=== PATIENT | female | born 2000 | race Caucasian/White ===

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

== ENCOUNTER 2021-07-20 20:32 | Inpatient (IN) | payer BC, SELFPAY ==
[2021-07-20] VITALS (9 sets, daily range): BP systolic 125–151; BP diastolic 73–102; PULSE 98–116; RESP 12–25; TEMP 36.8; O2SAT 97–100
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
[2021-07-20 21:12] LABS: Glucose Point of Care 108 mg/dL (70-110)
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
[2021-07-20 21:26] LABS: Basophils % 0.4 %; Eosinophils % 0.6 %; Hematocrit 38.9 % (37.0-47.0); Hemoglobin 12.9 g/dL (11.5-15.3); Lymphocytes # 1.9 10^3/uL (1.5-6.5); Lymphocytes % 35.6 %; Mean Corpuscular HGB Conc 33.2 g/dL (30.0-36.0); Mean Corpuscular Hemoglobin 28.3 pg (28.0-34.0); Mean Corpuscular Volume 85.3 fl (81-99); Mean Platelet Volume 10.2 fL (7.4-10.4); Monocytes # 0.4 10^3/uL (0.2-0.9); Monocytes % 7.8 %; Neutrophils # 2.91 10^3/uL (1.8-8.0); Neutrophils % 55.4 %; Nucleated Red Blood Cells % 0 %; Platelet Count 380 10^3/cmm (130-400); Red Blood Count 4.56 10^6/uL (4.1-5.3); Red Cell Distribution Width 12.9 % (12.1-15.1); White Blood Count 5.3 10^3/uL (4.5-13.0)
[2021-07-20 21:55] LABS: Alanine Aminotransferase 12 U/L (0-33); Albumin Level 4.9 g/dL (3.5-5.2); Alkaline Phosphatase 111 IU/L (35-105); Anion Gap 22.8 (5-19); Aspartate Amino Transferase 18 U/L (0-32); Blood Urea Nitrogen 7 mg/dL (6-20); Calcium 9.5 mg/dL (8.5-10.5); Carbon Dioxide 18 mmol/L (22-29); Chloride 104 mmol/L (98-107); Globulin 3.9 g/dL (1.3-4.6); Glomerular Filtration Rate 158.9 mL/min (90-130); Glucose 113 mg/dL (65-115); Osmolality Calculated 293 mOsm/kg (285-295); Sodium 142 mmol/L (136-145); Thyroid Stimulating Hormone 2.22 uIU/mL (0.27-4.20); Total Bilirubin 0.2 mg/dL (0.15-1.2); Total Protein 8.8 g/dL (6.6-8.7)
[2021-07-20 21:57] LABS: Salicylate < 0.3 mg/dL (3-10)
[2021-07-20 21:58] LABS: Acetaminophen < 5.0 ug/mL (10-30)
--- NOTE | 2021-07-20 21:58 | XRR_ITS ---
PROCEDURE INFORMATION: Exam: XR Chest Exam date and time: 07/20/2021 10:05 PM Age: 20 years old Clinical indication: Other: AMS TECHNIQUE: Imaging protocol: XR of the chest. Views: 1 view. COMPARISON: No relevant prior studies available. FINDINGS: Lungs: Unremarkable. No consolidation. Pleural spaces: Unremarkable. No pleural effusion. No pneumothorax. Heart/Mediastinum: Unremarkable. No cardiomegaly. Bones/joints: Unremarkable. XR/XR chest 1V portable 11395 IMPRESSION: No acute findings.
[2021-07-20 21:59] LABS: Alcohol Level 309 mg/dL (0-10); Potassium 2.8 mmol/L (3.5-5.1)
--- NOTE | 2021-07-20 22:26 | PC.NURSE ---
suctioing pt frequently and straight cath pt for urine sample put on paper pants scrubs
[2021-07-20] MEDS: sodium chloride 0.9% 1,000 ML 999 ML IV (22:45)
[2021-07-20 22:52] LABS: HCG Qualitative Urine. Negative (Negative)
[2021-07-20] MEDS: lidocaine 1% 5 ML in potassium chloride premix 100 ML 25 ML IV (23:00)
--- NOTE | 2021-07-20 23:21 | PC.NURSE ---
pt waking up asking if she is ok no aggressived behavior at this time
--- NOTE | 2021-07-20 23:58 | PC.NURSE ---
Ketamine 2045 - 250 mg IM ketamine administered - 100 mg to left vastus lateralis and 150 mg to right vastus lateralis
[2021-07-21] VITALS (7 sets, daily range): BP systolic 99–124; BP diastolic 62–75; PULSE 74–103; RESP 14–18; TEMP 36.6–37.3; O2SAT 96–99
[2021-07-21] MEDS: potassium chloride ER 20 mEq Tablet 60 MEQ PO (01:00)
[2021-07-21] MEDS: folic acid 1 MG, multivitamin inj 10 ML, thiamine 100 MG in sodium chloride 0.9% 1,000 ML 252.8 MG IV (01:34)
--- NOTE | 2021-07-21 03:06 | PC.NURSE ---
verbal order readback lina Mack to increase iv fluids to 500 mls/hr, potassium continues to infuse at 25 ml\hr
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
[2021-07-21] MEDS: nicotine 2 mg Gum BUCCAL ×2 (08:53→21:27)
[2021-07-21] MEDS: multivitamin therapeutic Tablet 1 TAB PO (08:53)
[2021-07-21] MEDS: folic acid 1 mg Tablet PO (08:53)
[2021-07-21] MEDS: thiamine 100 mg Tablet PO (08:53)
[2021-07-21] MEDS: OLANZapine 5 mg ODT PO ×2 (11:09→21:19)
[2021-07-21] MEDS: ondansetron 4 MG Tablet PO (11:09)
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
--- NOTE | 2021-07-21 14:18 | PC.SOCIAL ---
Patient briefly attended group.
[2021-07-21] MEDS: escitalopram 10 mg Tablet PO (14:52)
[2021-07-21] MEDS: propranolol 20 mg Tablet 10 MG PO ×2 (14:52→20:37)
[2021-07-21 19:20] LABS: Amphetamines Screen Urine Negative (Negative); Barbiturates Screen Urine Negative (Negative); Benzodiazepines Screen Urine Negative (Negative); Cocaine Screen Urine Negative (Negative); Opiate Screen Urine Negative (Negative); PCP Screen Urine Negative (Negative); THC Screen Urine Positive (Negative)
[2021-07-21] MEDS: trazodone 50 mg Tablet PO (20:37)
[2021-07-22 06:00] VITALS: BP 96/61; PULSE 61; RESP 17; TEMP 36.8; O2SAT 97
[2021-07-22] MEDS: propranolol 20 mg Tablet 10 MG PO ×3 (09:02→20:38)
[2021-07-22] MEDS: multivitamin therapeutic Tablet 1 TAB PO (09:02)
[2021-07-22] MEDS: thiamine 100 mg Tablet PO (09:02)
[2021-07-22] MEDS: folic acid 1 mg Tablet PO (09:02)
[2021-07-22] MEDS: escitalopram 10 mg Tablet PO (09:02)
[2021-07-22] MEDS: nicotine 2 mg Gum BUCCAL ×4 (11:19→20:38)
[2021-07-22 14:00] VITALS: BP 97/60; PULSE 68; RESP 16; TEMP 36.5; O2SAT 98
[2021-07-22] MEDS: blistex lip oint 7 gm Tube 1 APPLIC TOPICAL (14:43)
--- NOTE | 2021-07-22 17:40 | PC.NURSE ---
Patient is tearful and anxious regarding being on the unit. Patient verbalized this place is making her crazy. Active listening utilized. Encouraged patient to talk with the nurses and physician about how she is feeling and to request medication as needed for her anxiety. She voiced that she is missing her kids and while talking with her daughter on the phone her baby just cried and this was upsetting. Moved patient to a private room on the sub acute [facility]nandez.
[2021-07-22] MEDS: OLANZapine 5 mg ODT PO (17:45)
--- NOTE | 2021-07-22 18:18 | PC.NURSE ---
PRN MEDICATION PT BECAME TEARFUL AND AGITATED DUE TO NOT SEEING DOCTOR TODAY. STATES THIS PLACE IS MAKING ME CRAZY AND I NEED TO LEAVE. EDUCATED THAT SHE WAS ON A 96 HOUR HOLD AND THIS RN IS NOT ABLE TO DISCHARGE HER. OFFERED ANXIETY MEDICATIONS BUT REFUSED. VERBALLY DEESCALATED, PT STAYED IN ROOM FOR A FEW MINUTES AND CALMED DOWN. PT EVENTUALLY CAME TO NURSES STATION CALMLY AND REQUEST WATER AND SOMETHING FOR ANXIETY. ZYDIS 5 MG GIVEN ORDERED. PT BEGAN TO CONVERSE WITH PEERS AND STAFF AND BECAME ACCLIMATED TO THE UNIT. DID EVENTUALLY CALM AND MEDICATION IS NOTED EFFECTIVE.
--- NOTE | 2021-07-22 18:53 | P.NPUPN_ITS ---
Subjective NPU Subjective: She says that she feels much better. She feels like the medications are helping her. She has been significantly less shaky with the Inderal. She feels like she has been sweating a little more than previously. She has always sweat too much. She did not mention it until I said that Inderal was supposed to help with stage fright and sweaty palms. She thinks it is probably just her nerves and not the medication. She was told that it could be from the Lexapro. Her fianc? came to visit. He says that he is going to quit drinking. He is going to take some treatment for himself and try to change and treat her better. She is going to give him another chance. She says that she doesn't crave alcohol and it is just something to do for her. They both have to take parenting classes and an alcohol assessment at [facility] now that this is been reported. She very much wants to leave tomorrow. Her brother is graduating tomorrow and she wants to spend Mother's Day with her children. Most of the conversation for this note was done on the telephone. I did see her in person twice in the hallway and spoke briefly and she said that she was better. Mental Status Exam MSE Comments: This is a 20-year-old appropriate weight female who appears approximately her stated age and is in mild distress. She is pleasant and cooperative with the evaluation with good eye contact. She is fairly well- groomed. psychomotor activity mildly decreased. Speech is at a regular rate and rhythm, normal volume, good articulation, not pressured. Alert, oriented X3 Attention and concentration appear to be normal. Memory is intact Mood is depressed but better. Affect is moderately dysphoric. She appears anxious Thought process is logical and goal-directed. Thought content: Denies auditory and visual hallucinations. No delusions or paranoia are noted. No current suicidal ideation, and no homicidal ideation. Fund of knowledge is average. Insight and judgment appear to be fairly good. Impulse control is fair. Cognition: Level of Consciousness: Awake and Alert Patient Cognition Impaired: No Ability to Follow Directions: Good Patient Orientation (long list): Person, Place, Time, Month and Year Comprehension Ability: Understands Concepts Hallucination Type: None Delusion Description: Not Present Thought Process: Appropriate Affect: Affect Description: Appropriate and Calm Depressive Symptoms: Low Self Esteem Behavior: Patient Behavior: Appropriate and Cooperative Speech Pattern: Clear Vitals/I&O/Wt Last Vital Signs Temp 97.7 F 07/22/21 14:00 Pulse 68 07/22/21 14:00 Resp 16 07/22/21 14:00 BP 97/60 07/22/21 14:00 Pulse Ox 98 07/22/21 14:00 Weight last 48 hrs Weight 61.235 kg Data NPU : 07/20/21 21:10 07/20/21 21:10 A&P Assessment and plan (1) Acute psychosis: Status: Acute (2) Alcohol abuse: Status: Acute (3) Suicidal ideation: Status: Acute (4) Marijuana use: Status: Acute (5) PTSD (post-traumatic stress disorder): Status: Acute (6) Partner relational problem: Status: Acute Plan This is a 20-year-old female mother of 2 with a very traumatic childhood with PTSD and partner relation problems who presents psychotic with an alcohol level of 309. Plan: 1. We will start Lexapro 10 mg every morning, Inderal 10 mg 3 times a day and trazodone at bedtime 2. Continue every 15 minute checks for safety. 3. Encourage individual, group and milieu therapies. 4. Encourage sober living treatment after discharge at the highest level of care to which she is willing to commit. 5. We will monitor for safety for herself in the community prior to discharge. Involuntary Hold Information 96 Hour Hold: 96 Hour Involuntary Admission: Yes 96 Hour Hold Ending Date: 07/27/21 96 Hour Hold Ending Time: 20:30 Attestations NPU Medical Necessity Statement*: Inpatient hospitalization is medically necessary and the clinically appropriate intervention at this time.? We will initiate medications and make changes as indicated. 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
[2021-07-22 20:27] VITALS: BP 118/75; PULSE 72; RESP 16; O2SAT 98
[2021-07-22] MEDS: trazodone 50 mg Tablet PO (20:38)
[2021-07-23 05:59] VITALS: BP 113/75; PULSE 76; RESP 16; O2SAT 98
[2021-07-23] MEDS: nicotine 2 mg Gum BUCCAL (08:00)
[2021-07-23] MEDS: propranolol 20 mg Tablet 10 MG PO (08:00)
[2021-07-23] MEDS: escitalopram 10 mg Tablet PO (08:00)
[2021-07-23] MEDS: multivitamin therapeutic Tablet 1 TAB PO (08:01)
[2021-07-23] MEDS: folic acid 1 mg Tablet PO (08:01)
[2021-07-23] MEDS: thiamine 100 mg Tablet PO (08:01)
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
[2021-07-23 09:43] VITALS: BP 113/75; PULSE 76; RESP 16; O2SAT 98
== END 2021-07-23 10:05 | disposition home or self-care (01) | DRG 885 ==
LOC: ER 07-21 01:05 → NP 07-21 01:59
PROVIDERS: Emergency Medicine; Admitting Provider Psychiatry & Neurology Psychiatry; Emergency Provider Emergency Medicine; PCP Family Medicine; Visit Provider Psychiatry & Neurology Psychiatry
DX: F29 Unspecified psychosis not due to a substance or known physiological condition (principal); R45.851 Suicidal ideations; F10.10 Alcohol abuse, uncomplicated; F12.90 Cannabis use, unspecified, uncomplicated; F41.9 Anxiety disorder, unspecified; F43.10 Post-traumatic stress disorder, unspecified; Z63.0 Problems in relationship with spouse or partner
CPT/HCPCS: 36416; 71045; 80053; 80306; 80307; 81025; 82962; 84443; 85025; 96365; 96366; 96372; 97150; 97165; 99285; J3411; J3480; J3490; J7030; Q0162

== ENCOUNTER → 2021-08-10 09:35 | Outpatient (BNVA) | payer BC, MEDICAID, SELFPAY | PROVIDERS: PCP Family Medicine; Visit Provider Nurse Practitioner | DX: F41.1 Generalized anxiety disorder (principal); F12.20 Cannabis dependence, uncomplicated; F10.10 Alcohol abuse, uncomplicated; Z72.0 Tobacco use | CPT/HCPCS: 90792 ==

== ENCOUNTER 2022-07-15 14:21 | Emergency (ER) | payer BC, MEDICAID, SELFPAY ==
[2022-07-15 14:22] VITALS: BP 117/79; PULSE 99; RESP 16; TEMP 36.7; O2SAT 100
[2022-07-15 14:45] VITALS: BP 153/91; PULSE 80; RESP 17; TEMP 37.1; O2SAT 98
[2022-07-15 15:21] LABS: Basophils % 0.4 %; Eosinophils % 0.6 %; Hematocrit 38.3 % (37.0-47.0); Hemoglobin 12.5 g/dL (11.5-15.3); Lymphocytes # 1.2 10^3/uL (1.5-6.5); Lymphocytes % 22.2 %; Mean Corpuscular HGB Conc 32.6 g/dL (30.0-36.0); Mean Corpuscular Hemoglobin 29.3 pg (28.0-34.0); Mean Corpuscular Volume 89.7 fl (81-99); Mean Platelet Volume 9.8 fL (7.4-10.4); Monocytes # 0.3 10^3/uL (0.2-0.9); Monocytes % 5.9 %; Neutrophils # 3.82 10^3/uL (1.8-8.0); Neutrophils % 70.7 %; Nucleated Red Blood Cells % 0 %; Platelet Count 258 10^3/cmm (130-400); Red Blood Count 4.27 10^6/uL (4.1-5.3); Red Cell Distribution Width 12.5 % (12.1-15.1); White Blood Count 5.4 10^3/uL (4.5-13.0)
--- NOTE | 2022-07-15 15:34 | ED_ITS ---
HPI - Female Genitourinary General: Chief complaint: Urogenital-Female Stated complaint: around 4 or 5 weeks preg bleeding Time Seen by Provider: 07/15/22 15:16 History of Present Illness: Patient is a 21-year-old female who is 5 weeks and comes to the ED with vaginal bleeding. Bleeding started at 10 AM this morning. She reports bleeding as mild but states she is passing some clots. Patient says she did not even wear a pad before coming to the ED today because her bleeding is minimal. She is also complaining of generalized cramping pains in the abdomen as well that started today. Last menstrual period was June 08, 2022. Denies any fevers, nausea/vomiting, bladder or bowel symptoms Associated symptoms: Deny abdominal pain, headache(s) or nausea Review of Systems Const: Denies: fever(s), chills or fatigue Eyes: Denies: change in vision or eye discomfort ENMT: Denies: throat pain, odynophagia, nasal discharge or nasal congestion Card: Denies: chest pain, palpitations, edema, swelling of feet/ankles, dyspnea on exertion or orthopnea Resp: Denies: dyspnea, productive cough or non-productive cough GI: Denies: abdominal pain, nausea, vomiting, diarrhea, constipation or hematochezia : Reports: vaginal bleeding; Denies: flank pain, dysuria or hematuria Musc: Denies: neck pain, back pain or extremity swelling Skin/Breast: Denies: rash or new lesions Neuro: Denies: headache(s), numbness in extremities or weakness in extremities PFSH ED PFSH: Medical History Alcohol abuse, episodic Alcohol abuse, episodic drinking behavior Anxiety Cannabis dependence, uncomplicated Depression Generalized anxiety disorder Psychiatric care 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 Surgical History S/P adenoidectomy S/P tonsillectomy Family History Mother Psychiatric illness Depression, anxiety Cancer Cervical Anemia Father Psychiatric illness Depression Brother Psychiatric illness Depression, anxiety Sister Psychiatric illness Depression, anxiety Grandmother Cancer Breast Social History Smoking and tobacco status: never smoked Second hand smoke exposure: Yes Alcohol intake: never Substance/Drug Use: former Adopted: No Caregiver/support person: Yes Lives independently: Yes Marital status: Single Number of children: 0 Number of grandchildren: 0 Highest education level completed: 11th Grade service: No Current occupational status: unemployed Current occupational exposures/hazards: No Physical Exam Const: COMMON NORMALS: no acute distress, patient oriented x3, healthy appearing and alert GENERAL APPEARANCE: cooperative HENMT: COMMON NORMALS: normocephalic HEAD & SCALP: normocephalic MOUTH: Normal oral and palatal mucosa present THROAT: posterior oropharynx normal and uvula midline Neck/C-Spine: COMMON NORMALS: supple GENERAL: Yes normal visual inspection Resp: COMMON NORMALS: normal respiratory effort, No retractions, No use of accessory muscles and clear to auscultation bilaterally AUSCULTATION: clear to auscultation bilaterally Cardio: COMMON NORMALS: regular rate, regular rhythm, S1 normal heart sound present, S2 normal heart sound present, No gallops present (Cardio), No clicks present (Cardio), No murmurs present (Cardio) and Peripheral pulses 2+ throughout RATE: regular rate RHYTHM: regular rhythm HEART SOUNDS: S1 normal heart sound present and S2 normal heart sound present PERIPHERAL PULSES: Peripheral pulses 2+ throughout GI: COMMON NORMALS: Normal to inspection, nondistended, normoactive bowel sounds present, Soft to palpation, non-tender and no masses PALPATION: Yes Soft to palpation : COMMON NORMALS: Yes no CVA tenderness BLADDER/KIDNEY EXAM: Yes no CVA tenderness Back/Pelvis: COMMON NORMALS: no CVA tenderness Extremity: COMMON NORMALS: normal to inspection Neuro: COMMON NORMALS: patient oriented x3 SENSORIUM/ORIENTATION: Yes alert GAIT: Yes Normal gait present Skin: GENERAL SKIN EXAM: dry skin Course Vital Signs: Vital signs: Vital Signs Temperature 98.2 F 07/15/22 18:08 Pulse Rate 81 07/15/22 18:08 Respiratory Rate 14 07/15/22 18:08 Blood Pressure 104/53 07/15/22 18:08 Pulse Oximetry 98 07/15/22 18:08 Oxygen Delivery Me thod Room Air 07/15/22 14:45 MDM - Female Medical Decision Making Patient is a 21-year-old female who is 5 weeks and comes to the ED with vaginal bleeding. Bleeding started at 10 AM this morning. She reports bleeding as mild but states she is passing some clots. Patient says she did not even wear a pad before coming to the ED today because her bleeding is minimal. She is also complaining of generalized cramping pains in the abdomen as well that started today. Last menstrual period was June 08, 2022. Denies any fevers, nausea/vomiting, bladder or bowel symptoms. Vitals are stable. UA shows red blood cells, but no other signs of infection noted. hCG quant 142.4. Rest of labs are unremarkable. OB ultrasound showed no evidence of intrauterine gestation which could reflect early gestational age. Patient likely having threatened miscarriage and hCG quant level too low for anything to be seen on ultrasound. Patient was stable for discharge home and told to follow-up with her OB doctor within the next 3 days to recheck hCG quant levels to see if they are trending up or down. Strict return to ED precautions given. Patient understood and agreed with plan. Lab Data I reviewed the patient's lab results. 07/15/22 15:10 07/15/22 15:10 Radiology Impressions Obstetrics Ultrasound 07/15/22 15:38 IMPRESSION: No evidence of intrauterine gestation. This may relate to early gestational age. Consider serial beta hCGs and/or follow-up ultrasound to re-evaluate for viability. Laboratory Results WBC 5.4 10^3/uL (4.5-13.0) 07/15/22 15:10 RBC 4.27 10^6/uL (4.1-5.3) 07/15/22 15:10 Hgb 12.5 g/dL (11.5-15.3) 07/15/22 15:10 Hct 38.3 % (37.0-47.0) 07/15/22 15:10 MCV 89.7 fl (81-99) 07/15/22 15:10 MCH 29.3 pg (28.0-34.0) 07/15/22 15:10 MCHC 32.6 g/dL (30.0-36.0) 07/15/22 15:10 RDW 12.5 % (12.1-15.1) 07/15/22 15:10 Plt Count 258 10^3/cmm (130-400) 07/15/22 15:10 MPV 9.8 fL (7.4-10.4) 07/15/22 15:10 Neut % (Auto) 70.7 % 07/15/22 15:10 Lymph % (Auto) 22.2 % 07/15/22 15:10 [place] % (Auto) 5.9 % 07/15/22 15:10 Eos % (Auto) 0.6 % 07/15/22 15:10 Baso % (Auto) 0.4 % 07/15/22 15:10 Neut # (Auto) 3.82 10^3/uL (1.8-8.0) 07/15/22 15:10 Lymph # (Auto) 1.2 10^3/uL (1.5-6.5) L 07/15/22 15:10 [place] # (Auto) 0.3 10^3/uL (0.2-0.9) 07/15/22 15:10 Eos # (Auto) 0.0 10^3/uL (0.0-0.8) 07/15/22 15:10 Baso # (Auto) 0.0 10^3/uL (0.0-0.1) 07/15/22 15:10 Nucleated RBC % (auto) 0 % 07/15/22 15:10 Nucleated RBCs # 0.0 /100WBC 07/15/22 15:10 Sodium 141 mmol/L (136-145) 07/15/22 15:10 Potassium 3.5 mmol/L (3.5-5.1) 07/15/22 15:10 Chloride 103 mmol/L (98-107) 07/15/22 15:10 Carbon Dioxide 25 mmol/L (22-29) 07/15/22 15:10 Anion Gap 16.5 (5-19) 07/15/22 15:10 BUN 9 mg/dL (6-20) 07/15/22 15:10 Creatinine 0.7 mg/dL (0.5-0.9) 07/15/22 15:10 GFR Calculation 106.7 mL/min (90-130) 07/15/22 15:10 Glucose 62 mg/dL (65-115) L 07/15/22 15:10 Calculated Osmolality 289 mOsm/kg (285-295) 07/15/22 15:10 Calcium 9.2 mg/dL (8.5-10.5) 07/15/22 15:10 Total Bilirubin 0.4 mg/dL (0.15-1.2) 07/15/22 15:10 AST 15 U/L (0-32) 07/15/22 15:10 ALT 11 U/L (0-33) 07/15/22 15:10 Alkaline Phosphatase 80 U/L (35-105) 07/15/22 15:10 Total Protein 8.0 g/dL (6.6-8.7) 07/15/22 15:10 Albumin 4.9 g/dL (3.5-5.2) 07/15/22 15:10 Globulin 3.1 g/dL (1.3-4.6) 07/15/22 15:10 Ser , Semi-Qnt 142.40 mIU/mL 07/15/22 15:10 Urine Color Yellow (Yellow) 07/15/22 15:34 Urine Appearance Clear (CLEAR) 07/15/22 15:34 Urine pH 7 (5-7) 07/15/22 15:34 Ur Specific [place] 1.010 (1.005-1.030) 07/15/22 15:34 Urine Protein Neg (Negative) 07/15/22 15:34 Urine Glucose (UA) Norm (Normal) 07/15/22 15:34 Urine Ketones Negative (Negative) 07/15/22 15:34 Urine Blood 3+ (Negative) H 07/15/22 15:34 Urine Nitrate Negative (Negative) 07/15/22 15:34 Urine Bilirubin Neg (Negative) 07/15/22 15:34 Urine Urobilinogen 1 mg/dL (Negative) H 07/15/22 15:34 Ur Leukocyte Esterase Negative (Negative) 07/15/22 15:34 Urine RBC >100 /hpf (0-2) H 07/15/22 15:34 Urine WBC 0-4 /hpf (0-5) H 07/15/22 15:34 Ur Squamous Epith Cells 0-4 /hpf (0-5) H 07/15/22 15:34 Amorphous Sediment Not Reportable 07/15/22 15:34 Urine Bacteria Trace /hpf (NONE) 07/15/22 15:34 Urine Mucus 3+ /hpf 07/15/22 15:34 Blood Type O Negative 07/15/22 15:10 Rho(D) Type Negative 07/15/22 15:10 Antibody Screen Negative 07/15/22 15:10 Discharge Plan Discharge Patient Disposition: Home Clinical Impression: Threatened miscarriage in early Condition: Stable Prescriptions: No Action escitalopram oxalate 20 mg tablet 20 mg PO DAILY 30 Days Qty: 30 1RF Discharge Orders: Discharge ED (Routine); Ordered 07/15/22 Ordered By: Sarthak Morel Referrals: Shantal Lott MD [Primary Care Provider] - Discharge Diet: Regular Discharge Activity: Increase activity as tolerated Patient Instructions: Miscarriage (ED), Threatened Miscarriage (ED) Activity Restrictions/Additional Instructions: Follow-up with your OB doctor on Sunday or Sunday and have an hCG quant level rechecked. Your hCG quant level was 142 today. Take [id number] Tylenol to help with any pain. Return to the ER or your medical provider if condition worsens. Please read and understand discharge instructions. Thank you for choosing [facility] for your healthcare needs today. Please realize this is an emergency room and that we are providing you with a medical screening exam and this may not be complete and all inclusive of all the testing and or work up that you may need to determine your ailment or severity o f your illness. It is very important that you follow up as instructed or that you return to the Emergency Department should you have concerns or if your condition changes or worsens in any way. Coding Level of Care Code ED Inventory Specialist Manager for Haseeb Phillips
--- NOTE | 2022-07-15 15:38 | USR_ITS ---
PROCEDURE INFORMATION: Exam: US First Trimester, Transabdominal and US , Transvaginal Exam date and time: 07/15/2022 4:12 PM Age: 21 years old Clinical indication: Lmp or gestational age (in weeks): 5; Antepartum complications; Bleeding; ; Additional info: 5 weeks , with vaginal bleeding LABS AND CLINICAL REPORTS: Last menstrual period start date: 06/08/2022 Gestational age (Established): 5 w 2 d Estimated due date (Established): 03/15/2023 TECHNIQUE: Imaging protocol: Real-time transabdominal obstetrical ultrasound of the maternal pelvis and a first trimester , less than 14 weeks 0 days, with image documentation. Transvaginal imaging was used for better evaluation of the fetus, adnexa, and/or cervix. COMPARISON: US OB >= 14 weeks fetus [id number] 07/12/2020 3:03 PM FINDINGS: Uterus: No evidence of intrauterine gestation. Endometrial stripe measures 9 mm in thickness. Cervix: Unremarkable. Right ovary/adnexa: Right ovary measures 1.7 x 2.2 x 2.1 cm. No suspicious ovarian mass. Left ovary/adnexa: Left ovary measures 1.9 x 1.8 x 1.9 cm. No suspicious ovarian mass. Intraperitoneal space: No intraperitoneal free fluid. US/US OB <=14 wk fetus w transvag IMPRESSION: No evidence of intrauterine gestation. This may relate to early gestational age. Consider serial beta hCGs and/or follow-up ultrasound to re-evaluate for viability.
[2022-07-15 15:47] LABS: Alanine Aminotransferase 11 U/L (0-33); Albumin Level 4.9 g/dL (3.5-5.2); Alkaline Phosphatase 80 U/L (35-105); Anion Gap 16.5 (5-19); Aspartate Amino Transferase 15 U/L (0-32); Blood Urea Nitrogen 9 mg/dL (6-20); Calcium 9.2 mg/dL (8.5-10.5); Carbon Dioxide 25 mmol/L (22-29); Chloride 103 mmol/L (98-107); Globulin 3.1 g/dL (1.3-4.6); Glomerular Filtration Rate 106.7 mL/min (90-130); Glucose 62 mg/dL (65-115); Osmolality Calculated 289 mOsm/kg (285-295); Potassium 3.5 mmol/L (3.5-5.1); Sodium 141 mmol/L (136-145); Total Bilirubin 0.4 mg/dL (0.15-1.2)
[2022-07-15 15:55] LABS: Add Urine Culture? Yes; Add Urine Microscopic? YES; Bacteria Urine TRACE /hpf; Bilirubin Urine Neg (Negative); Blood Urine 3+ (Negative); Glucose Urine UA Norm (Normal); Ketones Urine Negative (Negative); Leukocyte Esterase Urine Negative (Negative); Mucus Urine 3+ /hpf; Nitrate Urine Negative (Negative); Protein Urine Neg (Negative); RBC Urine >100 /hpf (0-2); Squamous Epithelial Cell Urine 0-4 /hpf (0-5); Urine Appearance Clear (CLEAR); Urine Color Yellow (Yellow); Urobilinogen Urine 1 mg/dL (Negative); WBC Urine 0-4 /hpf (0-5); pH Urine 7 (5-7)
[2022-07-15 18:08] VITALS: BP 104/53; PULSE 81; RESP 14; TEMP 36.8; O2SAT 98
== END 2022-07-15 18:17 | disposition home or self-care (01) ==
PROVIDERS: Emergency Provider Physician Assistant; PCP Family Medicine
DX: O20.0 Threatened abortion (principal); Z3A.01 Less than 8 weeks gestation of pregnancy
CPT/HCPCS: 36430; 76801; 76817; 80053; 81001; 84702; 85025; 86850; 86900; 87086; 90384; 99285

== ENCOUNTER 2022-08-05 01:04 | Emergency (ER) | payer BC, MEDICAID, SELFPAY ==
[2022-08-05] VITALS (11 sets, daily range): BP systolic 102–124; BP diastolic 63–87; PULSE 98–112; RESP 14–18; TEMP 36.7; O2SAT 96–97; BMI 20.5
[2022-08-05] MEDS: LORazepam 2 mg/mL INJ 1 mL IVP (02:09)
--- NOTE | 2022-08-05 02:09 | CTR_ITS ---
PROCEDURE INFORMATION: Exam: CT Head Without Contrast Exam date and time: 08/05/2022 2:46 AM Age: 22 years old Clinical indication: Altered mental status/memory loss; Additional info: AMS TECHNIQUE: Imaging protocol: Computed tomography of the head without contrast. Radiation optimization: All CT scans at this facility use at least one of these dose optimization techniques: automated exposure control; mA and/or kV adjustment per patient size (includes targeted exams where dose is matched to clinical indication); or iterative reconstruction. REPORTING DATA: Count of CT and Cardiac NM exams in prior 12 months: This patient has received 0 known CTs and 0 known cardiac nuclear medicine studies in the 12 months prior to the current study. COMPARISON: No relevant prior studies available. RADIATION DOSE METRICS: Total DLP (mGy-cm): 1138.86 FINDINGS: Brain: Normal. No hemorrhage. Unremarkable white matter. No mass effect. Cerebral ventricles: No ventriculomegaly. Paranasal sinuses: Visualized sinuses are unremarkable. No fluid levels. Mastoid air cells: Visualized mastoid air cells are well aerated. Bones/joints: Unremarkable. No acute fracture. Soft tissues: Unremarkable. CT/CT head wo con* [id number] IMPRESSION: No acute intracranial abnormality.
--- NOTE | 2022-08-05 02:09 | XRR_ITS ---
PROCEDURE INFORMATION: Exam: XR Chest Exam date and time: 08/05/2022 2:39 AM Age: 22 years old Clinical indication: Other: AMS TECHNIQUE: Imaging protocol: Radiologic exam of the chest. Views: 1 view. COMPARISON: CR XR chest 1V portable [id number] 07/20/2021 10:05 PM FINDINGS: Lungs: Unremarkable. No consolidation. Pleural spaces: Unremarkable. No pleural effusion. No pneumothorax. Heart/Mediastinum: Unremarkable. No cardiomegaly. Bones/joints: Unremarkable. XR/XR chest 1V portable [id number] IMPRESSION: No acute findings.
[2022-08-05 02:18] LABS: Basophils % 0.2 %; Hematocrit 37.2 % (37.0-47.0); Hemoglobin 12.2 g/dL (11.5-15.3); Lymphocytes # 0.9 10^3/uL (0.8-4.8); Lymphocytes % 18.9 %; Mean Corpuscular HGB Conc 32.8 g/dL (30.0-36.0); Mean Corpuscular Hemoglobin 29.1 pg (28.0-34.0); Mean Corpuscular Volume 88.8 fl (81-99); Mean Platelet Volume 10.2 fL (7.4-10.4); Monocytes # 0.3 10^3/uL (0.2-0.9); Monocytes % 6.1 %; Neutrophils # 3.44 10^3/uL (1.8-7.7); Neutrophils % 74.6 %; Nucleated Red Blood Cells % 0 %; Platelet Count 248 10^3/cmm (130-400); Red Blood Count 4.19 10^6/uL (4.1-5.3); Red Cell Distribution Width 12.8 % (12.1-15.1); White Blood Count 4.6 10^3/uL (4.0-10.0)
[2022-08-05 02:39] LABS: Alanine Aminotransferase 13 U/L (0-33); Albumin Level 4.9 g/dL (3.5-5.2); Alcohol Level 218 mg/dL (0-10); Alkaline Phosphatase 89 U/L (35-105); Anion Gap 20.2 (5-19); Aspartate Amino Transferase 20 U/L (0-32); Blood Urea Nitrogen 10 mg/dL (6-20); Calcium 9.1 mg/dL (8.5-10.5); Carbon Dioxide 19 mmol/L (22-29); Chloride 108 mmol/L (98-107); Creatinine Clr Calc Pharmacy 153.3895; Globulin 2.9 g/dL (1.3-4.6); Glomerular Filtration Rate 155.7 mL/min (90-130); Glucose 106 mg/dL (65-115); Osmolality Calculated 297 mOsm/kg (285-295); Potassium 3.2 mmol/L (3.5-5.1); Sodium 144 mmol/L (136-145); Total Bilirubin 0.3 mg/dL (0.15-1.2); Total Protein 7.8 g/dL (6.6-8.7)
[2022-08-05 02:44] LABS: Acetaminophen < 5.0 ug/mL (10-30); Salicylate < 0.3 mg/dL (3-10)
--- NOTE | 2022-08-05 03:23 | ED.C_ITS ---
HPI - Psych General: Chief Complaint: Psychiatric Symptoms Stated Complaint: COMBATIVE Time Seen by Provider: 08/05/22 01:31 Source: patient History of Present Illness: 22-year-old female brought in by law enforcement and EMS. Evidently, she was combative on scene, and filed with police. She was apparently intoxicated. It is unclear otherwise why she was brought to the emergency department. The patient is not answering questions. She received ketamine and Haldol in route to the hospital. MD complaint: altered mental status Onset (ago): hour(s) Duration: constant History of same: Yes Context: recent alcohol abuse Associated symptoms: Reports other Treatments prior to arrival: physical restraints and chemical restraints Review of Systems General: Reports: ROS unobtainable due to medical condition PFSH ED PFSH: Medical History Alcohol abuse, episodic Alcohol abuse, episodic drinking behavior Anxiety Cannabis dependence, uncomplicated Depression Generalized anxiety disorder Psychiatric care 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 Surgical History S/P adenoidectomy S/P tonsillectomy Family History Mother Psychiatric illness Depression, anxiety Cancer Cervical Anemia Father Psychiatric illness Depression Brother Psychiatric illness Depression, anxiety Sister Psychiatric illness Depression, anxiety Grandmother Cancer Breast Social History Smoking and tobacco status: never smoked Second hand smoke exposure: Yes Alcohol intake: never Substance/Drug Use: former Adopted: No Caregiver/support person: Yes Lives independently: Yes Marital status: Single Number of children: 0 Number of grandchildren: 0 Highest education level completed: 11th Grade service: No Current occupational status: unemployed Current occupational exposures/hazards: No Physical Exam Const: GENERAL APPEARANCE: disheveled and lethargic; not ill appearing and not frail appearing ORIENTATION/CONSCIOUSNESS: Yes lethargic HENMT: COMMON NORMALS: normocephalic, atraumatic and Normal external nose present HEAD & SCALP: normocephalic and atraumatic FACE & SINUS: normal facial exam NOSE: Normal external nose present Eye: COMMON NORMALS: Equal, round and reactive pupils present and EOMs intact bilaterally PUPIL: Yes Equal, round and reactive pupils present Chest: CHEST: Yes Symmetrical chest wall rise Resp: COMMON NORMALS: normal respiratory effort, No use of accessory muscles and clear to auscultation bilaterally AUSCULTATION: clear to auscultation bilaterally Cardio: COMMON NORMALS: regular rhythm RATE: tachycardic RHYTHM: regular rhythm GI: INSPECTION: Yes normal to inspection Extremity: COMMON NORMALS: no pedal edema Neuro: SENSORIUM/ORIENTATION: Yes lethargic Psych: COMMON NORMALS: negative for cooperative ACTIVITY/MOTOR BEHAVIOR: Yes fidgeting Course Vital Signs: Vital signs: Vital Signs Temperature 98.0 F 08/05/22 01:05 Pulse Rate 98 08/05/22 09:21 Respiratory Rate 16 08/05/22 09:21 Blood Pressure 102/68 08/05/22 09:21 Pulse Oximetry 97 08/05/22 09:21 Oxygen Delivery Me thod Room Air 08/05/22 06:00 MDM - Psych Medical Decision Making Patient had been given ketamine and IV Haldol in route. She was not answering questions. Vitals are otherwise essentially stable besides mild tachycardia. Potassium is 3.2. Other laboratory is benign. Ethyl alcohol is 218. Urinalysis and urine drug screen and urine are pending. 0418: Patient has been resting comfortably. She continues to oxygenate well. No signs of distress. She will be allowed discharge when she wakes Lab Data 08/05/22 00:15 08/05/22 00:15 Radiology Impressions Chest X-Ray 08/05/22 02:09 IMPRESSION: No acute findings. Head CT 08/05/22 02:09 IMPRESSION: No acute intracranial abnormality. Laboratory Results WBC 4.6 10^3/uL (4.0-10.0) 08/05/22 00:15 RBC 4.19 10^6/uL (4.1-5.3) 08/05/22 00:15 Hgb 12.2 g/dL (11.5-15.3) 08/05/22 00:15 Hct 37.2 % (37.0-47.0) 08/05/22 00:15 MCV 88.8 fl (81-99) 08/05/22 00:15 MCH 29.1 pg (28.0-34.0) 08/05/22 00:15 MCHC 32.8 g/dL (30.0-36.0) 08/05/22 00:15 RDW 12.8 % (12.1-15.1) 08/05/22 00:15 Plt Count 248 10^3/cmm (130-400) 08/05/22 00:15 MPV 10.2 fL (7.4-10.4) 08/05/22 00:15 Neut % (Auto) 74.6 % 08/05/22 00:15 Lymph % (Auto) 18.9 % 08/05/22 00:15 [place] % (Auto) 6.1 % 08/05/22 00:15 Eos % (Auto) 0.0 % 08/05/22 00:15 Baso % (Auto) 0.2 % 08/05/22 00:15 Neut # (Auto) 3.44 10^3/uL (1.8-7.7) 08/05/22 00:15 Lymph # (Auto) 0.9 10^3/uL (0.8-4.8) 08/05/22 00:15 [place] # (Auto) 0.3 10^3/uL (0.2-0.9) 08/05/22 00:15 Eos # (Auto) 0.0 10^3/uL (0.0-0.8) 08/05/22 00:15 Baso # (Auto) 0.0 10^3/uL (0.0-0.1) 08/05/22 00:15 Nucleated RBC % (auto) 0 % 08/05/22 00:15 Nucleated RBCs # 0.0 /100WBC 08/05/22 00:15 Sodium 144 mmol/L (136-145) 08/05/22 00:15 Potassium 3.2 mmol/L (3.5-5.1) L 08/05/22 00:15 Chloride 108 mmol/L (98-107) H 08/05/22 00:15 Carbon Dioxide 19 mmol/L (22-29) L 08/05/22 00:15 Anion Gap 20.2 (5-19) H 08/05/22 00:15 BUN 10 mg/dL (6-20) 08/05/22 00:15 Creatinine 0.5 mg/dL (0.5-0.9) 08/05/22 00:15 GFR Calculation 155.7 mL/min (90-130) H 08/05/22 00:15 Glucose 106 mg/dL (65-115) 08/05/22 00:15 Calculated Osmolality 297 mOsm/kg (285-295) H 08/05/22 00:15 Calcium 9.1 mg/dL (8.5-10.5) 08/05/22 00:15 Total Bilirubin 0.3 mg/dL (0.15-1.2) 08/05/22 00:15 AST 20 U/L (0-32) 08/05/22 00:15 ALT 13 U/L (0-33) 08/05/22 00:15 Alkaline Phosphatase 89 U/L (35-105) 08/05/22 00:15 Total Protein 7.8 g/dL (6.6-8.7) 08/05/22 00:15 Albumin 4.9 g/dL (3.5-5.2) 08/05/22 00:15 Globulin 2.9 g/dL (1.3-4.6) 08/05/22 00:15 Salicylates < 0.3 mg/dL (3-10) L 08/05/22 00:15 Acetaminophen < 5.0 ug/mL (10-30) L 08/05/22 00:15 Ethyl Alcohol 218 mg/dL (0-10) H 08/05/22 00:15 Discharge Plan Discharge Patient Disposition: Home Clinical Impression: Alcohol intoxication Condition: Stable Prescriptions: No Action escitalopram oxalate 20 mg tablet 20 mg PO DAILY 30 Days Qty: 30 1RF Discharge Orders: Discharge ED (Routine); Ordered 08/05/22 Ordered By: Roberto Vargas Referrals: Shantal Lott MD [Primary Care Provider] - Patient Instructions: Alcohol Intoxication (ED), Opioid Safety, Pain Management Activity Restrictions/Additional Instructions: Return for any thoughts or wishes to harm yourself or anyone else. You should go home to the custody of a responsible sober adult. Coding Level of Care Code ED Felt Washing Machine Tender for Haseeb Phillips
[2022-08-05] MEDS: potassium chloride ER 20 mEq Tablet 40 MEQ PO (06:11)
--- NOTE | 2022-08-05 08:03 | PC.NURSE ---
PT AWAKE SITTING IN RECLINER BY ROOM 9. SITTER PRESENT.
--- NOTE | 2022-08-05 09:00 | PC.NURSE ---
pt rounding pt asleep at this time. report given to this nurse that pt is dc'd upon waking.
== END 2022-08-05 09:00 | disposition home or self-care (01) ==
PROVIDERS: Emergency Provider Emergency Medicine; PCP Family Medicine
DX: F10.920 Alcohol use, unspecified with intoxication, uncomplicated (principal); Y90.7 Blood alcohol level of 200-239 mg/100 ml; R00.0 Tachycardia, unspecified; E87.6 Hypokalemia
CPT/HCPCS: 70450; 71045; 80053; 80307; 85025; 96374; 99285; J2060

== ENCOUNTER 2022-10-28 02:08 | Emergency (ER) | payer BC, MEDICAID, SELFPAY ==
[2022-10-28 02:15] VITALS: BP 113/73; PULSE 97; RESP 16; TEMP 37; O2SAT 99; BMI 21.7
[2022-10-28 02:27] LABS: Basophils % 0.1 %; Eosinophils % 0.4 %; Hematocrit 33.9 % (37.0-47.0); Hemoglobin 11.7 g/dL (11.5-15.3); Lymphocytes # 1.4 10^3/uL (0.8-4.8); Lymphocytes % 14.9 %; Mean Corpuscular HGB Conc 34.5 g/dL (30.0-36.0); Mean Corpuscular Hemoglobin 29.5 pg (28.0-34.0); Mean Corpuscular Volume 85.4 fl (81-99); Mean Platelet Volume 9.9 fL (7.4-10.4); Monocytes # 0.3 10^3/uL (0.2-0.9); Monocytes % 3.7 %; Neutrophils # 7.34 10^3/uL (1.8-7.7); Neutrophils % 80.6 %; Nucleated Red Blood Cells % 0 %; Platelet Count 258 10^3/cmm (130-400); Red Blood Count 3.97 10^6/uL (4.1-5.3); Red Cell Distribution Width 11.9 % (12.1-15.1); White Blood Count 9.1 10^3/uL (4.0-10.0)
--- NOTE | 2022-10-28 02:32 | W.ED.ABDPA2 ---
HPI - Abdominal Pain General: Chief Complaint: Abdominal Pain Stated Complaint: abd pain/ Time Seen by Provider: 10/28/22 02:11 Source: patient Mode of arrival: ambulatory Limitations: no limitations History of Present Illness: 22-year-old female states she is roughly 10 to 12 weeks states that tonight roughly 3 to 4 hours ago started having some nausea along with abdominal cramping she states that suprapubic and epigastric in nature rates the pain a 5 out of 10 she denies any fevers denies any vomiting denies any vaginal bleeding. Associated Symptoms: Reports nausea; Denies chills, diarrhea, dysuria, fever(s) and vomiting Review of Systems Const: Denies: fever(s), chills, body aches or change in appetite Eyes: Denies: blurry vision or eye discomfort ENMT: Denies: throat pain or dental pain Card: Denies: chest pain Resp: Denies: dyspnea GI: Reports: abdominal pain and nausea; Denies: vomiting or diarrhea : Denies: dysuria Musc: Denies: neck pain or back pain Skin/Breast: Denies: rash Neuro: Denies: headache(s) PFSH ED PFSH: Medical History Alcohol abuse, episodic Alcohol abuse, episodic drinking behavior Anxiety Cannabis dependence, uncomplicated Depression Generalized anxiety disorder Psychiatric care 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 Surgical History S/P adenoidectomy S/P tonsillectomy Family History Mother Psychiatric illness Depression, anxiety Cancer Cervical Anemia Father Psychiatric illness Depression Brother Psychiatric illness Depression, anxiety Sister Psychiatric illness Depression, anxiety Grandmother Cancer Breast Social History Smoking and tobacco status: never smoked Second hand smoke exposure: Yes Alcohol intake: never Substance/Drug Use: former Adopted: No Caregiver/support person: Yes Lives independently: Yes Marital status: Single Number of children: 0 Number of grandchildren: 0 Highest education level completed: 11th Grade service: No Current occupational status: unemployed Current occupational exposures/hazards: No Physical Exam Const: COMMON NORMALS: no acute distress, patient oriented x3 and healthy appearing HENMT: COMMON NORMALS: normocephalic and atraumatic HEAD & SCALP: normocephalic and atraumatic Neck/C-Spine: COMMON NORMALS: full ROM and supple Chest: COMMONS NORMALS: normal inspection of the chest and normal palpation of entire chest wall Resp: COMMON NORMALS: normal respiratory effort, No retractions, No use of accessory muscles and clear to auscultation bilaterally AUSCULTATION: clear to auscultation bilaterally Cardio: COMMON NORMALS: regular rate, regular rhythm and No murmurs present (Cardio) RATE: regular rate RHYTHM: regular rhythm GI: COMMON NORMALS: Normal to inspection, nondistended, normoactive bowel sounds present, Soft to palpation and no masses PALPATION: Yes Soft to palpation OTHER: Some slight epigastric and suprapubic tenderness no tenderness over McBurney's point Extremity: COMMON NORMALS: normal to inspection and full ROM Neuro: COMMON NORMALS: patient oriented x3, moves all extremities and no focal motor deficits Psych: COMMON NORMALS: mental status grossly normal, Normal thought process present and cooperative THOUGHT PROCESS: Normal thought process present Skin: COMMON NORMALS: no rashes or lesions noted and no wounds GENERAL SKIN EXAM: no rashes or lesions noted Course Vital Signs: Vital signs: Vital Signs Temperature 98.6 F 10/28/22 02:15 Pulse Rate 97 10/28/22 02:15 Respiratory Rate 16 10/28/22 02:15 Blood Pressure 113/73 10/28/22 02:15 Pulse Oximetry 99 10/28/22 02:15 Oxygen Delivery Me thod Room Air 10/28/22 02:15 MDM - Abdominal Pain Medical Decision Making Patient presents here with abdominal pain in her pain here is resolved after Reglan I did a bedside ultrasound that showed IUP consistent with dates heart tones 148 her blood works normal white counts normal no signs appendicitis she is follow-up with PCP and return if worsening she understands agrees to plan. Medical Records I reviewed the patient's medical records. Lab Data I reviewed the patient's lab results. 10/28/22 02:21 10/28/22 02:21 Labs/Radiology: Laboratory Results WBC 9.1 10^3/uL (4.0-10.0) 10/28/22 02:21 RBC 3.97 10^6/uL (4.1-5.3) L 10/28/22 02:21 Hgb 11.7 g/dL (11.5-15.3) 10/28/22 02:21 Hct 33.9 % (37.0-47.0) L 10/28/22 02:21 MCV 85.4 fl (81-99) 10/28/22 02:21 MCH 29.5 pg (28.0-34.0) 10/28/22 02:21 MCHC 34.5 g/dL (30.0-36.0) 10/28/22 02:21 RDW 11.9 % (12.1-15.1) L 10/28/22 02:21 Plt Count 258 10^3/cmm (130-400) 10/28/22 02:21 MPV 9.9 fL (7.4-10.4) 10/28/22 02:21 Neut % (Auto) 80.6 % 10/28/22 02:21 Lymph % (Auto) 14.9 % 10/28/22 02:21 [place] % (Auto) 3.7 % 10/28/22 02:21 Eos % (Auto) 0.4 % 10/28/22 02:21 Baso % (Auto) 0.1 % 10/28/22 02:21 Neut # (Auto) 7.34 10^3/uL (1.8-7.7) 10/28/22 02:21 Lymph # (Auto) 1.4 10^3/uL (0.8-4.8) 10/28/22 02:21 [place] # (Auto) 0.3 10^3/uL (0.2-0.9) 10/28/22 02:21 Eos # (Auto) 0.0 10^3/uL (0.0-0.8) 10/28/22 02:21 Baso # (Auto) 0.0 10^3/uL (0.0-0.1) 10/28/22 02:21 Nucleated RBC % (auto) 0 % 10/28/22 02:21 Nucleated RBCs # 0.0 /100WBC 10/28/22 02:21 Sodium 136 mmol/L (136-145) 10/28/22 02:21 Potassium 3.4 mmol/L (3.5-5.1) L 10/28/22 02:21 Chloride 102 mmol/L (98-107) 10/28/22 02:21 Carbon Dioxide 24 mmol/L (22-29) 10/28/22 02:21 Anion Gap 13.4 (5-19) 10/28/22 02:21 BUN 8 mg/dL (6-20) 10/28/22 02:21 Creatinine 0.4 mg/dL (0.5-0.9) L 10/28/22 02:21 GFR Calculation 201.5 mL/min (90-130) H 10/28/22 02:21 Glucose 97 mg/dL (65-115) 10/28/22 02:21 Calculated Osmolality 280 mOsm/kg (285-295) L 10/28/22 02:21 Calcium 9.3 mg/dL (8.5-10.5) 10/28/22 02:21 Total Bilirubin 0.2 mg/dL (0.15-1.2) 10/28/22 02:21 AST 10 U/L (0-32) 10/28/22 02:21 ALT 7 U/L (0-33) 10/28/22 02:21 Alkaline Phosphatase 66 U/L (35-105) 10/28/22 02:21 Total Protein 7.4 g/dL (6.6-8.7) 10/28/22 02:21 Albumin 4.1 g/dL (3.5-5.2) 10/28/22 02:21 Globulin 3.3 g/dL (1.3-4.6) 10/28/22 02:21 Lipase 23 U/L (13-60) 10/28/22 02:21 Ser , Semi-Qnt 17437.00 mIU/mL 10/28/22 02:21 Urine Color Yellow (Yellow) 10/28/22 02:26 Urine Appearance Cloudy (CLEAR) A 10/28/22 02:26 Urine pH 7 (5-7) 10/28/22 02:26 Ur Specific [place] 1.015 (1.005-1.030) 10/28/22 02:26 Urine Protein Neg (Negative) 10/28/22 02:26 Urine Glucose (UA) Norm (Normal) 10/28/22 02:26 Urine Ketones Negative (Negative) 10/28/22 02:26 Urine Blood 3+ (Negative) H 10/28/22 02:26 Urine Nitrate Negative (Negative) 10/28/22 02:26 Urine Bilirubin Neg (Negative) 10/28/22 02:26 Urine Urobilinogen 1 mg/dL (Negative) H 10/28/22 02:26 Ur Leukocyte Esterase Negative (Negative) 10/28/22 02:26 Urine RBC 15-25 /hpf (0-2) H 10/28/22 02:26 Urine WBC 0-4 /hpf (0-5) H 10/28/22 02:26 Ur Squamous Epith Cells 15-25 /hpf (0-5) H 10/28/22 02:26 Amorphous Sediment 3+ /hpf 10/28/22 02:26 Urine Bacteria Trace /hpf (NONE) 10/28/22 02:26 Urine Mucus 1+ /hpf 10/28/22 02:26 Ethyl Alcohol < 10 mg/dL (0-10) 10/28/22 02:21 Discharge Plan Discharge Patient Disposition: Home Clinical Impression: Abdominal pain affecting , antepartum Condition: Stable Prescriptions: New metoclopramide HCl [Reglan] 10 mg tablet 10 mg PO Q6H PRN (Reason: nausea and vomiting) Qty: 20 0RF No Action escitalopram oxalate 20 mg tablet 20 mg PO DAILY 30 Days Qty: 30 1RF Discharge Orders: Discharge ED (Routine); Ordered 10/28/22 Ordered By: Dino Naylor Referrals: Ruben Deluna MD [Primary Care Provider] - Discharge Diet: Advance as tolerated Discharge Activity: Resume usual activity Patient Instructions: Abdominal Pain (ED) Coding Level of Care Code ED Glove Sewer for Haseeb Phillips
[2022-10-28 02:41] LABS: Bilirubin Urine Neg (Negative); Blood Urine 3+ (Negative); Glucose Urine UA Norm (Normal); Ketones Urine Negative (Negative); Nitrate Urine Negative (Negative); Protein Urine Neg (Negative); Specific Gravity, Urine 1.015 (1.005-1.030); Urine Appearance Cloudy (CLEAR); Urine Color Yellow (Yellow); pH Urine 7 (5-7)
[2022-10-28] MEDS: sodium chloride 0.9% 1,000 ML 999 ML IV (02:41)
[2022-10-28] MEDS: diphenhydrAMINE 50 mg/mL SDV 1mL IVP (02:41)
[2022-10-28] MEDS: metoclopramide 5 mg/mL SDV 2 mL 10 MG IVP (02:41)
[2022-10-28 02:42] LABS: Urobilinogen Urine 1 mg/dL (Negative)
[2022-10-28 02:49] LABS: Add Urine Microscopic? YES; Leukocyte Esterase Urine Negative (Negative)
[2022-10-28 02:50] LABS: Squamous Epithelial Cell Urine 15-25 /hpf (0-5); WBC Urine 0-4 /hpf (0-5)
[2022-10-28 02:53] LABS: RBC Urine 15-25 /hpf (0-2)
[2022-10-28 02:54] LABS: Amorphous Sediment Urine 3+ /hpf; Bacteria Urine TRACE /hpf; Mucus Urine 1+ /hpf
[2022-10-28 02:55] LABS: Alcohol Level < 10 mg/dL (0-10)
[2022-10-28 02:55] LABS: Add Urine Culture? No
[2022-10-28 03:08] LABS: Alanine Aminotransferase 7 U/L (0-33); Albumin Level 4.1 g/dL (3.5-5.2); Alkaline Phosphatase 66 U/L (35-105); Anion Gap 13.4 (5-19); Aspartate Amino Transferase 10 U/L (0-32); Blood Urea Nitrogen 8 mg/dL (6-20); Calcium 9.3 mg/dL (8.5-10.5); Carbon Dioxide 24 mmol/L (22-29); Chloride 102 mmol/L (98-107); Globulin 3.3 g/dL (1.3-4.6); Glomerular Filtration Rate 201.5 mL/min (90-130); Glucose 97 mg/dL (65-115); Lipase 23 U/L (13-60); Osmolality Calculated 280 mOsm/kg (285-295); Potassium 3.4 mmol/L (3.5-5.1); Sodium 136 mmol/L (136-145); Total Bilirubin 0.2 mg/dL (0.15-1.2); Total Protein 7.4 g/dL (6.6-8.7)
[2022-10-28 03:25] VITALS: BP 100/57; PULSE 84; RESP 18; O2SAT 100
== END 2022-10-28 03:31 | disposition home or self-care (01) ==
PROVIDERS: Emergency Provider Emergency Medicine; PCP Family Medicine
DX: O26.891 Other specified pregnancy related conditions, first trimester (principal); R10.9 Unspecified abdominal pain; Z3A.10 10 weeks gestation of pregnancy; Z77.22 Contact with and (suspected) exposure to environmental tobacco smoke (acute) (chronic)
CPT/HCPCS: 36415; 80053; 80307; 81001; 83690; 84702; 85025; 96374; 96375; 99284; J1200; J2765; J7030

== ENCOUNTER 2023-01-12 23:12 | Outpatient (CLI) | payer BC, MEDICAID, SELFPAY ==
[2023-01-12 23:24] VITALS: BP 110/59; PULSE 92; TEMP 36.1
[2023-01-12 23:36] VITALS: TEMP 36.1
[2023-01-12 23:39] VITALS: BP 106/61; PULSE 82; BMI 22.2
[2023-01-12 23:54] VITALS: BP 102/68; PULSE 88
[2023-01-13 00:09] VITALS: BP 102/66; PULSE 78
[2023-01-13 00:24] VITALS: BP 101/62; PULSE 78
[2023-01-13 00:29] LABS: Add Urine Culture? No; Amorphous Sediment Urine 2+ /hpf; Bacteria Urine TRACE /hpf; Bilirubin Urine Neg (Negative); Blood Urine 2+ (Negative); Glucose Urine UA Norm (Normal); Ketones Urine 1+ (Negative); Leukocyte Esterase Urine Trace (Negative); Mucus Urine 1+ /hpf; Nitrate Urine Negative (Negative); Protein Urine Neg (Negative); RBC Urine 0-4 /hpf (0-2); Urine Appearance Clear (CLEAR); Urine Color Colorless (Yellow); Urobilinogen Urine Neg (Negative); WBC Urine 0-4 /hpf (0-5); pH Urine 7 (5-7)
[2023-01-13 00:39] VITALS: BP 105/59; PULSE 74
[2023-01-13] MEDS: acetaminophen 500 mg Tablet 1000 MG PO (00:45)
[2023-01-13 01:01] VITALS: BP 105/59; PULSE 74; RESP 16
== END 2023-01-13 01:03 | disposition home or self-care (01) ==
LOC: OPOB 23:13 → OBGYN 23:13
PROVIDERS: PCP Family Medicine; Visit Provider Family Medicine
DX: O26.899 Other specified pregnancy related conditions, unspecified trimester (principal); Z3A.00 Weeks of gestation of pregnancy not specified; R10.9 Unspecified abdominal pain
CPT/HCPCS: 81001; 99211

== ENCOUNTER 2023-02-06 07:53 | Oncology outpatient (recurring) (ONCR) | payer BC, MEDICAID, SELFPAY ==
[2023-02-06 08:04] VITALS: BP 96/62; PULSE 71; RESP 16; TEMP 36.6; O2SAT 98
[2023-02-06 09:59] VITALS: BP 110/70; PULSE 69; RESP 18; TEMP 36.2; O2SAT 99
[2023-02-06 10:00] VITALS: BP 110/70; PULSE 69; RESP 17; TEMP 36.6; O2SAT 99
== END 2023-02-15 23:59 | disposition home or self-care (01) ==
PROVIDERS: PCP Family Medicine; Visit Provider Family Medicine
DX: O36.0990 Maternal care for other rhesus isoimmunization, unspecified trimester, not applicable or unspecified (principal); Z67.91 Unspecified blood type, Rh negative
CPT/HCPCS: 36415; 36430; 86850; 86900; 90384

== ENCOUNTER 2023-04-17 14:00 | Outpatient (CLI) | payer BC, MEDICAID, SELFPAY ==
[2023-04-17] VITALS (7 sets, daily range): BP systolic 99–111; BP diastolic 58–63; PULSE 73–90; BMI 24.8
[2023-04-17 14:48] LABS: Nitrazine Paper, PH Negative
== END 2023-04-17 16:15 | disposition home or self-care (01) ==
LOC: OPOB 14:05 → OBGYN 14:08
PROVIDERS: Absent Provider Family Medicine; Family Provider Family Medicine; PCP Family Medicine; Visit Provider Family Medicine
DX: O26.899 Other specified pregnancy related conditions, unspecified trimester (principal); Z3A.00 Weeks of gestation of pregnancy not specified; R10.9 Unspecified abdominal pain; N89.8 Other specified noninflammatory disorders of vagina; R10.2 Pelvic and perineal pain
CPT/HCPCS: 59025; 83986; 99211

== ENCOUNTER 2023-04-18 02:17 | Inpatient (IN) | payer BC, MEDICAID, SELFPAY ==
[2023-04-18] VITALS (60 sets, daily range): BP systolic 82–160; BP diastolic 45–109; PULSE 57–163; RESP 15–18; TEMP 36.1–36.8; O2SAT 82–100; BMI 17.8; BMI 24.9
[2023-04-18] MEDS: acetaminophen 500 mg Tablet 1000 MG PO (01:14)
[2023-04-18 02:20] LABS: Basophils % 0.2 %; Eosinophils % 0.1 %; Hematocrit 33.1 % (36-47); Lymphocytes # 1.4 10^3/uL (0.8-4.8); Lymphocytes % 14.4 %; Mean Corpuscular HGB Conc 33.2 g/dL (30-55); Mean Corpuscular Hemoglobin 29.3 pg (27-33); Monocytes # 0.5 10^3/uL (0.2-0.9); Monocytes % 5.7 %; Neutrophils # 7.49 10^3/uL (1.8-7.7); Neutrophils % 79.4 %; Nucleated Red Blood Cells % 0 %; Platelet Count 234 10^3/cmm (157-399); Red Blood Count 3.76 10^6/uL (3.85-5.65); Red Cell Distribution Width 12.7 % (12.1-15.1); White Blood Count 9.44 10^3/uL (3.29-11.43)
[2023-04-18] MEDS: lactated ringers 1,000 ML 999 ML IV (02:20)
[2023-04-18] MEDS: ondansetron 2 mg/ML SDV 2 mL 4 MG IVP (02:21)
--- NOTE | 2023-04-18 02:57 | P.ANESASSM_ITS ---
Pre-Anesthetic Assessment Height/Weight: Height 1.68 m Weight 70.08 kg Temp Pulse Resp BP O2 Del Method 98.3 F 66 15 113/73 Room Air 04/18/23 01:59 04/18/23 01:53 04/18/23 01:59 04/18/23 01:53 04/18/23 02:30 Preop Diagnosis: labor pain epidural Familial anesthetic complications: none Was Beta Ibrahima taken within 24 hours: N/A Was Clonidine taken within 24 hours: N/A Exam alert, oriented x 3, clear to auscultation bilaterally and regular rate & rhythm Airway Submandibular: within normal limits Cervical ROM: within normal limits Mallampati: Class II Dentition: full Pulmonary None reported CV/HEM Murmur None reported Hepatic None reported GI Gastroesophageal Reflux Disease Metabolic None reported Musc/skel None reported Neuropsych Anxiety Anesthetic Plan ASA status: 2 Anesthesia: Regional (specify below) Risk of > 500 ml blood loss (7ml/kg in children): No Medications/Allergies Home Medications Medication Instructions Recorded Confirmed Last Taken Type escitalopram oxalate 20 mg tablet 20 mg PO DAILY 30 days #30 tabs 10/31/21 10/31/21 Unknown Rx metoclopramide HCl 10 mg tablet 10 mg PO Q6H PRN nausea and 10/28/22 Unknown Rx (Reglan) vomiting #20 tabs Allergies Allergy/AdvReac Type Severity Reaction Status Date / Time No Known Allergies Allergy Verified 10/31/21 14:36 Current Medications Generic Name Dose Route Start Last Admin Trade Name Freq PRN Reason Stop Dose Admin Lactated Ringer's 1,000 mls @ 999 mls/hr 04/18/23 01:59 04/18/23 02:20 Lactated Ringers IV 999 mls/hr .Q1H1M PRN Administration See label comments Ondansetron HCl 4 mg 04/18/23 01:59 04/18/23 02:21 Ondansetron 2 Mg/Ml Sdv 2 Ml IVP 4 mg Q4H PRN Administration NAUSEA AND VOMITING PFSH Anesthesia Medical History (Updated 11/05/22 @ 00:01 by NELLA Dillon) Alcohol abuse, episodic drinking behavior Generalized anxiety disorder 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 Alcohol abuse, episodic Cannabis dependence, uncomplicated Depression Anxiety Surgical History S/P tonsillectomy S/P adenoidectomy Family History Mother Psychiatric illness Depression, anxiety Cancer Cervical Anemia Father Psychiatric illness Depression Brother Psychiatric illness Depression, anxiety Sister Psychiatric illness Depression, anxiety Grandmother Cancer Breast Social History Smoking and tobacco/nicotine status: never used tobacco/nicotine Second hand smoke exposure: Yes Alcohol intake: never Substance/Drug Use: former Adopted: No Caregiver/support person: Yes Lives independently: Yes Marital status: Single Number of children: 0 Number of grandchildren: 0 Highest education level completed: 11th Grade service: No Current occupational status: unemployed Current occupational exposures/hazards: No Female Reproductive History : 5 Data Anesthesia 04/18/23 02:12 Short CBC 04/18/23 Range/Units 02:12 WBC 9.44 (3.29-11.43) 10^3/uL Hgb 11.00 L (11.27-16.99) g/dL Hct 33.1 L (36-47) % MCV 88.0 (85-98) fl Plt Count 234 (157-399) 10^3/cmm Neut % (Auto) 79.4 % Neut # (Auto) 7.49 (1.8-7.7) 10^3/uL Blood Bank 04/18/23 02:12 Blood Type O Negative Rho(D) Type Negative Cardiac Studies: 2 No Data to Display
[2023-04-18] MEDS: ROPivacaine syringe 100 MG/50 ML SYRINGE 10 MG EPIDURAL (03:16)
--- NOTE | 2023-04-18 03:24 | ANES.PROC ---
Anesthesia Procedures Procedure/Date: 04/18/23 epidural Procedure Narrative: epidural complete, bolus given, epidural pump initiated with [employer]CISION [employer]SEM[employer]Y INSPECTOR education given, vitals taken during procedure satisfactory throughout, patient admits to decrease pain, report of procedure to OB RN Epidural: Time Out Performed: Yes Consents Signed: Procedure Consent Consent: requested by attending/covering physician, from patient, risks and benefits reviewed and patient agrees to proceed Lumbar Level: L3-L4 Epidural position: sitting Epidural procedure: sterile prep of area, 1% lidocaine to numb the area (3 mL), 18 g needle, negative for paresthesia passed, neg for paresthesia, test dose given, 1.5% xylocaine 1:200k epi (5 mL), 0.2% Ropivacaine bolus ml (5 mL), placed PCEA, no systemic response, sterile dressing applied, L.U.D. no apparent complications and 0.2% Ropiavacaine @ mls/hr (13 mL/hr)
[2023-04-18] MEDS: dextrose 5%-lactated ringers 1,000 ML 125 ML IV (03:29)
[2023-04-18 04:04] LABS: Amphetamines Screen Urine Negative (Negative); Barbiturates Screen Urine Negative (Negative); Benzodiazepines Screen Urine Negative (Negative); Cocaine Screen Urine Negative (Negative); Opiate Screen Urine Negative (Negative); PCP Screen Urine Negative (Negative); THC Screen Urine Positive (Negative)
--- NOTE | 2023-04-18 05:12 | PM.OPHPUD ---
Labor & Delivery H&P Update Date of Procedure: April 18, 2023 Date H&P Performed: 04/18/23 Admission Diagnosis: 22-year-old 4 para 2-0-1-2 at 38 weeks estimated gestational age presenting in active labor Preop diagnosis: labor pain Planned procedure: Spontaneous vaginal delivery Related Problem List Diagnoses (1) 38 weeks gestation of : The patient is a 38-week female infant who presents in active labor. Her membranes were intact upon arrival to hospital. Her has been relatively unremarkable. She had routine care and labs. Her blood type is O-. Her antibody screen was negative. She passed her glucose screen. She is rubella immune. She was GBS negative. She is positive for marijuana. The remainder of her infectious disease profile was within normal limits. A&P Assessment and plan (1) 38 weeks gestation of : I anticipate a spontaneous vaginal delivery. Status: Acute
[2023-04-18] MEDS: ROPivacaine syringe 100 MG/50 ML SYRINGE 13 MG EPIDURAL (05:38)
[2023-04-18] MEDS: oxytocin 30 UNIT/500 ML BAG 600 UNIT IV (05:45)
--- NOTE | 2023-04-18 05:51 | PM.DELIVERY ---
Delivery Note: Date of delivery: April 18, 2023 Pre-delivery diagnoses: 22-year-old 4 para 2-0-1-2 at 38 weeks estimated gestational age in active labor Post-delivery diagnoses: Status post spontaneous vaginal delivery Procedure: Spontaneous vaginal delivery Delivering Physician: Florencio Reza Estimated blood loss (mL): 50 Pre-Delivery Course: The patient presented to the hospital in active labor. An epidural was placed. Spontaneous rupture membranes occurred. She progressed to complete without difficulty. Delivery: DELIVERY: The patient progressed to complete without difficulty. She delivered a male with a weight of 6 pounds 3 ounces with Apgars of 8, 9. The baby was delivered from the ROMAN position and placed on the mother's abdomen. The cord was then clamped and cut. There was no nuchal cord. There was no meconium. The placenta and 3 vessel cord were delivered intact shortly thereafter. The perineum and vaginal vault were carefully examined. No lacerations were noted. Both the mother and the baby were in stable condition. History History History 4 Term 2 0 Miscarriages/Ectopic 1 Living Children 2 A&P Assessment and plan (1) 38 weeks gestation of : I anticipate routine care (2) Spontaneous vaginal delivery: Coding Level of Care Code Acute Code for Chg Fwd Diagnoses 38 weeks gestation of Z3A.38 Spontaneous vaginal delivery O80
[2023-04-18] MEDS: prenatal vitamin Capsule 1 CAP PO (08:27)
[2023-04-18] MEDS: docusate sodium 100 mg Capsule PO ×2 (08:27→20:16)
[2023-04-18] MEDS: ibuprofen 800 mg tablet PO ×3 (08:27→20:16)
[2023-04-18] MEDS: benzocaine-menthol 78 gm Canister 1 SPRAY TOPICAL (08:28)
[2023-04-18] MEDS: lanolin oint 7 gm 1 APPLIC TOPICAL (08:28)
[2023-04-18 19:23] LABS: Hematocrit 30.8 % (36-47); Mean Corpuscular HGB Conc 33.4 g/dL (30-55); Mean Corpuscular Hemoglobin 29.7 pg (27-33); Mean Corpuscular Volume 88.8 fl (85-98); Platelet Count 205 10^3/cmm (157-399); Red Blood Count 3.47 10^6/uL (3.85-5.65); White Blood Count 9.34 10^3/uL (3.29-11.43)
[2023-04-18] MEDS: HYDROcodone-acetaminophen 5-325 mg Tablet PO (23:05)
[2023-04-19 04:09] VITALS: BP 98/53; PULSE 59; RESP 16; TEMP 36.6; O2SAT 99
--- NOTE | 2023-04-19 08:01 | P.DS_ITS ---
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 She arrived in labor. An epidural was placed. Her spontaneous vaginal delivery was unremarkable. She had no significant tears. Her course was unremarkable. Her bleeding was within normal limits. Her pain was well-controlled. There were no concerns. Information Peripartum Data: Delivery Method: Vaginal Physical Exam Narrative: The patient is alert. She appears comfortable. Her heart has a regular rate and rhythm with no murmurs appreciated. Lungs are clear to auscultation bilaterally. Her fundus is firm and below the umbilicus. Urinary Catheter Management: [place]: Cath Placed During This Visit: yes, but has since been removed by the nurse Reason for Continuing Indwelling Catheter: Decision to DC Catheter Urinary Catheter Date of Insertion: 04/18/23 Urinary Catheter Time of Insertion: 03:45 Date Urinary Catheter Removed: 04/18/23 Time Urinary Catheter Discontinued: 05:10 History History History 4 Term 2 0 Miscarriages/Ectopic 1 Living Children 2 Discharge Data Studies Completed and Pending Pending at discharge Category Date Time Status Complete Crossmatch Routine Lab 04/18/23 02:12 Results Maternal Hemorrhage Scrn Routine Lab 04/18/23 17:45 Ordered Rho D Immune Globulin Routine Lab 04/18/23 02:12 Results Type and Screen Routine Lab 04/18/23 02:12 Results Laboratory Results WBC 9.34 10^3/uL (3.29-11.43) 04/18/23 18:56 RBC 3.47 10^6/uL (3.85-5.65) L 04/18/23 18:56 Hgb 10.30 g/dL (11.27-16.99) L 04/18/23 18:56 Hct 30.8 % (36-47) L 04/18/23 18:56 MCV 88.8 fl (85-98) 04/18/23 18:56 MCH 29.7 pg (27-33) 04/18/23 18:56 MCHC 33.4 g/dL (30-55) 04/18/23 18:56 RDW 13.0 % (12.1-15.1) 04/18/23 18:56 Plt Count 205 10^3/cmm (157-399) 04/18/23 18:56 MPV 11.0 fL (7.4-10.4) H 04/18/23 18:56 Neut % (Auto) 79.4 % 04/18/23 02:12 Lymph % (Auto) 14.4 % 04/18/23 02:12 Grand % (Auto) 5.7 % 04/18/23 02:12 Eos % (Auto) 0.1 % 04/18/23 02:12 Baso % (Auto) 0.2 % 04/18/23 02:12 Neut # (Auto) 7.49 10^3/uL (1.8-7.7) 04/18/23 02:12 Lymph # (Auto) 1.4 10^3/uL (0.8-4.8) 04/18/23 02:12 Grand # (Auto) 0.5 10^3/uL (0.2-0.9) 04/18/23 02:12 Eos # (Auto) 0.0 10^3/uL (0.0-0.8) 04/18/23 02:12 Baso # (Auto) 0.0 10^3/uL (0.0-0.1) 04/18/23 02:12 Nucleated RBC % (auto) 0 % 04/18/23 02:12 Nucleated RBCs # 0.0 /100WBC 04/18/23 02:12 Urine Opiates Screen Negative ng/mL (Negative) 04/18/23 03:38 Ur Barbiturates Screen Negative ng/mL (Negative) 04/18/23 03:38 Ur Phencyclidine Scrn Negative ng/mL (Negative) 04/18/23 03:38 Ur Amphetamines Screen Negative ng/mL (Negative) 04/18/23 03:38 U Benzodiazepines Scrn Negative ng/mL (Negative) 04/18/23 03:38 Urine Cocaine Screen Negative ng/mL (Negative) 04/18/23 03:38 U Marijuana (THC) Screen Positive ng/mL (Negative) H 04/18/23 03:38 Blood Type O Negative 04/18/23 02:12 Rho(D) Type Negative 04/18/23 02:12 Antibody Screen Negative 04/18/23 02:12 Antibody Identification Cancelled 04/18/23 02:12 Vitals Last Vital Signs Temp 97.9 F 04/19/23 04:09 Pulse 59 L 04/19/23 04:09 Resp 16 04/19/23 04:09 BP 98/53 04/19/23 04:09 Pulse Ox 99 04/19/23 04:09 O2 Del Method Room Air 04/19/23 04:09 Results Labs OB ([facility]): Obstetrics US 07/15/22 Blood Type O Negative 04/18/23 Antibody Screen Negative 04/18/23 Hct 30.8 % (36-47) L 04/18/23 Hgb 10.30 g/dL (11.27-16.99) L 04/18/23 Rho(D) Type Negative 04/18/23 Plt Count 205 10^3/cmm (157-399) 04/18/23 TSH 2.22 uIU/mL (0.27-4.20) 07/20/21 Ser , Semi-Qnt 96608.00 mIU/mL 10/28/22 HCG, Qual Negative (Negative) 07/20/21 Urine Opiates Screen Negative ng/mL (Negative) 04/18/23 Ur Barbiturates Screen Negative ng/mL (Negative) 04/18/23 Ur Phencyclidine Scrn Negative ng/mL (Negative) 04/18/23 Ur Amphetamines Screen Negative ng/mL (Negative) 04/18/23 U Benzodiazepines Scrn Negative ng/mL (Negative) 04/18/23 Urine Cocaine Screen Negative ng/mL (Negative) 04/18/23 U Marijuana (THC) Screen Positive ng/mL (Negative) H Micro Urine Specimen 07/15/22 Discharge Plan Discharge Patient Disposition: Home Condition: Stable Prescriptions: New ibuprofen 800 mg Tablet 800 mg PO TID Qty: 45 0RF -U 106.5-1 mg Capsule 1 cap PO DAILY Qty: 90 0RF Continued escitalopram oxalate 20 mg tablet 20 mg PO DAILY 30 Days Qty: 30 1RF Discontinued metoclopramide HCl [Reglan] 10 mg tablet 10 mg PO Q6H PRN (Reason: nausea and vomiting) Qty: 20 0RF Discharge Orders: Discharge Order (Routine); Ordered 04/19/23 Ordered By: Florencio Reza Referrals: Florencio Reza MD [Family Provider] - 6 Weeks Discharge Diet: Usual diet Discharge Activity: Resume usual activity and Limit activity as instructed Patient Instructions: Opioid Safety Discharge Attestations 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
--- NOTE | 2023-04-19 08:05 | ANE.PACU2 ---
Inpatient post-anesthesia follow up: Airway intact: Yes Vital signs: Temperature 97.5 F Pulse Rate 79 Respiratory Rate 16 Blood Pressure 106/69 Pulse Oximetry 99 Oxygen Delivery Me thod Room Air Oxygen Flow Rate Fraction of Inspir ed Oxygen Hydration adequate: Yes Nausea and vomiting: No Pain level: 1 Mental status: Baseline Epidural Start/End: Epidural Start Date: 04/18/23 Epidural Start Time: 03:06 Epidural End Date: 04/18/23 Epidural End Time: 05:51
[2023-04-19] MEDS: prenatal vitamin Capsule 1 CAP PO (09:07)
[2023-04-19] MEDS: docusate sodium 100 mg Capsule PO (09:07)
[2023-04-19] MEDS: ibuprofen 800 mg tablet PO (09:07)
[2023-04-19 10:31] VITALS: BP 106/69; PULSE 79; RESP 16; TEMP 36.4
[2023-04-19 10:40] VITALS: BP 106/69; PULSE 79; RESP 16; TEMP 36.4
== END 2023-04-19 10:50 | disposition home or self-care (01) | DRG 807 ==
LOC: OPOB 02:17 → OBGYN 02:17
PROVIDERS: Admitting Provider Family Medicine; Family Provider Family Medicine; PCP Family Medicine; Visit Provider Family Medicine
DX: O99.324 Drug use complicating childbirth (principal); Z37.0 Single live birth; F12.90 Cannabis use, unspecified, uncomplicated; Z3A.38 38 weeks gestation of pregnancy
CPT/HCPCS: 36415; 36430; 51702; 59025; 59409; 80306; 85025; 85027; 85460; 86850; 86900; 90384; 96374; 98960; 99211; J2405; J2590; J2795; J7120; J7121

== ENCOUNTER 2024-03-17 10:40 | Emergency (ER) | payer BC, MEDICAID, SELFPAY ==
[2024-03-17] VITALS (9 sets, daily range): BP systolic 98–139; BP diastolic 52–70; PULSE 58–72; RESP 16–18; TEMP 36.7; O2SAT 97–100; BMI 25.0
[2024-03-17 11:30] LABS: Basophils % 0.1 %; Eosinophils % 0.1 %; Hematocrit 39.7 % (36-47); Lymphocytes # 0.5 10^3/uL (0.8-4.8); Lymphocytes % 4.1 %; Mean Corpuscular Hemoglobin 29.5 pg (27-33); Mean Corpuscular Volume 86.7 fl (85-98); Mean Platelet Volume 10.2 fL (7.4-10.4); Monocytes # 0.3 10^3/uL (0.2-0.9); Monocytes % 2.8 %; Neutrophils # 10.43 10^3/uL (1.8-7.7); Neutrophils % 92.5 %; Nucleated Red Blood Cells % 0 %; Platelet Count 297 10^3/cmm (157-399); Red Blood Count 4.58 10^6/uL (3.85-5.65); Red Cell Distribution Width 11.9 % (12.1-15.1); White Blood Count 11.26 10^3/uL (3.29-11.43)
--- NOTE | 2024-03-17 11:44 | W.ED.NAVMDI ---
HPI - Nausea/Vomiting/Diarrhea General: Chief complaint: Nausea/Vomiting/Diarrhea Stated complaint: vommiting Time Seen by Provider: 03/17/24 11:19 History of Present Illness: 23-year-old female presents emergency room she believes she is approximately 10 weeks her last normal menstrual period she relates began on November 25. She has been having quite a bit of nausea and vomiting. She denies any dysuria urgency or frequency. No vaginal bleeding or discharge Associated nausea: Yes Associated symtoms: Reports nausea; Denies chest pain or dysuria Related Data Home Medications Medication Instructions Recorded Confirmed albuterol sulfate 90 mcg/actuation 2 puff inhalation Q4H 03/17/24 03/17/24 aerosol inhaler (Ventolin HFA) Previous Rx's Medication Instructions Recorded multivitamin no.51-ferrous 1 cap PO DAILY #90 caps 04/19/23 fumarate 106.5 mg-folic acid 1 mg capsule (-U) nitrofurantoin 100 mg PO BID 7 days #14 caps 03/17/24 monohydrate/macrocrystals 100 mg capsule (Macrobid) promethazine 25 mg tablet 25 mg PO Q6H PRN nausea and 03/17/24 vomiting #20 tabs Allergies Allergy/AdvReac Type Severity Reaction Status Date / Time No Known Allergies Allergy Verified 03/17/24 10:52 Review of Systems Const: Denies: fever(s) or chills Card: Denies: chest pain Resp: Denies: dyspnea GI: Reports: abdominal pain (Suprapubic), nausea and vomiting : Denies: dysuria, urinary frequency or urinary urgency Musc: Denies: neck pain or back pain Skin/Breast: Denies: rash PFSH ED PFSH: Medical History Alcohol abuse, episodic drinking behavior Generalized anxiety disorder 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 Alcohol abuse, episodic Cannabis dependence, uncomplicated Depression Anxiety Surgical History S/P tonsillectomy S/P adenoidectomy Family History Mother Psychiatric illness Depression, anxiety Cancer Cervical Anemia Father Psychiatric illness Depression Brother Psychiatric illness Depression, anxiety Sister Psychiatric illness Depression, anxiety Grandmother Cancer Breast Social History Smoking and tobacco/nicotine status: never used tobacco/nicotine Second hand smoke exposure: Yes Alcohol intake: never Substance/Drug Use: former Adopted: No Caregiver/support person: Yes Lives independently: Yes Marital status: Single Number of children: 0 Number of grandchildren: 0 Highest education level completed: 11th Grade service: No Current occupational status: unemployed Current occupational exposures/hazards: No Physical Exam Const: COMMON NORMALS: no acute distress GENERAL APPEARANCE: cooperative and comfortable ORIENTATION/CONSCIOUSNESS: Yes awake, Yes oriented to person, Yes oriented to place and Yes oriented to time HENMT: COMMON NORMALS: normocephalic, atraumatic and hearing grossly normal bilaterally HEAD & SCALP: normocephalic and atraumatic Resp: COMMON NORMALS: normal respiratory effort, No retractions, No use of accessory muscles and clear to auscultation bilaterally AUSCULTATION: clear to auscultation bilaterally Cardio: COMMON NORMALS: regular rate, regular rhythm and No murmurs present (Cardio) RATE: regular rate RHYTHM: regular rhythm GI: COMMON NORMALS: Soft to palpation and No hepatosplenomegaly present AUSCULTATION: Yes normoactive bowel sounds PALPATION: Yes Soft to palpation, No Tenderness to palpation present (GI), No Guarding due to palpation present (GI) and Yes No hepatosplenomegaly present Extremity: COMMON NORMALS: normal to inspection, capillary refill normal, no clubbing, cyanosis or edema, no calf tenderness and no pedal edema Neuro: SENSORIUM/ORIENTATION: Yes oriented to person, Yes oriented to place and Yes oriented to time Skin: COMMON NORMALS: no rashes or lesions noted GENERAL SKIN EXAM: no rashes or lesions noted Course Vital Signs: Vital signs: Vital Signs Temperature 98.1 F 03/17/24 10:48 Pulse Rate 58 L 03/17/24 15:18 Respiratory Rate 16 03/17/24 15:18 Blood Pressure 98/52 03/17/24 15:18 Pulse Oximetry 100 03/17/24 15:18 Oxygen Delivery Me thod Room Air 03/17/24 14:12 MDM - Nausea/Vomiting/Diarrhea Medical Decision Making Ultrasound shows intrauterine that appears to be approximately 6 weeks gestation but there is no heart activity. Beta-hCG is consistent with approximately 6 to 7-week . Additionally there is a subchorionic hemorrhage that is small. Finally she does have a mild bladder infection. Patient is feeling better after fluids given Rocephin will start discharge home start antibiotics tomorrow. Advised her she may have some spotting and bleeding from the subchorionic hematoma. She should follow-up with her doctor she says she has an appointment within a week she will need a repeat beta-hCG and repeat ultrasound. Return if has worsening symptoms Lab Data 03/17/24 11:22 03/17/24 11:22 Radiology Impressions Ultrasound 03/17/24 12:56 IMPRESSION: 1. Intrauterine gestational sac contains a crown-rump length. 2. [place]-rump length measurement corresponds to a gestation of 6 weeks and 1 day. Typically at this age cardiac activity should be identified. No cardiac activity identified. Recommend 1 week transvaginal pelvic ultrasound follow-up. This will confirm whether there is a normal progressing intrauterine gestation or early loss. 3. Small subchorionic hemorrhage. Laboratory Results WBC 11.26 10^3/uL (3.29-11.43) 03/17/24 11:22 RBC 4.58 10^6/uL (3.85-5.65) 03/17/24 11:22 Hgb 13.50 g/dL (11.27-16.99) 03/17/24 11:22 Hct 39.7 % (36-47) 03/17/24 11:22 MCV 86.7 fl (85-98) 03/17/24 11:22 MCH 29.5 pg (27-33) 03/17/24 11:22 MCHC 34.0 g/dL (30-55) 03/17/24 11:22 RDW 11.9 % (12.1-15.1) L 03/17/24 11:22 Plt Count 297 10^3/cmm (157-399) 03/17/24 11:22 MPV 10.2 fL (7.4-10.4) 03/17/24 11:22 Neut % (Auto) 92.5 % 03/17/24 11:22 Lymph % (Auto) 4.1 % 03/17/24 11:22 [place] % (Auto) 2.8 % 03/17/24 11:22 Eos % (Auto) 0.1 % 03/17/24 11:22 Baso % (Auto) 0.1 % 03/17/24 11:22 Neut # (Auto) 10.43 10^3/uL (1.8-7.7) H 03/17/24 11:22 Lymph # (Auto) 0.5 10^3/uL (0.8-4.8) L 03/17/24 11:22 [place] # (Auto) 0.3 10^3/uL (0.2-0.9) 03/17/24 11:22 Eos # (Auto) 0.0 10^3/uL (0.0-0.8) 03/17/24 11:22 Baso # (Auto) 0.0 10^3/uL (0.0-0.1) 03/17/24 11:22 Nucleated RBC % (auto) 0 % 03/17/24 11:22 Nucleated RBCs # 0.0 /100WBC 03/17/24 11:22 Sodium 139 mmol/L (136-145) 03/17/24 11:22 Potassium 3.1 mmol/L (3.5-5.1) L 03/17/24 11:22 Chloride 102 mmol/L (98-107) 03/17/24 11:22 Carbon Dioxide 22 mmol/L (22-29) 03/17/24 11:22 Anion Gap 18.1 (5-19) 03/17/24 11:22 BUN 8 mg/dL (6-20) 03/17/24 11:22 Creatinine 0.4 mg/dL (0.5-0.9) L 03/17/24 11:22 GFR Calculation 199.6 mL/min (90-130) H 03/17/24 11:22 Glucose 152 mg/dL (65-115) H 03/17/24 11:22 Calculated Osmolality 289 mOsm/kg (285-295) 03/17/24 11:22 Calcium 9.3 mg/dL (8.5-10.5) 03/17/24 11:22 Total Bilirubin 0.5 mg/dL (0.15-1.2) 03/17/24 11:22 AST 17 U/L (0-32) 03/17/24 11:22 ALT < 5 U/L (0-33) 03/17/24 11:22 Alkaline Phosphatase 77 U/L (35-105) 03/17/24 11:22 Total Protein 8.1 g/dL (6.6-8.7) 03/17/24 11:22 Albumin 5.0 g/dL (3.5-5.2) 03/17/24 11:22 Globulin 3.1 g/dL (1.3-4.6) 03/17/24 11:22 Lipase 13 U/L (13-60) 03/17/24 11:22 HCG, Qual Positive (Negative) H 03/17/24 11:22 Ser , Semi-Qnt 21086.00 mIU/mL 03/17/24 11:22 Urine Color Dark yellow (Yellow) A 03/17/24 11:51 Urine Appearance Turbid (CLEAR) A 03/17/24 11:51 Urine pH 5.5 (5-7) 03/17/24 11:51 Ur Specific [place] 1.033 (1.005-1.030) H 03/17/24 11:51 Urine Protein 2+ (Negative) A 03/17/24 11:51 Urine Glucose (UA) Negative (Normal) 03/17/24 11:51 Urine Ketones 2+ (Negative) H 03/17/24 11:51 Urine Blood 3+ (Negative) A 03/17/24 11:51 Urine Nitrate Negative (Negative) 03/17/24 11:51 Urine Bilirubin Negative (Negative) 03/17/24 11:51 Urine Urobilinogen 1.0 mg/dL (Negative) 03/17/24 11:51 Ur Leukocyte Esterase 2+ (Negative) A 03/17/24 11:51 Urine RBC 51-100 /hpf (0-2) H 03/17/24 11:51 Urine WBC 11-20 /hpf (0-5) H 03/17/24 11:51 Ur Squamous Epith Cells 51-100 /hpf (0-5) 03/17/24 11:51 Amorphous Sediment 3+ /hpf 03/17/24 11:51 Urine Bacteria 4+ /hpf (NONE) H 03/17/24 11:51 Hyaline Casts 31.43 /lpf 03/17/24 11:51 All radiology interpretation(s) finalized by discharge Discharge Plan Discharge Patient Disposition: Home Clinical Impression: Nausea & vomiting, Subchorionic hematoma in first trimester, Cystitis, Threatened miscarriage in early Condition: Stable Prescriptions: New promethazine 25 mg tablet 25 mg PO Q6H PRN (Reason: nausea and vomiting) Qty: 20 0RF nitrofurantoin monohyd/m-cryst [Macrobid] 100 mg capsule 100 mg PO BID 7 Days Qty: 14 0RF Rx Instructions: must administer with a meal/food No Action albuterol sulfate [Ventolin HFA] 90 mcg/actuation HFA aerosol inhaler 2 puff INHALATION Q4H -U 106.5-1 mg Capsule 1 cap PO DAILY Qty: 90 0RF Discharge Orders: Discharge ED (Routine); Ordered 03/17/24 Ordered By: Ludin Chen Referrals: Ruben Deluna MD [Primary Care Provider] - Florencio Reza MD [Family Provider] - Discharge Diet: Usual diet Discharge Activity: Increase activity as tolerated Patient Instructions: Opioid Safety, Pain Management Activity Restrictions/Additional Instructions: Thank you for choosing [facility] for your healthcare needs today. It is very important that you follow up as instructed or that you return to the Emergency Department should you have concerns or if your condition changes or worsens in any way. You are seen in the emergency room with complaints of persistent nausea vomiting this did respond to medications and fluids. Will discharge you home. Is important for you to have follow-up with your primary care doctor or OB within the next week. Ultrasound today showed an intrauterine however there is no heart tones identified you may have an early miscarriage. You should have a repeat ultrasound to repeat beta-hCG within the next week. You were also noted to have a small amount of blood in the uterus around the , and a mild bladder infection. You are given antibiotics for the bladder infection. There is no treatment for the blood in the uterus you may have a little spotting over the next few days. This can be rechecked at the time of her repeat ultrasound. Coding Level of Care Code ED [facility] [employer] for Haseeb Phillips
[2024-03-17 11:46] LABS: Alanine Aminotransferase < 5 U/L (0-33); Alkaline Phosphatase 77 U/L (35-105); Anion Gap 18.1 (5-19); Aspartate Amino Transferase 17 U/L (0-32); Blood Urea Nitrogen 8 mg/dL (6-20); Calcium 9.3 mg/dL (8.5-10.5); Carbon Dioxide 22 mmol/L (22-29); Chloride 102 mmol/L (98-107); Creatinine Clr Calc Pharmacy 221.8538; Globulin 3.1 g/dL (1.3-4.6); Glomerular Filtration Rate 199.6 mL/min (90-130); Glucose 152 mg/dL (65-115); Lipase 13 U/L (13-60); Osmolality Calculated 289 mOsm/kg (285-295); Potassium 3.1 mmol/L (3.5-5.1); Sodium 139 mmol/L (136-145); Total Bilirubin 0.5 mg/dL (0.15-1.2); Total Protein 8.1 g/dL (6.6-8.7)
[2024-03-17 12:05] LABS: Bilirubin Urine Negative (Negative); Blood Urine 3+ (Negative); Glucose Urine UA Negative (Normal); Ketones Urine 2+ (Negative); Leukocyte Esterase Urine 2+ (Negative); Nitrate Urine Negative (Negative); Protein Urine 2+ (Negative); Urine Appearance Turbid (CLEAR); Urine Color Dark Yellow (Yellow); pH Urine 5.5 (5-7)
[2024-03-17 12:05] LABS: HCG, Serum Qual Positive (Negative)
[2024-03-17] MEDS: sodium chloride 0.9% 1,000 ML 999 ML IV (12:05)
[2024-03-17] MEDS: ondansetron 2 mg/ML SDV 2 mL 4 MG IVP (12:05)
[2024-03-17 12:07] LABS: Add Urine Microscopic? YES; Bacteria Urine 4+ /hpf; Hyaline Casts Urine 31.43 /lpf; RBC Urine 51-100 /hpf (0-2); Squamous Epithelial Cell Urine 51-100 /hpf (0-5)
[2024-03-17 12:25] LABS: Add Urine Culture? Yes; Specific Gravity, Urine 1.033 (1.005-1.030); UA Slide Review UA Slide Review Perf
[2024-03-17 12:26] LABS: Amorphous Sediment Urine 3+ /hpf
[2024-03-17] MEDS: prochlorperazine 10 mg/2 mL Inj IVP (12:51)
[2024-03-17] MEDS: cefTRIAXone 1,000 mg SDV 1000 MG IVP (12:56)
--- NOTE | 2024-03-17 12:56 | US_ITS ---
WS: [id number] EARLY OBSTETRICAL ULTRASOUND (<14 WEEKS). HISTORY: Confirm intrauterine , heart tones COMPARISON: None available. Single intrauterine gestation is identified. Normal-appearing gestational sac. There is a normal-appe aring yolk sac. There is also a crown-rump length identified. [place]-rump length measures 0.47 cm whic h corresponds to a gestation of 6 weeks and 1 day. No cardiac activity is identified. Small subchorionic hemorrhage is noted along the LEFT lateral gestational sac. Both ovaries are identified. RIGHT ovary measures 3.0 x 2.1 x 2.1 cm. LEFT ovary measures 2.5 x 1.5 x 1.1 cm. US/US OB <= 14 weeks fetus [id number] IMPRESSION: 1. Intrauterine gestational sac contains a crown-rump length. 2. [place]-rump length measurement corresponds to a gestation of 6 weeks and 1 d ay. Typically at this age cardiac activity should be identified. No cardiac act ivity identified. Recommend 1 week transvaginal pelvic ultrasound follow-up. Th is will confirm whether there is a normal progressing intrauterine gestation or early loss. 3. Small subchorionic hemorrhage.
[2024-03-17] MEDS: morphine 4 mg/mL SDV 1 mL 2 MG IVP (13:19)
== END 2024-03-17 15:20 | disposition home or self-care (01) ==
PROVIDERS: Emergency Medicine; Emergency Provider Family Medicine; Family Provider Family Medicine; PCP Family Medicine
DX: O43.891 Other placental disorders, first trimester (principal); O20.0 Threatened abortion; Z3A.01 Less than 8 weeks gestation of pregnancy; O21.9 Vomiting of pregnancy, unspecified
CPT/HCPCS: 36415; 76801; 80053; 81001; 83690; 84702; 84703; 85025; 87086; 96361; 96374; 96375; 99284; J0696; J0780; J2270; J2405; J7030

== ENCOUNTER 2024-03-22 00:22 | Observation (INO) | payer BC, MEDICAID, SELFPAY ==
[2024-03-22] VITALS (7 sets, daily range): BP systolic 101–117; BP diastolic 56–87; PULSE 64–84; RESP 15–17; TEMP 36.7–36.9; O2SAT 98–100; BMI 22.4
--- NOTE | 2024-03-22 02:50 | ED_ITS ---
HPI - Nausea/Vomiting/Diarrhea 2 General: Chief complaint: Nausea/Vomiting/Diarrhea Stated complaint: n/v weak cant eat 3 days Time Seen by Provider: 03/22/24 02:42 History of Present Illness: The patient presents to the ER with a chief complaint of persistent vomiting and inability to tolerate oral intake for the past week. She reports feeling extremely dehydrated and thirsty. The patient is currently 4 to 6 weeks , as determined by a recent ultrasound. She has a history of morning sickness with her previous pregnancies but states that the current symptoms are more severe. The patient also mentions that she was prescribed medication for a possible miscarriage but has been unable to take it due to her vomiting. She experiences heartburn and abdominal pain upon palpation. Related Data Home Medications Medication Instructions Recorded Confirmed albuterol sulfate 90 mcg/actuation 2 puff inhalation Q4H 03/17/24 03/17/24 aerosol inhaler (Ventolin HFA) Previous Rx's Medication Instructions Recorded multivitamin no.51-ferrous 1 cap PO DAILY #90 caps 04/19/23 fumarate 106.5 mg-folic acid 1 mg capsule (-U) nitrofurantoin 100 mg PO BID 7 days #14 caps 03/17/24 monohydrate/macrocrystals 100 mg capsule (Macrobid) promethazine 25 mg tablet 25 mg PO Q6H PRN nausea and 03/17/24 vomiting #20 tabs Allergies Allergy/AdvReac Type Severity Reaction Status Date / Time No Known Allergies Allergy Verified 03/22/24 00:31 Review of Systems 2 General: Reports: 10 or more systems reviewed and unremarkable except in HPI and below PFSH ED 2 PFSH: Medical History Alcohol abuse, episodic drinking behavior Generalized anxiety disorder 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 Alcohol abuse, episodic Cannabis dependence, uncomplicated Depression Anxiety Surgical History S/P tonsillectomy S/P adenoidectomy Family History Mother Psychiatric illness Depression, anxiety Cancer Cervical Anemia Father Psychiatric illness Depression Brother Psychiatric illness Depression, anxiety Sister Psychiatric illness Depression, anxiety Grandmother Cancer Breast Social History Smoking and tobacco/nicotine status: never used tobacco/nicotine Second hand smoke exposure: Yes Alcohol intake: never Substance/Drug Use: former Adopted: No Caregiver/support person: Yes Lives independently: Yes Marital status: Single Number of children: 0 Number of grandchildren: 0 Highest education level completed: 11th Grade service: No Current occupational status: unemployed Current occupational exposures/hazards: No Female Reproductive History: Date of last menstrual period: 12/23/23 Physical Exam 2 Const: COMMON NORMALS: no acute distress, patient oriented x3, healthy appearing, alert and well nourished HENMT: COMMON NORMALS: normocephalic HEAD & SCALP: normocephalic Eye: COMMON NORMALS: EOMs intact bilaterally Neck/C-Spine: COMMON NORMALS: full ROM and supple Resp: COMMON NORMALS: normal respiratory effort, No retractions and clear to auscultation bilaterally AUSCULTATION: clear to auscultation bilaterally Cardio: COMMON NORMALS: regular rate, regular rhythm, No gallops present (Cardio) and No murmurs present (Cardio) RATE: regular rate RHYTHM: r egular rhythm GI: COMMON NORMALS: Soft to palpation and non-tender PALPATION: Yes Soft to palpation Extremity: GENERAL: Yes normal exam except as noted Neuro: COMMON NORMALS: patient oriented x3 SENSORIUM/ORIENTATION: Yes alert Skin: COMMON NORMALS: no rashes or lesions noted GENERAL SKIN EXAM: no rashes or lesions noted Course 2 Vital Signs: Vital signs: Vital Signs Temperature 98.1 F 03/22/24 00:23 Pulse Rate 84 03/22/24 00:23 Respiratory Rate 17 03/22/24 00:23 Blood Pressure 115/75 03/22/24 00:23 Pulse Oximetry 98 03/22/24 00:23 Oxygen Delivery Me thod Room Air 03/22/24 00:23 MDM - Nausea/Vomiting/Diarrhea Medical Decision Making 23-year-old female presents to the emergency department for evaluation of nausea and vomiting. She was recently seen in this emergency department for similar symptoms. She was subsequently diagnosed with a urinary tract infection. Her symptoms have not abated and she has not really been able to keep any antibiotics down since the diagnosis. Laboratory evaluation demonstrated significant hypokalemia with EKG changes. Due to patient's inability to treat her urinary tract infection, EKG changes from hypokalemia, and inability to tolerate p.o. hydration the decision was made to admit the patient. Risk and benefits were discussed with the patient she was in agreement this plan. The case was then discussed with Dr. Lawler who agreed to admit the patient. Lab Data 03/22/24 03:00 03/22/24 03:00 Laboratory Results WBC 8.44 10^3/uL (3.29-11.43) 03/22/24 03:00 RBC 4.56 10^6/uL (3.85-5.65) 03/22/24 03:00 Hgb 13.60 g/dL (11.27-16.99) 03/22/24 03:00 Hct 38.0 % (36-47) 03/22/24 03:00 MCV 83.3 fl (85-98) L 03/22/24 03:00 MCH 29.8 pg (27-33) 03/22/24 03:00 MCHC 35.8 g/dL (30-55) 03/22/24 03:00 RDW 11.9 % (12.1-15.1) L 03/22/24 03:00 Plt Count 315 10^3/cmm (157-399) 03/22/24 03:00 MPV 10.0 fL (7.4-10.4) 03/22/24 03:00 Neut % (Auto) 81.0 % 03/22/24 03:00 Lymph % (Auto) 14.1 % 03/22/24 03:00 [place] % (Auto) 4.4 % 03/22/24 03:00 Eos % (Auto) 0.2 % 03/22/24 03:00 Baso % (Auto) 0.1 % 03/22/24 03:00 Neut # (Auto) 6.83 10^3/uL (1.8-7.7) 03/22/24 03:00 Lymph # (Auto) 1.2 10^3/uL (0.8-4.8) 03/22/24 03:00 [place] # (Auto) 0.4 10^3/uL (0.2-0.9) 03/22/24 03:00 Eos # (Auto) 0.0 10^3/uL (0.0-0.8) 03/22/24 03:00 Baso # (Auto) 0.0 10^3/uL (0.0-0.1) 03/22/24 03:00 Nucleated RBC % (auto) 0 % 03/22/24 03:00 Nucleated RBCs # 0.0 /100WBC 03/22/24 03:00 Sodium 135 mmol/L (136-145) L 03/22/24 03:00 Potassium 2.9 mmol/L (3.5-5.1) L 03/22/24 03:00 Chloride 94 mmol/L (98-107) L 03/22/24 03:00 Carbon Dioxide 26 mmol/L (22-29) 03/22/24 03:00 Anion Gap 17.9 (5-19) 03/22/24 03:00 BUN 7 mg/dL (6-20) 03/22/24 03:00 Creatinine 0.5 mg/dL (0.5-0.9) 03/22/24 03:00 GFR Calculation 154.3 mL/min (90-130) H 03/22/24 03:00 Glucose 106 mg/dL (65-115) 03/22/24 03:00 Calculated Osmolality 278 mOsm/kg (285-295) L 03/22/24 03:00 Calcium 9.8 mg/dL (8.5-10.5) 03/22/24 03:00 Magnesium 2.1 mg/dL (1.7-2.3) 03/22/24 03:00 Total Bilirubin 0.7 mg/dL (0.15-1.2) 03/22/24 03:00 AST 12 U/L (0-32) 03/22/24 03:00 ALT 7 U/L (0-33) 03/22/24 03:00 Alkaline Phosphatase 76 U/L (35-105) 03/22/24 03:00 C-Reactive Protein 3.0 mg/L (0.0-4.9) 03/22/24 03:00 NT-Pro-B Natriuret Pep Cancelled 03/22/24 03:00 Total Protein 8.0 g/dL (6.6-8.7) 03/22/24 03:00 Albumin 5.0 g/dL (3.5-5.2) 03/22/24 03:00 Globulin 3.0 g/dL (1.3-4.6) 03/22/24 03:00 Ser , Semi-Qnt 86362.00 mIU/mL 03/22/24 03:00 No radiology studies performed this visit Discharge Plan Discharge Patient Disposition: Admitted As Inpatient Clinical Impression: Hypokalemia Nausea & vomiting Qualifiers: Vomiting type: unspecified Qualified Code(s): R11.2 - Nausea with vomiting, unspecified Condition: Stable Coding Level of Care Code ED [facility] [employer] for Haseeb Phillips
[2024-03-22 03:04] LABS: Basophils % 0.1 %; Eosinophils % 0.2 %; Lymphocytes # 1.2 10^3/uL (0.8-4.8); Lymphocytes % 14.1 %; Mean Corpuscular HGB Conc 35.8 g/dL (30-55); Mean Corpuscular Hemoglobin 29.8 pg (27-33); Mean Corpuscular Volume 83.3 fl (85-98); Monocytes # 0.4 10^3/uL (0.2-0.9); Monocytes % 4.4 %; Neutrophils # 6.83 10^3/uL (1.8-7.7); Nucleated Red Blood Cells % 0 %; Platelet Count 315 10^3/cmm (157-399); Red Blood Count 4.56 10^6/uL (3.85-5.65); Red Cell Distribution Width 11.9 % (12.1-15.1); White Blood Count 8.44 10^3/uL (3.29-11.43)
[2024-03-22] MEDS: sodium chloride 0.9% 1,000 ML 999 ML IV (03:05)
[2024-03-22] MEDS: ondansetron 2 mg/ML SDV 2 mL 4 MG IVP ×2 (03:05→10:17)
[2024-03-22 03:19] LABS: Alanine Aminotransferase 7 U/L (0-33); Alkaline Phosphatase 76 U/L (35-105); Anion Gap 17.9 (5-19); Aspartate Amino Transferase 12 U/L (0-32); Blood Urea Nitrogen 7 mg/dL (6-20); Calcium 9.8 mg/dL (8.5-10.5); Carbon Dioxide 26 mmol/L (22-29); Chloride 94 mmol/L (98-107); Creatinine Clr Calc Pharmacy 169.3944; Glomerular Filtration Rate 154.3 mL/min (90-130); Glucose 106 mg/dL (65-115); Osmolality Calculated 278 mOsm/kg (285-295); Sodium 135 mmol/L (136-145); Total Bilirubin 0.7 mg/dL (0.15-1.2)
[2024-03-22 03:33] LABS: Potassium 2.9 mmol/L (3.5-5.1)
[2024-03-22 04:06] LABS: Magnesium 2.1 mg/dL (1.7-2.3)
--- NOTE | 2024-03-22 04:14 | ECG_ITS ---
[facility]24-[facility]22 Pat Name: Tila Francis Department: Room: Gender: Female Fire Officer: : 2000 Requested By: Daren Barr Order Number: [id number] Km MD: Parth Gross M.D. Measurements Intervals [place] Rate: 56 P: 23 GA: 111 QRS: 84 QRSD: 85 T: 15 QT: 424 QTc: 412 Interpretive Statements SINUS BRADYCARDIA WITH SHORT GA INTERVAL NONSPECIFIC T-WAVE ABNORMALITY No previous ECG available for comparison Electronically Signed On 03-22-2024 21:25:59 AIR TRAFFIC COORDINATOR by Parth Gross M.D. [id number]
[2024-03-22] MEDS: potassium chloride premix 100 ML 25 MEQ IV (04:45)
[2024-03-22] MEDS: promethazine 25 mg/mL SDV 1 mL IM (04:47)
[2024-03-22] MEDS: cefTRIAXone 2,000 mg SDV 2000 MG IVP (06:28)
[2024-03-22] MEDS: pantoprazole 40 mg SDV IVP (07:18)
--- NOTE | 2024-03-22 07:19 | PC.NURSE ---
this nurse assumed care approx @0650. vitals not previously charted/pt not on vitals monitor prior to this nurse's care.
--- NOTE | 2024-03-22 07:31 | P.HP_ITS ---
Providers/Chief Complaint 2 Admitting Physician: Sunny Lawler MD Primary Care Provider: Ruben Deluna MD Chief Complaint: n/v weak cant eat 3 days History of Present Illness Tila Francis is a 23 year old female with recent diagnosis of UTI, was seen in the ER few days ago, she was discharged on oral antibiotics, she has not been able to take anything p.o., she has been experiencing recurrent nausea vomiting, she has not noticed any fever, endorsing dysuria. Patient is stating that she was told about no heartbeat with vaginal ultrasound she has been following up with Dr. Reza outpatient. She has not seen any community relations liaison since her learning about no heart sound. In the ER she is hypokalemic. Extremely dehydrated. Patient was given nitrofurantoin. She has not noticed any vaginal spotting or significant bleeding stating that yesterday she noticed some blood with her urine. No significant abdominal pain Review of Systems 2 Const: Reports: chills Eyes: Denies: change in vision ENMT: Denies: throat pain Card: Denies: chest pain Resp: Denies: dyspnea GI: Reports: abdominal pain and nausea : Reports: flank pain Medications/Allergies Home Medications Medication Instructions Recorded Confirmed Last Taken Type multivitamin no.51-ferrous 1 cap PO DAILY #90 caps 04/19/23 03/17/24 Unknown Rx fumarate 106.5 mg-folic acid 1 mg capsule (-U) albuterol sulfate 90 mcg/actuation 2 puff inhalation Q4H 03/17/24 03/17/24 Unknown History aerosol inhaler (Ventolin HFA) nitrofurantoin 100 mg PO BID 7 days #14 caps 03/17/24 Unknown Rx monohydrate/macrocrystals 100 mg capsule (Macrobid) promethazine 25 mg tablet 25 mg PO Q6H PRN nausea and 03/17/24 Unknown Rx vomiting #20 tabs Allergies Allergy/AdvReac Type Severity Reaction Status Date / Time No Known Allergies Allergy Verified 03/22/24 00:31 PFSH Acute 2 PFSH: Medical History Alcohol abuse, episodic drinking behavior Generalized anxiety disorder 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 Alcohol abuse, episodic Cannabis dependence, uncomplicated Depression Anxiety Surgical History S/P tonsillectomy S/P adenoidectomy Family History Mother Psychiatric illness Depression, anxiety Cancer Cervical Anemia Father Psychiatric illness Depression Brother Psychiatric illness Depression, anxiety Sister Psychiatric illness Depression, anxiety Grandmother Cancer Breast Social History Smoking and tobacco/nicotine status: never used tobacco/nicotine Second hand smoke exposure: Yes Alcohol intake: never Substance/Drug Use: former Adopted: No Caregiver/support person: Yes Lives independently: Yes Marital status: Single Number of children: 0 Number of grandchildren: 0 Highest education level completed: 11th Grade service: No Current occupational status: unemployed Current occupational exposures/hazards: No Female Reproductive History: Date of last menstrual period: 12/23/23 Vitals/I&O/Wt Last Vital Signs Temp 98.1 F 03/22/24 00:23 Pulse 65 03/22/24 07:29 Resp 17 03/22/24 00:23 BP 101/87 03/22/24 07:29 Pulse Ox 100 03/22/24 07:29 O2 Del Method Room Air 03/22/24 00:23 Weight last 48 hrs Weight 63.049 kg Physical Exam 2 Narrative: Young female GCS 15 Nonfocal neuroexam Abdomen soft Clinical signs of dehydration Nonfocal neuroexam Hemodynamically stable S1, S2 Currently on room air Data 03/22/24 03:00 03/22/24 03:00 A&P Assessment and plan (1) Nausea & vomiting: Qualifiers: Vomiting type: unspecified Qualified Code(s): R11.2 - Nausea with vomiting, unspecified (2) Hypokalemia: (3) Cystitis: (4) Threatened miscarriage in early : (5) Subchorionic hematoma in first trimester: Plan UTI Concern for pyelonephritis Start patient on ceftriaxone Start IV fluids Urine culture pending Severe dehydration start IV fluids Threatened , will consult PLANNER/SCHEDULER for further evaluation Will request drug screen Severe hypokalemia: To be replenished with normal saline Full code [place] diet DVT prophylaxis: SCDs Attestations 2 Medical Necessity Statement*: Anticipating discharge within 48 hours Diagnoses Nausea & vomiting R11.2 Vomiting type: unspecified Hypokalemia E87.6 Cystitis N30.90 Threatened miscarriage in early O20.0 Subchorionic hematoma in first trimester O41.8X10; O46.8X1
--- NOTE | 2024-03-22 08:45 | USR_ITS ---
PROCEDURE INFORMATION: Exam: US , Transvaginal Exam date and time: 03/22/2024 9:08 AM Clinical indication: Abnormal findings; Abnormal radiologic study of abdomen/pelvis; ; Additional info: viability TECHNIQUE: Imaging protocol: Real-time transvaginal obstetrical ultrasound of the maternal pelvis with image documentation. Transvaginal imaging was used for better evaluation of the fetus, adnexa, and/or cervix. COMPARISON: COMPARISON MORE: US OB <= 14 weeks fetus [id number] 03/17/2024 1:20 PM FINDINGS: Gestation: There is a single intrauterine gestational sac containing an embryo and yolk sac. No heart beat is detected. [place]-rump length measurement of the embryo is 4.8 mm which indicates a gestational age of 6 weeks 1 day which is not appreciably changed. A small subchorionic hemorrhage is seen. A small amount of free fluid is noted in the cul-de-sac. Cervix is closed with a normal cervical length. Uterus and right ovary are unremarkable. The left ovary could not be identified. US/US OB <=14 wk fetus w transvag IMPRESSION: demise as described above.
--- NOTE | 2024-03-22 09:55 | PC.CHAP ---
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 visit [] Patient/Family/Request visit [] Outpatient visit [] Follow-up visit [] Physician referral [] Code/Alert [] Routine visit [] Staff referral [] Actively dying [X] Patient sleeping [] Family support [] [] Out of room [] Palliative care [] [] Receiving care in room [] Pre-surgical visit [] Trauma [] Long length of stay [] ICU visit [] Other: Relational/Emotional Strength [] Patient feels connected with others/family/visitors/staff [] Distress [] Loneliness/isolation [] Abandonment Spirituality of Patient [] Person of Christa [] Attends Mu-Ism of their Christa [] Believes in Prayer [] Reads Bible or Congregational materials [] There are Spiritual issues to be addressed Transmission Design Engineer Interventions [] Prayer [] Active listening [] Non-anxious presence [] Spiritual/emotional support [] Crisis/trauma care [] Spiritual counseling [] Bereavement support [] Provided bereavement packet [] Provided Bible/devotional materials [] Provided toy/stuffed animal, coloring book to patient or family member [] Provided Communion [] Anointing/[place] [] Salvation [] Completed spiritual assessment [] Other: Impact on Illness or Injury [] Angry [] Fearful [] Anxious [] Often cries [] Exhaustion [] Unable to work [] Unable to attend moravian [] Unable to walk/stand [] Unable to read [] Unable to drive [] Unable to eat/drink [] Unable to sleep [] Unable to be with family [] Patient intubated [] Other: Summary Time spent with patient
[2024-03-22] MEDS: PRENATAL VIT NO.130/IRON/FOLIC 1 EACH TABLET PO (10:17)
--- NOTE | 2024-03-22 10:27 | P.SS_ITS ---
Short Stay Summary Providers Date of Admit/Discharge: 03/24/24 Attending Provider: Florencio Reza MD Primary Care Provider: Rbuen Deluna MD Chief Complaint: n/v weak cant eat 3 days HPI History of Present Illness Tila Francis is a 23 year old female who presented to the ER this morning after having persistent vomiting that been happening intermittently over the last week. She is unable to keep down any food and minimal drink. She was given promethazine outpatient, but was unable to keep it down.She was evaluated in the ER and found to have a potassium of 2.9. She continued to have some nausea despite treatment with Zofran and promethazine in the ER. Due to her low potassium and persistent nausea and dehydration she was admitted for further evaluation. Thankfully, by the time I saw the patient, she is doing much better. Her nausea vomiting has resolved. She is drinking without difficulty. Her pain is improved. She states that she feels much better. This is the best she has felt all week. Also of note, she had a quantitative hCG done earlier this week with a number greater than 33,000. Today that number is 30,610. We had a discussion and she understands that her decrease in hCG is not compatible with a viable . We discussed options including conservative measures, Cytotec, or D&C. After discussing the benefits and risks of each, she would like to proceed with getting Cytotec upon discharge from the hospital. She had been trying to avoid marijuana because of her , but this last week with all of her nausea she did start to take it again. We discussed the risk of cyclical vomiting coming from consistent marijuana use and that that could be compounding the challenges she is having with morning sickness Review of Systems General: Reports: 10 or more systems reviewed and unremarkable except in HPI and below Const: Reports: fatigue; Denies: fever(s) Eyes: Denies: change in vision Card: Denies: chest pain GI: Reports: nausea and vomiting Musc: Reports: back pain Sheng/Lymph: Denies: easy bruising Home Meds/Allergies Home Medications and Allergies Home Medications Medication Instructions Recorded Confirmed Type albuterol sulfate 90 mcg/actuation 2 puff inhalation Q4H 03/17/24 03/23/24 History aerosol inhaler (Ventolin HFA) Allergies Allergy/AdvReac Type Severity Reaction Status Date / Time No Known Allergies Allergy Verified 03/23/24 22:05 PFSH Acute PFSH: Medical History Alcohol abuse, episodic drinking behavior Generalized anxiety disorder 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 Alcohol abuse, episodic Cannabis dependence, uncomplicated Depression Anxiety Surgical History S/P tonsillectomy S/P adenoidectomy Family History Mother Psychiatric illness Depression, anxiety Cancer Cervical Anemia Father Psychiatric illness Depression Brother Psychiatric illness Depression, anxiety Sister Psychiatric illness Depression, anxiety Grandmother Cancer Breast Social History Smoking and tobacco/nicotine status: never used tobacco/nicotine Second hand smoke exposure: Yes Alcohol intake: never Substance/Drug Use: former Adopted: No Caregiver/support person: Yes Lives independently: Yes Marital status: Single Number of children: 3 Number of grandchildren: 0 Highest education level completed: 11th Grade service: No Current occupational status: unemployed Current occupational exposures/hazards: No Female Reproductive History: Date of last menstrual period: 12/23/23 Vitals/I&O/Wt Last Vital Signs Temp 98.1 F 03/22/24 00:23 Pulse 65 03/22/24 07:29 Resp 17 03/22/24 00:23 BP 101/87 03/22/24 07:29 Pulse Ox 100 03/22/24 07:29 O2 Del Method Room Air 03/22/24 08:00 03/21/24 03/22/24 03/22/24 22:59 06:59 14:59 Intake Total 1100 / 1100 Balance 1100 / 1100 Weight last 48 hrs Weight 139 lb Weight 139 lb Physical Exam Const: COMMON NORMALS: patient oriented x3 and alert HENMT: COMMON NORMALS: moist oral mucous membranes HEAD & SCALP: normal to inspection Chest: COMMONS NORMALS: normal inspection of the chest Resp: COMMON NORMALS: clear to auscultation bilaterally AUSCULTATION: clear to auscultation bilaterally Cardio: COMMON NORMALS: regular rate and regular rhythm RATE: regular rate RHYTHM: regular rhythm GI: INSPECTION: Yes normal to inspection Extremity: COMMON NORMALS: normal to inspection GENERAL: Yes edema (Trace) Neuro: COMMON NORMALS: patient oriented x3, moves all extremities and no sensory deficits noted SENSORIUM/ORIENTATION: Yes alert Psych: COMMON NORMALS: mental status grossly normal Skin: COMMON NORMALS: no rashes or lesions noted GENERAL SKIN EXAM: no rashes or lesions noted SSS Data Data Completed and Pending: Pending at discharge Category Date Time Status Basic Metabolic P [place] AM LABS Lab 03/23/24 04:00 Ordered C Reactive Protei n AM LABS Lab 03/23/24 04:00 Ordered Complete Blood Co unt w/Auto AM LABS Lab 03/23/24 04:00 Ordered Drug Screen, Urin e Routine Lab 03/22/24 07:38 Uncollected Magnesium AM LABS Lab 03/23/24 04:00 Ordered Phosphorus AM LAB S Lab 03/23/24 04:00 Ordered Urinalysis Stat Lab 03/22/24 02:50 Uncollected US OB <=14 wk fet us w transvag Stat Ultrasound 03/22/24 08:45 Taken Diagnoses at Discharge Discharge Diagnosis (1) Nausea & vomiting: Status: Acute Qualifiers: Vomiting type: unspecified Qualified Code(s): R11.2 - Nausea with vomiting, unspecified (2) Hypokalemia: Status: Resolved (3) Cystitis: Details from hospital stay: She has been treated with in the ER with Rocephin. We will send her home with Bactrim DS while waiting for culture results. Status: Acute (4) Subchorionic hematoma in first trimester: Status: Resolved (5) Missed with demise before 20 completed weeks of gestation: Details from hospital stay: After we can show that she is doing better from a dehydration standpoint, we will consider placing her on Cytotec 800 mcg every 12 hours x 2 since her hCG is dropping, and an hCG over 30,000 with no heart tones are not consistent with a viable . Status: Acute Discharge Plan Discharge Patient Disposition: Home Condition: Stable Prescriptions: New ondansetron 4 mg tablet,disintegrating 4 mg PO Q6H PRN (Reason: nausea and vomiting) Qty: 10 0RF sulfamethoxazole-trimethoprim [Bactrim DS] 800-160 mg tablet 1 tab PO BID 7 Days Qty: 14 0RF potassium chloride [Klor-Con 10] 10 mEq tablet extended release 10 meq PO DAILY Qty: 30 0RF Continued albuterol sulfate [Ventolin HFA] 90 mcg/actuation HFA aerosol inhaler 2 puff INHALATION Q4H promethazine 25 mg tablet 25 mg PO Q6H PRN (Reason: nausea and vomiting) Qty: 20 0RF Discontinued nitrofurantoin monohyd/m-cryst [Macrobid] 100 mg capsule 100 mg PO BID 7 Days Qty: 14 0RF Rx Instructions: must administer with a meal/food Discharge Orders: Discharge Order (Routine); Ordered 03/22/24 Ordered By: Florencio Reza Referrals: Ruben Deluna MD [Primary Care Provider] - Florencio Reza MD [Physician] - 1-3 days (Already has an appt on Sunday) Patient Instructions: Sulfamethoxazole/Trimethoprim (By mouth) (Bactrim, Bactrim DS,..., Misoprostol (By mouth), Ondansetron (By mouth), Threatened Miscarriage (DC), Urinary Tract Infection in (DC), Opioid Safety Attestations Medical Necessity Statement*: The patient demonstrated severe hypokalemia, significant dehydration, and a urinary tract infection. She required use of IV fluids, IV medications to control her nausea, and IV antibiotics to address her urinary tract infection. Time Spent in Patient Care*: greater than 30 min Status at Discharge: Cognitive status at discharge: cognitively intact , Behavioral status at discharge: cooperative , Quality Metrics Clinical Quality Measures: [ No reported AMI, CVA or VTE this stay ] Coding Level of Care Code Acute Code for Chg Fwd Diagnoses Nausea & vomiting R11.2 Vomiting type: unspecified Hypokalemia E87.6 Cystitis N30.90 Subchorionic hematoma in first trimester O41.8X10; O46.8X1 Missed with demise before 20 completed weeks of gestation O02.1
[2024-03-22 13:32] LABS: Blood Urea Nitrogen 6 mg/dL (6-20); Calcium 8.9 mg/dL (8.5-10.5); Carbon Dioxide 23 mmol/L (22-29); Chloride 96 mmol/L (98-107); Creatinine Clr Calc Pharmacy 211.7431; Glomerular Filtration Rate 199.6 mL/min (90-130); Glucose 103 mg/dL (65-115); Osmolality Calculated 274 mOsm/kg (285-295); Sodium 133 mmol/L (136-145)
[2024-03-22] MEDS: acetaminophen 500 mg Tablet PO (14:01)
[2024-03-22] MEDS: ibuprofen 800 mg tablet PO (14:23)
[2024-03-22] MEDS: lidocaine 1% 5 ML in potassium chloride premix 100 ML 16.67 ML IV (17:15)
[2024-03-22] MEDS: ondansetron 4 MG Tablet 8 MG PO (17:15)
[2024-03-22] MEDS: promethazine 25 mg Supp PR (20:46)
[2024-03-22 21:04] LABS: Bilirubin Urine Negative (Negative); Blood Urine 2+ (Negative); Glucose Urine UA Negative (Normal); Ketones Urine 4+ (Negative); Leukocyte Esterase Urine Negative (Negative); Nitrate Urine Negative (Negative); Protein Urine 1+ (Negative); Urine Appearance Cloudy (CLEAR); Urine Color Yellow (Yellow)
[2024-03-22 21:06] LABS: Add Urine Culture? Yes; Add Urine Microscopic? YES; Bacteria Urine None Seen /hpf; Hyaline Casts Urine 1.21 /lpf; RBC Urine 51-100 /hpf (0-2); Specific Gravity, Urine 1.037 (1.005-1.030); Squamous Epithelial Cell Urine 0-5 /hpf (0-5); WBC Urine 0-5 /hpf (0-5)
[2024-03-22 21:29] LABS: Amphetamines Screen Urine Negative (Negative); Barbiturates Screen Urine Negative (Negative); Benzodiazepines Screen Urine Negative (Negative); Cocaine Screen Urine Negative (Negative); Opiate Screen Urine Negative (Negative); PCP Screen Urine Negative (Negative); THC Screen Urine Positive (Negative)
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
== END 2024-03-22 23:41 | disposition home or self-care (01) ==
LOC: ER 06:16 → MEDSURG 09:36
PROVIDERS: Admitting Provider Internal Medicine; Emergency Provider General Practice; PCP Family Medicine; Visit Provider Family Medicine
DX: R11.2 Nausea with vomiting, unspecified (principal); E87.6 Hypokalemia; N30.90 Cystitis, unspecified without hematuria; E86.0 Dehydration; O02.1 Missed abortion
CPT/HCPCS: 76801; 76817; 80048; 80053; 80306; 81001; 83735; 84702; 85025; 86140; 87086; 93005; 96365; 96372; 96375; 96376; 99285; G0378; J0696; J2405; J2470; J2550; J3480; J7030; J8498; Q0162

== ENCOUNTER 2024-03-23 17:48 | Observation (INO) | payer BC, MEDICAID, SELFPAY ==
[2024-03-23] VITALS (16 sets, daily range): BP systolic 97–116; BP diastolic 55–76; PULSE 62–99; RESP 16–18; TEMP 36.3–36.8; O2SAT 93–100; BMI 22.7
--- NOTE | 2024-03-23 18:38 | ED_ITS ---
HPI - Abdominal Pain 2 General: Chief Complaint: Abdominal Pain Stated Complaint: n/v, cramping, 6 wks Time Seen by Provider: 03/23/24 18:13 History of Present Illness: 23-year-old female who is , but miscarrying, presenting with malaise, weakness, generalized pain, worse in the pelvis, cramping, and continued nausea. She was admitted for short stay yesterday, seemed to improve after fluid bolus, and medication. She worsened overnight last night and throughout the day today. She says she has tried to drink water, but only taken in around 16 ounces total. She has not been able to eat. She vomited once at home. This is despite using Zofran. She was unable to fill her misoprostol, as there is requiring insurance prior authorization. Related Data Home Medications Medication Instructions Recorded Confirmed albuterol sulfate 90 mcg/actuation 2 puff inhalation Q4H 03/17/24 03/22/24 aerosol inhaler (Ventolin HFA) Previous Rx's Medication Instructions Recorded multivitamin no.51-ferrous 1 cap PO DAILY #90 caps 04/19/23 fumarate 106.5 mg-folic acid 1 mg capsule (-U) promethazine 25 mg tablet 25 mg PO Q6H PRN nausea and 03/17/24 vomiting #20 tabs misoprostol 200 mcg tablet 800 mcg (4 x 200 mcg) vaginal Q12H 03/22/24 Missed with demise. #8 tabs ondansetron 4 mg disintegrating 4 mg PO Q6H PRN nausea and 03/22/24 tablet vomiting #10 tabs potassium chloride 10 mEq 10 meq PO DAILY #30 tabs 03/22/24 tablet,extended release (Klor-Con) sulfamethoxazole 800 1 tab PO BID 7 days #14 tabs 03/22/24 mg-trimethoprim 160 mg tablet (Bactrim DS) Allergies Allergy/AdvReac Type Severity Reaction Status Date / Time No Known Allergies Allergy Verified 03/22/24 00:31 [facility] ED 2 PFSH: Medical History Alcohol abuse, episodic drinking behavior Generalized anxiety disorder 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 Alcohol abuse, episodic Cannabis dependence, uncomplicated Depression Anxiety Surgical History S/P tonsillectomy S/P adenoidectomy Family History Mother Psychiatric illness Depression, anxiety Cancer Cervical Anemia Father Psychiatric illness Depression Brother Psychiatric illness Depression, anxiety Sister Psychiatric illness Depression, anxiety Grandmother Cancer Breast Social History Smoking and tobacco/nicotine status: never used tobacco/nicotine Second hand smoke exposure: Yes Alcohol intake: never Substance/Drug Use: former Adopted: No Caregiver/support person: Yes Lives independently: Yes Marital status: Single Number of children: 3 Number of grandchildren: 0 Highest education level completed: 11th Grade service: No Current occupational status: unemployed Current occupational exposures/hazards: No Physical Exam 2 Const: GENERAL APPEARANCE: cooperative and ill appearing; not frail appearing NUTRITIONAL APPEARANCE: thin HENMT: COMMON NORMALS: normocephalic, atraumatic and Normal external nose present HEAD & SCALP: normocephalic and atraumatic FACE & SINUS: normal facial exam and face symmetric NOSE: Normal external nose present Eye: COMMON NORMALS: Equal, round and reactive pupils present and EOMs intact bilaterally PUPIL: Yes Equal, round and reactive pupils present Neck/C-Spine: GENERAL: Yes trachea midline Chest: CHEST: Yes Symmetrical chest wall rise Resp: COMMON NORMALS: normal respiratory effort, No retractions, No use of accessory muscles and clear to auscultation bilaterally AUSCULTATION: clear to auscultation bilaterally Cardio: COMMON NORMALS: regular rate and regular rhythm RATE: regular rate RHYTHM: regular rhythm GI: COMMON NORMALS: Normal to inspection, nondistended, normoactive bowel sounds present and Soft to palpation PALPATION: Yes Soft to palpation and Yes Tenderness to palpation present (GI) (Epigastric, diffuse pelvic) Extremity: COMMON NORMALS: no pedal edema Neuro: BOBY COMA SCALE: document GCS findings [place] coma scale eye opening: Spontaneous Boby coma scale verbal response: Orientated Boby coma scale motor response: Obey commands [place] coma scale total score: 15 S ENSORY EXAM: Yes extremities (intact) Psych: COMMON NORMALS: speech normal SPEECH: Yes normal speech Skin: COMMON NORMALS: no rashes or lesions noted GENERAL SKIN EXAM: no rashes or lesions noted Course 2 Vital Signs: Vital signs: Vital Signs Temperature 97.4 F L 03/23/24 21:25 Pulse Rate 65 03/23/24 21:25 Respiratory Rate 16 03/23/24 21:25 Blood Pressure 103/58 03/23/24 21:25 Pulse Oximetry 99 03/23/24 21:25 Oxygen Delivery Me thod Room Air 03/23/24 21:45 MDM - Abdominal Pain Medical Decision Making Patient presents with mild tachycardia. Chills. Blood pressure is mildly soft, currently 92/57. She has 3+ ketones in her urine still. Bicarb is 21. Potassium is 3.4. She has received 2 L of fluid bolus in the ER. She was unable to get her Cytotec as an outpatient. Spoke with the patient's physician. Recommendations are continued fluid overnight, antiemetics, pain medication as needed, start her Cytotec here, and he will see her. Orders have been written. Lab Data 03/23/24 19:28 03/23/24 19:28 Labs/Radiology: Laboratory Results WBC 7.12 10^3/uL (3.29-11.43) 03/23/24 19:28 RBC 4.34 10^6/uL (3.85-5.65) 03/23/24 19:28 Hgb 12.80 g/dL (11.27-16.99) 03/23/24 19:28 Hct 36.4 % (36-47) 03/23/24 19:28 MCV 83.9 fl (85-98) L 03/23/24 19:28 MCH 29.5 pg (27-33) 03/23/24 19:28 MCHC 35.2 g/dL (30-55) 03/23/24 19:28 RDW 11.9 % (12.1-15.1) L 03/23/24 19:28 Plt Count 305 10^3/cmm (157-399) 03/23/24 19:28 MPV 9.8 fL (7.4-10.4) 03/23/24 19:28 Neut % (Auto) 76.0 % 03/23/24 19:28 Lymph % (Auto) 18.5 % 03/23/24 19:28 [place] % (Auto) 5.2 % 03/23/24 19:28 Eos % (Auto) 0.1 % 03/23/24 19:28 Baso % (Auto) 0.1 % 03/23/24 19: Neut # (Auto) 5.40 10^3/uL (1.8-7.7) 03/23/24 19: Lymph # (Auto) 1.3 10^3/uL (0.8-4.8) 03/23/24 19: [place] # (Auto) 0.4 10^3/uL (0.2-0.9) 03/23/24 19: Eos # (Auto) 0.0 10^3/uL (0.0-0.8) 03/23/24 19: Baso # (Auto) 0.0 10^3/uL (0.0-0.1) 03/23/24 19: Nucleated RBC % (auto) 0 % 03/23/24: Nucleated RBCs # 0.0 /100WBC 03/23/24 19: Sodium 132 mmol/L (136-145) L 03/23/24 19: Potassium 3.4 mmol/L (3.5-5.1) L 03/23/24 19: Chloride 96 mmol/L (98-107) L 03/23/24 19: Carbon Dioxide 21 mmol/L (22-29) L 03/23/24: Anion Gap 18.4 (5-19) 03/23/24: BUN 7 mg/dL (6-20) 03/23/24 19: Creatinine 0.5 mg/dL (0.5-0.9) 03/23/24: GFR Calculation 154.3 mL/min (90-130) H 03/23/24 19: Glucose 77 mg/dL (65-115) 03/23/24: Calculated Osmolality 271 mOsm/kg (285-295) L 03/23/24: Lactic Acid 0.9 mmol/L (0.5-2.2) 03/23/24 19: Calcium 9.4 mg/dL (8.5-10.5) 03/23/24 19: Magnesium 1.9 mg/dL (1.7-2.3) 03/23/24: Total Bilirubin 0.6 mg/dL (0.15-1.2) 03/23/24 19: AST 10 U/L (0-32) 03/23/24 19: ALT 7 U/L (0-33) 03/23/24 19: Alkaline Phosphatase 73 U/L (35-105) 03/23/24 19: C-Reactive Protein 3.0 mg/L (0.0-4.9) 03/23/24 19: Total Protein 7.6 g/dL (6.6-8.7) 03/23/24 19: Albumin 4.6 g/dL (3.5-5.2) 03/23/24 19: Globulin 3.0 g/dL (1.3-4.6) 03/23/24 19: Lipase 60 U/L (13-60) 03/23/24 19: Ser , Semi-Qnt 25545.00 mIU/mL 03/23/24 19: Urine Color Yellow (Yellow) 03/23/24 19: Urine Appearance Clear (CLEAR) 03/23/24 19:42 Urine pH 5.5 (5-7) 03/23/24 19:42 Ur Specific [place] 1.014 (1.005-1.030) 03/23/24 19: Urine Protein Trace (Negative) A 03/23/24 19: Urine Glucose (UA) Negative (Normal) 03/23/24 19:42 Urine Ketones 3+ (Negative) H 03/23/24 19:42 Urine Blood 2+ (Negative) A 03/23/24 19: Urine Nitrate Negative (Negative) 03/23/24 19: Urine Bilirubin Negative (Negative) 03/23/24 19: Urine Urobilinogen 1.0 mg/dL (Negative) 03/23/24 19:42 Ur Leukocyte Esterase Negative (Negative) 03/23/24 19:42 Urine RBC 11-20 /hpf (0-2) H 03/23/24 19:42 Urine WBC 0-5 /hpf (0-5) 03/23/24 19:42 Ur Squamous Epith Cells 0-5 /hpf (0-5) 03/23/24 19:42 Amorphous Sediment Not Reportable 03/23/24 19: Urine Bacteria None seen /hpf (NONE) 03/23/24 19:42 Hyaline Casts 0-4 /lpf H 03/23/24 19:42 Urine Opiates Screen Negative ng/mL (Negative) 03/23/24 19:42 Ur Barbiturates Screen Negative ng/mL (Negative) 03/23/24 19:42 Ur Phencyclidine Scrn Negative ng/mL (Negative) 03/23/24 19:42 Ur Amphetamines Screen Negative ng/mL (Negative) 03/23/24 19:42 U Benzodiazepines Scrn Negative ng/mL (Negative) 03/23/24 19:42 Urine Cocaine Screen Negative ng/mL (Negative) 03/23/24 19:42 U Marijuana (THC) Screen Positive ng/mL (Negative) H 03/23/24 19:42 No radiology studies performed this visit Discharge Plan Discharge Patient Disposition: Admitted As Inpatient Admit Provider: Florencio Reza Clinical Impression: Missed with demise before 20 completed weeks of gestation, Acute dehydration, Acute hypokalemia Condition: Stable Coding Level of Care Code ED Manager Parking for Haseeb Phillips
--- NOTE | 2024-03-23 18:40 | ECG_ITS ---
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 Measurements Intervals [place] Rate: 76 P: 39 SD: 119 QRS: 89 QRSD: 86 T: -27 QT: 331 QTc: 373 Interpretive Statements SINUS RHYTHM WITH SHORT SD INTERVAL MODERATE T-WAVE ABNORMALITY, CONSIDER ANTERIOR ISCHEMIA [-0.1+ mV T-WAVE IN V3/V4] MODERATE T-WAVE ABNORMALITY, CONSIDER INFERIOR ISCHEMIA [-0.1+ mV T-WAVE IN II/aVF] Compared to ECG 03/22/2024 04:14:14 Possible ischemia now present Sinus bradycardia no longer present T-wave abnormality still present Electronically Signed On 03-24-2024 17:08:06 [employer] by Parth Gross M.D. [email or web address]
[2024-03-23] MEDS: ondansetron 2 mg/ML SDV 2 mL 4 MG IVP (19:35)
[2024-03-23] MEDS: sodium chloride 0.9% 1,000 ML 999 ML IV ×2 (19:36→20:37)
[2024-03-23] MEDS: ketorolac 30 mg/mL INJ IVP (19:36)
[2024-03-23 19:41] LABS: Basophils % 0.1 %; Eosinophils % 0.1 %; Hematocrit 36.4 % (36-47); Lymphocytes # 1.3 10^3/uL (0.8-4.8); Lymphocytes % 18.5 %; Mean Corpuscular HGB Conc 35.2 g/dL (30-55); Mean Corpuscular Hemoglobin 29.5 pg (27-33); Mean Corpuscular Volume 83.9 fl (85-98); Mean Platelet Volume 9.8 fL (7.4-10.4); Monocytes # 0.4 10^3/uL (0.2-0.9); Monocytes % 5.2 %; Nucleated Red Blood Cells % 0 %; Platelet Count 305 10^3/cmm (157-399); Red Blood Count 4.34 10^6/uL (3.85-5.65); Red Cell Distribution Width 11.9 % (12.1-15.1); White Blood Count 7.12 10^3/uL (3.29-11.43)
[2024-03-23 19:53] LABS: Bilirubin Urine Negative (Negative); Blood Urine 2+ (Negative); Glucose Urine UA Negative (Normal); Ketones Urine 3+ (Negative); Leukocyte Esterase Urine Negative (Negative); Nitrate Urine Negative (Negative); Protein Urine Trace (Negative); Specific Gravity, Urine 1.014 (1.005-1.030); Urine Appearance Clear (CLEAR); Urine Color Yellow (Yellow); pH Urine 5.5 (5-7)
[2024-03-23 19:56] LABS: Add Urine Microscopic? YES; Bacteria Urine None Seen /hpf; Hyaline Casts Urine 0-4 /lpf; Squamous Epithelial Cell Urine 0-5 /hpf (0-5); WBC Urine 0-5 /hpf (0-5)
[2024-03-23 19:59] LABS: Add Urine Culture? Yes; Amphetamines Screen Urine Negative (Negative); Barbiturates Screen Urine Negative (Negative); Benzodiazepines Screen Urine Negative (Negative); Cocaine Screen Urine Negative (Negative); Opiate Screen Urine Negative (Negative); PCP Screen Urine Negative (Negative); THC Screen Urine Positive (Negative)
[2024-03-23 20:02] LABS: Lactic Sepsis W/Reflex 0.9 mmol/L (0.5-2.2)
[2024-03-23 20:03] LABS: Alanine Aminotransferase 7 U/L (0-33); Albumin Level 4.6 g/dL (3.5-5.2); Alkaline Phosphatase 73 U/L (35-105); Anion Gap 18.4 (5-19); Aspartate Amino Transferase 10 U/L (0-32); Blood Urea Nitrogen 7 mg/dL (6-20); Calcium 9.4 mg/dL (8.5-10.5); Carbon Dioxide 21 mmol/L (22-29); Chloride 96 mmol/L (98-107); Creatinine Clr Calc Pharmacy 170.4064; Glomerular Filtration Rate 154.3 mL/min (90-130); Glucose 77 mg/dL (65-115); Lipase 60 U/L (13-60); Magnesium 1.9 mg/dL (1.7-2.3); Osmolality Calculated 271 mOsm/kg (285-295); Potassium 3.4 mmol/L (3.5-5.1); Sodium 132 mmol/L (136-145); Total Bilirubin 0.6 mg/dL (0.15-1.2); Total Protein 7.6 g/dL (6.6-8.7)
[2024-03-23] MEDS: morphine 4 mg/mL SDV 1 mL IVP (20:34)
[2024-03-23] MEDS: lidocaine 2% viscous 15 ML, aluminum-mag hydrox-simethicon 30 ML, sucralfate oral liq 1 GM PO (20:38)
[2024-03-23] MEDS: D5-NS 0.45% + KCL 20 mEq 20 MEQ/1,000 ML BAG 150 MEQ IV (22:15)
[2024-03-23] MEDS: miSOPROStol 200 mcg Tablet 800 MCG VAGINAL (22:15)
[2024-03-23] MEDS: cefTRIAXone 2,000 mg SDV 1000 MG IVP (22:20)
[2024-03-24] VITALS (9 sets, daily range): BP systolic 99–120; BP diastolic 54–59; PULSE 64–83; RESP 16–18; TEMP 36.8; O2SAT 98–99
[2024-03-24] MEDS: metoclopramide 5 mg/mL SDV 2 mL 10 MG IVP ×2 (01:27→09:24)
[2024-03-24] MEDS: D5-NS 0.45% + KCL 20 mEq 20 MEQ/1,000 ML BAG 150 MEQ IV (05:38)
[2024-03-24] MEDS: ketorolac 30 mg/mL INJ 15 MG IVP (08:55)
--- NOTE | 2024-03-24 09:19 | P.SS_ITS ---
Short Stay Summary Providers Date of Admit/Discharge: 03/24/24 Attending Provider: Florencio Reza MD Primary Care Provider: Ruben Deluna MD Chief Complaint: n/v, cramping, 6 wks HPI History of Present Illness Tila Francis is a 23 year old female with a known demise of a first trimester who was admitted to the hospital the day prior to her current admission. At that time she was admitted because of dehydration, a presumed urinary tract infection, and persistent nausea and vomiting. She was treated with multiple medications including ondansetron and promethazine. She was feeling much better and decided she wanted to go home. I discouraged her going home, but since she was feeling much better, we will let her go with appropriate medication for her nausea, vomiting, urinary tract infection as well as Cytotec to assist in helping her to complete her miscarriage. Unfortunately after going home she began feeling bad again. She began having nausea. She was unable to keep down fluids. She returned to the ER. She did not have a fever. She painfully bad enough that she came back to the hospital for further evaluation. She was once again noted to be dehydrated. And given her history of recurrent nausea vomiting we elected to admit her to the hospital to treat her dehydration as well as to address her nausea vomiting. Review of Systems General: Reports: 10 or more systems reviewed and unremarkable except in HPI and below Const: Reports: fatigue; Denies: fever(s) Eyes: Denies: change in vision Card: Denies: chest pain : Denies: vaginal bleeding or vaginal discharge Musc: Reports: back pain Sheng/Lymph: Denies: easy bruising Home Meds/Allergies Home Medications and Allergies Home Medications Medication Instructions Recorded Confirmed Type albuterol sulfate 90 mcg/actuation 2 puff inhalation Q4H 03/17/24 03/23/24 History aerosol inhaler (Ventolin HFA) Allergies Allergy/AdvReac Type Severity Reaction Status Date / Time No Known Allergies Allergy Verified 03/23/24 22:05 PFSH Acute PFSH: Medical History Alcohol abuse, episodic drinking behavior Generalized anxiety disorder 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 Alcohol abuse, episodic Cannabis dependence, uncomplicated Depression Anxiety Surgical History S/P tonsillectomy S/P adenoidectomy Family History Mother Psychiatric illness Depression, anxiety Cancer Cervical Anemia Father Psychiatric illness Depression Brother Psychiatric illness Depression, anxiety Sister Psychiatric illness Depression, anxiety Grandmother Cancer Breast Social History Smoking and tobacco/nicotine status: never used tobacco/nicotine Second hand smoke exposure: Yes Alcohol intake: never Substance/Drug Use: former Adopted: No Caregiver/support person: Yes Lives independently: Yes Marital status: Single Number of children: 3 Number of grandchildren: 0 Highest education level completed: 11th Grade service: No Current occupational status: unemployed Current occupational exposures/hazards: No Female Reproductive History: : 5 Vitals/I&O/Wt Last Vital Signs Temp 98.2 F 03/23/24 22:24 Pulse 68 03/24/24 05:41 Resp 18 03/24/24 08:00 BP 99/58 03/24/24 05:41 Pulse Ox 99 03/23/24 21:25 O2 Del Method Room Air 03/24/24 01:27 03/23/24 03/24/24 03/24/24 22:59 06:59 14:59 Intake Total 1000 / 1000 Balance 1000 / 1000 Weight last 48 hrs Weight 141 lb Weight 141 lb Physical Exam Const: COMMON NORMALS: patient oriented x3 and alert HENMT: COMMON NORMALS: moist oral mucous membranes HEAD & SCALP: normal to inspection Chest: COMMONS NORMALS: normal inspection of the chest Resp: COMMON NORMALS: clear to auscultation bilaterally AUSCULTATION: clear to auscultation bilaterally Cardio: COMMON NORMALS: regular rate and regular rhythm RATE: regular rate RHYTHM: regular rhythm GI: COMMON NORMALS: Soft to palpation INSPECTION: Yes normal to inspection PALPATION: Yes Soft to palpation, Yes Tenderness to palpation present (GI) Details: other (Suprapubic) and No Rebound tenderness present Extremity: COMMON NORMALS: normal to inspection GENERAL: Yes edema (Trace) Neuro: COMMON NORMALS: patient oriented x3, moves all extremities and no sensory deficits noted SENSORIUM/ORIENTATION: Yes alert Psych: COMMON NORMALS: mental status grossly normal Skin: COMMON NORMALS: no rashes or lesions noted GENERAL SKIN EXAM: no rashes or lesions noted Hospital Course Hospital Course After mission to the hospital, the patient's nausea was controlled with Reglan. She is also placed on Cytotec 800 mcg. She had cramping associated with her spontaneous . She appeared to have complete passage of products of conception. Her symptoms improved dramatically. Her bleeding was within normal limits. Her pain was adequately controlled. SSS Data Data Completed and Pending: Pending at discharge Category Date Time Status Urine Culture Sta t Lab 03/23/24 19:42 Received Discharge Plan Discharge Patient Disposition: Home Condition: Stable Prescriptions: Continued albuterol sulfate [Ventolin HFA] 90 mcg/actuation HFA aerosol inhaler 2 puff INHALATION Q4H promethazine 25 mg tablet 25 mg PO Q6H PRN (Reason: nausea and vomiting) Qty: 20 0RF ondansetron 4 mg tablet,disintegrating 4 mg PO Q6H PRN (Reason: nausea and vomiting) Qty: 10 0RF sulfamethoxazole-trimethoprim [Bactrim DS] 800-160 mg tablet 1 tab PO BID 7 Days Qty: 14 0RF potassium chloride [Klor-Con 10] 10 mEq tablet extended release 10 meq PO DAILY Qty: 30 0RF Discharge Orders: Discharge Order (Routine); Ordered 03/24/24 Ordered By: Florencio Reza Referrals: Ruben Deluna MD [Primary Care Provider] - 03/26/24 8:30 am (* You have an appointment with Dr. Reza on Sunday03/26/2023 at 8:30am.) Florencio Reza MD [Physician] - 1-3 days Discharge Diet: Usual diet Discharge Activity: Limit activity as instructed Patient Instructions: Opioid Safety Attestations Medical Necessity Statement*: The patient had recurrent dehydration as well as persistent nausea and vomiting. She was hypotensive in the ER. This in the face of having an impending miscarriage which would likely cause more blood loss and put her at high risk for hemodynamic instability. She had admission to the hospital for rehydration, control of her nausea and vomiting, and management of her hemodynamic instability. Time Spent in Patient Care*: less than 30 min Status at Discharge: Cognitive status at discharge: cognitively intact , Behavioral status at discharge: cooperative , Quality Metrics Clinical Quality Measures: [ No reported AMI, CVA or VTE this stay ] Coding Level of Care Code Acute Code for Chg Fwd
[2024-03-24] MEDS: morphine 4 mg/mL SDV 1 mL IVP (09:24)
--- NOTE | 2024-03-24 09:33 | PC.NURSE ---
Patient pressed call light and reports she had just had a bowel movement and urinated. Patient reports that in her urine hat there was a small white pill with an M on it. Patient also reports that her cramping has increased significantly and now reports her pain is a 8/10 and the pain is making her nauseous. Patient requests reglan and morphine at this time.
[2024-03-24] MEDS: ondansetron 2 mg/ML SDV 2 mL 8 MG IVP (11:46)
== END 2024-03-24 19:25 | disposition home or self-care (01) ==
LOC: ER 20:41 → OBGYN 21:52
PROVIDERS: Admitting Provider Family Medicine; Emergency Provider Emergency Medicine; PCP Family Medicine; Visit Provider Family Medicine
DX: O02.1 Missed abortion (principal); R11.0 Nausea
CPT/HCPCS: 36415; 80053; 80306; 81001; 83605; 83690; 83735; 84702; 85025; 86140; 87086; 93005; 96365; 96366; 96375; 96376; 99285; G0378; J0696; J1885; J2270; J2405; J2765; J7030

== ENCOUNTER 2024-03-27 09:13 | Day surgery (SDC) | payer BC, MEDICAID, SELFPAY ==
[2024-03-27] VITALS (10 sets, daily range): BP systolic 95–126; BP diastolic 50–76; PULSE 73–115; RESP 18; TEMP 36.1–36.7; O2SAT 96–100; BMI 22.7
[2024-03-27] MEDS: sodium chloride 0.9% 1,000 ML 30 ML IV (09:43)
[2024-03-27] MEDS: ondansetron 2 mg/ML SDV 2 mL 4 MG IVP (09:43)
[2024-03-27] MEDS: scopolamine 1 mg PATCH 1 PATCH TRANSDERMA (09:43)
--- NOTE | 2024-03-27 09:48 | ANES.PREANE2 ---
Pre-Anesthetic Assessment Height/Weight: Height 1.68 m Operation Date: 03/27/24 10:55 Proposed Procedures p Dilation And Curettage (D&C) 99691, O02.1(Not Applicable) - Florencio Reza MD Familial anesthetic complications: none Was Beta Ibrahima taken within 24 hours: N/A Was Clonidine taken within 24 hours: N/A Social Tobacco (Vapes) and No alcohol Exam alert, oriented x 3, clear to auscultation bilaterally and regular rate & rhythm Airway Submandibular: within normal limits Cervical ROM: within normal limits Mallampati: Class II Dentition: full Pulmonary Asthma Neuropsych Anxiety and Depression Anesthetic Plan ASA status: 2 Anesthesia: General Medications/Allergies Home Medications Medication Instructions Recorded Confirmed Last Taken Type albuterol sulfate 90 mcg/actuation 2 puff inhalation Q4H 03/17/24 03/26/24 2 Weeks Ago History aerosol inhaler (Ventolin HFA) ~03/09/24 promethazine 25 mg tablet 25 mg PO Q6H PRN nausea and 03/17/24 03/26/24 Unknown Rx vomiting #20 tabs ondansetron 4 mg disintegrating 4 mg PO Q6H PRN nausea and 03/22/24 03/26/24 03/26/24 Rx tablet vomiting #10 tabs potassium chloride 10 mEq 10 meq PO DAILY #30 tabs 03/22/24 03/26/24 03/25/24 Rx tablet,extended release (Klor-Con) sulfamethoxazole 800 1 tab PO BID 7 days #14 tabs 03/22/24 03/26/24 03/25/24 Rx mg-trimethoprim 160 mg tablet (Bactrim DS) hydrocodone 5 mg-acetaminophen 325 1 tab PO PRN PRN Pain 03/26/24 03/26/24 03/26/24 05:30 History mg tablet Allergies Allergy/AdvReac Type Severity Reaction Status Date / Time No Known Allergies Allergy Verified 03/26/24 14:42 Current Medications Generic Name Dose Route Start Last Admin Trade Name Freq PRN Reason Stop Dose Admin Sodium Chloride 1,000 mls @ 30 mls/hr 03/27/24 09:30 03/27/24 09:43 Sodium Chloride 0.9% IV 03/28/24 09:29 30 mls/hr .Q24H YOUSUF Administration Ondansetron HCl 4 mg 03/27/24 09:16 03/27/24 09:43 Ondansetron 2 Mg/Ml Sdv 2 Ml IVP 4 mg ONCE PRN Administration NAUSEA AND VOMITING PFSH Anesthesia Medical History Alcohol abuse, episodic drinking behavior Generalized anxiety disorder 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 Alcohol abuse, episodic Cannabis dependence, uncomplicated Depression Anxiety Surgical History S/P tonsillectomy S/P adenoidectomy Family History Mother Psychiatric illness Depression, anxiety Cancer Cervical Anemia Father Psychiatric illness Depression Brother Psychiatric illness Depression, anxiety Sister Psychiatric illness Depression, anxiety Grandmother Cancer Breast Social History Smoking and tobacco/nicotine status: never used tobacco/nicotine Second hand smoke exposure: Yes Alcohol intake: never Substance/Drug Use: former Adopted: No Caregiver/support person: Yes Lives independently: Yes Marital status: Single Number of children: 3 Number of grandchildren: 0 Highest education level completed: 11th Grade service: No Current occupational status: unemployed Current occupational exposures/hazards: No Data Anesthesia Cardiac Studies: No Data to Display
[2024-03-27] MEDS: diphenhydrAMINE 50 mg/mL SDV 1mL 12.5 MG IVP (09:57)
[2024-03-27] MEDS: acetaminophen 1,000 MG/100 ML PIGGYBACK 400 MG IV (10:08)
--- NOTE | 2024-03-27 11:06 | W.PM.OPSUD ---
Surgery/Procedure H&P Update DATE OF PROCEDURE: March 27, 2024 DATE H&P PERFORMED: 03/24/23 CHANGES TO PREVIOUS DOCUMENTATION: No changes to previous documentation. The patient was examined today has a regular rate and rhythm no murmurs rubs or gallops. Her lungs are clear to auscultation bilaterally. Her abdomen is nondistended. She does have some tenderness to her suprapubic area. PRIMARY INDICATION FOR PROCEDURE: Missed PLANNED PROCEDURE: Operation Date: 03/27/24 10:55 Proposed Procedures p Dilation And Curettage (D&C) 91560, O02.1(Not Applicable) - Florencio Reza MD Related Problem List Diagnoses (1) Missed with demise before 20 completed weeks of gestation: Will proceed with a D&C. We discussed the options with the patient in my office previously including the option of conservative care, another Cytotec, or D&C. After hearing the pros and cons of each she decided to proceed with a D&C.
--- NOTE | 2024-03-27 11:44 | PM.OP ---
Operative Report Date of procedure: March 27, 2024 Pre-op diagnosis: 33-year-old female with a missed presenting for D&C Post-op diagnosis: Status post a D&C Procedure done: D&C Specimens removed/disposition: Products of conception Pathology: Products of conception Surgeon: Florencio Reza MD Estimated blood loss (mL): 30 Complications: None Procedure: The patient was brought back to the operating room where she was put under general anesthesia was placed in the dorsolithotomy position. She was prepped and draped in usual fashion. A weighted speculum was placed. A tenaculum was used to grasp the anterior lip of the cervix. The cervix was then dilated in usual fashion. Curettes were then used to curettage the endometrium of the uterus. Products of conception were obtained. An excellent cry was noted in all 4 quadrants of the uterus. There were no complications or concerns.
[2024-03-27] MEDS: fentaNYL 50 mcg/mL INJ 2mL IVP (12:34)
--- NOTE | 2024-03-27 13:23 | ANE.PACU2 ---
Inpatient post-anesthesia follow up: Airway intact: Yes Vital signs: Temperature 97.2 F Pulse Rate 80 Respiratory Rate 18 Blood Pressure 104/66 Pulse Oximetry 100 Oxygen Delivery Me thod Room Air Oxygen Flow Rate Fraction of Inspir ed Oxygen Hydration adequate: Yes Nausea and vomiting: No Pain level: 3 Mental status: Baseline
== END 2024-03-27 13:20 | disposition home or self-care (01) ==
PROVIDERS: PCP Family Medicine; Visit Provider Family Medicine
PROC: (CPT 58120; principal; 2024-03-27 10:45)
DX: O02.1 Missed abortion (principal)
CPT/HCPCS: 59820; 88305; J0131; J0330; J1100; J1200; J1885; J2405; J2704; J3010; J7030

== ENCOUNTER 2024-03-30 04:19 | Observation (INO) | payer BC, MEDICAID, SELFPAY ==
[2024-03-30] VITALS (12 sets, daily range): BP systolic 92–140; BP diastolic 58–110; PULSE 78–123; RESP 16–18; TEMP 36.6–36.9; O2SAT 95–98; BMI 16.5
[2024-03-30 04:59] LABS: Basophils % 0.2 %; Eosinophils # 0.1 10^3/uL (0.0-0.8); Eosinophils % 0.6 %; Hematocrit 30.4 % (36-47); Lymphocytes # 0.5 10^3/uL (0.8-4.8); Lymphocytes % 3.5 %; Mean Corpuscular HGB Conc 34.2 g/dL (30-55); Mean Corpuscular Hemoglobin 29.7 pg (27-33); Mean Corpuscular Volume 86.9 fl (85-98); Mean Platelet Volume 10.4 fL (7.4-10.4); Monocytes # 0.5 10^3/uL (0.2-0.9); Monocytes % 3.6 %; Neutrophils # 12.02 10^3/uL (1.8-7.7); Neutrophils % 91.9 %; Nucleated Red Blood Cells % 0 %; Platelet Count 190 10^3/cmm (157-399); Red Cell Distribution Width 12.3 % (12.1-15.1); White Blood Count 13.08 10^3/uL (3.29-11.43)
--- NOTE | 2024-03-30 04:59 | XRR_ITS ---
PROCEDURE INFORMATION: Exam: XR Abdomen Exam date and time: 03/30/2024 5:06 AM Age: 23 years old Clinical indication: Abdominal pain; Generalized; Patient HX: C/O abd pain with constipation; Additional info: Abd pain, constipation TECHNIQUE: Imaging protocol: Radiologic exam of the abdomen. Views: Frontal supine view of the abdomen. 1 View. COMPARISON: US OB <=14 wk fetus w transvag 07/15/2022 4:12 PM FINDINGS: Gastrointestinal tract: Nonspecific bowel gas pattern. Mildly prominent air-filled loops of small bowel in the left upper quadrant. No definite free air. Bones/joints: Unremarkable. XR/XR KUB [id number] IMPRESSION: Nonspecific bowel gas pattern. Mildly prominent air-filled loops of small bowel in the left upper quadrant. If concern persists consider CT scan for further evaluation.
--- NOTE | 2024-03-30 05:01 | W.ED.FEMALGU ---
HPI - Female Genitourinary General: Chief complaint: Vaginal Bleeding Stated complaint: dnc thurs severe bleeding and cramping Time Seen by Provider: 03/30/24 04:45 History of Present Illness: 23-year-old female who had a D&C procedure 3 days ago after a missed . She presents reporting increased bleeding with passage of clots, abdominal cramping and pain worsening over the last 24 hours or so. She has had chills, but denies fever. She endorses constipation, but has not been able to hold down MiraLAX this morning for any relief. She denies any other discharge. Related Data Home Medications Medication Instructions Recorded Confirmed albuterol sulfate 90 mcg/actuation 2 puff inhalation Q4H 03/17/24 03/30/24 aerosol inhaler (Ventolin HFA) acetaminophen 325 mg tablet 650 mg PO QID PRN Fever Or Pain 03/30/24 03/30/24 (Tylenol) vitamin with calcium 1 tab PO DAILY 03/30/24 03/30/24 no.72-iron 27 mg-folic acid 1 mg tablet ( Vitamins Plus Low Iron) sulfamethoxazole 800 1 tab PO BID 03/30/24 03/30/24 mg-trimethoprim 160 mg tablet Previous Rx's Medication Instructions Recorded promethazine 25 mg tablet 25 mg PO Q6H PRN nausea and 03/17/24 vomiting #20 tabs ondansetron 4 mg disintegrating 4 mg PO Q6H PRN nausea and 03/22/24 tablet vomiting #10 tabs potassium chloride 10 mEq 10 meq PO DAILY #30 tabs 03/22/24 tablet,extended release (Klor-Con) Allergies Allergy/AdvReac Type Severity Reaction Status Date / Time No Known Allergies Allergy Verified 03/26/24 14:42 [facility] ED PFS: Medical History Alcohol abuse, episodic drinking behavior Generalized anxiety disorder 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 Alcohol abuse, episodic Cannabis dependence, uncomplicated Depression Anxiety Surgical History S/P tonsillectomy S/P adenoidectomy Family History Mother Psychiatric illness Depression, anxiety Cancer Cervical Anemia Father Psychiatric illness Depression Brother Psychiatric illness Depression, anxiety Sister Psychiatric illness Depression, anxiety Grandmother Cancer Breast Social History Smoking and tobacco/nicotine status: never used tobacco/nicotine Second hand smoke exposure: Yes Alcohol intake: never Substance/Drug Use: former Adopted: No Caregiver/support person: Yes Lives independently: Yes Marital status: Single Number of children: 3 Number of grandchildren: 0 Highest education level completed: 11th Grade service: No Current occupational status: unemployed Current occupational exposures/hazards: No Physical Exam Const: COMMON NORMALS: no acute distress GENERAL APPEARANCE: cooperative; not ill appearing and not frail appearing HENMT: COMMON NORMALS: normocephalic, atraumatic and Normal external nose present HEAD & SCALP: normocephalic and atraumatic FACE & SINUS: normal facial exam and face symmetric NOSE: Normal external nose present Eye: COMMON NORMALS: Equal, round and reactive pupils present and EOMs intact bilaterally PUPIL: Yes Equal, round and reactive pupils present Neck/C-Spine: GENERAL: Yes trachea midline Chest: CHEST: Yes Symmetrical chest wall rise Resp: COMMON NORMALS: normal respiratory effort, No retractions, No use of accessory muscles and clear to auscultation bilaterally AUSCULTATION: clear to auscultation bilaterally Cardio: COMMON NORMALS: regular rhythm RATE: tachycardic RHYTHM: regular rhythm GI: COMMON NORMALS: Normal to inspection, nondistended, normoactive bowel sounds present and Soft to palpation PALPATION: Yes Soft to palpation and Yes Tenderness to palpation present (GI) (Suprapubic) : SPECULUM EXAM - CERVIX: Yes Cervical os open (Slightly), No mucoid cervix, No Cervical lesion present and Yes Other cervical findings present (Slow but steady old blood coming from cervix) OB/EXTERNAL & SPECULUM: Cervical os open (Slightly) Extremity: COMMON NORMALS: no pedal edema Neuro: JUAN COMA SCALE: document GCS findings Juan coma scale eye opening: Spontaneous [place] coma scale verbal response: Orientated [place] coma scale motor response: Obey commands Juan coma scale total score: 15 SENSORY EXAM: Yes extremities (intact) Psych: COMMON NORMALS: speech normal SPEECH: Yes normal speech Skin: COMMON NORMALS: no rashes or lesions noted GENERAL SKIN EXAM: no rashes or lesions noted Course Vital Signs: Vital signs: Vital Signs Temperature 98.4 F 03/30/24 08:00 Pulse Rate 90 03/30/24 19:10 Respiratory Rate 16 03/30/24 19:10 Blood Pressure 92/58 03/30/24 19:10 Pulse Oximetry 98 03/30/24 19:10 Oxygen Delivery Me thod Room Air 03/30/24 19:10 MDM - Female Medical Decision Making Hemoglobin is 10.4. Vitals are stable. White blood cell count is 13. Potassium is 3.2 and repleted. Spoke with the patient's executive communications manager. Recommendations are fluids, pain control, observation for continued bleeding, transvaginal ultrasound which is completing in the ER and pending results. She will go to gynecology floor. He will see her later this morning. Currently she is stable. Lab Data 03/30/24 04:50 03/30/24 04:50 Radiology Impressions KUB X-Ray 03/30/24 04:59 IMPRESSION: Nonspecific bowel gas pattern. Mildly prominent air-filled loops of small bowel in the left upper quadrant. If concern persists consider CT scan for further evaluation. Transvaginal US 03/30/24 06:09 IMPRESSION: No evidence of torsion. IMPRESSION: Lobulated cystic focus in the endometrium likely fluid. Irregular gestational sac not entirely excluded. Recommend serial beta hCG and follow-up. Retained products of conception not excluded. Uterus is anteverted. Laboratory Results WBC 13.08 10^3/uL (3.29-11.43) H 03/30/24 04:50 RBC 3.50 10^6/uL (3.85-5.65) L 03/30/24 04:50 Hgb 10.40 g/dL (11.27-16.99) L 03/30/24 04:50 Hct 30.4 % (36-47) L 03/30/24 04:50 MCV 86.9 fl (85-98) 03/30/24 04:50 MCH 29.7 pg (27-33) 03/30/24 04:50 MCHC 34.2 g/dL (30-55) 03/30/24 04:50 RDW 12.3 % (12.1-15.1) 03/30/24 04:50 Plt Count 190 10^3/cmm (157-399) 03/30/24 04:50 MPV 10.4 fL (7.4-10.4) 03/30/24 04:50 Neut % (Auto) 91.9 % 03/30/24 04:50 Lymph % (Auto) 3.5 % 03/30/24 04:50 Coles % (Auto) 3.6 % 03/30/24 04:50 Eos % (Auto) 0.6 % 03/30/24 04:50 Baso % (Auto) 0.2 % 03/30/24 04:50 Neut # (Auto) 12.02 10^3/uL (1.8-7.7) H 03/30/24 04:50 Lymph # (Auto) 0.5 10^3/uL (0.8-4.8) L 03/30/24 04:50 Coles # (Auto) 0.5 10^3/uL (0.2-0.9) 03/30/24 04:50 Eos # (Auto) 0.1 10^3/uL (0.0-0.8) 03/30/24 04:50 Baso # (Auto) 0.0 10^3/uL (0.0-0.1) 03/30/24 04:50 Nucleated RBC % (auto) 0 % 03/30/24 04:50 Nucleated RBCs # 0.0 /100WBC 03/30/24 04:50 PT 13.10 SECONDS (12.1-14.9) 03/30/24 04:50 INR 0.93 (0.8-1.2) 03/30/24 04:50 APTT 28.1 SECONDS (23.9-36.7) 03/30/24 04:50 Sodium 136 mmol/L (136-145) 03/30/24 04:50 Potassium 3.2 mmol/L (3.5-5.1) L 03/30/24 04:50 Chloride 98 mmol/L (98-107) 03/30/24 04:50 Carbon Dioxide 24 mmol/L (22-29) 03/30/24 04:50 Anion Gap 17.2 (5-19) 03/30/24 04:50 BUN 6 mg/dL (6-20) 03/30/24 04:50 Creatinine 0.4 mg/dL (0.5-0.9) L 03/30/24 04:50 GFR Calculation 199.6 mL/min (90-130) H 03/30/24 04:50 Glucose 106 mg/dL (65-115) 03/30/24 04:50 Calculated Osmolality 280 mOsm/kg (285-295) L 03/30/24 04:50 Calcium 9.2 mg/dL (8.5-10.5) 03/30/24 04:50 Total Bilirubin 0.6 mg/dL (0.15-1.2) 03/30/24 04:50 AST 14 U/L (0-32) 03/30/24 04:50 ALT 7 U/L (0-33) 03/30/24 04:50 Alkaline Phosphatase 64 U/L (35-105) 03/30/24 04:50 C-Reactive Protein 23.5 mg/L (0.0-4.9) H 03/30/24 04:50 Total Protein 6.9 g/dL (6.6-8.7) 03/30/24 04:50 Albumin 4.4 g/dL (3.5-5.2) 03/30/24 04:50 Globulin 2.5 g/dL (1.3-4.6) 03/30/24 04:50 Urine Color Red (Yellow) A 03/30/24 05:06 Urine Appearance Turbid (CLEAR) A 03/30/24 05:06 Urine pH Not Reportable 03/30/24 05:06 Ur Specific Butler Not Reportable 03/30/24 05:06 Urine Protein Not Reportable 03/30/24 05:06 Urine Glucose (UA) Not Reportable 03/30/24 05:06 Urine Ketones Not Reportable 03/30/24 05:06 Urine Blood Not Reportable 03/30/24 05:06 Urine Nitrate Not Reportable 03/30/24 05:06 Urine Bilirubin Not Reportable 03/30/24 05:06 Urine Urobilinogen Not Reportable 03/30/24 05:06 Ur Leukocyte Esterase Not Reportable 03/30/24 05:06 Urine RBC Too numerous to cnt /hpf (0-2) H 03/30/24 05:06 Urine WBC 0-4 /hpf (0-5) H 03/30/24 05:06 Ur Squamous Epith Cells 0-4 /hpf (0-5) H 03/30/24 05:06 Amorphous Sediment Not Reportable 03/30/24 05:06 Urine Bacteria Trace /hpf (NONE) 03/30/24 05:06 XR interpretation done by ED provider, pending radiology final review Discharge Plan Discharge Patient Disposition: Admitted As Inpatient Admit Provider: Florencio Reza Clinical Impression: Hypokalemia, Uterine bleeding Condition: Stable Coding Level of Care Code ED [employer] 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
[2024-03-30] MEDS: ketorolac 30 mg/mL INJ IVP (05:16)
[2024-03-30] MEDS: morphine 4 mg/mL SDV 1 mL IVP ×2 (05:17→07:49)
[2024-03-30] MEDS: sodium chloride 0.9% 1,000 ML 999 ML IV (05:17)
[2024-03-30 05:22] LABS: Alanine Aminotransferase 7 U/L (0-33); Albumin Level 4.4 g/dL (3.5-5.2); Alkaline Phosphatase 64 U/L (35-105); Blood Urea Nitrogen 6 mg/dL (6-20); C Reactive Protein 23.5 mg/L (0.0-4.9); Calcium 9.2 mg/dL (8.5-10.5); Carbon Dioxide 24 mmol/L (22-29); Chloride 98 mmol/L (98-107); Creatinine Clr Calc Pharmacy 161.1278; Globulin 2.5 g/dL (1.3-4.6); Glomerular Filtration Rate 199.6 mL/min (90-130); Glucose 106 mg/dL (65-115); Osmolality Calculated 280 mOsm/kg (285-295); Sodium 136 mmol/L (136-145); Total Bilirubin 0.6 mg/dL (0.15-1.2); Total Protein 6.9 g/dL (6.6-8.7)
[2024-03-30 05:24] LABS: Anion Gap 17.2 (5-19); Aspartate Amino Transferase 14 U/L (0-32); Potassium 3.2 mmol/L (3.5-5.1)
[2024-03-30 05:37] LABS: Urine Color Red (Yellow)
[2024-03-30 05:38] LABS: Add Urine Culture? Yes; Add Urine Microscopic? YES; Bacteria Urine TRACE /hpf; RBC Urine TOO NUMEROUS TO CNT /hpf (0-2); Squamous Epithelial Cell Urine 0-4 /hpf (0-5); Urine Appearance Turbid (CLEAR); WBC Urine 0-4 /hpf (0-5)
[2024-03-30 05:43] LABS: INR 0.93 (0.8-1.2); Partial Thromboplastin Time 28.1 SECONDS (23.9-36.7)
[2024-03-30] MEDS: potassium chloride oral liq 20 mEq/15 mL UDC 40 MEQ PO (05:55)
--- NOTE | 2024-03-30 06:09 | USR_ITS ---
PROCEDURE INFORMATION: Exam: US Duplex Artery and Vein of the Abdominal and/or Reproductive Organs. Complete Ovaries Exam date and time: 03/30/2024 7:06 AM Age: 23 years old Clinical indication: Other: Vaginal bleeding; Prior surgery; Surgery date: 3-7 days post-operative; Surgery type: D&c TECHNIQUE: Imaging protocol: Real-time duplex ultrasound scan of the arterial and venous flow with color Doppler flow and spectral waveform analysis with image documentation. Duplex exam was performed to evaluate for torsion and other vascular conditions. COMPARISON: US OB <=14 wk fetus w transvag 07/15/2022 4:12 PM FINDINGS: Right ovary/adnexa: Spectral Doppler shows normal venous and arterial waveform of the right ovary. Left ovary/adnexa: Spectral Doppler shows normal venous and arterial waveform of the left ovary. PROCEDURE INFORMATION: Exam: US Pelvis, Transvaginal, Non-Obstetric Exam date and time: 03/30/2024 7:06 AM Age: 23 years old Clinical indication: Other: Vaginal bleeding; Prior surgery; Surgery date: 3-7 days post-operative; Surgery type: D&c TECHNIQUE: Imaging protocol: Real-time transvaginal pelvic (non-obstetric) ultrasound with image documentation. Transvaginal imaging was used for better evaluation of the endometrium, adnexa, and/or cervix. COMPARISON: US OB <=14 wk fetus w transvag 03/22/2024 9:08 AM FINDINGS: Uterus: Uterus is anteverted. Endometrial stripe measures maximally 14 mm. Endometrium is complex and heterogeneous. Trace fluid in the endometrial canal. Lobulated cystic focus in the endometrium likely fluid. Irregular gestational sac not entirely excluded. Recommend serial beta hCG and follow-up. Retained products of conception not excluded. No focal vascularity within the endometrium. Right ovary/adnexa: Right ovary normal. Left ovary/adnexa: Left ovary normal. Urinary bladder: Urinary bladder is limited. Intraperitoneal space: Small amount of free fluid in the posterior cul-de-sac. US/US transvaginal [id number] IMPRESSION: No evidence of torsion. IMPRESSION: Lobulated cystic focus in the endometrium likely fluid. Irregular gestational sac not entirely excluded. Recommend serial beta hCG and follow-up. Retained products of conception not excluded. Uterus is anteverted.
[2024-03-30] MEDS: ondansetron 2 mg/ML SDV 2 mL 4 MG IVP (07:48)
--- NOTE | 2024-03-30 09:46 | P.HP_ITS ---
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 Prior to the D&C the patient had been having problems with pain and was placed on Cytotec 800 mcg. She continued to have cramping and pain and as a result we decided to proceed with a D&C. The D&C was unremarkable. Products of conception were sent to pathology. Initially, she did well. On her second postoperative day she began having pain again. She has nausea when she has pain. She did have some bleeding including some clots. She continued to have cramping and pain to the point where she came to the emergency room for further evaluation. She is also concerned that she has not had any more than very small bowel movements in the last 2 weeks. Review of Systems 2 General: Reports: 10 or more systems reviewed and unremarkable except in HPI and below Const: Reports: fatigue; Denies: fever(s) Eyes: Denies: change in vision Card: Denies: chest pain Musc: Reports: back pain Sheng/Lymph: Denies: easy bruising Medications/Allergies Home Medications Medication Instructions Recorded Confirmed Last Taken Type albuterol sulfate 90 mcg/actuation 2 puff inhalation Q4H 03/17/24 03/30/24 2 Weeks Ago History aerosol inhaler (Ventolin HFA) ~03/09/24 promethazine 25 mg tablet 25 mg PO Q6H PRN nausea and 03/17/24 03/30/24 Unknown Rx vomiting #20 tabs ondansetron 4 mg disintegrating 4 mg PO Q6H PRN nausea and 03/22/24 03/30/24 03/26/24 Rx tablet vomiting #10 tabs potassium chloride 10 mEq 10 meq PO DAILY #30 tabs 03/22/24 03/30/24 03/25/24 Rx tablet,extended release (Klor-Con) acetaminophen 325 mg tablet 650 mg PO QID PRN Fever Or Pain 03/30/24 03/30/24 03/29/24 History (Tylenol) vitamin with calcium 1 tab PO DAILY 01/12/25 01/12/25 Unknown History no.72-iron 27 mg-folic acid 1 mg tablet ( Vitamins Plus Low Iron) hydrocodone 5 mg-acetaminophen 325 1 tab PO Q4H PRN Moderate Pain #5 03/31/24 Unknown Rx mg tablet tabs Allergies Allergy/AdvReac Type Severity Reaction Status Date / Time No Known Allergies Allergy Verified 03/26/24 14:42 PFSH INTERACTIVE DESIGNER 2 PFSH: Medical History Alcohol abuse, episodic drinking behavior Generalized anxiety disorder 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 Alcohol abuse, episodic Cannabis dependence, uncomplicated Depression Anxiety Surgical History S/P tonsillectomy S/P adenoidectomy Family History Mother Psychiatric illness Depression, anxiety Cancer Cervical Anemia Father Psychiatric illness Depression Brother Psychiatric illness Depression, anxiety Sister Psychiatric illness Depression, anxiety Grandmother Cancer Breast Social History Smoking and tobacco/nicotine status: never used tobacco/nicotine Second hand smoke exposure: Yes Alcohol intake: never Substance/Drug Use: former Adopted: No Caregiver/support person: Yes Lives independently: Yes Marital status: Single Number of children: 3 Number of grandchildren: 0 Highest education level completed: 11th Grade service: No Current occupational status: unemployed Current occupational exposures/hazards: No Other Female Reproductive History: Hx Age of Menarche: 14 Duration of menses: 3-5 days Cycle Length: 29 Menstrual flow: normal/abnormal: heavy History History History 2 4 Term 2 0 Miscarriages/Ectopic 1 Living Children 2 Vitals/I&O/Wt Last Vital Signs Temp 98.5 F 03/30/24 06:16 Pulse 123 H 03/30/24 07:24 Resp 16 03/30/24 07:49 BP 99/60 03/30/24 07:24 Pulse Ox 97 03/30/24 07:49 O2 Del Method Room Air 03/30/24 04:38 Weight last 48 hrs Weight 102 lb Physical Exam 2 Const: COMMON NORMALS: patient oriented x3 and alert HENMT: COMMON NORMALS: moist oral mucous membranes HEAD & SCALP: normal to inspection Chest: COMMONS NORMALS: normal inspection of the chest Resp: COMMON NORMALS: clear to auscultation bilaterally AUSCULTATION: clear to auscultation bilaterally Cardio: COMMON NORMALS: regular rate and regular rhythm RATE: regular rate RHYTHM: regular rhythm GI: INSPECTION: Yes normal to inspection and Yes other (Gravid) Extremity: COMMON NORMALS: normal to inspection GENERAL: Yes edema (Trace) Neuro: COMMON NORMALS: patient oriented x3, moves all extremities and no sensory deficits noted SENSORIUM/ORIENTATION: Yes alert Psych: COMMON NORMALS: mental status grossly normal Skin: COMMON NORMALS: no rashes or lesions noted GENERAL SKIN EXAM: no rashes or lesions noted Data 03/31/24 05:07 03/30/24 04:50 Results Labs OB ([facility]): 2 Obstetrics 03/22/24 Blood Type O Negative 03/30/24 Antibody Screen Negative 03/30/24 Hct 31.5 % (36-47) L 03/31/24 Hgb 10.50 g/dL (11.27-16.99) L 03/31/24 Rho(D) Type Rh negative 03/30/24 Plt Count 147 10^3/cmm (157-399) L 03/31/24 Ser , Semi-Qnt 997.30 mIU/mL 03/31/24 HCG, Qual Positive (Negative) H 03/17/24 Urine Opiates Screen Negative ng/mL (Negative) 03/23/24 Ur Barbiturates Screen Negative ng/mL (Negative) 03/23/24 Ur Phencyclidine Scrn Negative ng/mL (Negative) 03/23/24 Ur Amphetamines Screen Negative ng/mL (Negative) 03/23/24 U Benzodiazepines Scrn Negative ng/mL (Negative) 03/23/24 Urine Cocaine Screen Negative ng/mL (Negative) 03/23/24 U Marijuana (THC) Screen Positive ng/mL (Negative) H Micro Urine Specimen 03/30/24 A&P Assessment and plan (1) Pelvic pain: It is not clear if this is due to uterine cramps because of retained products of conception, and complication from the D&C, or another etiology. She has been in the hospital 2 times in the last week, so we need to observe her for the next 24 hours to make sure there is not something more going on here. (2) Uterine bleeding: We will carefully monitor her uterine bleeding in the hospital and monitor her hemoglobin to see if there is any significant drop. (3) Status post dilatation and curettage: (4) Constipation: We will initiate laxatives (5) Hypokalemia: Replace potassium orally Attestations 2 Medical Necessity Statement*: The patient is unable to keep food down, has severe abdominal pain postprocedure, has concerns about severe bleeding, and has a 2 point hemoglobin drop. As such she requires an observation to manage her symptoms and to better evaluate her condition. Coding Level of Care Code Acute Code for Chg Fwd Diagnoses Pelvic pain R10.2 Uterine bleeding N93.9 Status post dilatation and curettage Z98.890 Constipation K59.00 Hypokalemia E87.6
[2024-03-30] MEDS: bisacodyl 10 mg Supp PR (10:30)
[2024-03-30] MEDS: ibuprofen 800 mg tablet PO ×2 (10:30→21:05)
[2024-03-30] MEDS: HYDROcodone-acetaminophen 5-325 mg Tablet 1 TAB PO ×3 (11:42→23:26)
[2024-03-30 14:01] LABS: Bilirubin Urine Negative (Negative); Blood Urine 3+ (Negative); Glucose Urine UA Negative (Normal); Ketones Urine 1+ (Negative); Leukocyte Esterase Urine Trace (Negative); Nitrate Urine Negative (Negative); Protein Urine Negative (Negative); Specific Gravity, Urine 1.013 (1.005-1.030); Urine Appearance Clear (CLEAR); Urine Color Yellow (Yellow)
[2024-03-30 14:06] LABS: Bacteria Urine None Seen /hpf; Hyaline Casts Urine 0-4 /lpf; RBC Urine 51-100 /hpf (0-2); Squamous Epithelial Cell Urine 0-5 /hpf (0-5); WBC Urine 0-5 /hpf (0-5)
[2024-03-30 14:10] LABS: Add Urine Culture? Yes
[2024-03-30] MEDS: bisacodyl 5 mg Tablet 10 MG PO (17:15)
[2024-03-30] MEDS: polyethylene glycol 3350 Pkt 17 gm PO (17:16)
[2024-03-30] MEDS: ondansetron 4 MG Tablet PO (21:05)
[2024-03-31 05:05] VITALS: BP 96/59; PULSE 83; RESP 16; TEMP 36.8; O2SAT 99
[2024-03-31 05:13] LABS: Eosinophils % 0.6 %; Hematocrit 31.5 % (36-47); Lymphocytes # 0.5 10^3/uL (0.8-4.8); Lymphocytes % 14.2 %; Mean Corpuscular HGB Conc 33.3 g/dL (30-55); Mean Corpuscular Hemoglobin 30.2 pg (27-33); Mean Corpuscular Volume 90.5 fl (85-98); Mean Platelet Volume 9.9 fL (7.4-10.4); Monocytes # 0.1 10^3/uL (0.2-0.9); Monocytes % 3.8 %; Neutrophils % 81.1 %; Nucleated Red Blood Cells % 0 %; Platelet Count 147 10^3/cmm (157-399); Red Blood Count 3.48 10^6/uL (3.85-5.65); Red Cell Distribution Width 12.2 % (12.1-15.1); White Blood Count 3.45 10^3/uL (3.29-11.43)
--- NOTE | 2024-03-31 08:03 | PM.OBGYDC ---
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 Thankfully her bleeding has been minimal during her hospital stay. Initially she had significant pain that gradually improved. She had multiple bowel movements. This morning she still has some pain, but her appetite is improved, and her diet will be advanced. Physical Exam Narrative: The patient is alert. She appears comfortable. Her heart has a regular rate and rhythm with no murmurs appreciated. Lungs are clear to auscultation bilaterally. She continues to have tenderness to palpation of the suprapubic area, but it is less than yesterday. There is no rebound. There is no guarding. History History History 4 Term 2 0 Miscarriages/Ectopic 1 Living Children 2 Discharge Data Studies Completed and Pending Completed Studies During Hospitalization Category Date Time Status XR KUB 30300 Stat Exams 03/30/24 04:59 Completed US transvaginal [id number] Stat Ultrasound 03/30/24 06:09 Completed Pending at discharge Category Date Time Status Urine Culture Stat Lab 03/30/24 05:06 Received Radiology Impressions KUB X-Ray 03/30/24 04:59 IMPRESSION: Nonspecific bowel gas pattern. Mildly prominent air-filled loops of small bowel in the left upper quadrant. If concern persists consider CT scan for further evaluation. Transvaginal US 03/30/24 06:09 IMPRESSION: No evidence of torsion. IMPRESSION: Lobulated cystic focus in the endometrium likely fluid. Irregular gestational sac not entirely excluded. Recommend serial beta hCG and follow-up. Retained products of conception not excluded. Uterus is anteverted. Laboratory Results WBC 3.45 10^3/uL (3.29-11.43) 03/31/24 05:07 RBC 3.48 10^6/uL (3.85-5.65) L 03/31/24 05:07 Hgb 10.50 g/dL (11.27-16.99) L 03/31/24 05:07 Hct 31.5 % (36-47) L 03/31/24 05:07 MCV 90.5 fl (85-98) 03/31/24 05:07 MCH 30.2 pg (27-33) 03/31/24 05:07 MCHC 33.3 g/dL (30-55) 03/31/24 05:07 RDW 12.2 % (12.1-15.1) 03/31/24 05:07 Plt Count 147 10^3/cmm (157-399) L 03/31/24 05:07 MPV 9.9 fL (7.4-10.4) 03/31/24 05:07 Neut % (Auto) 81.1 % 03/31/24 05:07 Lymph % (Auto) 14.2 % 03/31/24 05:07 [place] % (Auto) 3.8 % 03/31/24 05:07 Eos % (Auto) 0.6 % 03/31/24 05:07 Baso % (Auto) 0.0 % 03/31/24 05:07 Neut # (Auto) 2.80 10^3/uL (1.8-7.7) 03/31/24 05:07 Lymph # (Auto) 0.5 10^3/uL (0.8-4.8) L 03/31/24 05:07 [place] # (Auto) 0.1 10^3/uL (0.2-0.9) L 03/31/24 05:07 Eos # (Auto) 0.0 10^3/uL (0.0-0.8) 03/31/24 05:07 Baso # (Auto) 0.0 10^3/uL (0.0-0.1) 03/31/24 05:07 Nucleated RBC % (auto) 0 % 03/31/24 05:07 Nucleated RBCs # 0.0 /100WBC 03/31/24 05:07 PT 13.10 SECONDS (12.1-14.9) 03/30/24 04:50 INR 0.93 (0.8-1.2) 03/30/24 04:50 APTT 28.1 SECONDS (23.9-36.7) 03/30/24 04:50 Sodium 136 mmol/L (136-145) 03/30/24 04:50 Potassium 3.2 mmol/L (3.5-5.1) L 03/30/24 04:50 Chloride 98 mmol/L (98-107) 03/30/24 04:50 Carbon Dioxide 24 mmol/L (22-29) 03/30/24 04:50 Anion Gap 17.2 (5-19) 03/30/24 04:50 BUN 6 mg/dL (6-20) 03/30/24 04:50 Creatinine 0.4 mg/dL (0.5-0.9) L 03/30/24 04:50 GFR Calculation 199.6 mL/min (90-130) H 03/30/24 04:50 Glucose 106 mg/dL (65-115) 03/30/24 04:50 Calculated Osmolality 280 mOsm/kg (285-295) L 03/30/24 04:50 Calcium 9.2 mg/dL (8.5-10.5) 03/30/24 04:50 Total Bilirubin 0.6 mg/dL (0.15-1.2) 03/30/24 04:50 AST 14 U/L (0-32) 03/30/24 04:50 ALT 7 U/L (0-33) 03/30/24 04:50 Alkaline Phosphatase 64 U/L (35-105) 03/30/24 04:50 C-Reactive Protein 23.5 mg/L (0.0-4.9) H 03/30/24 04:50 Total Protein 6.9 g/dL (6.6-8.7) 03/30/24 04:50 Albumin 4.4 g/dL (3.5-5.2) 03/30/24 04:50 Globulin 2.5 g/dL (1.3-4.6) 03/30/24 04:50 Ser , Semi-Qnt 997.30 mIU/mL 03/31/24 05:07 Urine Color Yellow (Yellow) 03/30/24 13:50 Urine Appearance Clear (CLEAR) 03/30/24 13:50 Urine pH 6.0 (5-7) 03/30/24 13:50 Ur Specific [place] 1.013 (1.005-1.030) 03/30/24 13:50 Urine Protein Negative (Negative) 03/30/24 13:50 Urine Glucose (UA) Negative (Normal) 03/30/24 13:50 Urine Ketones 1+ (Negative) H 03/30/24 13:50 Urine Blood 3+ (Negative) A 03/30/24 13:50 Urine Nitrate Negative (Negative) 03/30/24 13:50 Urine Bilirubin Negative (Negative) 03/30/24 13:50 Urine Urobilinogen 1.0 mg/dL (Negative) 03/30/24 13:50 Ur Leukocyte Esterase Trace (Negative) A 03/30/24 13:50 Urine RBC 51-100 /hpf (0-2) H 03/30/24 13:50 Urine WBC 0-5 /hpf (0-5) 03/30/24 13:50 Ur Squamous Epith Cells 0-5 /hpf (0-5) 03/30/24 13:50 Amorphous Sediment Not Reportable 03/30/24 13:50 Urine Bacteria None seen /hpf (NONE) 03/30/24 13:50 Hyaline Casts 0-4 /lpf H 03/30/24 13:50 Blood Type O Negative 03/30/24 06:38 Rho(D) Type Rh negative 03/30/24 06:38 Antibody Screen Negative 03/30/24 06:38 Vitals Last Vital Signs Temp 98.2 F 03/31/24 05:05 Pulse 83 03/31/24 05:05 Resp 16 03/31/24 05:05 BP 96/59 03/31/24 05:05 Pulse Ox 99 03/31/24 05:05 O2 Del Method Room Air 03/31/24 05:05 Results Labs OB ([facility]): Obstetrics US 03/22/24 Blood Type O Negative 03/30/24 Antibody Screen Negative 03/30/24 Hct 31.5 % (36-47) L 03/31/24 Hgb 10.50 g/dL (11.27-16.99) L 03/31/24 Rho(D) Type Rh negative 03/30/24 Plt Count 147 10^3/cmm (157-399) L 03/31/24 Ser , Semi-Qnt 997.30 mIU/mL 03/31/24 HCG, Qual Positive (Negative) H 03/17/24 Urine Opiates Screen Negative ng/mL (Negative) 03/23/24 Ur Barbiturates Screen Negative ng/mL (Negative) 03/23/24 Ur Phencyclidine Scrn Negative ng/mL (Negative) 03/23/24 Ur Amphetamines Screen Negative ng/mL (Negative) 03/23/24 U Benzodiazepines Scrn Negative ng/mL (Negative) 03/23/24 Urine Cocaine Screen Negative ng/mL (Negative) 03/23/24 U Marijuana (THC) Screen Positive ng/mL (Negative) H 03/23/24 Micro Urine Specimen 03/30/24 Discharge Plan Discharge Patient Disposition: Home Condition: Stable Prescriptions: New hydrocodone-acetaminophen 5-325 mg Tablet 1 tab PO Q4H PRN (Reason: Moderate Pain) Qty: 5 0RF Continued albuterol sulfate [Ventolin HFA] 90 mcg/actuation HFA aerosol inhaler 2 puff INHALATION Q4H promethazine 25 mg tablet 25 mg PO Q6H PRN (Reason: nausea and vomiting) Qty: 20 0RF ondansetron 4 mg tablet,disintegrating 4 mg PO Q6H PRN (Reason: nausea and vomiting) Qty: 10 0RF potassium chloride [Klor-Con 10] 10 mEq tablet extended release 10 meq PO DAILY Qty: 30 0RF Vitamin Plus Low Iron 27 mg iron- 1 mg tablet 1 tab PO DAILY acetaminophen [Tylenol] 325 mg Tablet 650 mg PO QID PRN (Reason: Fever Or Pain) Discontinued sulfamethoxazole-trimethoprim 800-160 mg tablet 1 tab PO BID Discharge Orders: Discharge Order (Routine); Ordered 03/31/24 Ordered By: Florencio Reza Referrals: Florencio Reza MD [Physician] - (Appointment has already been made for tomorrow.) Discharge Diet: Usual diet Discharge Activity: Limit activity as instructed Patient Instructions: Opioid Safety Discharge Attestations 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
[2024-03-31] MEDS: potassium chloride ER 10 mEq Tablet PO (08:33)
[2024-03-31] MEDS: HYDROcodone-acetaminophen 5-325 mg Tablet 1 TAB PO (08:33)
[2024-03-31 09:55] VITALS: BP 103/75; PULSE 71; RESP 16; TEMP 36.6; O2SAT 97
== END 2024-03-31 09:55 | disposition home or self-care (01) ==
LOC: ER 04:45 → OBGYN 06:44
PROVIDERS: Admitting Provider Family Medicine; Emergency Provider Emergency Medicine; PCP Family Medicine; Visit Provider Family Medicine
DX: R10.2 Pelvic and perineal pain (principal); N93.9 Abnormal uterine and vaginal bleeding, unspecified; K59.00 Constipation, unspecified; E87.6 Hypokalemia; Z98.890 Other specified postprocedural states
CPT/HCPCS: 36415; 74018; 76830; 80053; 81001; 84702; 85025; 85610; 85730; 86140; 86850; 86900; 87086; 96374; 96375; 99285; G0378; J1885; J2270; J2405; J7030; Q0162

== ENCOUNTER 2024-09-15 16:00 | Emergency (ER) | payer BC, MEDICAID, SELFPAY ==
--- OUTSIDE RECORDS SUMMARY | 2024-09-15 16:05 | XMS_ITS | Patient Health Record ---
Author Organization [facility] Address [address] [place] [address] Care Team Providers Care Real Estate Branch Manager Name Role Phone Ashish Rafat Primary Care Provider Allergies No Known Allergies Reason For Referral No Information Social History Sex Assigned At : Social History Observation Description Sex Assigned At Female Plan Of Treatment No Information Insurance Providers Payer Name Payer Address Payer Phone Subscriber Number Group Number Insured Name Patient Relationship to Insured Coverage Start Date Coverage End Date [employer] [address] [address] [place] [address] [id number] Tila Francis Self - patient is the insured [facility] [address] [place] [address] [id number] Tila Francis Self - patient is the insured
--- OUTSIDE RECORDS SUMMARY | 2024-09-15 16:05 | XMS_ITS | Clinical Summary ---
Author Organization [facility] Address [address] [place] [address] Care Team Providers Care Garbage Man Name Role Phone Unavailable Primary Care Provider Unavailabl e Allergies No known active allergies Medications ACETAMINOPHEN (CHILDREN'S TYLENOL ORAL) Take by mouth. 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 Gender Identity Not on file Sexual Orientation Not on file Last Filed Vital Signs Vital Sign Reading Time Taken Comments Blood Pressure 101/55 02/15/2012 1:58 PM ADJUNCT PSYCHOLOGY INSTRUCTOR Pulse 94 02/15/2012 1:58 PM ADJUNCT PSYCHOLOGY INSTRUCTOR Temperature - - Respiratory Rate - - Oxygen Saturation - - Inhaled Oxygen Concentration - - Weight 30.8 kg (68 lb) 02/15/2012 1:58 PM ADJUNCT PSYCHOLOGY INSTRUCTOR Height 139.7 cm (4' 7 ) 02/15/2012 1:58 PM ADJUNCT PSYCHOLOGY INSTRUCTOR Body Mass Index 15.8 02/15/2012 1:58 PM ADJUNCT PSYCHOLOGY INSTRUCTOR Plan of Treatment Health Maintenance Due Date Last Done Comments CHLAMYDIA SCREENING (ANNUAL) 11-24 YEARS 2012 HPV VACCINES (1 - 3-dose series) 2016 DTAP/TDAP/TD VACCINES (1 - Tdap) 2020 HEPATITIS B VACCINES (1 of 3 - 19+ 3-dose series) 07/17 CERVICAL CANCER SCREENING 2022 HPV/Cotest (21-29) 2022 PAP SMEAR 2022 INFLUENZA VACCINE (#1) 2023 [place]
--- OUTSIDE RECORDS SUMMARY | 2024-09-15 16:05 | XMS_ITS | Data Portability ---
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 After all the pain and tenderness she has been having, she would like to proceed with a dilation and curettage. We discussed the risks including the risks of bleeding, infection, and uterine perforation. She had no further questions. [email or web address] Not available 03/28/2024 12:32:55 Plan of Treatment Reminders Order Date Submit Date Provider Last Modified By Organization Details Last Modified Time Details Appointments ROYLANCE OBI 2024 01:20P Zeferino Reza MD Not available Not available Not available Lab BMP, serum or plasma 2024 025 [facility] [address], [address], 05/08/2024 11:56:29 Referral None recorded. Procedures None recorded. Surgeries None recorded. Imaging US, obstetric , transvagi nal - [id number] 2024 025 [facility] ([facility]), [address] [place], [address], 03/30/2024 09:07:07 US, obstetric , 1st trimester , single gestation 2023 024 [email or web address] [facility] ([facility]), [address] [place], [address], 03/03/2024 09:55:10 Medication Orders fluoxetin e 10 mg tablet 2024 025 [facility], [address] [place] [address], [address], 05/08/2024 11:59:58 Vitamin 27 mg iron-0.8 mg tablet 2023 025 [facility], [address] [place] [address], [address], 03/27/2024 09:19:05 Patient TargetsNo targets recorded. Patient InstructionsNo instructions recorded. Reason for Referral None Reported. Results Created Date Observation Date Name Description Value Unit Range Abnormal Flag Note LastModifiedBy Organization Detail LastModifiedTime 05/08/19 25 05/08/2024 BMP (FEMA LE) glucose 78.0 mg/dL 60.0-9 9.0 Not Available [facility] [address] [facility], [place], [address], 05/08/2024 11:56:29 05/08/19 25 05/08/2024 BMP (FEMA LE) BUN (blood urea nitrogen) 11.0 mg/dL 10.0-2 6.0 Not Available [facility] [address] [facility], [place], [address], 05/08/2024 11:56:29 05/08/19 25 05/08/2024 BMP (FEMA LE) creatinine (serum) 0.6 mg/dL 0.4-1. 5 Not Available [facility] [address] [facility] 1, [place], [address], 05/08/2024 11:56:29 05/08/19 25 05/08/2024 BMP (FEMA LE) BUN/creatini ne ratio 18.33 ratio Not Available [facility] [address] [facility], [place], [address], 05/08/2024 11:56:29 05/08/19 25 05/08/2024 BMP (FEMA LE) calcium 9.5 mg/dL 8.4-10 .5 Not Available [facility] [address] [facility], [place], [address], 05/08/2024 11:56:29 05/08/19 25 05/08/2024 BMP (FEMA LE) sodium 140.0 mmol/ L 136.0- 145.0 Not Available [facility] [address] [facility], [place], [address], 05/08/2024 11:56:29 05/08/19 25 05/08/2024 BMP (FEMA LE) potassium 3.8 mmol/ L 3.5-5. 1 Not Available [facility] [address] [facility], [place], [address], 05/08/2024 11:56:29 05/08/19 25 05/08/2024 BMP (FEMA LE) chloride 103.0 mmol/ L 98.0-1 10.0 normal Not Available [facility] [address] [facility], [place], [address], 05/08/2024 11:56:29 05/08/19 25 05/08/2024 BMP (FEMA LE) C02 27.0 mmol/ L 22.0-3 1.0 Not Available [facility] [address] [facility] [address], [place], [address], 05/08/2024 11:56:29 05/08/19 25 05/08/2024 BMP (FEMA LE) anion gap 10.0 calc Not Available [facility] [address] [facility] [address], [place], [address], 05/08/2024 11:56:29 03/22/19 25 03/22/2024 US, obste tric, 1st trime ster, singl e gesta tion No observ ation record ed. [email or web address] [facility] [address] [facility], [place], [address], 03/26/2024 20:57:07 03/30/19 25 03/30/2024 US, obste tric, trans vagin al No observ ation record ed. [email or web address] [facility] [address] [facility], [place], [address], 04/07/2024 14:25:33 03/31/19 25 03/26/2024 imagi ng/di agnos tic resul t No observ ation record ed. [email or web address] Not Available 2024 15:50:58 Result Notes None recorded. Problems Name Problem SNOMED Code Status Onset Date Resolution Date Notes Provider Name and Address Organization Details Recorded Time Normal pregnanc y in multigra shawna 83794116705 4106 Completed 2022 Florencio Reza MD [address] [place], [address], [facility] 4 06:53:23 Normal pregnanc y in multigra shawna 63058810262 4106 Completed 202205/08/2024 KARY mckeon [facility] 5 09:42:15 Disorder of menstrua tion 312846060 Completed 2022 Florencio Reza MD [address] [place], [address], [facility] 4 06:53:23 Blood group O Rh(D) negative 188034970 Completed 2022 received in Nov. per pt at [facility] Florencio Reza MD [address] [place], [address], [facility] 4 06:53:23 Postpart um care Completed 202305/08/2024 KARY mckeon [facility] 5 10:52:47 Postpart um care Completed 2023 Florencio Reza MD [address] [place], [address], [facility] 4 06:53:23 Mild intermit tent asthma 618717000 Active 2023 KARY mckeon [facility] 5 09:41:58 Pregnanc y 43920326 Completed 202303/26/2024 IDALIA Crespo [facility] 5 09:47:40 Missed miscarri age 99588981 Active 2024 KARY mckeon [facility] 5 09:42:07 Postpart um care Active 2024 KARY mckeon [facility] 5 10:52:47 Anxiety 85045537 Active 2024 KARY mckeon [facility] 5 10:52:48 Miscarri age without complica tion 91319379 Active 2022 KARY mckeon [facility] 5 09:42:03 Problem Notes None recorded. Procedures Surgical History Date Name Laterality Status Provider Name and Address Organization Details Recorded Time tonsilectom y/adenoids completed [place] [facility] danielle [facility] 06/22/2023 12:37:22 Imaging Results None recorded. Procedure Notes None recorded. Medical Equipment None Reported. Allergies No known drug allergies Medications Name Sig Start Date Stop Date Status Note LastModified by Organization Details LastModified Time doxycycli ne hyclate 100 mg capsule take 1 capsule BY MOUTH TWICE DAILY for 10 days 01/02 completed Not Available Not Available Not Available ibuprofen 800 mg tablet TAKE 1 TABLET BY MOUTH THREE TIMES DAILY 01/02 completed Not Available Not Available Not Available hydrocodo ne 5 mg-acetam inophen 325 mg tablet Take 1 tablet every 6 hours by oral route as needed. 05/08 completed Not Available Not Available Not Available ondansetr on HCl 4 mg tablet TAKE 1 TABLET BY MOUTH TWICE DAILY NEEDED 05/23 completed Not Available Not Available Not Available fluoxetin e 10 mg tablet TAKE 1 TABLET BY MOUTH DAILY active Not Available Not Available No t Available potassium chloride ER 10 mEq tablet,ex tended release Take 1 tablet every day by oral route. 05/08 completed Not Available Not Available Not Available metronida zole 500 mg tablet TAKE 1 TABLET BY MOUTH TWICE DAILY for 7 days 01/02 completed Not Available Not Available Not Available sulfameth oxazole 800 mg-trimet hoprim 160 mg tablet TAKE 1 TABLET BY MOUTH TWICE DAILY FOR 7 DAYS 05/08 completed Not Available Not Available Not Available propranol ol 10 mg tablet TAKE 1 TABLET BY MOUTH THREE TIMES DAILY 07/28 completed Not Available Not Available Not Available doxycycli ne monohydra te 100 mg capsule Take 1 capsule twice a day by oral route for 10 days. 01/02 completed Not Available Not Available Not Available ferrous sulfate 325 mg (65 mg iron) tablet Take 1 tablet every day by oral route. 05/23 completed Not Available Not Available Not Available misoprost ol 200 mcg tablet USE 4 TABLETS VAGINALL Y EVERY 12 active Not Available Not Available No t Available ondansetr on 4 mg disintegr ating tablet DISSOLVE 1 TABLET ON THE TONGUE EVERY 6 HOURS NEEDED FOR NAUSEA OR VOMITING 02/20 /2025 completed Not Available Not Available Not Available metoclopr amide 10 mg tablet TAKE ONE TABLET BY MOUTH EVERY 6 HOURS NEEDED FOR NAUSEA AND VOMITING 05/23 completed Not Available Not Available Not Available Ventolin HFA 90 mcg/actua tion aerosol inhaler INHALE TWO PUFFS BY MOUTH EVERY 4 HOURS 2024 active vo JR/tn Not Available Not Available Not Avai lable Vitamin 27 mg iron-0.8 mg tablet Take 1 tablet every day by oral route. 03/26 completed Not Available Not Available Not Available escitalop isauro 20 mg tablet TAKE 1 TABLET BY MOUTH EVERY DAY 07/28 completed Not Available Not Available Not Available fluoxetin e daily 10/25 completed Recorded 09/13/19 22 6:23PM by Gely Dias RN, Office Visit; Refill Quantity : 30; Capsule; Not Available Not Available Not Available hydroxyzi ne HCl three times daily, as needed 10/25 completed Recorded 09/13/19 22 6:23PM by Gely Dias RN, Office Visit; Refill Quantity : 40; Tablet; Not Available Not Available Not Available Vitamin daily 10/25 completed Recorded 06/12/19 21 8:31AM by Sarah Joyner LPN, Office Visit; Refill Quantity : 90; Tablet; Not Available Not Available Not Available Vitamins Plus Low Iron 27 mg iron-1 mg tablet TAKE 1 TABLET BY MOUTH EVERY DAY 06/21 completed Not Available Not Available Not Available Vitals Date Recorded Body height Body mass index (BMI) Body weight Oxygen saturation Oxygen saturation in Arterial blood by Pulse oximetry Heart rate Respiratory rate Body temperature Systolic blood pressure Diastolic blood pressure Provider Name and Address Organization Details Last Updated DateTime 5 167.64 cm 23.2 kg/m2 99718.5 1 g 99 % 99 % 84 /min 18 /min 98.2 [degF] 100 mm[Hg] 60 mm[Hg] IDALIA CACERES [facility] 5 10:04:59 Date Recorded Body height Body mass index (BMI) Body weight Oxygen saturation Oxygen saturation in Arterial blood by Pulse oximetry Heart rate Respiratory rate Body temperature Systolic blood pressure Diastolic blood pressure Provider Name and Address Organization Details Last Updated DateTime 5 167.64 cm 22.5 kg/m2 77957.4 4 g 99 % 99 % 79 /min 18 /min 98.3 [degF] 100 mm[Hg] 58 mm[Hg] IDALIA ASHLEY [facility] 5 11:37:11 Date Recorded Body height Body mass index (BMI) Body weight Respiratory rate Heart rate Oxygen saturation Oxygen saturation in Arterial blood by Pulse oximetry Body temperature Systolic blood pressure Diastolic blood pressure Provider Name and Address Organization Details Last Updated DateTime 5 167.64 cm 23.4 kg/m2 55357.8 9 g 16 /min 68 /min 98 % 98 % 97.9 [degF] 126 mm[Hg] 70 mm[Hg] KARY SENIA [facility] 5 10:52:20 Date Recorded Body height Body mass index (BMI) Body weight Respiratory rate Heart rate Oxygen saturation Oxygen saturation in Arterial blood by Pulse oximetry Body temperature Systolic blood pressure Diastolic blood pressure Provider Name and Address Organization Details Last Updated DateTime 4 167.64 cm 24.3 kg/m2 72397.9 6 g 16 /min 86 /min 99 % 99 % 98.2 [degF] 122 mm[Hg] 84 mm[Hg] KARY SENIA [facility] 4 09:23:32 Social History Question Answer Notes LastModified by [employer] [place] Details LastModified Time Tobacco Smoking Status Never Smoker KARY CONN [facility] 10/25/2022 09:41:24 What Is Your Relationship Status? Domestic Partner Information not available 10/25/2022 Are You Sexually Active? Yes Information not available 10/25/2022 Sex: Unknown Functional Status Question Answer Note LastModified by [employer] [place] Details LastModified Time Do you use any illicit or recreational drugs? No Information not available 10/25/2022 Do you or have you ever used any other forms of tobacco or nicotine? Yes Information not available 10/25/2022 What is your level of alcohol consumption? None Information not available 10/25/2022 Are you able to care for yourself? Yes Information not available 10/25/2022 Do you or have you ever used e-cigarettes or vape? Current user of electronic cigarettes Information not available 10/25/2022 Mental Status None recorded. Family History Relationship Description Onset Age of this Age Resolved Age Notes LastModified by Organization Details LastModified Time Father No current problems or disability [email or web address] Not available 0 11/09/2022 14:34:39 Mother No current problems or disability [email or web address] Not available 0 11/09/2022 14:34:39 Medical History No medical history recorded. Gynecological History Statement/Question Response Flow Moderate Date of LMP 04/19/2024 LMP Definite Obstetrics History GPAL:G 5 P 3 0 2 3 Type Value Full Term 3 Spontaneous 2 Living 3 Total 5 Immunizations Vaccine Type Date Status Note Provider Nam e and Address Organization Details Recorded Time MMR 3 completed KARY mckeon [facility] 10/25/2022 09:38:53 MMR 6 completed KARY mckeon [facility] 10/25/2022 09:38:53 COVID-19, mRNA, LNP-S, PF, 100 mcg/0.5mL dose or 50 mcg/0.25mL dose 2 completed KARY mckeon [facility] 10/25/2022 09:38:53 DTaP-IPV 6 completed KARY mckeon [facility] 10/25/2022 09:38:53 Tdap 0 completed KARY mckeon [facility] 10/25/2022 09:38:53 Tdap 3 completed KARY mckeon [facility] 10/25/2022 09:38:53 varicella 6 completed KARYKVNG MALLOYY null, [facility] 10/25/2022 09:38:53 Hep B, unspecified formulation 3 completed KARYKVNG MALLOYY null, [facility] 10/25/2022 09:38:53 Hep B, unspecified formulation 2 completed KARY SENIA null, [facility] 10/25/2022 09:38:53 Hep B, unspecified formulation 2 completed KARY MALLOYY null, [facility] 10/25/2022 09:38:53 pneumococcal, unspecified formulation 3 completed KARY MALLOYY null, [facility] 10/25/2022 09:38:53 pneumococcal, unspecified formulation 2 completed KARY MALLOYY null, [facility] 10/25/2022 09:38:53 pneumococcal, unspecified formulation 2 completed KARY MALLOYY null, [facility] 10/25/2022 09:38:53 pneumococcal, unspecified formulation 3 completed KARY MALLOYY null, [facility] 10/25/2022 09:38:53 polio, unspecified formulation 3 completed KARY MALLOYY null, [facility] 10/25/2022 09:38:53 MDdB-Wzn-XHF 2 completed KARY MALLOYY null, [facility] 10/25/2022 09:38:53 ERhC-Qqw-YFN 2 completed KARY MALLOYY null, [facility] 10/25/2022 09:38:53 meningococcal MCV4P 8 completed KARY mckeon, [facility] 10/25/2022 09:38:53 DTaP-Hib 3 completed KARY mckeon, [facility] 10/25/2022 09:38:53 DTaP-Hib 3 completed KARY mckeon, [facility] 10/25/2022 09:38:53 RSV, bivalent, protein subunit RSVpreF, diluent reconstituted, 0.5 mL, PF 3 completed KARY mckeon [facility] 03/09/2023 10:10:40 Tdap 3 completed KARYKVNG mckeon [facility] 03/09/2023 10:10:40 Past Encounters Encounter ID Performer Location Encounter Start Date Encounter Closed Date Diagnosis/Indication Diagnosis SNOMED-CT Code Diagnosis ICD10 Code Diagnosis Note [id number] JACKY VILLAGOMEZ [facility] ([facility]) [address] [place] [address] 07/10/2022 16:29:58 07/10/2022 21:10:44 Missed period 56942962 N92.5 test positive 972771785 Z32.01 [id number] JACKY VILLAGOMEZ [facility] ([facility]) [address] [place] [address] 07/17/2022 13:12:37 07/22/2022 07:42:50 Stomach cramps 80952313 R10.9 Abnormal u terine bleeding 3482787000 9100 N93.9 [id number] Florencio Reza MD [facility] ([facility]) [address] [place] [address] 07/28/2022 13:29:01 07/28/2022 20:13:04 Miscarriage without complication 95398168 O03.9 Urgent jarocho chon to urinate 42557830 R39.15 [id number] JACKY VILLAGOMEZ [facility] ([facility]) [address] [place], [place] [address] 09/13/2022 16:01:25 09/13/2022 16:49:18 test positive 251193320 Z32.01 Nausea and vomiting 1693 2000 R11.2 [id number] Florencio Reza MD [facility] ([facility]) [address] [place], [place] [address] 10/25/2022 09:22:09 10/25/2022 19:04:09 Normal in multigravida 4943454059 57836 Z34.80 Disorder o f menstruation 821660617 N92.6 [id number] Florencio Reza MD [facility] ([facility]) [address] [place] [address] 10/30/2022 10:27:38 10/30/2022 19:48:29 [id number] Florencio Reza MD [facility] ([facility]) [address] [place] [id number] 11/09/2022 14:00:38 11/09/2022 18:42:15 Normal in multigravida 8403915886 43336 Z34.80 Gestation period, 14 weeks 04793367 Z3A.14 Normal pre gnancy in primigravida 9283236684 05876 Z34.80 [id number] Florencio Reza MD [facility] ([facility]) [address] [place] [address] 12/07/2022 10:48:16 12/07/2022 13:20:55 Multigravida 489775061 Z34.82 Gestation period, 19 weeks 50792383 Z3A.19 Mild inter mittent asthma 445940999 J45.20 [id number] Florencio Reza MD [facility] ([facility]) [address] [place] [address] 01/02/2023 14:44:10 01/02/2023 17:02:15 [id number] Florencio Reza MD [facility] ([facility]) [address] [place] [address] 01/04/2023 09:45:37 01/04/2023 10:34:57 Normal in multigravida 6454428935 18965 Z34.80 Gestation period, 23 weeks 14998011 Z3A.23 Mild inter mittent asthma 326382374 J45.20 [id number] Florencio Reza MD [facility] ([facility]) [address] [place] [address] 02/01/2023 09:42:00 02/01/2023 13:31:04 Normal in multigravida 1663198710 13306 Z34.80 [id number] Florencio Reza MD [facility]) [address] [place] [address] 02/22/2023 09:47:23 02/22/2023 12:57:02 Normal in multigravida 3821996383 73238 Z34.83 Gestation period, 30 weeks 80323489 Z3A.30 Multigravida 759853141 Z 34.82 [id number] Florencio Reza MD [facility] ([facility]) [address] [place] [address] 02/27/2023 09:02:08 02/27/2023 15:11:02 [id number] Florencio Reza MD [facility] ([facility]) [address] [place] [address] 03/09/2023 09:55:11 03/09/2023 15:03:28 Normal in multigravida 4731316437 10599 Z34.83 Gestation period, 32 weeks 2946269 Z3A.32 Acute low back pain 2788 27150 M54.50 [id number] Florencio Reza MD [facility] ([facility]) [address] [place] [address] 5 03/22/2023 10:37:42 03/22/2023 12:18:08 Normal in multigravida 0728154133 60564 Z34.83 Gestation period, 34 weeks 19936727 Z3A.34 Mild inter mittent asthma 480219306 J45.20 [id number] Florencio Reza MD [facility] ([facility]) [address] [place] [address] 5 04/05/2023 09:50:00 04/05/2023 11:47:02 Normal in multigravida 2619722329 45518 Z34.83 Gestation period, 36 weeks 65947026 Z3A.36 Restless legs 70396717 G 25.81 [id number] Florencio Reza MD [facility] ([facility]) [address] [place], [place] [address] 04/12/2023 14:52:22 04/14/2023 22:34:17 Normal in multigravida 1910968647 80500 Z34.83 Gestation period, 37 weeks 31190347 Z3A.37 [id number] Florencio Reza MD [facility] ([facility]) [address] [place], [place] [address] 05/24/2023 09:54:20 05/24/2023 15:28:39 care 356962851 Z39.2 Vaginal discharge 045933 006 N89.8 [id number] JACKY DIAZ [facility] ([facility]) [address] [place], [place] [id number] 06/22/2023 12:30:39 06/22/2023 13:00:28 Acute viral pharyngitis 952117812 J02.9 Rapid strep negative.P ush cold oral fluids including Popsicles. Alternate tylenol/mo jerry for fever or discomfort .May use throat lozenges, chlorasept ic spray, or saltwater gargles.If you develop worsening symptoms such as unable to swallow, persistant fever, or concerns arise then return for re-eval. [id number] Rigoberto Gatica MD [facility] ([facility]) [address] [place] [id number] 08/02/2023 13:35:00 08/02/2023 14:42:36 Increased frequency of urination 334711586 R35.0 Vaginal discharge 626512 006 N89.8 [id number] Tk Grady MD [facility] ([facility]) [address] [place] [address] 5 01/03/2024 10:39:49 01/03/2024 17:40:34 Mild intermittent asthma 391419738 J45.20 Viral uppe r respiratory tract infection 314366477 J06.9 Patient presented with symptoms of viral upper respirator y infection. Advised to drink plenty of fluids, run a cool-mist humidifier in room at night, gargle salt water for sore throat, and get plenty of rest. Patient should avoid over-exert ion and reduce exposure to irritants such as smoke, cold, dry air, and dust. Treatment currently involves symptomati c relief. Patient may take acetaminop hen or ibuprofen as directed to reduce fever and body aches. Antihistam ine and decongesta nt usage was discussed and recommenda tions made. Patient understood these instructio ns and will follow up in the office in 7-10 days if symptoms not improving. [id number] Florencio Reza MD [facility] ([facility]) [address] [place] [id number] 5 02/29/2024 09:04:40 02/29/2024 10:22:39 Normal in multigravida 9703277878 65608 Z34.83 Disorder o f menstruation 216946342 N92.6 [id number] Florencio Reza MD [facility] ([facility]) [address] [place] [address] 5 03/26/2024 09:27:57 03/26/2024 15:13:58 Miscarriage 60520158 O03.9 [id number] Florencio Reza MD [facility] ([facility]) [address] [place] [address] 5 03/26/2024 10:33:12 03/27/2024 14:09:17 First trimester bleeding 0249306381 692505 O46.91 [id number] Florencio Reza MD [facility] ([facility]) [address] [place] [address] 5 04/01/2024 11:04:29 04/01/2024 13:56:26 Postoperative care 513877987 Z48.89 Retained p roducts after miscarriage 673576850 O03.4 Resolved [id number] Florencio Reza MD [facility] ([facility]) [address] [place] [address] 05/08/2024 10:36:40 05/08/2024 11:15:51 care 282082964 Z39.2 Anxiety 69018745 F41.9 Hypokalemia 54902183 E87 .6 Health Concerns Section Related Observation LastModified by Organization Detai ls LastModified Time None Recorded Concern Status LastModified by Organization Details LastModified Time None Recorded Advance Directives Directive None Recorded Payers Insurance Date Sequence Insurance Name Policy Number Policy Dodd Covered Member ID Dodd Member ID Guarantor Name 07/04/2024 1 [employer] [place] (MEDICAID REPLACEMENT - HMO) [id number] Tila Francis [id number] Tila rFancis Notes Date Note Type Note Provider Name and Address Organization Details Recorded Time 02/29/2024 text/html jr ob routineRep orted bypatient.Associated Symptoms:normal movement; no bleeding; no vaginal discharge; no vaginal/vulvar itching or irritation; no dysuria; no fever; no constipation; no diarrhea/loose stool; no visual changes; no dizziness; no breathlessness;abdomi nal pain;cramping(intermi ttent);frequency;naus ea;emesis;headacheNot es:fatigue, breast tendernessDenies any tobacco, alcohol or drug use. Pt last smoked marijuana right before she found out she was OBI Florencio Reza MD [address] [place] [address], [phone], [facility] 02/29/2024 10:15:43 03/26/2024 text/html ER follow up for Miscarriage, pt states she is having horrible back and abdominal pain, nausea,vomiting unable to keep anything down that she eats, Pt states she has not had any bleeding since leaving the hospital, she feels like she has not passed everything Pt states she feels like her heart is racing and is having chest pain. Florencio Reza MD [address] [place] [address], [phone], [facility] 03/28/2024 12:33:31 04/01/2024 text/html Post-OpReported bypatient.Onset/Timin g:date of surgery: (03/27/24) Quality:procedure: (D&C) Context:preoperative diagnosis: (missed miscarriage) Associated Symptoms:normal appetite; no constipation; no nausea; no emesis; pain improving; no fever;fatigue;pain 03/28;bleeding(decreas ing);diarrhea Florencio Reza MD [address] [place] [address], [phone], [facility] 04/01/2024 12:09:28 05/08/2024 text/html Post-OpReported bypatient.Onset/Timin g:date of surgery: (03/27/24) Quality:procedure: (D&C) Context:preoperative diagnosis: (missed miscarriage) Associated Symptoms:no fatigue; normal appetite; no constipation; no nausea; no emesis; pain improving; no pain; no fever; no lower extremity edema/pain; no diarrhea;bleeding pt started her menses on 04/19/24 and it last until yesterday.Pt has had some anxiety, but feels in the last week she may be doing some better Florencio Reza MD [address] [place] [address], [phone], [facility] 05/08/2024 11:14:49 OBGyn Episode Ob Episode Information Episode Created Date Number of Fetuses Patient Bloodtype Patient rh Status Prepregnancy Weight lbs Domestic Partner Domestic Partner Phone Father Name Pill Coater Status 10/26/19 23 1 O Negative Osbaldo Eddy CLOSED Fetus Data First Name Last Name Admitted to NICU Weight (g) Sex Living Outcome Pediatric Complications Fetus ID Race Codes Race Delivery Type Lopez Eddy false 2806.60 05 M true Full Term 1721 [id number] White VAGINAL Problems Problem Notes Initial urine Drug test Posi tive for THC, repeat screen THS positive Problem Name Start Date End Date Resolution Snomed Code Not e Normal in multigravida 10/25/2022 [id number] Blood group O Rh(D) negative 11/09/2022 [id number] received in Nov . per pt at [facility] Disorder of menstruation 10/25/2022 [id number] care 05/24/2023 [id number] Suzanne Calculation Initial Suzanne Date Initial Exam Date Initial Exam Provider Initial Ultrasound Date Last Menstrual Period Date Ultra Sound Weeks Gestation 04/30/2023 10/25/2022 10/30/2022 14 Eighteen To Twenty Week Suzanne Update Ultra Sound Date Fundal Height At Umbil Quickening Date Ultra Sound Latest Weeks Gestation Final Suzanne Confirmed By Final Suzanne Confirmed Date Final Suzanne Date Ultra Sound Latest Days Gestation 0 0 Pre- Flowsheet Flowsheet Date 10/25/2022 Fabian Score Blood Edema Fundus Height Fundus Units Glucose Ketones Leukocytes Nitrite Labor Signs Protein Cervic Dilation Cervic Effacement Cervic Station Type Weight in lbs Pre/Post Dialysis Refused Weight 135.22507076504 BP Diastolic BP Location Tested BP Systolic BP Type 56 L arm 92 sitting Fetus Heart Rate Present Fetus Movement Comments OBI Flowsheet Date 10/30/2022 Fabian Score Blood Edema Fundus Height Fundus Units Glucose Ketones Leukocytes Nitrite Labor Signs Protein Cervic Dilation Cervic Effacement Cervic Station Type Weight in lbs Pre/Post Dialysis Refused BP Diastolic BP Location Tested BP Systolic BP Type Fetus Heart Rate Present Fetus Movement Comments Flowsheet Date 11/02/2022 Fabian Score Blood Edema Fundus Height Fundus Units Glucose Ketones Leukocytes Nitrite Labor Signs Protein Cervic Dilation Cervic Effacement Cervic Station Type Weight in lbs Pre/Post Dialysis Refused BP Diastolic BP Location Tested BP Systolic BP Type Fetus Heart Rate Present Fetus Movement Comments u/s on 10/30/22, SUZANNE 04/30/23, EGA 14.0, FHR 144, anterior placenta Flowsheet Date 11/09/2022 Fabian Score Blood Edema Fundus Height Fundus Units Glucose Ketones Leukocytes Nitrite Labor Signs Protein Cervic Dilation Cervic Effacement Cervic Station Type Weight in lbs Pre/Post Dialysis Refused Weight 135.493007780812 BP Diastolic BP Location Tested BP Systolic BP Type 60 100 Fetus Heart Rate Present A 168 Present Fetus Movement A Yes Comments NOB Flowsheet Date 12/06/2022 Fabian Score Blood Edema Fundus Height Fundus Units Glucose Ketones Leukocytes Nitrite Labor Signs Protein Cervic Dilation Cervic Effacement Cervic Station Type Weight in lbs Pre/Post Dialysis Refused BP Diastolic BP Location Tested BP Systolic BP Type Fetus Heart Rate Present Fetus Movement Comments Healthy Blue RA complete Flowsheet Date 12/07/2022 Fabian Score Blood Edema Fundus Height Fundus Units Glucose Ketones Leukocytes Nitrite Labor Signs Protein Cervic Dilation Cervic Effacement Cervic Station 20 wks Type Weight in lbs Pre/Post Dialysis Refused Weight 136.286654791797 BP Diastolic BP Location Tested BP Systolic BP Type 64 118 sitting Fetus Heart Rate Present A 148 Present Fetus Movement A Yes Comments N/V, diarrhea and headaches Flowsheet Date 01/02/2023 Fabian Score Blood Edema Fundus Height Fundus Units Glucose Ketones Leukocytes Nitrite Labor Signs Protein Cervic Dilation Cervic Effacement Cervic Station Type Weight in lbs Pre/Post Dialysis Refused BP Diastolic BP Location Tested BP Systolic BP Type Fetus Heart Rate Present Fetus Movement Comments Flowsheet Date 01/02/2023 Fabian Score Blood Edema Fundus Height Fundus Units Glucose Ketones Leukocytes Nitrite Labor Signs Protein Cervic Dilation Cervic Effacement Cervic Station Type Weight in lbs Pre/Post Dialysis Refused BP Diastolic BP Location Tested BP Systolic BP Type Fetus Heart Rate Present Fetus Movement Comments U/S of 01/02/23 EGA-23.1, FH R-137, vertex presentation, Placenta is anterior ithout previa, normal AFV, Unremarkable limited exam Flowsheet Date 01/04/2023 Fabian Score Blood Edema Fundus Height Fundus Units Glucose Ketones Leukocytes Nitrite Labor Signs Protein Cervic Dilation Cervic Effacement Cervic Station 24 cm none trace Type Weight in lbs Pre/Post Dialysis Refused Weight 140.234752685327 BP Diastolic BP Location Tested BP Systolic BP Type 64 110 Fetus Heart Rate Present A 148 Present Fetus Movement A Yes Comments left sciatic pain, RLQ pelvi c pain, nausea and vomiting. Flowsheet Date 02/01/2023 Fabian Score Blood Edema Fundus Height Fundus Units Glucose Ketones Leukocytes Nitrite Labor Signs Protein Cervic Dilation Cervic Effacement Cervic Station 27 cm none trace Negative neg Type Weight in lbs Pre/Post Dialysis Refused Weight 145.367908501110 BP Diastolic BP Location Tested BP Systolic BP Type 60 112 sitting Fetus Heart Rate Present A 142 Present Fetus Movement A Yes Comments N/V, headache, dizziness, RL Q pain, pelvic pain, sciatic and low back pain with shooting pain down both legs, occasional numbness in feet, glucose done today and order sent to [facility] for rhogram injection , Flowsheet Date 02/22/2023 Fabian Score Blood Edema Fundus Height Fundus Units Glucose Ketones Leukocytes Nitrite Labor Signs Protein Cervic Dilation Cervic Effacement Cervic Station none none Negative trace Type Weight in lbs Pre/Post Dialysis Refused Weight 147.801673144759 BP Diastolic BP Location Tested BP Systolic BP Type 60 100 sitting Fetus Heart Rate Present A 138 Present Fetus Movement A Yes Comments abdominal pain/cramping, N/V , diarrhea/constipation, headaches, dizziness is getting worse, RLQ pain, pelvic/sciatic and low back pain shooting down both legs with numbness, Script given for Tdap and RSV. Flowsheet Date 02/27/2023 Fabian Score Blood Edema Fundus Height Fundus Units Glucose Ketones Leukocytes Nitrite Labor Signs Protein Cervic Dilation Cervic Effacement Cervic Station Type Weight in lbs Pre/Post Dialysis Refused BP Diastolic BP Location Tested BP Systolic BP Type Fetus Heart Rate Present Fetus Movement Comments Flowsheet Date 03/09/2023 Fabian Score Blood Edema Fundus Height Fundus Units Glucose Ketones Leukocytes Nitrite Labor Signs Protein Cervic Dilation Cervic Effacement Cervic Station none 1+ 1+ Type Weight in lbs Pre/Post Dialysis Refused Weight 149.071408770504 BP Diastolic BP Location Tested BP Systolic BP Type 64 104 sitting Fetus Heart Rate Present A 132 Present Fetus Movement A Yes Comments back/flank pain and cramping , pelvic cramping, swelling in feet, vaginal pressure, urine freq. Flowsheet Date 03/22/2023 Fabian Score Blood Edema Fundus Height Fundus Units Glucose Ketones Leukocytes Nitrite Labor Signs Protein Cervic Dilation Cervic Effacement Cervic Station 34 cm none trace Negative trace 0cm Type Weight in lbs Pre/Post Dialysis Refused Weight 150.194540667410 BP Diastolic BP Location Tested BP Systolic BP Type 60 100 Fetus Heart Rate Present A 128 Fetus Movement A Yes Comments abd pain/cramping, N/V, diar micaela, edema, headache, dizziness, vaginal pressure Flowsheet Date 04/05/2023 Fabian Score Blood Edema Fundus Height Fundus Units Glucose Ketones Leukocytes Nitrite Labor Signs Protein Cervic Dilation Cervic Effacement Cervic Station none 1+ Pressure trace 1cm 30% -3 Type Weight in lbs Pre/Post Dialysis Refused Weight 152.189658119428 BP Diastolic BP Location Tested BP Systolic BP Type 58 94 Fetus Heart Rate Present A 128 Present Fetus Movement A Yes Comments vaginal pressure, back pain, heartburn, nausea and vomiting, mild swelling in feetGrp B strep performed today Flowsheet Date 04/10/2023 Fabian Score Blood Edema Fundus Height Fundus Units Glucose Ketones Leukocytes Nitrite Labor Signs Protein Cervic Dilation Cervic Effacement Cervic Station Type Weight in lbs Pre/Post Dialysis Refused BP Diastolic BP Location Tested BP Systolic BP Type Fetus Heart Rate Present Fetus Movement Comments Grp B Negative. Records sent to OB Flowsheet Date 04/12/2023 Fabian Score Blood Edema Fundus Height Fundus Units Glucose Ketones Leukocytes Nitrite Labor Signs Protein Cervic Dilation Cervic Effacement Cervic Station 37 none trace Negative trace 1cm 40% -3 Type Weight in lbs Pre/Post Dialysis Refused Weight 155.225024030427 BP Diastolic BP Location Tested BP Systolic BP Type 60 110 Fetus Heart Rate Present A 130 Fetus Movement A Yes Comments abdominal pain/cramping, N/V , constipation, edema feet, headache, vaginal pressure/discharge, low back pain, heartburn Flowsheet Date 05/24/2023 Fabian Score Blood Edema Fundus Height Fundus Units Glucose Ketones Leukocytes Nitrite Labor Signs Protein Cervic Dilation Cervic Effacement Cervic Station Type Weight in lbs Pre/Post Dialysis Refused Weight 136.826774442317 BP Diastolic BP Location Tested BP Systolic BP Type 60 102 Fetus Heart Rate Present Fetus Movement Comments Menstrual History Last Menstrual Date Menses Monthly On Bcp Conception Prior Menses Frequency Hcg Plus Date Menarche Onset Age Genetic Screening And Infection History Question Response Note Patient's Age Will Be 35 Yea rs Or Older At Estimated Date of Delivery false Thalassemia (Albanian, Polish, Mediterranean, Or Background): MCV < 80 false Neural Tube Defect (Meningomyelocele, Spina Bifi da, Or Anencephaly) false Congenital Heart Defect false Down Syndrome false Albert-Sachs (eg, Muslim, Cajun, Lithuanian-Paraguayan) f alse Marino Disease false Sickle Cell Disease Or Trait () false Hemophilia Or Other Blood Disorders false Muscular Dystrophy false Cystic Fibrosis false Abel's Chorea false Intellectual Disability/Autism false If Yes, Was Person Tested For Fragile X? false Other Inherited Genetic Or Chromosomal Disorder false Maternal Metabolic Disorder (eg, Type 1 Diabetes , PKU) false Patient Or Baby's Father Had A Child With Defects Not Listed Above false Recurrent Loss, Or A Stillbirth false Medications (including Suppl ements, Vitamins, Herbs, OTC Drugs), Illicit/Recreational Drugs, Alcohol true vitamins If Yes, Agent(s) And Strength/Dosage false Any Other Genetic History false Live With Someone With TB Or Exposed To TB false Patient Or Partner Has History Of Genital Herpes false Rash Or Viral Illness Since Last Menstrual Perio d false History Of STD, Gonorrhea, Chlamydia, HPV, Syphi lis true Other Infection History false History of HIV false History of Hepatitis false Prior GBS-infected child false Hemoglobinopathy Or Carrier false Other Structural Defect false Recent Travel History Outside of Country false Mental Retardation/Autism false Delivery Information Delivery Date Delivery Type Labor Anesthesia Weeks Gestation Incision Type Labor Labor Length Hrs Delivered By Post Complications Tubal Sterilization Discharge Date Comments 4 [facility] 24.2 false Florencio Reza MD None Discharge Information Feeding Method Contraceptive Method Maternal HG B and HCT Levels Breast Ob Episode Information Episode Created Date Number of Fetuses Patient Bloodtype Patient rh Status Prepregnancy Weight lbs Domestic Partner Domestic Partner Phone Father Name Pill Coater Status 05/24/19 24 1 CLOSED Fetus Data First Name Last Name Admitted to NICU Weight (g) Sex Living Outcome Pediatric Complications Fetus ID Race Codes Race Delivery Type 2806.37 3704 M Full Term 3948 VAGINAL Suzanne Calculation Initial Suzanne Date Initial Exam Date Initial Exam Provider Initial Ultrasound Date Last Menstrual Period Date Ultra Sound Weeks Gestation 0 Eighteen To Twenty Week Suzanne Update Ultra Sound Date Fundal Height At Umbil Quickening Date Ultra Sound Latest Weeks Gestation Final Suzanne Confirmed By Final Suzanne Confirmed Date Final Suzanne Date Ultra Sound Latest Days Gestation 0 0 Menstrual History Last Menstrual Date Menses Monthly On Bcp Conception Prior Menses Frequency Hcg Plus Date Menarche Onset Age Delivery Information Delivery Date Delivery Type Labor Anesthesia Weeks Gestation Incision Type Labor Labor Length Hrs Delivered By Post Complications Tubal Sterilization Discharge Date [facility] Discharge Information Feeding Method Contraceptive Method Maternal HG B and HCT Levels Ob Episode Information Episode Created Date Number of Fetuses Patient Bloodtype Patient rh Status Prepregnancy Weight lbs Domestic Partner Domestic Partner Phone Father Name Pill Coater Status 02/29/20 24 1 Osbaldo Eddy CLOSED Fetus Data First Name Last Name Admitted to NICU Weight (g) Sex Living Outcome Pediatric Complications Fetus ID Race Codes Race Delivery Type [id number] Suzanne Calculation Initial Suzanne Date Initial Exam Date Initial Exam Provider Initial Ultrasound Date Last Menstrual Period Date Ultra Sound Weeks Gestation 02/29/2024 12/23/2023 0 Eighteen To Twenty Week Suzanne Update Ultra Sound Date Fundal Height At Umbil Quickening Date Ultra Sound Latest Weeks Gestation Final Suzanne Confirmed By Final Suzanne Confirmed Date Final Suzanne Date Ultra Sound Latest Days Gestation 0 0 Pre-tom Flowsheet Flowsheet Date 02/29/2024 Fabian Score Blood Edema Fundus Height Fundus Units Glucose Ketones Leukocytes Nitrite Labor Signs Protein Cervic Dilation Cervic Effacement Cervic Station Type Weight in lbs Pre/Post Dialysis Refused Weight 150.215009059763 BP Diastolic BP Location Tested BP Systolic BP Type 84 122 Fetus Heart Rate Present Fetus Movement Comments Flowsheet Date 03/26/2024 Fabian Score Blood Edema Fundus Height Fundus Units Glucose Ketones Leukocytes Nitrite Labor Signs Protein Cervic Dilation Cervic Effacement Cervic Station Type Weight in lbs Pre/Post Dialysis Refused Weight 143.257940473553 BP Diastolic BP Location Tested BP Systolic BP Type 60 100 sitting Fetus Heart Rate Present Fetus Movement Comments Menstrual History Last Menstrual Date Menses Monthly On Bcp Conception Prior Menses Frequency Hcg Plus Date Menarche Onset Age 1012/23/2023 false Delivery Information Delivery Date Delivery Type Labor Anesthesia Weeks Gestation Incision Type Labor Labor Length Hrs Delivered By Post Complications Tubal Sterilization Discharge Date Comments Discharge Information Feeding Method Contraceptive Method Maternal HG B and HCT Levels Ob Episode Information Episode Created Date Number of Fetuses Patient Bloodtype Patient rh Status Prepregnancy Weight lbs Domestic Partner Domestic Partner Phone Father Name Pill Coater Status 07/29/19 23 1 CLOSED Fetus Data First Name Last Name Admitted to NICU Weight (g) Sex Living Outcome Pediatric Complications Fetus ID Race Codes Race Delivery Type , Spontane ous [id number] Suzanne Calculation Initial Suzanne Date Initial Exam Date Initial Exam Provider Initial Ultrasound Date Last Menstrual Period Date Ultra Sound Weeks Gestation 0 Eighteen To Twenty Week Suzanne Update Ultra Sound Date Fundal Height At Umbil Quickening Date Ultra Sound Latest Weeks Gestation Final Suzanne Confirmed By Final Suzanne Confirmed Date Final Suzanne Date Ultra Sound Latest Days Gestation 0 0 Menstrual History Last Menstrual Date Menses Monthly On Bcp Conception Prior Menses Frequency Hcg Plus Date Menarche Onset Age Delivery Information Delivery Date Delivery Type Labor Anesthesia Weeks Gestation Incision Type Labor Labor Length Hrs Delivered By Post Complications Tubal Sterilization Discharge Date Comments 3 Discharge Information Feeding Method Contraceptive Method Maternal HG B and HCT Levels Ob Episode Information Episode Created Date Number of Fetuses Patient Bloodtype Patient rh Status Prepregnancy Weight lbs Domestic Partner Domestic Partner Phone Father Name Pill Coater Status 07/29/19 23 1 CLOSED Fetus Data First Name Last Name Admitted to NICU Weight (g) Sex Living Outcome Pediatric Complications Fetus ID Race Codes Race Delivery Type 2381.35 8 F Full Term 862 VAGINAL Suzanne Calculation Initial Suzanne Date Initial Exam Date Initial Exam Provider Initial Ultrasound Date Last Menstrual Period Date Ultra Sound Weeks Gestation 0 Eighteen To Twenty Week Suzanne Update Ultra Sound Date Fundal Height At Umbil Quickening Date Ultra Sound Latest Weeks Gestation Final Suzanne Confirmed By Final Suzanne Confirmed Date Final Suzanne Date Ultra Sound Latest Days Gestation 0 0 Menstrual History Last Menstrual Date Menses Monthly On Bcp Conception Prior Menses Frequency Hcg Plus Date Menarche Onset Age Delivery Information Delivery Date Delivery Type Labor Anesthesia Weeks Gestation Incision Type Labor Labor Length Hrs Delivered By Post Complications Tubal Sterilization Discharge Date Comments 0 [facility] 39 Pit induction Discharge Information Feeding Method Contraceptive Method Maternal HG B and HCT Levels Ob Episode Information Episode Created Date Number of Fetuses Patient Bloodtype Patient rh Status Prepregnancy Weight lbs Domestic Partner Domestic Partner Phone Father Name Pill Coater Status 07/29/19 23 1 CLOSED Fetus Data First Name Last Name Admitted to NICU Weight (g) Sex Living Outcome Pediatric Complications Fetus ID Race Codes Race Delivery Type 2778.25 1 M Full Term 863 VAGINAL Suzanne Calculation Initial Suzanne Date Initial Exam Date Initial Exam Provider Initial Ultrasound Date Last Menstrual Period Date Ultra Sound Weeks Gestation 0 Eighteen To Twenty Week Suzanne Update Ultra Sound Date Fundal Height At Umbil Quickening Date Ultra Sound Latest Weeks Gestation Final Suzanne Confirmed By Final Suzanne Confirmed Date Final Suzanne Date Ultra Sound Latest Days Gestation 0 0 Menstrual History Last Menstrual Date Menses Monthly On Bcp Conception Prior Menses Frequency Hcg Plus Date Menarche Onset Age Delivery Information Delivery Date Delivery Type Labor Anesthesia Weeks Gestation Incision Type Labor Labor Length Hrs Delivered By Post Complications Tubal Sterilization Discharge Date Comments 1 [facility] 39 Discharge Information Feeding Method Contraceptive Method Maternal HG B and HCT Levels
[2024-09-15 16:23] VITALS: BP 130/88; PULSE 73; TEMP 36.3; O2SAT 100
[2024-09-15 16:27] LABS: Basophils % 0.1 %; Hematocrit 34.1 % (36-47); Lymphocytes # 0.6 10^3/uL (0.8-4.8); Lymphocytes % 6.8 %; Mean Corpuscular HGB Conc 34.6 g/dL (30-55); Mean Corpuscular Hemoglobin 29.6 pg (27-33); Mean Corpuscular Volume 85.5 fl (85-98); Mean Platelet Volume 10.3 fL (7.4-10.4); Monocytes # 0.1 10^3/uL (0.2-0.9); Monocytes % 1.7 %; Neutrophils # 7.49 10^3/uL (1.8-7.7); Neutrophils % 91.2 %; Nucleated Red Blood Cells % 0 %; Platelet Count 272 10^3/cmm (157-399); Red Blood Count 3.99 10^6/uL (3.85-5.65); Red Cell Distribution Width 12.5 % (12.1-15.1); White Blood Count 8.22 10^3/uL (3.29-11.43)
--- NOTE | 2024-09-15 16:42 | USR_ITS ---
PROCEDURE INFORMATION: Exam: US First Trimester, Transabdominal and US , Transvaginal Exam date and time: 09/15/2024 5:21 PM Age: 24 years old Clinical indication: complicated by abdominal or pelvic pain; Generalized abdominal pain; First trimester (<14 weeks 0 days); Gestational age or lmp: 08/06/2024; ; Additional info: Abd pain LABS AND CLINICAL REPORTS: Last menstrual period start date: 08/06/2024 Gestational age (Established): 5 w 5 d Estimated due date (Established): 05/13/2025 TECHNIQUE: Imaging protocol: Real-time transabdominal obstetrical ultrasound of the maternal pelvis and a first trimester , less than 14 weeks 0 days, with image documentation. Transvaginal imaging was used for better evaluation of the fetus, adnexa, and/or cervix. COMPARISON: US OB <=14 wk fetus w transvag 03/22/2024 9:08 AM FINDINGS: GESTATION: Gestation: Yolk sac measures 2.9 mm. Embryo/ cardiac activity (BPM): Unable to be accurately measured, per the billposter. Extra-embryonic membranes/Placenta: Unremarkable. No subchorionic bleed. Amniotic/Chorionic fluid: Amniotic and extra-amniotic fluid are normal for gestational age. BIOMETRY: Gestational age (AUA): [place]-rump length not measured, however a pole does appear to be present. Mean sac diameter: 1.15 cm. EGA (MSD) is 6 w 0 d MATERNAL: Uterus: Unremarkable. 7.3 x 4.4 x 5.8 cm. The endometrial thickness is 14 mm. Cervix: Unremarkable. Endocervical canal is closed. Right ovary/adnexa: Obscured by lack of adequate acoustic window. Left ovary/adnexa: Obscured by lack of adequate acoustic window. Intraperitoneal space: No intraperitoneal free fluid. US/US OB <= 14 weeks fetus [id number] IMPRESSION: Intrauterine gestation with pole and cardiac motion detected although not able to be accurately measured.
[2024-09-15 16:43] LABS: Alanine Aminotransferase 12 U/L (0-33); Albumin Level 4.9 g/dL (3.5-5.2); Alkaline Phosphatase 74 U/L (35-105); Anion Gap 23.9 (5-19); Aspartate Amino Transferase 16 U/L (0-32); Blood Urea Nitrogen 6 mg/dL (6-20); Carbon Dioxide 17 mmol/L (22-29); Chloride 100 mmol/L (98-107); Creatinine Clr Calc Pharmacy 170.9667; Globulin 3.4 g/dL (1.3-4.6); Glomerular Filtration Rate 152.9 mL/min (90-130); Glucose 122 mg/dL (65-115); Lipase 15 U/L (13-60); Osmolality Calculated 285 mOsm/kg (285-295); Sodium 138 mmol/L (136-145); Total Bilirubin 0.4 mg/dL (0.15-1.2); Total Protein 8.3 g/dL (6.6-8.7)
[2024-09-15 16:48] LABS: Potassium 2.9 mmol/L (3.5-5.1)
--- NOTE | 2024-09-15 16:48 | W.ED.NAVMDI ---
HPI - Nausea/Vomiting/Diarrhea General: Chief complaint: Nausea/Vomiting/Diarrhea Stated complaint: n,v 6 weeks preg Time Seen by Provider: 09/15/24 16:38 Source: patient Mode of arrival: ambulatory Limitations: no limitations History of Present Illness: 24-year-old female who states she is roughly 6 weeks she states she been having severe nausea and vomiting since this morning. States she has had multiple episodes time some abdominal cramping from the vomiting she denies any vaginal bleeding denies any fevers. Denies any worse improved factors. Associated nausea: Yes Associated symtoms: Reports nausea; Denies chest pain or headache(s) Related Data Home Medications ?Medication ?Instructions ?Recorded ?Confirmed albuterol sulfate 90 mcg/actuation 2 puff inhalation Q4H 03/17/24 03/30/24 aerosol inhaler (Ventolin HFA) acetaminophen 325 mg tablet 650 mg PO QID PRN Fever Or Pain 03/30/24 03/30/24 (Tylenol) vitamin with calcium 1 tab PO DAILY 03/30/24 03/30/24 no.72-iron 27 mg-folic acid 1 mg tablet ( Vitamins Plus Low Iron) Previous Rx's ?Medication ?Instructions ?Recorded promethazine 25 mg tablet 25 mg PO Q6H PRN nausea and 03/17/24 vomiting #20 tabs ondansetron 4 mg disintegrating 4 mg PO Q6H PRN nausea and 03/22/24 tablet vomiting #10 tabs potassium chloride 10 mEq 10 meq PO DAILY #30 tabs 03/22/24 tablet,extended release (Klor-Con) hydrocodone 5 mg-acetaminophen 325 1 tab PO Q4H PRN Moderate Pain #5 03/31/24 mg tablet tabs metoclopramide HCl 10 mg tablet 10 mg PO Q6H PRN nausea and 09/15/24 (Reglan) vomiting #20 tabs Allergies Allergy/AdvReac Type Severity Reaction Status Date / Time No Known Allergies Allergy Verified 09/15/24 16:29 Review of Systems Const: Denies: fever(s), chills, body aches or change in appetite ENMT: Denies: throat pain or dental pain Card: Denies: chest pain Resp: Denies: dyspnea GI: Reports: nausea and vomiting; Denies: diarrhea Musc: Denies: neck pain or back pain Skin/Breast: Denies: rash Neuro: Denies: headache(s) PFSH ED PFSH: Medical History Alcohol abuse, episodic drinking behavior Generalized anxiety disorder 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 Alcohol abuse, episodic Cannabis dependence, uncomplicated Depression Anxiety Surgical History S/P tonsillectomy S/P adenoidectomy Family History Mother Psychiatric illness Depression, anxiety Cancer Cervical Anemia Father Psychiatric illness Depression Brother Psychiatric illness Depression, anxiety Sister Psychiatric illness Depression, anxiety Grandmother Cancer Breast Social History Smoking and tobacco/nicotine status: never used tobacco/nicotine Second hand smoke exposure: Yes Alcohol intake: never Substance/Drug Use: former Adopted: No Caregiver/support person: Yes Lives independently: Yes Marital status: Single Number of children: 3 Number of grandchildren: 0 Highest education level completed: 11th Grade service: No Current occupational status: unemployed Current occupational exposures/hazards: No Physical Exam Const: COMMON NORMALS: no acute distress, patient oriented x3 and healthy appearing HENMT: COMMON NORMALS: normocephalic and atraumatic HEAD & SCALP: normocephalic and atraumatic Eye: COMMON NORMALS: conjunctivae normal CONJUNCTIVA: Yes conjunctivae normal Neck/C-Spine: COMMON NORMALS: full ROM and supple Chest: COMMONS NORMALS: normal inspection of the chest Resp: COMMON NORMALS: normal respiratory effort, No retractions, No use of accessory muscles and clear to auscultation bilaterally AUSCULTATION: clear to auscultation bilaterally Cardio: COMMON NORMALS: regular rate, regular rhythm and No murmurs present (Cardio) RATE: regular rate RHYTHM: regular rhythm GI: COMMON NORMALS: Normal to inspection, nondistended, normoactive bowel sounds present, Soft to palpation, non-tender and no masses PALPATION: Yes Soft to palpation Extremity: COMMON NORMALS: normal to inspection and full ROM Neuro: COMMON NORMALS: patient oriented x3, moves all extremities and no focal motor deficits Psych: COMMON NORMALS: mental status grossly normal, Normal thought process present and cooperative THOUGHT PROCESS: Normal thought process present Skin: COMMON NORMALS: no rashes or lesions noted and no wounds GENERAL SKIN EXAM: no rashes or lesions noted Course Vital Signs: Vital signs: Vital Signs Temperature 97.4 F L 09/15/24 16:23 Pulse Rate 98 09/15/24 19:01 Blood Pressure 127/79 09/15/24 19:01 Pulse Oximetry 100 09/15/24 19:01 Oxygen Delivery Me thod Room Air 09/15/24 18:30 MDM - Nausea/Vomiting/Diarrhea Medical Decision Making Patient presents with vomiting in she feels much improved after Reglan was able to tolerate p.o. ultrasound did show IUP will prescribe her Reglan for home she has follow-up with OB return if worsening. Medical Records I reviewed the patient's medical records. Lab Data I reviewed the patient's lab results. 09/15/24 16:20 09/15/24 16:20 Radiology Impressions Ultrasound 09/15/24 16:42 IMPRESSION: Intrauterine gestation with pole and cardiac motion detected although not able to be accurately measured. Laboratory Results WBC 8.22 10^3/uL (3.29-11.43) 09/15/24 16:20 RBC 3.99 10^6/uL (3.85-5.65) 09/15/24 16:20 Hgb 11.80 g/dL (11.27-16.99) 09/15/24 16:20 Hct 34.1 % (36-47) L 09/15/24 16:20 MCV 85.5 fl (85-98) 09/15/24 16:20 MCH 29.6 pg (27-33) 09/15/24 16:20 MCHC 34.6 g/dL (30-55) 09/15/24 16:20 RDW 12.5 % (12.1-15.1) 09/15/24 16:20 Plt Count 272 10^3/cmm (157-399) 09/15/24 16:20 MPV 10.3 fL (7.4-10.4) 09/15/24 16:20 Neut % (Auto) 91.2 % 09/15/24 16:20 Lymph % (Auto) 6.8 % 09/15/24 16:20 Wilkes % (Auto) 1.7 % 09/15/24 16:20 Eos % (Auto) 0.0 % 09/15/24 16:20 Baso % (Auto) 0.1 % 09/15/24 16:20 Neut # (Auto) 7.49 10^3/uL (1.8-7.7) 09/15/24 16:20 Lymph # (Auto) 0.6 10^3/uL (0.8-4.8) L 09/15/24 16:20 Wilkes # (Auto) 0.1 10^3/uL (0.2-0.9) L 09/15/24 16:20 Eos # (Auto) 0.0 10^3/uL (0.0-0.8) 09/15/24 16:20 Baso # (Auto) 0.0 10^3/uL (0.0-0.1) 09/15/24 16:20 Nucleated RBC % (auto) 0 % 09/15/24 16:20 Nucleated RBCs # 0.0 /100WBC 09/15/24 16:20 Sodium 138 mmol/L (136-145) 09/15/24 16:20 Potassium 2.9 mmol/L (3.5-5.1) L 09/15/24 16:20 Chloride 100 mmol/L (98-107) 09/15/24 16:20 Carbon Dioxide 17 mmol/L (22-29) L 09/15/24 16:20 Anion Gap 23.9 (5-19) H 09/15/24 16:20 BUN 6 mg/dL (6-20) 09/15/24 16:20 Creatinine 0.5 mg/dL (0.5-0.9) 09/15/24 16:20 GFR Calculation 152.9 mL/min (90-130) H 09/15/24 16:20 Glucose 122 mg/dL (65-115) H 09/15/24 16:20 Calculated Osmolality 285 mOsm/kg (285-295) 09/15/24 16:20 Calcium 10.0 mg/dL (8.5-10.5) 09/15/24 16:20 Total Bilirubin 0.4 mg/dL (0.15-1.2) 09/15/24 16:20 AST 16 U/L (0-32) 09/15/24 16:20 ALT 12 U/L (0-33) 09/15/24 16:20 Alkaline Phosphatase 74 U/L (35-105) 09/15/24 16:20 Total Protein 8.3 g/dL (6.6-8.7) 09/15/24 16:20 Albumin 4.9 g/dL (3.5-5.2) 09/15/24 16:20 Globulin 3.4 g/dL (1.3-4.6) 09/15/24 16:20 Lipase 15 U/L (13-60) 09/15/24 16:20 Ser , Semi-Qnt 42350.00 mIU/mL 09/15/24 16:20 All radiology interpretation(s) finalized by discharge Discharge Plan Discharge Patient Disposition: Home Clinical Impression: Vomiting affecting Condition: Stable Prescriptions: New metoclopramide HCl [Reglan] 10 mg tablet 10 mg PO Q6H PRN (Reason: nausea and vomiting) Qty: 20 0RF No Action albuterol sulfate [Ventolin HFA] 90 mcg/actuation HFA aerosol inhaler 2 puff INHALATION Q4H promethazine 25 mg tablet 25 mg PO Q6H PRN (Reason: nausea and vomiting) Qty: 20 0RF ondansetron 4 mg tablet,disintegrating 4 mg PO Q6H PRN (Reason: nausea and vomiting) Qty: 10 0RF potassium chloride [Klor-Con 10] 10 mEq tablet extended release 10 meq PO DAILY Qty: 30 0RF Vitamin Plus Low Iron 27 mg iron- 1 mg tablet 1 tab PO DAILY acetaminophen [Tylenol] 325 mg Tablet 650 mg PO QID PRN (Reason: Fever Or Pain) hydrocodone-acetaminophen 5-325 mg Tablet 1 tab PO Q4H PRN (Reason: Moderate Pain) Qty: 5 0RF Discharge Orders: Discharge ED (Routine); Ordered 09/15/24 Ordered By: Dino Naylor Referrals: Ruben Deluna MD [Primary Care Provider, Family Practice] - 4-7 days Discharge Diet: Advance as tolerated Discharge Activity: Resume usual activity Patient Instructions: Nausea and Vomiting in (ED) Print Language: French Coding Level of Care Code 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
[2024-09-15] MEDS: sodium chloride 0.9% 1,000 ML 999 ML IV (17:01)
[2024-09-15] MEDS: metoclopramide 5 mg/mL SDV 2 mL 10 MG IVP (17:02)
[2024-09-15] MEDS: diphenhydrAMINE 50 mg/mL SDV 1mL IVP (17:03)
[2024-09-15] MEDS: potassium chloride ER 20 mEq Tablet 60 MEQ PO (17:32)
[2024-09-15] MEDS: metoclopramide 5 mg/mL SDV 2 mL IVP (18:05)
[2024-09-15 18:30] VITALS: BP 127/79; PULSE 82; O2SAT 100
[2024-09-15 19:01] VITALS: BP 127/79; PULSE 98; O2SAT 100
== END 2024-09-15 19:00 | disposition home or self-care (01) ==
PROVIDERS: Emergency Provider Emergency Medicine; PCP Family Medicine
DX: O21.9 Vomiting of pregnancy, unspecified (principal); Z3A.01 Less than 8 weeks gestation of pregnancy
CPT/HCPCS: 36415; 76801; 80053; 83690; 84702; 85025; 96361; 96374; 96375; 96376; 99284; J1200; J2765; J7030; J9999

== ENCOUNTER 2024-09-17 12:48 | Emergency (ER) | payer BC, MEDICAID, SELFPAY ==
--- OUTSIDE RECORDS SUMMARY | 2024-09-17 12:59 | XMS_ITS | Patient Health Record ---
Author Organization [facility] Address [address] [place] [address] Care Team Providers Care Rehab Trainer Name Role Phone Ashish Rafat Primary Care [...] End Date [employer] [address] [address] [place] [phone] [id number] Tila Francis Self - patient is the insured [facility] [address] [place] [phone] [id number] Tila Francis Self - patient is the insured
--- OUTSIDE RECORDS SUMMARY | 2024-09-17 12:59 | XMS_ITS | Data Portability ---
Author Organization [place] Caceres [facility] [address], [facility] Address [address] [address] Care Team Providers Care Lidar Scientist Name Role Phone KHAI THRASHER Primary Care Provider [phone] Assessment Encounter Date Assessment Date Assessment LastModified [...] Organization Details Last Modified Time Details Appointments HOSPITAL F/U 20 2024 11:20A JACKY CORONA Not available Not available Not available ELEANOR OBI 2024 01:20P Zeferino Reza MD Not available Not available Not available Lab BMP, serum or plasma 2024 025 JAMESON [facility], [address], [address], 05/08/2024 11:56:29 Referral None recorded. Procedures None recorded. Surgeries None recorded. Imaging US, obstetric , transvagi nal - [id number] 2024 025 [facility] ([facility]), [address] [place], [address], 03/30/2024 09:07:07 US, obstetric , 1st trimester , single gestation 2023 024 [email or web address] [facility] ([facility]), [address] [place], [address], 03/03/2024 09:55:10 Medication Orders fluoxetin e 10 mg tablet 2024 025 [facility] [place], [address] [place] [address], [id number], 05/08/2024 11:59:58 Vitamin 27 mg iron-0.8 mg tablet 2023 025 [facility], [address] [place] [address], [address], 03/27/2024 09:19:05 Patient TargetsNo targets recorded. Patient InstructionsNo instructions recorded. Reason for Referral None Reported. Results Created Date Observation Date Name Description Value Unit Range Abnormal Flag Note LastModifiedBy Organization Detail LastModifiedTime 05/08/1905/08/2024 BMP (FEMA LE) glucose 78.0 mg/dL 60.0-9 9.0 Not Available [facility] [address], [address], 05/08/2024 11:56:29 05/08/19 25 05/08/2024 BMP (FEMA LE) BUN (blood urea nitrogen) 11.0 mg/dL 10.0-2 6.0 Not Available [facility] [address], [place], [address], 05/08/2024 11:56:29 05/08/19 25 05/08/2024 BMP (FEMA LE) creatinine (serum) 0.6 mg/dL 0.4-1. 5 Not Available [facility] [address], [place], [address], 05/08/2024 11:56:29 05/08/19 25 05/08/2024 BMP (FEMA LE) BUN/creatini ne ratio 18.33 ratio Not Available [facility] [address] [facility] 1, [place], [address], 05/08/2024 11:56:29 05/08/19 25 05/08/2024 BMP (FEMA LE) calcium 9.5 mg/dL 8.4-10 .5 Not Available [facility] [address] [place] [facility], [place], [address], 05/08/2024 11:56:29 05/08/19 25 05/08/2024 BMP (FEMA LE) sodium 140.0 mmol/ L 136.0- 145.0 Not Available [facility] [address] [place] [facility], [place], [address], 05/08/2024 11:56:29 05/08/19 25 05/08/2024 BMP (FEMA LE) potassium 3.8 mmol/ L 3.5-5. 1 Not Available [facility] [address] [place] [facility], [place], [address], 05/08/2024 11:56:29 05/08/19 25 05/08/2024 BMP (FEMA LE) chloride 103.0 mmol/ L 98.0-1 10.0 normal Not Available [facility] [address] [place] Xenia [facility] 1, [place], [address], 05/08/2024 11:56:29 05/08/19 25 05/08/2024 BMP (FEMA LE) C02 27.0 mmol/ L 22.0-3 1.0 Not Available [facility] [address] [facility], [place], [address], 05/08/2024 11:56:29 05/08/19 25 05/08/2024 BMP (FEMA LE) anion gap 10.0 calc Not Available [facility] [address] [facility] Billy [address], [place], [address], 05/08/2024 11:56:29 03/22/19 25 03/22/2024 US, obste tric, 1st trime ster, singl e gesta tion No observ ation record ed. [email or web address] [facility] [address] [facility], [place], [address], 03/26/2024 20:57:07 03/30/19 25 03/30/2024 , obste tric, trans vagin al No observ ation record ed. [email or web address] [address] [place], [address], 04/07/2024 14:25:33 03/31/19 25 03/26/2024 imagi ng/di agnos tic resul t No observ ation record ed. [email or web address] Not Available 2024 15:50:58 Result Notes None recorded. Problems Name Problem SNOMED Code Status Onset Date Resolution Date Notes Provider Name and Address Organization Details Recorded Time Normal pregnanc y in multigra shawna 60034047921 4106 Completed 2022 Florencio Reza MD [address] [place], [address], [facility], L.L.CDamian 4 06:53:23 Normal pregnanc y in multigra shawna 69219186572 4106 Completed 202205/08/2024 KARY mckeon [facility], L.L.CDamian 5 09:42:15 Disorder of menstrua tion 961151942 Completed 2022 Florencio Reza MD [address] [place], [address], [facility] 4 06:53:23 Blood group O Rh(D) negative 973094273 Completed 2022 received in Nov. per pt at [facility] Flroencio Reza MD [address] [place] [address], [address], [facility] 4 06:53:23 Postpart um care Completed 202305/08/2024 [facility] 10:52:47 Postpart um care Completed 2023 Florencio Reza MD [address] [place] [address], [address], [facility], L.L.CDamian 4 06:53:23 Mild intermit tent asthma 699623117 Active 2023 KARY mckeon [facility] 5 09:41:58 Pregnanc y 11002848 Completed 202303/26/2024 IDALIA ASHLEY [facility] 5 09:47:40 Missed miscarri age 06335211 Active 2024 KARY mckeon [facility], L.L.CDamian 5 09:42:07 Postpart um care Active 2024 [facility] 5 10:52:47 Anxiety 26952731 Active 2024 [facility] 5 10:52:48 Miscarri age without complica tion 22279730 Active 2022 KARY mckeon [facility], L.L.CDamian 5 09:42:03 Problem Notes None recorded. Procedures Surgical History Date Name Laterality Status Provider Name and Address Organization Details Recorded Time tonsilectom y/adenoids completed Anisa Asif [place] santos [facility] KendalDamian 06/22/2023 12:37:22 Imaging Results None recorded. Procedure [...] 6 HOURS NEEDED FOR NAUSEA OR VOMITING 05/08 completed Not Available Not Available Not [...] Updated DateTime 5 167.64 cm 23.2 kg/m2 60869.5 1 g 99 % 99 % 84 /min 18 /min 98.2 [degF] 100 mm[Hg] 60 mm[Hg] IDALIA CACERES [facility], L.L.CDamian 5 10:04:59 Date Recorded Body height Body mass index (BMI) Body weight Oxygen saturation Oxygen saturation in Arterial blood by Pulse oximetry Heart rate Respiratory rate Body temperature Systolic blood pressure Diastolic blood pressure Provider Name and Address Organization Details Last Updated DateTime 5 167.64 cm 22.5 kg/m2 27974.4 4 g 99 % 99 % 79 /min 18 /min 98.3 [degF] 100 mm[Hg] 58 mm[Hg] IDALIA CACERES [facility], L.L.CDamian 5 11:37:11 Date Recorded Body height Body mass index (BMI) Body weight Respiratory rate Heart rate Oxygen saturation Oxygen saturation in Arterial blood by Pulse oximetry Body temperature Systolic blood pressure Diastolic blood pressure Provider Name and Address Organization Details Last Updated DateTime 5 167.64 cm 23.4 kg/m2 83145.8 9 g 16 /min 68 /min 98 % 98 % 97.9 [degF] 126 mm[Hg] 70 mm[Hg] KARY CONN [facility], L.L.CDamian 5 10:52:20 Date Recorded Body height Body mass index (BMI) Body weight Respiratory rate Heart rate Oxygen saturation Oxygen saturation in Arterial blood by Pulse oximetry Body temperature Systolic blood pressure Diastolic blood pressure Provider Name and Address Organization Details Last Updated DateTime 4 167.64 cm 24.3 kg/m2 17995.9 6 g 16 /min 86 /min 99 % 99 % 98.2 [degF] 122 mm[Hg] 84 mm[Hg] KARY CONN [facility], L.L.CDamian 4 09:23:32 Social History Question Answer Notes LastModified by [employer] Details LastModified Time Tobacco Smoking Status Never Smoker [facility] 10/25/2022 09:41:24 What Is Your Relationship Status? Domestic Partner Information not available 10/25/2022 Are You Sexually Active? Yes [facility] Information not available 10/25/2022 Sex: Unknown Functional Status Question Answer Note LastModified by [employer] Details LastModified Time Do you use any illicit or recreational drugs? No Information not available 10/25/2022 Do you or have you ever used any other forms of tobacco or nicotine? Yes Information not available 10/25/2022 What is your level of alcohol consumption? None [facility] Information not available 10/25/2022 Are you able to care for yourself? Yes [facility] Information not available 10/25/2022 Do you or have you ever used e-cigarettes or vape? Current user of electronic cigarettes [facility] Information not available 10/25/2022 Mental Status None [...] Recorded Time MMR 3 completed KARY mckeon [facility], LDamianLDamianCDamian 10/25/2022 09:38:53 MMR 6 completed KARY mckeon [facility], LDamianLDamianCDamian 10/25/2022 09:38:53 COVID-19, mRNA, LNP-S, PF, 100 mcg/0.5mL dose or 50 mcg/0.25mL dose 2 completed KARY mckeon [facility], [place] 10/25/2022 09:38:53 DTaP-IPV 6 completed KARY mckeon [facility], JoseLDamianCDamian 10/25/2022 09:38:53 Tdap 0 completed KARY mckeon [facility], JoseL.C. 10/25/2022 09:38:53 Tdap 3 completed KARYKVNG MALLOYY null, [facility], L[facility] 10/25/2022 09:38:53 varicella 6 completed KARY SENIA null, [facility] 10/25/2022 09:38:53 Hep B, unspecified formulation 3 completed KARY SENIA null, [facility] 10/25/2022 09:38:53 Hep B, unspecified formulation 2 completed KARYKVNG MALLOYY null, [facility] 10/25/2022 09:38:53 Hep B, unspecified formulation 2 completed KARY MALLOYY null, [facility] 10/25/2022 09:38:53 pneumococcal, unspecified formulation 3 completed KARYKVNG MALLOYY null, [facility] 10/25/2022 09:38:53 pneumococcal, unspecified formulation 2 completed KARY MALLOYY null, [facility] 10/25/2022 09:38:53 pneumococcal, unspecified formulation 2 completed KARY MALLOYY null, [facility] 10/25/2022 09:38:53 pneumococcal, unspecified formulation 3 completed KARYKVNG MALLOYY null, [facility] 10/25/2022 09:38:53 polio, unspecified formulation 3 completed KARYKVNG MALLOYY null, [facility] 10/25/2022 09:38:53 UObJ-Xxm-TTH 2 completed KARY CONN null, [facility] 10/25/2022 09:38:53 MCoW-Vdy-IIO 2 completed KARY mckeon, [facility] 10/25/2022 09:38:53 meningococcal MCV4P 8 completed KARY mckeon, [facility] 10/25/2022 09:38:53 DTaP-Hib 3 completed KARY mckeon, [facility] 10/25/2022 09:38:53 DTaP-Hib 3 completed KARY mckeon, [facility] 10/25/2022 09:38:53 RSV, bivalent, protein subunit RSVpreF, diluent reconstituted, 0.5 mL, PF 3 completed KARY mckeon [facility] 03/09/2023 10:10:40 Tdap 3 completed KARY mckeon [facility] 03/09/2023 10:10:40 Past Encounters Encounter ID Performer Location Encounter Start Date Encounter Closed Date Diagnosis/Indication Diagnosis SNOMED-CT Code Diagnosis ICD10 Code Diagnosis Note [id number] JACKY VILLAGOMEZ [facility] ([facility]) [address] [place] [id number] 5 07/10/2022 16:29:58 07/10/2022 21:10:44 Missed period 10018507 N92.5 test positive 966031089 Z32.01 [id number] JACKY VILLAGOMEZ [facility] ([facility]) [address] [place] [id number] 5 07/17/2022 13:12:37 07/22/2022 07:42:50 Stomach cramps 56188822 R10.9 Abnormal u terine bleeding 9029102241 9100 N93.9 [id number] Florencio Reza MD [facility] ([facility]) [address] [place] [id number] 5 07/28/2022 13:29:01 07/28/2022 20:13:04 Miscarriage without complication 35614228 O03.9 Urgent jarocho chon to urinate 49172604 R39.15 [id number] JACKY VILLAGOMEZ [facility] ([facility]) [address] [place] [address] 5 09/13/2022 16:01:25 09/13/2022 16:49:18 test positive 000914020 Z32.01 Nausea and vomiting 1693 1999 R11.2 [id number] Florencio Reza MD [facility] ([facility]) [address] [place] [address] 5 10/25/2022 09:22:09 10/25/2022 19:04:09 Normal in multigravida 4351277530 19072 Z34.80 Disorder o f menstruation 369984727 N92.6 [id number] Florencio Reza MD [facility] ([facility]) [address] [place] [address] 5 10/30/2022 10:27:38 10/30/2022 19:48:29 [id number] Florencio Reza MD [facility] ([facility]) [address] [place] [address] 5 11/09/2022 14:00:38 11/09/2022 18:42:15 Normal in multigravida 9246354389 40151 Z34.80 Gestation period, 14 weeks 43322721 Z3A.14 Normal pre gnancy in primigravida 6062816874 93205 Z34.80 [id number] Florencio Reza MD [facility] ([facility]) [address] [place] [address] 5 12/07/2022 10:48:16 12/07/2022 13:20:55 Multigravida 557090634 Z34.82 Gestation period, 19 weeks 99721224 Z3A.19 Mild inter mittent asthma 063747103 J45.20 [id number] Florencio Reza MD [facility] ([facility]) [address] [place] [address] 5 01/02/2023 14:44:10 01/02/2023 17:02:15 [id number] Florencio Reza MD [facility] ([facility]) [address] [place] [address] 5 01/04/2023 09:45:37 01/04/2023 10:34:57 Normal in multigravida 5487065813 02323 Z34.80 Gestation period, 23 weeks 88436960 Z3A.23 Mild inter mittent asthma 508484561 J45.20 [id number] Florencio Reza MD [facility] ([facility]) [address] [place] [id number] 5 02/01/2023 09:42:00 02/01/2023 13:31:04 Normal in multigravida 1122788573 36546 Z34.80 [id number] Florencio Reza MD [facility] ([facility]) [address] [place] [id number] 5 02/22/2023 09:47:23 02/22/2023 12:57:02 Normal in multigravida 6807701513 46364 Z34.83 Gestation period, 30 weeks 23904948 Z3A.30 Multigravida 480157216 Z 34.82 [id number] Florencio Reza MD [facility] ([facility]) [address] [place] [address] 5 02/27/2023 09:02:08 02/27/2023 15:11:02 [id number] Florencio Reza MD [facility] ([facility]) [address] [place] [id number] 5 03/09/2023 09:55:11 03/09/2023 15:03:28 Normal in multigravida 3285463953 26027 Z34.83 Gestation period, 32 weeks 6823671 Z3A.32 Acute low back pain 2788 50097 M54.50 [id number] Florencio Reza MD [facility] ([facility]) [address] [place] [address] 5 03/22/2023 10:37:42 03/22/2023 12:18:08 Normal in multigravida 6758039884 07403 Z34.83 Gestation period, 34 weeks 16214613 Z3A.34 Mild inter mittent asthma 284928960 J45.20 [id number] Florencio Reza MD [facility] ([facility]) [address] [place] [address] 5 04/05/2023 09:50:00 04/05/2023 11:47:02 Normal in multigravida 2630224212 44798 Z34.83 Gestation period, 36 weeks 35040827 Z3A.36 Restless legs 84531474 G 25.81 [id number] Florencio Reza MD [facility] ([facility]) [address] [place] [id number] 5 04/12/2023 14:52:22 04/14/2023 22:34:17 Normal in multigravida 4788085684 69308 Z34.83 Gestation period, 37 weeks 00529325 Z3A.37 [id number] Florencio Reza MD [facility] ([facility]) [address] [place] [id number] 5 05/24/2023 09:54:20 05/24/2023 15:28:39 care 278181922 Z39.2 Vaginal discharge 614921 006 N89.8 [id number] JACKY DIAZ [facility] ([facility]) [address] [place] [id number] 5 06/22/2023 12:30:39 06/22/2023 13:00:28 Acute viral pharyngitis 232551726 J02.9 Rapid strep negative.P ush cold oral fluids including Popsicles. Alternate tylenol/mo jerry for fever or discomfort .May use throat lozenges, chlorasept ic spray, or saltwater gargles.If you develop worsening symptoms such as unable to swallow, persistant fever, or concerns arise then return for re-eval. [id number] Rigoberto Gatica MD [facility] ([facility]) [address] [place] [id number] 5 08/02/2023 13:35:00 08/02/2023 14:42:36 Increased frequency of urination 566954498 R35.0 Vaginal discharge 387687 006 N89.8 [id number] Tk Grady MD [facility] ([facility]) [address] [place] [address] 5 01/03/2024 10:39:49 01/03/2024 17:40:34 Mild intermittent asthma 740444725 J45.20 Viral uppe r respiratory tract infection 264444221 J06.9 Patient presented with symptoms of viral [...] in 7-10 days if symptoms not improving. [id number] Florencio Reza MD [facility] ([facility]) [address] [place] [id number] 5 02/29/2024 09:04:40 02/29/2024 10:22:39 Normal in multigravida 7628695687 59884 Z34.83 Disorder o f menstruation 751564846 N92.6 [id number] Florencio Reza MD [facility] ([facility]) [address] [place] [id number] 5 03/26/2024 09:27:57 03/26/2024 15:13:58 Miscarriage 83801327 O03.9 [id number] Florencio Reza MD [facility] ([facility]) [address] [place] [id number] 5 03/26/2024 10:33:12 03/27/2024 14:09:17 First trimester bleeding 9061384757 553060 O46.91 [id number] Florencio Reza MD [facility] ([facility]) [address] [place] [id number] 5 04/01/2024 11:04:29 04/01/2024 13:56:26 Postoperative care 213839949 Z48.89 Retained p roducts after miscarriage 306616013 O03.4 Resolved [id number] Florencio Reza MD [facility] ([facility]) [address] [place] [address] 05/08/2024 10:36:40 05/08/2024 11:15:51 care 054327152 Z39.2 Anxiety 98886693 F41.9 Hypokalemia 78580426 E87 .6 Health Concerns Section Related Observation LastModified by Organization Detai ls LastModified Time None Recorded Concern Status LastModified by Organization Details LastModified Time None Recorded Advance Directives Directive None Recorded Payers Insurance Date Sequence Insurance Name Policy Number Policy Dodd Covered Member ID Dodd Member ID Guarantor Name 07/04/2024 1 [employer] [place]ICA[place]PLACEMENT - HMO) [id number] Tila Francis [id number] Tila Francis Notes Date Note Type Note Provider Name [...] out she was OBI Florencio Reza MD [address] [place] [address], [phone], [facility] L[facility]CD[facility]ian 02/29/2024 10:15:43 03/26/2024 text/html ER follow up [...] is having chest pain. Florencio Reza MD [address] [place] [address], [phone], [facility] 03/28/2024 12:33:31 04/01/2024 text/html Post-OpReported bypatient.Onset/Timin g:date of surgery: (03/27/24) Quality:procedure: (D&C) Context:preoperative diagnosis: (missed miscarriage) Associated Symptoms:normal appetite; no constipation; no nausea; no emesis; pain improving; no fever;fatigue;pain 03/28;bleeding(decreas ing);diarrhea Florencio Reza MD [address] [place] [address], [phone], [facility] 04/01/2024 12:09:28 05/08/2024 text/html Post-OpReported bypatient.Onset/Timin g:date [...] be doing some better Florencio Reza MD [address] [place] [address], [phone], [facility] 05/08/2024 11:14:49 OBGyn Episode Ob Episode Information Episode Created Date Number of Fetuses Patient Bloodtype Patient rh Status Prepregnancy Weight lbs Domestic Partner Domestic Partner Phone Father Name Arborer Status 10/26/19 23 1 O Negative Osbaldo [...] Code Not e Normal in multigravida 10/25/2022 [id number] Blood group O Rh(D) negative 11/09/2022 [id number] received in Nov . per pt at [facility] Disorder of menstruation 10/25/2022 [id number] care 05/24/2023 [id number] Suzanne Calculation Initial Suzanne Date Initial Exam [...] Weight in lbs Pre/Post Dialysis Refused Weight 135.78027113519 BP Diastolic BP Location Tested BP Systolic [...] Weight in lbs Pre/Post Dialysis Refused Weight 135.395489351384 BP Diastolic BP Location Tested BP Systolic [...] Weight in lbs Pre/Post Dialysis Refused Weight 136.208225779842 BP Diastolic BP Location Tested BP Systolic [...] Weight in lbs Pre/Post Dialysis Refused Weight 140.461593162580 BP Diastolic BP Location Tested BP Systolic [...] Weight in lbs Pre/Post Dialysis Refused Weight 145.052353374052 BP Diastolic BP Location Tested BP Systolic BP Type 60 112 sitting Fetus Heart Rate Present A 142 Present Fetus Movement A Yes Comments N/V, headache, dizziness, RL Q pain, pelvic pain, sciatic and low back pain with shooting pain down both legs, occasional numbness in feet, glucose done today and order sent to [facility] for rhogram injection , Flowsheet Date 02/22/2023 Fabian Score Blood Edema Fundus Height Fundus Units Glucose Ketones Leukocytes Nitrite Labor Signs Protein Cervic Dilation Cervic Effacement Cervic Station none none Negative trace Type Weight in lbs Pre/Post Dialysis Refused Weight 147.385895021164 BP Diastolic BP Location Tested BP Systolic [...] Weight in lbs Pre/Post Dialysis Refused Weight 149.984834164417 BP Diastolic BP Location Tested BP Systolic [...] Weight in lbs Pre/Post Dialysis Refused Weight 150.780337252062 BP Diastolic BP Location Tested BP Systolic [...] Weight in lbs Pre/Post Dialysis Refused Weight 152.344829150295 BP Diastolic BP Location Tested BP Systolic [...] Weight in lbs Pre/Post Dialysis Refused Weight 155.955936578141 BP Diastolic BP Location Tested BP Systolic [...] Weight in lbs Pre/Post Dialysis Refused Weight 136.442793890138 BP Diastolic BP Location Tested BP Systolic BP Type 60 102 Fetus Heart Rate Present Fetus Movement Comments Menstrual History Last Menstrual Date Menses Monthly On Bcp Conception Prior Menses Frequency Hcg Plus Date Menarche Onset Age Genetic Screening And Infection History Question Response Note Patient's Age Will Be 35 Yea rs Or Older At Estimated Date of Delivery false Thalassemia (Syriac, Yoruba, Mediterranean, Or Background): MCV < 80 false Neural Tube Defect (Meningomyelocele, Spina Bifi da, Or Anencephaly) false Congenital Heart Defect false Down Syndrome false Albert-Sachs (eg, Rastafarian, Cajun, Swedish-Knott) f alse Marino Disease false Sickle Cell Disease Or Trait () false Hemophilia Or Other Blood Disorders false Muscular Dystrophy false Cystic Fibrosis false [place]'s Chorea false Intellectual Disability/Autism false If Yes, [...] Domestic Partner Domestic Partner Phone Father Name Arborer Status 05/24/19 24 1 CLOSED Fetus Data [...] Complications Tubal Sterilization Discharge Date Comments 4 Regional-Ep idural 38.2 false Discharge Information Feeding Method Contraceptive Method Maternal HG B and HCT Levels Ob Episode Information Episode Created Date Number of Fetuses Patient Bloodtype Patient rh Status Prepregnancy Weight lbs Domestic Partner Domestic Partner Phone Father Name Arborer Status 02/29/20 24 1 Osbaldo Eddy CLOSED [...] Gestation 0 0 Pre- Flowsheet Flowsheet Date 02/29/2024 Fabian Score Blood Edema Fundus Height Fundus Units Glucose Ketones Leukocytes Nitrite Labor Signs Protein Cervic Dilation Cervic Effacement Cervic Station Type Weight in lbs Pre/Post Dialysis Refused Weight [id number] BP Diastolic BP Location Tested BP Systolic BP Type 84 122 Fetus Heart Rate Present Fetus Movement Comments Flowsheet Date 03/26/2024 Fabian Score Blood Edema Fundus Height Fundus Units Glucose Ketones Leukocytes Nitrite Labor Signs Protein Cervic Dilation Cervic Effacement Cervic Station Type Weight in lbs Pre/Post Dialysis Refused Weight 143.962503873269 BP Diastolic BP Location Tested BP Systolic [...] Domestic Partner Domestic Partner Phone Father Name Arborer Status 07/29/19 23 1 CLOSED Fetus Data [...] Domestic Partner Domestic Partner Phone Father Name Arborer Status 07/29/19 23 1 CLOSED Fetus Data [...] Complications Tubal Sterilization Discharge Date Comments 1 Regional- idural 39 Discharge Information Feeding Method Contraceptive Method Maternal HG B and HCT Levels Ob Episode Information Episode Created Date Number of Fetuses Patient Bloodtype Patient rh Status Prepregnancy Weight lbs Domestic Partner Domestic Partner Phone Father Name Arborer Status 07/29/19 23 1 CLOSED Fetus Data [...] Complications Tubal Sterilization Discharge Date Comments 0 Regional-Ep idural 39 Pit induction Discharge Information Feeding Method Contraceptive Method Maternal HG B and HCT Levels
--- OUTSIDE RECORDS SUMMARY | 2024-09-17 12:59 | XMS_ITS | Clinical Summary ---
Author Organization [facility] Address [address] [place] [address] Care Team Providers Care Top Spotter Name Role Phone Unavailable Primary Care Provider [...] on file Legal Sex Female 1:36 PM HEALTH INFORMATION SPECIALIST Gender Identity Not on file Sexual Orientation Not on file Last Filed Vital Signs Vital Sign Reading Time Taken Comments Blood Pressure 101/55 02/15/2012 1:58 PM HEALTH INFORMATION SPECIALIST Pulse 94 02/15/2012 1:58 PM HEALTH INFORMATION SPECIALIST Temperature - - Respiratory Rate - - Oxygen Saturation - - Inhaled Oxygen Concentration - - Weight 30.8 kg (68 lb) 02/15/2012 1:58 PM HEALTH INFORMATION SPECIALIST Height 139.7 cm (4' 7 ) 02/15/2012 1:58 PM HEALTH INFORMATION SPECIALIST Body Mass Index 15.8 02/15/2012 1:58 PM HEALTH INFORMATION SPECIALIST Plan of Treatment Health Maintenance Due Date Last Done Comments CHLAMYDIA SCREENING (ANNUAL) 11-24 YEARS 2012 HPV VACCINES (1 - 3-dose series) 2016 DTAP/TDAP/TD VACCINES (1 - Tdap) 2020 HEPATITIS B VACCINES (1 of 3 - 19+ 3-dose series) 07/17 CERVICAL CANCER SCREENING 2022 HPV/Cotest (21-29) 2022 PAP SMEAR 2022 INFLUENZA VACCINE (#1) 2023 [place]
[2024-09-17 13:07] VITALS: BP 137/77; PULSE 88; RESP 18; O2SAT 100; BMI 23.3
[2024-09-17 13:21] VITALS: BP 149/67; PULSE 76; O2SAT 100
--- NOTE | 2024-09-17 13:27 | W.ED.NAVMDI ---
HPI - Nausea/Vomiting/Diarrhea General: Chief complaint: Abdominal Pain Stated complaint: NVD Time Seen by Provider: 09/17/24 13:00 Source: patient and family Mode of arrival: ambulatory Limitations: no limitations History of Present Illness: Patient is a 24-year-old female who presents to ED today approximately 5 to 6 weeks here for intractable nausea and vomiting. Patient was seen here 2 days ago for identical symptoms and feels like she has not improved whatsoever. She has been using Reglan and Zofran without any relief. Mother wanting her to start trying driss as well. Patient states she does have a history of hyperemesis gravidarum with previous pregnancies. She also was a habitual marijuana user and has used daily for years. She does state during this acute episode, she has spent a large amount of time in hot baths stating this seems to help her nausea and vomiting. She also reports that marijuana is the only thing that helps. She is not having any vaginal bleeding. She had an ultrasound on last ED visit showing IUP with cardiac activity but actual HR was not able to be calculated. She has a history of miscarriage requiring D&C. OB provider is Dr. Reza. elicited complaint: nausea and vomiting Onset (ago): day(s) Associated nausea: Yes Associated abdominal pain: Yes Location of pain: Diffuse Radiation: diffuse Severity: mild Quality: cramping Exacerbating factors: eating Relieving factors: hot shower/bath and other (marijuana) Context: marijuana use Associated symtoms: Reports nausea; Denies chest pain, dizziness, dysuria, fatigue, headache(s) or malaise Related Data Home Medications ?Medication ?Instructions ?Recorded ?Confirmed acetaminophen 325 mg tablet 650 mg PO QID PRN Fever Or Pain 03/30/24 09/17/24 (Tylenol) vitamin with calcium 1 tab PO DAILY 03/30/24 09/17/24 no.72-iron 27 mg-folic acid 1 mg tablet ( Vitamins Plus Low Iron) Previous Rx's ?Medication ?Instructions ?Recorded metoclopramide HCl 10 mg tablet 10 mg PO Q6H PRN nausea and 09/15/24 (Reglan) vomiting #20 tabs potassium chloride 20 mEq 20 meq PO BID #6 tabs 09/17/24 tablet,extended release(part/cryst) (Klor-Con M) promethazine 25 mg rectal 25 mg MD Q6H PRN nausea and 09/17/24 suppository vomiting #12 ea Allergies Allergy/AdvReac Type Severity Reaction Status Date / Time No Known Allergies Allergy Verified 09/15/24 16:29 Review of Systems Const: Denies: fever(s), chills, body aches, fatigue or malaise Card: Denies: chest pain Resp: Denies: dyspnea GI: Reports: abdominal pain, nausea and vomiting; Denies: hematemesis or diarrhea : Denies: flank pain, difficulty voiding, dysuria, urinary frequency, urinary urgency or urinary hesitancy Musc: Denies: neck pain, back pain, extremity pain, extremity swelling, joint pain, joint swelling or joint redness Skin/Breast: Denies: rash Neuro: Denies: headache(s), numbness in extremities, weakness in extremities, sensory changes or dizziness PFSH ED PFSH: Medical History Alcohol abuse, episodic drinking behavior Generalized anxiety disorder 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 Alcohol abuse, episodic Cannabis dependence, uncomplicated Depression Anxiety Surgical History S/P tonsillectomy S/P adenoidectomy Family History Mother Psychiatric illness Depression, anxiety Cancer Cervical Anemia Father Psychiatric illness Depression Brother Psychiatric illness Depression, anxiety Sister Psychiatric illness Depression, anxiety Grandmother Cancer Breast Social History Smoking and tobacco/nicotine status: never used tobacco/nicotine Second hand smoke exposure: Yes Alcohol intake: never Substance/Drug Use: former Adopted: No Caregiver/support person: Yes Lives independently: Yes Marital status: Single Number of children: 3 Number of grandchildren: 0 Highest education level completed: 11th Grade service: No Current occupational status: unemployed Current occupational exposures/hazards: No Physical Exam Const: COMMON NORMALS: average body habitus, patient oriented x3, no limitations, healthy appearing, alert and well nourished GENERAL APPEARANCE: cooperative and in distress (nausea/vomiting) ORIENTATION/CONSCIOUSNESS: Yes awake, Yes oriented to person, Yes oriented to place and Yes oriented to time Resp: COMMON NORMALS: normal respiratory effort and clear to auscultation bilaterally AUSCULTATION: clear to auscultation bilaterally Cardio: COMMON NORMALS: regular rate and regular rhythm RATE: regular rate RHYTHM: regular rhythm GI: COMMON NORMALS: Normal to inspection, nondistended, normoactive bowel sounds present, Soft to palpation, No hepatosplenomegaly present and no masses INSPECTION: Yes normal to inspection PALPATION: Yes Soft to palpation, Yes Tenderness to palpation present (GI) ([id number]-tym surgical examination), No Guarding due to palpation present (GI), No Rigid due to palpation and Yes No hepatosplenomegaly present : COMMON NORMALS: Yes no CVA tenderness BLADDER/KIDNEY EXAM: Yes no CVA tenderness Back/Pelvis: COMMON NORMALS: no CVA tenderness and thoracic and lumbar spine normal to inspection Extremity: GENERAL: Yes normal exam except as noted Neuro: COMMON NORMALS: patient oriented x3, moves all extremities, no focal motor deficits and no sensory deficits noted SENSORIUM/ORIENTATION: Yes alert, Yes oriented to person, Yes oriented to place and Yes oriented to time Course Vital Signs: Vital signs: Vital Signs Pulse Rate 95 09/17/24 15:37 Respiratory Rate 16 09/17/24 15:37 Blood Pressure 136/77 09/17/24 15:37 Pulse Oximetry 100 09/17/24 15:37 Oxygen Delivery Me thod Room Air 09/17/24 15:37 MDM - Nausea/Vomiting/Diarrhea Medical Decision Making Patient states she is feeling better. She was able to hold down water, a small amount of crackers, and some Jell-O. She was offered additional treatment but declines and would like to go home. Suspect there is some component of hyperemesis cannabis syndrome superimposed on a hyperemesis gravidarum. Patient was given a liter of fluids here. Will place her on promethazine suppositories at home. Discussed other conservative therapies. I recommend she follow-up with her OB next week. hCG did increase today from roughly 14,000 to 18,000. Not quite the jump I would like to see in 48 hours with a normal progressing . She had IUP confirmed on last visit. Will have Roylance recheck this next week at her appointment. She is not having any vaginal bleeding. She was given PO K+ here and will place on this over the next few days. Medical Records I reviewed the patient's medical records. Lab Data I reviewed the patient's lab results. 09/17/24 13:40 09/17/24 13:40 Laboratory Results WBC 5.91 10^3/uL (3.29-11.43) 09/17/24 13:40 RBC 4.25 10^6/uL (3.85-5.65) 09/17/24 13:40 Hgb 12.40 g/dL (11.27-16.99) 09/17/24 13:40 Hct 36.4 % (36-47) 09/17/24 13:40 MCV 85.6 fl (85-98) 09/17/24 13:40 MCH 29.2 pg (27-33) 09/17/24 13:40 MCHC 34.1 g/dL (30-55) 09/17/24 13:40 RDW 12.6 % (12.1-15.1) 09/17/24 13:40 Plt Count 299 10^3/cmm (157-399) 09/17/24 13:40 MPV 10.3 fL (7.4-10.4) 09/17/24 13:40 Neut % (Auto) 77.8 % 09/17/24 13:40 Lymph % (Auto) 16.4 % 09/17/24 13:40 [place] % (Auto) 5.2 % 09/17/24 13:40 Eos % (Auto) 0.0 % 09/17/24 13:40 Baso % (Auto) 0.3 % 09/17/24 13:40 Neut # (Auto) 4.59 10^3/uL (1.8-7.7) 09/17/24 13:40 Lymph # (Auto) 1.0 10^3/uL (0.8-4.8) 09/17/24 13:40 [place] # (Auto) 0.3 10^3/uL (0.2-0.9) 09/17/24 13:40 Eos # (Auto) 0.0 10^3/uL (0.0-0.8) 09/17/24 13:40 Baso # (Auto) 0.0 10^3/uL (0.0-0.1) 09/17/24 13:40 Nucleated RBC % (auto) 0 % 09/17/24 13:40 Nucleated RBCs # 0.0 /100WBC 09/17/24 13:40 Sodium 141 mmol/L (136-145) 09/17/24 13:40 Potassium 3.0 mmol/L (3.5-5.1) L 09/17/24 13:40 Chloride 103 mmol/L (98-107) 09/17/24 13:40 Carbon Dioxide 19 mmol/L (22-29) L 09/17/24 13:40 Anion Gap 22.0 (5-19) H 09/17/24 13:40 BUN 7 mg/dL (6-20) 09/17/24 13:40 Creatinine 0.5 mg/dL (0.5-0.9) 09/17/24 13:40 GFR Calculation 152.9 mL/min (90-130) H 09/17/24 13:40 Glucose 97 mg/dL (65-115) 09/17/24 13:40 Calculated Osmolality 290 mOsm/kg (285-295) 09/17/24 13:40 Calcium 9.5 mg/dL (8.5-10.5) 09/17/24 13:40 Magnesium 1.8 mg/dL (1.7-2.3) 09/17/24 13:40 Total Bilirubin 0.5 mg/dL (0.15-1.2) 09/17/24 13:40 AST 12 U/L (0-32) 09/17/24 13:40 ALT 12 U/L (0-33) 09/17/24 13:40 Alkaline Phosphatase 65 U/L (35-105) 09/17/24 13:40 Total Protein 7.9 g/dL (6.6-8.7) 09/17/24 13:40 Albumin 4.9 g/dL (3.5-5.2) 09/17/24 13:40 Globulin 3.0 g/dL (1.3-4.6) 09/17/24 13:40 Lipase 14 U/L (13-60) 09/17/24 13:40 Ser , Semi-Qnt 89309.00 mIU/mL 09/17/24 13:40 Urine Color Yellow (Yellow) 09/17/24 13:29 Urine Appearance Clear (CLEAR) 09/17/24 13:29 Urine pH 6.5 (5-7) 09/17/24 13:29 Ur Specific [place] 1.026 (1.005-1.030) 09/17/24 13:29 Urine Protein 1+ (Negative) A 09/17/24 13:29 Urine Glucose (UA) Negative (Normal) 09/17/24 13:29 Urine Ketones 4+ (Negative) 09/17/24 13:29 Urine Blood 3+ (Negative) A 09/17/24 13:29 Urine Nitrate Negative (Negative) 09/17/24 13:29 Urine Bilirubin Negative (Negative) 09/17/24 13:29 Urine Urobilinogen 1.0 mg/dL (Negative) 09/17/24 13:29 Ur Leukocyte Esterase Negative (Negative) 09/17/24 13:29 Urine RBC 21-50 /hpf (0-2) H 09/17/24 13:29 Urine WBC 0-5 /hpf (0-5) 09/17/24 13:29 Ur Squamous Epith Cells 0-5 /hpf (0-5) 09/17/24 13:29 Amorphous Sediment Not Reportable 09/17/24 13:29 Urine Bacteria Trace /hpf (NONE) 09/17/24 13:29 Hyaline Casts 2.05 /lpf 09/17/24 13:29 No radiology studies performed this visit Discharge Plan Discharge Patient Disposition: Home Clinical Impression: Vomiting affecting Condition: Stable Prescriptions: New promethazine 25 mg suppository 25 mg MD Q6H PRN (Reason: nausea and vomiting) Qty: 12 0RF potassium chloride [Klor-Con M20] 20 mEq tablet,ER particles/crystals 20 meq PO BID Qty: 6 0RF No Action Vitamin Plus Low Iron 27 mg iron- 1 mg tablet 1 tab PO DAILY acetaminophen [Tylenol] 325 mg Tablet 650 mg PO QID PRN (Reason: Fever Or Pain) metoclopramide HCl [Reglan] 10 mg tablet 10 mg PO Q6H PRN (Reason: nausea and vomiting) Qty: 20 0RF Discharge Orders: Discharge ED (Routine); Ordered 09/17/24 Ordered By: Peg Segovia Referrals: Florencio Reza MD [Primary Care Provider, Family Practice] Patient Instructions: Nausea and Vomiting in (ED), Patient Portal & [facility] Instructions Activity Restrictions/Additional Instructions: Please follow-up with your OB provider next week as scheduled. You may try the promethazine rectal suppositories to help with nausea and vomiting. You may also try [id number] Unisom/B6 and driss candies. 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
[2024-09-17 13:54] LABS: Hematocrit 36.4 % (36-47); Hemoglobin 12.40 g/dL (11.27-16.99); Mean Corpuscular HGB Conc 34.1 g/dL (30-55); Mean Corpuscular Hemoglobin 29.2 pg (27-33); Mean Corpuscular Volume 85.6 fl (85-98); Nucleated Red Blood Cells % 0 %; Platelet Count 299 10^3/cmm (157-399); Red Blood Count 4.25 10^6/uL (3.85-5.65); White Blood Count 5.91 10^3/uL (3.29-11.43)
[2024-09-17] MEDS: LORazepam 1 MG/0.5 ML injection 0.5 MG IVP (13:58)
[2024-09-17] MEDS: diphenhydrAMINE 50 mg/mL SDV 1mL 25 MG IVP (13:59)
[2024-09-17 14:03] LABS: Glucose Urine UA Negative (Normal); Nitrate Urine Negative (Negative); Specific Gravity, Urine 1.026 (1.005-1.030)
[2024-09-17 14:08] LABS: Add Urine Microscopic? YES
[2024-09-17 14:22] LABS: Alanine Aminotransferase 12 U/L (0-33); Albumin Level 4.9 g/dL (3.5-5.2); Alkaline Phosphatase 65 U/L (35-105); Anion Gap 22.0 (5-19); Aspartate Amino Transferase 12 U/L (0-32); Blood Urea Nitrogen 7 mg/dL (6-20); Calcium 9.5 mg/dL (8.5-10.5); Carbon Dioxide 19 mmol/L (22-29); Chloride 103 mmol/L (98-107); Creatinine Clr Calc Pharmacy 170.9667; Globulin 3.0 g/dL (1.3-4.6); Glucose 97 mg/dL (65-115); Lipase 14 U/L (13-60); Magnesium 1.8 mg/dL (1.7-2.3); Osmolality Calculated 290 mOsm/kg (285-295); Potassium 3.0 mmol/L (3.5-5.1); Sodium 141 mmol/L (136-145); Total Protein 7.9 g/dL (6.6-8.7)
[2024-09-17] MEDS: potassium chloride oral liq 20 mEq/15 mL UDC 40 MEQ PO (15:36)
[2024-09-17 15:37] VITALS: BP 136/77; PULSE 95; RESP 16; O2SAT 100
[2024-09-17 17:26] VITALS: BP 136/77; PULSE 105; O2SAT 100
== END 2024-09-17 17:30 | disposition home or self-care (01) ==
PROVIDERS: Emergency Provider Physician Assistant; PCP Family Medicine
DX: O21.9 Vomiting of pregnancy, unspecified (principal); Z3A.01 Less than 8 weeks gestation of pregnancy
CPT/HCPCS: 80053; 81001; 83690; 83735; 84702; 85025; 87086; 96374; 96375; 99284; J0780; J1200; J2060; J7030; J9999

== ENCOUNTER 2024-09-19 09:28 | Observation (INO) | payer BC, MEDICAID, SELFPAY ==
[2024-03-30 08:00] VITALS: PULSE 78; RESP 16; TEMP 36.9
[2024-03-30 14:23] VITALS: RESP 18
[2024-03-30 19:10] VITALS: PULSE 90; RESP 16; O2SAT 98
[2024-03-30 23:27] VITALS: PULSE 82; RESP 16; TEMP 36.6; O2SAT 96
[2024-03-31 05:05] VITALS: PULSE 83; RESP 16; TEMP 36.8; O2SAT 99
[2024-09-19] VITALS (14 sets, daily range): BP systolic 87–150; BP diastolic 46–131; PULSE 63–99; RESP 15–17; TEMP 36.6–36.8; O2SAT 98–100; BMI 23.3
--- NOTE | 2024-09-19 09:30 | ECG_ITS ---
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
--- OUTSIDE RECORDS SUMMARY | 2024-09-19 09:35 | XMS_ITS | Data Portability ---
Author Organization [place] [facility], [facility] Address [address] [address] Care Team Providers Care Fire Sprinkler Apparatus Inspector Name Role Phone KHAI THRASHER Primary Care Provider [phone] Assessment Encounter Date Assessment Date Assessment LastModified [...] or plasma 2024 025 JAMESON [facility], [address], [address], 05/08/2024 11:56:29 Referral None recorded. Procedures None recorded. Surgeries None recorded. Imaging US, obstetric , transvagi nal - [id number] 2024 025 [facility] ([facility]), [address] [place], [address], 03/30/2024 09:07:07 US, obstetric , 1st trimester , single gestation 2023 024 [email or web address] [facility] ([facility]), [address] [place], [address], 03/03/2024 09:55:10 Medication Orders fluoxetin e 10 mg tablet 2024 025 [facility], [address] [place] [address], [address], 05/08/2024 11:59:58 Vitamin 27 mg iron-0.8 mg tablet [address] [facility], [address] [place] [address], [address], 03/27/2024 09:19:05 Patient TargetsNo targets recorded. Patient InstructionsNo instructions recorded. Reason for Referral None Reported. Results Created Date Observation Date Name Description Value Unit Range Abnormal Flag Note LastModifiedBy Organization Detail LastModifiedTime 05/08/1905/08/2024 BMP (FEMA LE) glucose 78.0 mg/dL 60.0-9 9.0 Not Available [facility] [address] [facility] [address], [address], 05/08/2024 11:56:29 05/08/19 25 05/08/2024 BMP (FEMA LE) BUN (blood urea nitrogen) 11.0 mg/dL 10.0-2 6.0 Not Available [facility] [address] [facility] [address], [place], [address], 05/08/2024 11:56:29 05/08/19 25 05/08/2024 BMP (FEMA LE) creatinine (serum) 0.6 mg/dL 0.4-1. 5 Not Available [facility] [address] [facility] 1, [place], [address], 05/08/2024 11:56:29 05/08/19 25 05/08/2024 BMP (FEMA LE) BUN/creatini ne ratio 18.33 ratio Not Available [facility] [address] [facility], [place], [address], 05/08/2024 11:56:29 05/08/19 25 05/08/2024 BMP (FEMA LE) calcium 9.5 mg/dL 8.4-10 .5 Not Available [facility] [address] [place] [facility], [place], [address], 05/08/2024 11:56:29 05/08/19 25 05/08/2024 BMP (FEMA LE) sodium 140.0 mmol/ L 136.0- 145.0 Not Available [facility] [address] [place] [facility], [place], [address], 05/08/2024 11:56:29 05/08/19 25 05/08/2024 BMP (FEMA LE) potassium 3.8 mmol/ L 3.5-5. 1 Not Available [facility] [address] [place] [facility], [place], [address], 05/08/2024 11:56:29 05/08/19 25 05/08/2024 BMP (FEMA LE) chloride 103.0 mmol/ L 98.0-1 10.0 normal Not Available [facility] [address] [place] [facility] 1, [place], [address], 05/08/2024 11:56:29 05/08/19 25 05/08/2024 BMP (FEMA LE) C02 27.0 mmol/ L 22.0-3 1.0 Not Available [facility] [address] [facility], [place], [address], 05/08/2024 11:56:29 05/08/19 25 05/08/2024 BMP (FEMA LE) anion gap 10.0 calc Not Available [facility] [address] [facility] [address], [place], [address], 05/08/2024 11:56:29 03/22/19 25 03/22/2024 US, obste tric, 1st trime ster, singl e gesta tion No observ ation record ed. [email or web address] [facility] [address] [facility], [place], [address], 03/26/2024 20:57:07 03/30/19 25 03/30/2024 , obste tric, trans vagin al No observ ation record ed. [email or web address] [address] [place], [address], 04/07/2024 14:25:33 03/31/19 25 03/26/2024 imagi ng/di agnos tic resul t No observ ation record ed. [email or web address] Not Available 2024 15:50:58 Result Notes None recorded. Problems Name Problem SNOMED Code Status Onset Date Resolution Date Notes Provider Name and Address Organization Details Recorded Time Normal pregnanc y in multigra shawna 69599510545 4106 Completed 2022 Florencio Reza MD [address] [place], [address], [facility] L[facility]ian 4 06:53:23 Normal pregnanc y in multigra shawna 86580506540 4106 Completed 202205/08/2024 KARY mckeon [facility] L[facility]CD[facility]ian 5 09:42:15 Disorder of menstrua tion 766393039 Completed 2022 Florencio Reza MD [address] [place], [address], [facility] 4 06:53:23 Blood group O Rh(D) negative 422254976 Completed 2022 received in Nov. per pt at [facility] Florencio Reza MD [address] [place] [address], [address], [facility] 4 06:53:23 Postpart um care Completed 202305/08/2024 [facility] 5 10:52:47 Postpart um care Completed 2023 Florencio Reza MD [address] [place] [address], [phone], [facility] L.L.CDamian 4 06:53:23 Mild intermit tent asthma 494743081 Active 2023 KARY mckeon [facility] 5 09:41:58 Pregnanc y 66191288 Completed 202303/26/2024 IDALIA ASHLEY [facility] 5 09:47:40 Missed miscarri age 80132224 Active 2024 KARY mckeon [facility]CD[facility] 5 09:42:07 Postpart um care Active 2024 [facility] 5 10:52:47 Anxiety 00561231 Active 2024 [facility] 5 10:52:48 Miscarri age without complica tion 24867814 Active 2022 KARY mckeon [facility] L[facility]CD[facility]ian 5 09:42:03 Problem Notes None recorded. Procedures Surgical History Date Name Laterality Status Provider Name and Address Organization Details Recorded Time tonsilectom y/adenoids completed Anisa Asif [place] santos [facility] KendalDamian 06/22/2023 12:37:22 Imaging Results None recorded. [...] Heart rate Respiratory rate Body temperature Systolic And Diastolic Provider Name and Address Organization Details Last Updated DateTime 5 167.64 cm 23.2 kg/m2 57561.5 1 g 99 % 99 % 84 /min 18 /min 98.2 [degF] 100/60 mm[Hg] IDALIA CACERES [facility], L.LDamianCDamian 5 10:04:59 Date Recorded Body height Body mass index (BMI) Body weight Oxygen saturation Oxygen saturation in Arterial blood by Pulse oximetry Heart rate Respiratory rate Body temperature Systolic And Diastolic Provider Name and Address Organization Details Last Updated DateTime 5 167.64 cm 22.5 kg/m2 75614.4 4 g 99 % 99 % 79 /min 18 /min 98.3 [degF] 100/58 mm[Hg] IDALIA ASHLEY [facility] L.L[facility]CD[facility]ian 5 11:37:11 Date Recorded Body height Body mass index (BMI) Body weight Respiratory rate Heart rate Oxygen saturation Oxygen saturation in Arterial blood by Pulse oximetry Body temperature Systolic And Diastolic Provider Name and Address Organization Details Last Updated DateTime 5 167.64 cm 23.4 kg/m2 84657.8 9 g 16 /min 68 /min 98 % 98 % 97.9 [degF] 126/70 mm[Hg] KARY CONN [facility] L[facility]CD[facility]ian 5 10:52:20 Date Recorded Body height Body mass index (BMI) Body weight Respiratory rate Heart rate Oxygen saturation Oxygen saturation in Arterial blood by Pulse oximetry Body temperature Systolic And Diastolic Provider Name and Address Organization Details Last Updated DateTime 4 167.64 cm 24.3 kg/m2 63801.9 6 g 16 /min 86 /min 99 % 99 % 98.2 [degF] 122/84 mm[Hg] KARY CONN [facility] L[facility]CD[facility]ian 4 09:23:32 Social History Question Answer Notes LastModified by Desura Details LastModified Time Tobacco Smoking Status Never Smoker KARY mckeon [facility] L[facility]CD[facility] 10/25/2022 09:41:24 What Is Your Relationship Status? Domestic Partner Information not available 10/25/2022 Are You Sexually Active? Yes Information not available 10/25/2022 Sex: Unknown Functional Status Question Answer Note LastModified by Desura Details LastModified Time Do you use any [...] Recorded Time MMR 3 completed KARY mckeon [facility] 10/25/2022 09:38:53 MMR 6 petar mckeon [facility] 10/25/2022 09:38:53 COVID-19, mRNA, LNP-S, PF, 100 mcg/0.5mL dose or 50 mcg/0.25mL dose 2 completed KARY mckeon [facility] 10/25/2022 09:38:53 DTaP-IPV 6 petar mckeon [facility] 10/25/2022 09:38:53 Tdap 0 petar mckeon [facility]CD[facility] 10/25/2022 09:38:53 Tdap 3 petar mckeon [facility] 10/25/2022 09:38:53 varicella 6 completed KARY SENIA null, [facility] 10/25/2022 09:38:53 Hep B, unspecified formulation 3 completed KARY SENIA null, [facility] 10/25/2022 09:38:53 Hep B, unspecified formulation 2 completed KARY SENIA null, [facility] 10/25/2022 09:38:53 Hep B, unspecified formulation 2 completed KARY MALLOYY null, [facility] 10/25/2022 09:38:53 pneumococcal, unspecified formulation 3 completed KARY CONN null, [facility] 10/25/2022 09:38:53 pneumococcal, unspecified formulation 2 completed KARY MALLOYY null, [facility] 10/25/2022 09:38:53 pneumococcal, unspecified formulation 2 completed KARY MALLOYY null, [facility] 10/25/2022 09:38:53 pneumococcal, unspecified formulation 3 completed KARY MALLOYY null, [facility] 10/25/2022 09:38:53 polio, unspecified formulation 3 completed KARY CONN null, [facility] 10/25/2022 09:38:53 ZQgR-Wez-HKU 2 completed KARY SENIA null, [facility] 10/25/2022 09:38:53 WMsK-Lex-WVU 2 completed KARYKVNG MALLOYShanna mckeon [facility] 10/25/2022 09:38:53 meningococcal MCV4P 8 completed KARYShanna mckeon, [facility] 10/25/2022 09:38:53 DTaP-Hib 3 completed KARYKVNG mckeon [facility] 10/25/2022 09:38:53 DTaP-Hib 3 completed KARYKVNG mckeon [facility] 10/25/2022 09:38:53 RSV, bivalent, protein subunit RSVpreF, diluent reconstituted, 0.5 mL, PF 3 completed KARYKVNG mckeon [facility] 03/09/2023 10:10:40 Tdap 3 completed KARYKVNG mckeon [facility] 03/09/2023 10:10:40 Past Encounters Encounter ID Performer Location Encounter Start Date Encounter Closed Date Diagnosis/Indication Diagnosis SNOMED-CT Code Diagnosis ICD10 Code Diagnosis Note [id number] JACKY VILLAGOMEZ [facility] ([facility]) [address] [place] [id number] 07/10/2022 16:29:58 07/10/2022 21:10:44 Missed period 19225530 N92.5 test positive 322963919 Z32.01 [id number] JACKY VILLAGOMEZ [facility] ([facility]) [address] [place] [id number] 07/17/2022 13:12:37 07/22/2022 07:42:50 Stomach cramps 95169095 R10.9 Abnormal u terine bleeding 0245501235 9100 N93.9 [id number] Florencio Reza MD [facility] ([facility]) [address] [place] [id number] 07/28/2022 13:29:01 07/28/2022 20:13:04 Miscarriage without complication 55083922 O03.9 Urgent jarocho chon to urinate 78847227 R39.15 [id number] JACKY VILLAGOMEZ [facility] ([facility]) [address] [place] [id number] 5 09/13/2022 16:01:25 09/13/2022 16:49:18 test positive 650870787 Z32.01 Nausea and vomiting 1693 2000 R11.2 [id number] Florencio Reza MD [facility] ([facility]) [address] [place] [id number] 10/25/2022 09:22:09 10/25/2022 19:04:09 Normal in multigravida 9167830020 21681 Z34.80 Disorder o f menstruation 451400422 N92.6 [id number] Florencio Reza MD [facility] ([facility]) [address] [place] [id number] 10/30/2022 10:27:38 10/30/2022 19:48:29 [id number] Florencio Reza MD [facility] ([facility]) [address] [place] [id number] 11/09/2022 14:00:38 11/09/2022 18:42:15 Normal in multigravida 7731122738 00998 Z34.80 Gestation period, 14 weeks 60724346 Z3A.14 Normal pre gnancy in primigravida 9305196210 46991 Z34.80 [id number] Florencio Reza MD [facility] ([facility]) [address] [place] [id number] 12/07/2022 10:48:16 12/07/2022 13:20:55 Multigravida 228108707 Z34.82 Gestation period, 19 weeks 08402130 Z3A.19 Mild inter mittent asthma 395411492 J45.20 [id number] Florencio Reza MD [facility] ([facility]) [address] [place] [id number] 01/02/2023 14:44:10 01/02/2023 17:02:15 [id number] Florecnio Reza MD [facility] ([facility]) [address] [place] [id number] 01/04/2023 09:45:37 01/04/2023 10:34:57 Normal in multigravida 3008469101 60390 Z34.80 Gestation period, 23 weeks 50650358 Z3A.23 Mild inter mittent asthma 187911181 J45.20 [id number] Florencio Reza MD [facility] ([facility]) [address] [place] [id number] 5 02/01/2023 09:42:00 02/01/2023 13:31:04 Normal in multigravida 4401771138 83726 Z34.80 [id number] Florencio Reza MD [facility] ([facility]) [address] [place] [id number] 02/22/2023 09:47:23 02/22/2023 12:57:02 Normal in multigravida 5007591381 87142 Z34.83 Gestation period, 30 weeks 04901218 Z3A.30 Multigravida 691053994 Z 34.82 [id number] Florencio Reza MD [facility] ([facility]) [address] [place] [id number] 02/27/2023 09:02:08 02/27/2023 15:11:02 [id number] Florencio Reza MD [facility] ([facility]) [address] [place] [id number] 5 03/09/2023 09:55:11 03/09/2023 15:03:28 Normal in multigravida 8154074269 30911 Z34.83 Gestation period, 32 weeks 5118183 Z3A.32 Acute low back pain 2788 53374 M54.50 [id number] Florencio Reza MD [facility] ([facility]) [address] [place] [id number] 03/22/2023 10:37:42 03/22/2023 12:18:08 Normal in multigravida 2654189936 39908 Z34.83 Gestation period, 34 weeks 56210771 Z3A.34 Mild inter mittent asthma 070548276 J45.20 [id number] Florencio Reza MD [facility] ([facility]) [address] [place] [id number] 5 04/05/2023 09:50:00 04/05/2023 11:47:02 Normal in multigravida 7155313219 20225 Z34.83 Gestation period, 36 weeks 03324457 Z3A.36 Restless legs 27372797 G 25.81 [id number] Florencio Reza MD [facility] ([facility]) [address] [place], [place] [id number] 04/12/2023 14:52:22 04/14/2023 22:34:17 Normal in multigravida 3533378163 07168 Z34.83 Gestation period, 37 weeks 36512669 Z3A.37 [id number] Florencio Reza MD [facility] ([facility]) [address] [place], [place] [id number] 05/24/2023 09:54:20 05/24/2023 15:28:39 care 831984878 Z39.2 Vaginal discharge 171940 006 N89.8 [id number] JACKY DIAZ [facility] ([facility]) [address] [place], [place] [id number] 06/22/2023 12:30:39 06/22/2023 13:00:28 Acute viral pharyngitis 553286986 J02.9 Rapid strep negative.P ush cold oral fluids including Popsicles. Alternate tylenol/mo jerry for fever or discomfort .May use throat lozenges, chlorasept ic spray, or saltwater gargles.If you develop worsening symptoms such as unable to swallow, persistant fever, or concerns arise then return for re-eval. [id number] Rigoberto Gatica MD [facility] ([facility]) [address] [place] [id number] 5 08/02/2023 13:35:00 08/02/2023 14:42:36 Increased frequency of urination 638407703 R35.0 Vaginal discharge 524599 006 N89.8 [id number] Tk Grady MD [facility] ([facility]) [address] [place] [id number] 01/03/2024 10:39:49 01/03/2024 17:40:34 Mild intermittent asthma 839934481 J45.20 Viral uppe r respiratory tract infection 695941348 J06.9 Patient presented with symptoms of viral [...] in 7-10 days if symptoms not improving. [id number] Florencio Reza MD [facility] ([facility]) [address] [place] [id number] 02/29/2024 09:04:40 02/29/2024 10:22:39 Normal in multigravida 2443066744 09490 Z34.83 Disorder o f menstruation 032269437 N92.6 [id number] Florencio Reza MD [facility] ([facility]) [address] [place] [id number] 03/26/2024 09:27:57 03/26/2024 15:13:58 Miscarriage 13232275 O03.9 [id number] Florencio Reza MD [facility] ([facility]) [address] [place] [id number] 03/26/2024 10:33:12 03/27/2024 14:09:17 First trimester bleeding 1641470546 802901 O46.91 [id number] Florencio Reza MD [facility] ([facility]) [address] [place] [id number] 04/01/2024 11:04:29 04/01/2024 13:56:26 Postoperative care 106520682 Z48.89 Retained p roducts after miscarriage 847304760 O03.4 Resolved [id number] Florencio Reza MD [facility] ([facility]) [address] [place] [address] 05/08/2024 10:36:40 05/08/2024 11:15:51 care 698110464 Z39.2 Anxiety 18121148 F41.9 Hypokalemia 97379604 E87 .6 Health Concerns Section Related Observation LastModified by Organization Detai ls LastModified Time None Recorded Concern Status LastModified by Organization Details LastModified Time None Recorded Advance Directives Directive None Recorded Payers Insurance Date Sequence Insurance Name Policy Number Policy Dodd Covered Member ID Dodd Member ID Guarantor Name 07/04/2024 1 [employer] [place] [place] (MEDICA[place] REPLACEMENT - HMO) [id number] Tila Francis [id number] Tila Francis Notes Date Note Type [...] out she was OBI Florencio Reza MD [address] [place] [address], [phone], [facility] 02/29/2024 10:15:43 03/26/2024 text/html ER follow [...] is having chest pain. Florencio Reza MD [address] [place] [address], [phone], [facility], LDamianLTrina 03/28/2024 12:33:31 04/01/2024 text/html Post-OpReported bypatient.Onset/Timin g:date of surgery: (03/27/24) Quality:procedure: (D&C) Context:preoperative diagnosis: (missed miscarriage) Associated Symptoms:normal appetite; no constipation; no nausea; no emesis; pain improving; no fever;fatigue;pain 03/28;bleeding(decreas ing);diarrhea Florencio Reza MD [address] [place] [address], [phone], [facility], [place] 04/01/2024 12:09:28 05/08/2024 text/html Post-OpReported bypatient.Onset/Timin g:date [...] be doing some better Florencio Reza MD [address] [place] [address], [phone], [facility], LDamianLTrina 05/08/2024 11:14:49 OBGyn Episode Ob Episode Information Episode Created Date Number of Fetuses Patient Bloodtype Patient rh Status Prepregnancy Weight lbs Domestic Partner Domestic Partner Phone Father Name Broadcast Designer Status 10/26/19 23 1 O Negative Osbaldo [...] Code Not e Normal in multigravida 10/25/2022 [id number] Blood group O Rh(D) negative 11/09/2022 289972390 received in Nov . per pt at [facility] Disorder of menstruation 10/25/2022 809529124 care 05/24/2023 [id number] Suzanne Calculation Initial Suzanne Date Initial Exam [...] 0 0 Pre- Flowsheet Flowsheet Date 10/25/2022 Afbian Score Blood Edema Fundus Height Fundus Units Glucose Ketones Leukocytes Nitrite Labor Signs Protein Cervic Dilation Cervic Effacement Cervic Station Type Weight in lbs Pre/Post Dialysis Refused Weight 135.20102507070 BP Diastolic BP Location Tested BP Systolic [...] Weight in lbs Pre/Post Dialysis Refused Weight 135.883613477427 BP Diastolic BP Location Tested BP Systolic [...] Weight in lbs Pre/Post Dialysis Refused Weight 136.751704330861 BP Diastolic BP Location Tested BP Systolic [...] Weight in lbs Pre/Post Dialysis Refused Weight 140.946370708209 BP Diastolic BP Location Tested BP Systolic [...] Weight in lbs Pre/Post Dialysis Refused Weight 145.569611692977 BP Diastolic BP Location Tested BP Systolic BP Type 60 112 sitting Fetus Heart Rate Present A 142 Present Fetus Movement A Yes Comments N/V, headache, dizziness, RL Q pain, pelvic pain, sciatic and low back pain with shooting pain down both legs, occasional numbness in feet, glucose done today and order sent to [facility] for rhogram injection , Flowsheet Date 02/22/2023 Fabian Score Blood Edema Fundus Height Fundus Units Glucose Ketones Leukocytes Nitrite Labor Signs Protein Cervic Dilation Cervic Effacement Cervic Station none none Negative trace Type Weight in lbs Pre/Post Dialysis Refused Weight 147.325190776553 BP Diastolic BP Location Tested BP Systolic [...] Weight in lbs Pre/Post Dialysis Refused Weight 149.292115609318 BP Diastolic BP Location Tested BP Systolic [...] Weight in lbs Pre/Post Dialysis Refused Weight 150.672751976100 BP Diastolic BP Location Tested BP Systolic [...] Weight in lbs Pre/Post Dialysis Refused Weight 152.924158749278 BP Diastolic BP Location Tested BP Systolic [...] Weight in lbs Pre/Post Dialysis Refused Weight 155.372117717552 BP Diastolic BP Location Tested BP Systolic [...] Weight in lbs Pre/Post Dialysis Refused Weight 136.367399530005 BP Diastolic BP Location Tested BP Systolic BP Type 60 102 Fetus Heart Rate Present Fetus Movement Comments Menstrual History Last Menstrual Date Menses Monthly On Bcp Conception Prior Menses Frequency Hcg Plus Date Menarche Onset Age Genetic Screening And Infection History Question Response Note Patient's Age Will Be 35 Yea rs Or Older At Estimated Date of Delivery false Thalassemia (Sami, French, Mediterranean, Or Background): MCV < 80 false Neural Tube Defect (Meningomyelocele, Spina Bifi da, Or Anencephaly) false Congenital Heart Defect false Down Syndrome false Albert-Sachs (eg, Muslim, Cajun, Kazakh-[facility]) f alse Marino Disease false Sickle Cell Disease Or Trait () false Hemophilia Or Other Blood Disorders false Muscular Dystrophy false Cystic Fibrosis false Sudan's Chorea false Intellectual Disability/Autism false If Yes, [...] Domestic Partner Domestic Partner Phone Father Name Broadcast Designer Status 05/24/19 24 1 CLOSED Fetus Data [...] [facility] Dis[facility] Date [facility] Discharge Information Feeding Method Contraceptive Method Maternal HG B and HCT Levels Ob Episode Information Episode Created Date Number of Fetuses Patient Bloodtype Patient rh Status Prepregnancy Weight lbs Domestic Partner Domestic Partner Phone Father Name Broadcast Designer Status 02/29/20 24 1 Osbaldo Eddy CLOSED [...] Weight in lbs Pre/Post Dialysis Refused Weight 150.459204809439 BP Diastolic BP Location Tested BP Systolic BP Type 84 122 Fetus Heart Rate Present Fetus Movement Comments Flowsheet Date 03/26/2024 Fabian Score Blood Edema Fundus Height Fundus Units Glucose Ketones Leukocytes Nitrite Labor Signs Protein Cervic Dilation Cervic Effacement Cervic Station Type Weight in lbs Pre/Post Dialysis Refused Weight 143.506246558278 BP Diastolic BP Location Tested BP Systolic [...] Domestic Partner Domestic Partner Phone Father Name Broadcast Designer Status 07/29/19 23 1 CLOSED Fetus Data [...] Domestic Partner Domestic Partner Phone Father Name Broadcast Designer Status 07/29/19 23 1 CLOSED Fetus Data [...] Complications Tubal Sterilization Discharge Date Comments 1 [facility] Discharge Information Feeding Method Contraceptive Method Maternal HG B and HCT Levels Ob Episode Information Episode Created Date Number of Fetuses Patient Bloodtype Patient rh Status Prepregnancy Weight lbs Domestic Partner Domestic Partner Phone Father Name Broadcast Designer Status 07/29/19 1 CLOSED Fetus Data First Name Last [...]
--- OUTSIDE RECORDS SUMMARY | 2024-09-19 09:35 | XMS_ITS | Clinical Summary ---
Author Organization [facility] Address [address] [place] [address] Care Team Providers Care Collections Technician Name Role Phone Unavailable Primary Care Provider [...] on file Legal Sex Female 1:36 PM HEAD OF BUSINESS DEVELOPMENT Gender Identity Not on file Sexual Orientation Not on file Last Filed Vital Signs Vital Sign Reading Time Taken Comments Blood Pressure 101/55 02/15/2012 1:58 PM [employer] BUSINESS DEVELOPMENT Pulse 94 02/15/2012 1:58 PM [employer] BUSINESS DEVELOPMENT Temperature - - Respiratory Rate - - Oxygen Saturation - - Inhaled Oxygen Concentration - - Weight 30.8 kg (68 lb) 02/15/2012 1:58 PM HEAD OF BUSINESS DEVELOPMENT Height 139.7 cm (4' 7 ) 02/15/2012 1:58 PM HEAD OF BUSINESS DEVELOPMENT Body Mass Index 15.8 02/15/2012 1:58 PM HEAD OF BUSINESS DEVELOPMENT Plan of Treatment Health Maintenance Due Date Last Done Comments CHLAMYDIA SCREENING (ANNUAL) 11-24 YEARS 2012 HPV VACCINES (1 - 3-dose series) 2016 DTAP/TDAP/TD VACCINES (1 - Tdap) 2020 HEPATITIS B VACCINES (1 of 3 - 19+ 3-dose series) 07/17 CERVICAL CANCER SCREENING 2022 HPV/Cotest (21-29) 2022 PAP SMEAR 2022 INFLUENZA VACCINE (#1) 2023 [place]
--- OUTSIDE RECORDS SUMMARY | 2024-09-19 09:35 | XMS_ITS | Patient Health Record ---
Author Organization [facility] Address [address] [place] [address] Care Team Providers Care Cinder Block Mason Name Role Phone Ashish Rafat Primary Care [...] End Date [employer] [address] [address] [place] [address] [id number] Tila Francis Self - patient is the insured [facility] [address] [place] [address] [id number] Tila Francis Self - patient is the insured
--- NOTE | 2024-09-19 10:11 | USR_ITS ---
PROCEDURE INFORMATION: Exam: US Abdomen, Limited; Right Upper Quadrant Exam date and time: 09/19/2024 10:44 AM Age: 24 years old Clinical indication: Nausea and vomiting; ; Additional info: N/v 6 weeks preg TECHNIQUE: Imaging protocol: Real time ultrasound of the abdomen with image documentation. Limited exam focused on the right upper quadrant. COMPARISON: US OB <= 14 weeks fetus [id number] 09/15/2024 5:21 PM FINDINGS: Liver: Normal. No masses. Gallbladder: Normal. No gallstones. There is no gallbladder wall thickening. Biliary ducts: Normal. No stones. No dilation. Pancreas: Visualized pancreas is unremarkable. Right kidney: Normal. No mass. No hydronephrosis. US/US gall bladder [id number] IMPRESSION: No acute findings.
[2024-09-19 10:19] LABS: Hematocrit 36.1 % (36-47); Hemoglobin 12.40 g/dL (11.27-16.99); Mean Corpuscular HGB Conc 34.3 g/dL (30-55); Mean Corpuscular Hemoglobin 29.9 pg (27-33); Mean Corpuscular Volume 87.0 fl (85-98); Nucleated Red Blood Cells % 0 %; Platelet Count 299 10^3/cmm (157-399); Red Blood Count 4.15 10^6/uL (3.85-5.65); White Blood Count 6.91 10^3/uL (3.29-11.43)
[2024-09-19] MEDS: thiamine 100 mg/mL 2mL SDV IVP (10:32)
--- NOTE | 2024-09-19 10:37 | W.ED.NAVMDI ---
HPI - Nausea/Vomiting/Diarrhea General: Chief complaint: Nausea/Vomiting/Diarrhea Stated complaint: NV Time Seen by Provider: 09/19/24 09:29 History of Present Illness: This patient is a 24 year old G6 P who is approximately 6 weeks . She developed nausea and vomiting on Sunday and has been to the ED twice this week due to the symptoms. She also has severe epigastric pain radiating up into her chest. She has had nausea and vomiting with prior pregnancies but never this bad. The only this close was over the past winter she had a miscarriage and had to have a d and c because she wasn't passing the fetus and she felt similarly. She has had US and HCG so far in this and it appears to be progressing normally. She was given metoclopramide which didn't help, and promethazine suppository which she used this morning and also didn't help. She still has her gallbladder. She is vomiting stomach acid and has noted some coffee ground emesis as well. She is having normal BM and denies urinary symptoms. Review of prior records shows a history of marijuana abuse as a remote history of alcohol abuse. I was not able to find documentation of how many live births/miscarriages she has had in the past. Related Data Home Medications ?Medication ?Instructions ?Recorded ?Confirmed acetaminophen 325 mg tablet 650 mg PO QID PRN Fever Or Pain 03/30/24 09/19/24 (Tylenol) vitamin with calcium 1 tab PO DAILY 09/19/24 09/19/24 no.72-iron 27 mg-folic acid 1 mg tablet ( Vitamins Plus Low Iron) Previous Rx's ?Medication ?Instructions ?Recorded metoclopramide HCl 10 mg tablet 10 mg PO Q6H PRN nausea and 09/15/24 (Reglan) vomiting #20 tabs potassium chloride 20 mEq 20 meq PO BID #6 tabs 09/17/24 tablet,extended release(part/cryst) (Klor-Con M) promethazine 25 mg rectal 25 mg AL Q6H PRN nausea and 09/17/24 suppository vomiting #12 ea Allergies Allergy/AdvReac Type Severity Reaction Status Date / Time No Known Allergies Allergy Verified 09/15/24 16:29 [facility] ED [facility]: Medical History Alcohol abuse, episodic drinking behavior Generalized anxiety disorder 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 Alcohol abuse, episodic Cannabis dependence, uncomplicated Depression Anxiety Surgical History S/P tonsillectomy S/P adenoidectomy Family History Mother Psychiatric illness Depression, anxiety Cancer Cervical Anemia Father Psychiatric illness Depression Brother Psychiatric illness Depression, anxiety Sister Psychiatric illness Depression, anxiety Grandmother Cancer Breast Social History Smoking and tobacco/nicotine status: never used tobacco/nicotine Second hand smoke exposure: Yes Alcohol intake: never Substance/Drug Use: former Adopted: No Caregiver/support person: Yes Lives independently: Yes Marital status: Single Number of children: 3 Number of grandchildren: 0 Highest education level completed: 11th Grade service: No Current occupational status: unemployed Current occupational exposures/hazards: No Physical Exam Const: COMMON NORMALS: patient oriented x3 and alert GENERAL APPEARANCE: cooperative, in distress, anxious and ill appearing HENMT: HEAD & SCALP: normal to inspection FACE & SINUS: normal facial exam MOUTH: moist mucous membranes abnormal (dry) Eye: GENERAL EYE: appearance normal, both eyes and all related structures Neck/C-Spine: COMMON NORMALS: supple, no meningeal signs and no JVD Chest: COMMONS NORMALS: normal inspection of the chest Resp: COMMON NORMALS: normal respiratory effort, No use of accessory muscles and clear to auscultation bilaterally AUSCULTATION: clear to auscultation bilaterally Cardio: COMMON NORMALS: no JVD, regular rhythm and No murmurs present (Cardio) RHYTHM: regular rhythm GI: PALPATION: Yes Tenderness to palpation present (GI) (epigastric) Details: LUQ and RUQ and Yes Guarding due to palpation present (GI) in the LUQ and in the RUQ Back/Pelvis: COMMON NORMALS: thoracic and lumbar spine normal to inspection Extremity: COMMON NORMALS: normal to inspection Neuro: COMMON NORMALS: patient oriented x3, moves all extremities, no focal motor deficits and no sensory deficits noted SENSORIUM/ORIENTATION: Yes alert MENINGEAL SIGNS: Yes no meningeal signs Psych: COMMON NORMALS: mental status grossly normal, cooperative and normal affect Skin: COMMON NORMALS: no rashes or lesions noted and turgor normal GENERAL SKIN EXAM: no rashes or lesions noted and turgor normal Course Vital Signs: Vital signs: Vital Signs Temperature 98.2 F 09/19/24 15:51 Pulse Rate 63 09/19/24 15:51 Respiratory Rate 15 09/19/24 15:51 Blood Pressure 91/57 09/19/24 15:51 Pulse Oximetry 99 09/19/24 14:34 Oxygen Delivery Me thod Room Air 09/19/24 14:47 MDM - Nausea/Vomiting/Diarrhea Medical Decision Making Intractable vomiting - coffee ground emesis possibly chanelle panda or gastritis. Plan to admit. I called Dr. Reza who I mistakenly thought was her doctor and he actually is not - so I called Dr. Reagan and she agreed to admit. US gallbladder was also done and was normal. Lab Data 09/19/24 10:07 09/19/24 10:07 Radiology Impressions Gallbladder Ultrasound 09/19/24 10:11 IMPRESSION: No acute findings. Laboratory Results WBC 6.91 10^3/uL (3.29-11.43) 09/19/24 10:07 RBC 4.15 10^6/uL (3.85-5.65) 09/19/24 10:07 Hgb 12.40 g/dL (11.27-16.99) 09/19/24 10:07 Hct 36.1 % (36-47) 09/19/24 10:07 MCV 87.0 fl (85-98) 09/19/24 10:07 MCH 29.9 pg (27-33) 09/19/24 10:07 MCHC 34.3 g/dL (30-55) 09/19/24 10:07 RDW 12.4 % (12.1-15.1) 09/19/24 10:07 Plt Count 299 10^3/cmm (157-399) 09/19/24 10:07 MPV 10.3 fL (7.4-10.4) 09/19/24 10:07 Neut % (Auto) 84.6 % 09/19/24 10:07 Lymph % (Auto) 11.1 % 09/19/24 10:07 [place] % (Auto) 3.8 % 09/19/24 10:07 Eos % (Auto) 0.1 % 09/19/24 10:07 Baso % (Auto) 0.1 % 09/19/24 10:07 Neut # (Auto) 5.84 10^3/uL (1.8-7.7) 09/19/24 10:07 Lymph # (Auto) 0.8 10^3/uL (0.8-4.8) 09/19/24 10:07 [place] # (Auto) 0.3 10^3/uL (0.2-0.9) 09/19/24 10:07 Eos # (Auto) 0.0 10^3/uL (0.0-0.8) 09/19/24 10:07 Baso # (Auto) 0.0 10^3/uL (0.0-0.1) 09/19/24 10:07 Nucleated RBC % (auto) 0 % 09/19/24 10:07 Nucleated RBCs # 0.0 /100WBC 09/19/24 10:07 Sodium 138 mmol/L (136-145) 09/19/24 10:07 Potassium 3.0 mmol/L (3.5-5.1) L 09/19/24 10:07 Chloride 101 mmol/L (98-107) 09/19/24 10:07 Carbon Dioxide 19 mmol/L (22-29) L 09/19/24 10:07 Anion Gap 21.0 (5-19) H 09/19/24 10:07 BUN 5 mg/dL (6-20) L 09/19/24 10:07 Creatinine 0.5 mg/dL (0.5-0.9) 09/19/24 10:07 GFR Calculation 152.9 mL/min (90-130) H 09/19/24 10:07 Glucose 118 mg/dL (65-115) H 09/19/24 10:07 Calculated Osmolality 284 mOsm/kg (285-295) L 09/19/24 10:07 Calcium 9.8 mg/dL (8.5-10.5) 09/19/24 10:07 Magnesium 1.9 mg/dL (1.7-2.3) 09/19/24 10:07 Total Bilirubin 0.6 mg/dL (0.15-1.2) 09/19/24 10:07 AST 13 U/L (0-32) 09/19/24 10:07 ALT 11 U/L (0-33) 09/19/24 10:07 Alkaline Phosphatase 66 U/L (35-105) 09/19/24 10:07 Total Protein 8.3 g/dL (6.6-8.7) 09/19/24 10:07 Albumin 4.9 g/dL (3.5-5.2) 09/19/24 10:07 Globulin 3.4 g/dL (1.3-4.6) 09/19/24 10:07 Lipase 15 U/L (13-60) 09/19/24 10:07 TSH 0.36 uIU/mL (0.27-4.20) 09/19/24 10:07 HCG, Qual Positive (Negative) H 09/19/24 10:07 Ser , Semi-Qnt > 41744.00 mIU/mL 09/19/24 10:07 All radiology interpretation(s) finalized by discharge Discharge Plan Discharge Patient Disposition: Placed in Observation Admit Provider: Elizabeth Reagan Clinical Impression: Hyperemesis gravidarum, Acute epigastric pain, Coffee ground emesis Coding Level of Care Code ED Card Player for Haseeb Phillips
[2024-09-19 10:38] LABS: HCG, Serum Qual Positive (Negative)
[2024-09-19] MEDS: morphine 4 mg/mL SDV 1 mL IVP ×2 (10:44→13:39)
[2024-09-19 10:46] LABS: Alanine Aminotransferase 11 U/L (0-33); Albumin Level 4.9 g/dL (3.5-5.2); Alkaline Phosphatase 66 U/L (35-105); Anion Gap 21.0 (5-19); Aspartate Amino Transferase 13 U/L (0-32); Blood Urea Nitrogen 5 mg/dL (6-20); Calcium 9.8 mg/dL (8.5-10.5); Carbon Dioxide 19 mmol/L (22-29); Chloride 101 mmol/L (98-107); Creatinine Clr Calc Pharmacy 170.9667; Globulin 3.4 g/dL (1.3-4.6); Glucose 118 mg/dL (65-115); Lipase 15 U/L (13-60); Magnesium 1.9 mg/dL (1.7-2.3); Osmolality Calculated 284 mOsm/kg (285-295); Potassium 3.0 mmol/L (3.5-5.1); Sodium 138 mmol/L (136-145); Total Protein 8.3 g/dL (6.6-8.7)
[2024-09-19 10:57] LABS: Thyroid Stimulating Hormone 0.36 uIU/mL (0.27-4.20)
[2024-09-19] MEDS: lidocaine 1% 5 ML in potassium chloride premix 100 ML 25 ML IV (11:42)
[2024-09-19] MEDS: diphenhydrAMINE 50 mg/mL SDV 1mL 25 MG IVP (13:00)
[2024-09-19] MEDS: haloperidol inj 5 mg/mL INJ 1 mL 2 MG IVP (13:01)
[2024-09-19] MEDS: ondansetron 2 mg/ML SDV 2 mL 4 MG IVP ×4 (16:22→23:44)
[2024-09-19] MEDS: alum-mag-hydroxide-sime 30 mL UDC PO (22:44)
[2024-09-20] MEDS: ondansetron 2 mg/ML SDV 2 mL 4 MG IVP ×4 (01:45→08:18)
[2024-09-20 04:02] VITALS: BP 89/50; PULSE 61; RESP 16; TEMP 36.8; O2SAT 98
[2024-09-20 06:58] LABS: Alanine Aminotransferase 9 U/L (0-33); Albumin Level 3.9 g/dL (3.5-5.2); Alkaline Phosphatase 50 U/L (35-105); Anion Gap 15.1 (5-19); Aspartate Amino Transferase 9 U/L (0-32); Blood Urea Nitrogen 3 mg/dL (6-20); Calcium 8.9 mg/dL (8.5-10.5); Carbon Dioxide 24 mmol/L (22-29); Chloride 99 mmol/L (98-107); Globulin 2.4 g/dL (1.3-4.6); Glucose 88 mg/dL (65-115); Osmolality Calculated 276 mOsm/kg (285-295); Potassium 3.1 mmol/L (3.5-5.1); Sodium 135 mmol/L (136-145); Total Protein 6.3 g/dL (6.6-8.7)
[2024-09-20 07:10] LABS: Creatinine Clr Calc Pharmacy 213.7084
[2024-09-20 07:32] LABS: Glucose Urine UA Negative (Normal); Nitrate Urine Negative (Negative); Specific Gravity, Urine 1.009 (1.005-1.030)
[2024-09-20 08:05] VITALS: BP 119/66; PULSE 87; RESP 16; TEMP 36.6
[2024-09-20] MEDS: metoclopramide 5 mg/mL SDV 2 mL 10 MG IVP (08:27)
--- NOTE | 2024-09-20 10:37 | PM.OBGYDC ---
Discharge Providers CUTTER INSPECTOR Date of Admission: 09/19/24 14:12 Date of Discharge: 09/20/24 Attending Provider at Admission: Elizabeth Reagan DO Attending Provider at Discharge: Elizabeth Reagan DO Primary Care Provider: Florencio Rzea MD Reason for Visit Reason for Visit: NV Hospital Course Hospital Course 24yo femael at 6wk IUP seen on LD after OBS admission for uncontrolled N/V and fatigue.Pt is seeing Dr Reza for PNC. Pt denies GALVEZ, Chest pain, or vaginal bleeding. Pt treated with IV hydration with Reglan and Zofran over night. Pt now claims to be feeling much better, and able to tolerate PO fluids and a few things to eat. Pt request discharge stating she is better and that she has meds at home. Pt states partner at home can't manage the 3 children at home. Discussed with pt that she should continue meds on schedule to decrease risk of increased N/V. Encouraged to increae diet as tolerted and to continue hydration with ice chips and gatorade. Pt has been using Marijuana at home, advised against it during for we do not know risk to early . Pt understands. Pt has appoint with OB on Sunday, advised to keep appointment. If N/V returns and she is unable to keep fluids and food down pt to return to hospital. History History History 6 Term 3 0 Miscarriages/Ectopic 2 Living Children 3 Discharge Data Studies Completed and Pending Completed Studies During Hospitalization Category Date Time Status US gall bladder [id number] Stat Ultrasound 09/19/24 10:11 Completed Pending at discharge Category Date Time Status Urinalysis Stat Lab 09/19/24 09:31 Ordered Radiology Impressions Gallbladder Ultrasound 09/19/24 10:11 IMPRESSION: No acute findings. Laboratory Results WBC 6.91 10^3/uL (3.29-11.43) 09/19/24 10:07 RBC 4.15 10^6/uL (3.85-5.65) 09/19/24 10:07 Hgb 12.40 g/dL (11.27-16.99) 09/19/24 10:07 Hct 36.1 % (36-47) 09/19/24 10:07 MCV 87.0 fl (85-98) 09/19/24 10:07 MCH 29.9 pg (27-33) 09/19/24 10:07 MCHC 34.3 g/dL (30-55) 09/19/24 10:07 RDW 12.4 % (12.1-15.1) 09/19/24 10:07 Plt Count 299 10^3/cmm (157-399) 09/19/24 10:07 MPV 10.3 fL (7.4-10.4) 09/19/24 10:07 Neut % (Auto) 84.6 % 09/19/24 10:07 Lymph % (Auto) 11.1 % 09/19/24 10:07 [place] % (Auto) 3.8 % 09/19/24 10:07 Eos % (Auto) 0.1 % 09/19/24 10:07 Baso % (Auto) 0.1 % 09/19/24 10:07 Neut # (Auto) 5.84 10^3/uL (1.8-7.7) 09/19/24 10:07 Lymph # (Auto) 0.8 10^3/uL (0.8-4.8) 09/19/24 10:07 [place] # (Auto) 0.3 10^3/uL (0.2-0.9) 09/19/24 10:07 Eos # (Auto) 0.0 10^3/uL (0.0-0.8) 09/19/24 10:07 Baso # (Auto) 0.0 10^3/uL (0.0-0.1) 09/19/24 10:07 Nucleated RBC % (auto) 0 % 09/19/24 10:07 Nucleated RBCs # 0.0 /100WBC 09/19/24 10:07 Sodium 135 mmol/L (136-145) L 09/20/24 06:28 Potassium 3.1 mmol/L (3.5-5.1) L 09/20/24 06:28 Chloride 99 mmol/L (98-107) 09/20/24 06:28 Carbon Dioxide 24 mmol/L (22-29) 09/20/24 06:28 Anion Gap 15.1 (5-19) 09/20/24 06:28 BUN 3 mg/dL (6-20) L 09/20/24 06:28 Creatinine 0.4 mg/dL (0.5-0.9) L 09/20/24 06:28 GFR Calculation 197.8 mL/min (90-130) H 09/20/24 06:28 Glucose 88 mg/dL (65-115) 09/20/24 06:28 Calculated Osmolality 276 mOsm/kg (285-295) L 09/20/24 06:28 Calcium 8.9 mg/dL (8.5-10.5) 09/20/24 06:28 Magnesium 1.9 mg/dL (1.7-2.3) 09/19/24 10:07 Total Bilirubin 0.5 mg/dL (0.15-1.2) 09/20/24 06:28 AST 9 U/L (0-32) 09/20/24 06: ALT 9 U/L (0-33) 09/20/24 06:28 Alkaline Phosphatase 50 U/L (35-105) 09/20/24 06:28 Total Protein 6.3 g/dL (6.6-8.7) L D 09/20/24 06:28 Albumin 3.9 g/dL (3.5-5.2) 09/20/24 06:28 Globulin 2.4 g/dL (1.3-4.6) 09/20/24 06:28 Lipase 15 U/L (13-60) 09/19/24 10:07 TSH 0.36 uIU/mL (0.27-4.20) 09/19/24 10:07 HCG, Qual Positive (Negative) H 09/19/24 10:07 Ser , Semi-Qnt > 89631.00 mIU/mL 09/19/24 10:07 Urine Color Yellow (Yellow) 09/20/24 06:17 Urine Appearance Clear (CLEAR) 09/20/24 06:17 Urine pH 8.5 (5-7) A 09/20/24 06:17 Ur Specific [place] 1.009 (1.005-1.030) 09/20/24 06:17 Urine Protein Negative (Negative) 09/20/24 06:17 Urine Glucose (UA) Negative (Normal) 09/20/24 06:17 Urine Ketones 1+ (Negative) H 09/20/24 06:17 Urine Blood 1+ (Negative) A 09/20/24 06:17 Urine Nitrate Negative (Negative) 09/20/24 06:17 Urine Bilirubin Negative (Negative) 09/20/24 06:17 Urine Urobilinogen 1.0 mg/dL (Negative) 09/20/24 06:17 Ur Leukocyte Esterase Negative (Negative) 09/20/24 06:17 Urine RBC 6-10 /hpf (0-2) 09/20/24 06:17 Urine WBC 0-5 /hpf (0-5) 09/20/24 06:17 Ur Squamous Epith Cells 0-5 /hpf (0-5) 09/20/24 06:17 Amorphous Sediment Not Reportable 09/20/24 06:17 Urine Bacteria None seen /hpf (NONE) 09/20/24 06:17 Hyaline Casts 0-4 /lpf H 09/20/24 06:17 Additional Data from Hospital Stay 6 wk IUP Multigravida Hyperemesis- improved Hypokalemia- mild Nicotine use during Cannabis use during Pregancy Procedures Performed IV hydration Vitals Last Vital Signs Temp 97.9 F 09/20/24 08:05 Pulse 87 09/20/24 08:05 Resp 16 09/20/24 08:05 BP 119/66 09/20/24 08:05 Pulse Ox 98 09/20/24 04:02 O2 Del Method Room Air 09/20/24 04:02 Results Labs OB ([facility]): Obstetrics US 03/22/24 Blood Type O Negative 03/30/24 Antibody Screen Negative 03/30/24 Hct, (36-47) 36.1 % 09/19/24 Hgb, (11.27-16.99) 12.40 g/dL 09/19/24 Rho(D) Type Rh negative 03/30/24 Plt Count, (157-399) 299 10^3/cmm 09/19/24 TSH, (0.27-4.20) 0.36 uIU/mL 09/19/24 Ser , Semi-Qnt > 65038.00 mIU/mL 09/19/24 HCG, Qual, (Negative) Positive H 09/19/24 Urine Opiates Screen, (Negative) Negative ng/mL 03/23/24 Ur Barbiturates Screen, (Negative) Negative ng/mL 03/23/24 Ur Phencyclidine Scrn, (Negative) Negative ng/mL 03/23/24 Ur Amphetamines Screen, (Negative) Negative ng/mL 03/23/24 U Benzodiazepines Scrn, (Negative) Negative ng/mL 03/23/24 Urine Cocaine Screen, (Negative) Negative ng/mL 03/23/24 U Marijuana (THC) Screen, (Negative) Positive ng/mL H 03/23/24 Micro Urine Specimen 09/17/24 Discharge Plan Discharge Patient Disposition: Home Condition: Stable Prescriptions: Continued acetaminophen [Tylenol] 325 mg Tablet 650 mg PO QID PRN (Reason: Fever Or Pain) metoclopramide HCl [Reglan] 10 mg tablet 10 mg PO Q6H PRN (Reason: nausea and vomiting) Qty: 20 0RF promethazine 25 mg suppository 25 mg UT Q6H PRN (Reason: nausea and vomiting) Qty: 12 0RF potassium chloride [Klor-Con M20] 20 mEq tablet,ER particles/crystals 20 meq PO BID Qty: 6 0RF Vitamin Plus Low Iron 27 mg iron- 1 mg tablet 1 tab PO DAILY Discharge Orders: Discharge Order (Routine); Ordered 09/20/24 Ordered By: Elizabeth Reagan Referrals: Florencio Reza MD [Primary Care Provider, Family Practice] Discharge Diet: Advance as tolerated Discharge Activity: Resume usual activity and Increase activity as tolerated Patient Instructions: Metoclopramide (By mouth), Ondansetron (By mouth), Hyperemesis Gravidarum, Opioid Safety, Patient Portal & [place] Instructions Activity Restrictions/Additional Instructions: increase diet as tolerated Assessment: 6wk IUP Multiparity Hyperemesis-improving Hypokalemia Nicotine use during THC use during Plan of Treatment: DC to home Continue PO hydration Continue home meds(Zofran and Reglan) on schedule. DC THC Discharge Attestations CUTTER INSPECTOR Time Spent in Discharge Care*: less than 30 min Time Spent in Smoking Cessation: Time spent discussing smoking cessation with patient: 3 to 10 minutes Status at Discharge: Cognitive status at discharge: cognitively intact, Behavioral status at discharge: cooperative, Coding Level of Care Code Acute Code for Chg Jacqueline
[2024-09-20 11:00] VITALS: BP 114/74; PULSE 89; RESP 16; TEMP 36.7; O2SAT 98
== END 2024-09-20 11:00 | disposition home or self-care (01) ==
LOC: ER 13:48 → OBGYN 14:12
PROVIDERS: Family Medicine; Admitting Provider Obstetrics & Gynecology; Emergency Provider Emergency Medicine; PCP Family Medicine; Visit Provider Obstetrics & Gynecology
DX: O26.811 Pregnancy related exhaustion and fatigue, first trimester (principal); O99.331 Smoking (tobacco) complicating pregnancy, first trimester; F17.200 Nicotine dependence, unspecified, uncomplicated; Z3A.01 Less than 8 weeks gestation of pregnancy; O99.321 Drug use complicating pregnancy, first trimester; F12.90 Cannabis use, unspecified, uncomplicated; F41.8 Other specified anxiety disorders; O21.8 Other vomiting complicating pregnancy
CPT/HCPCS: 36415; 76705; 80053; 81001; 83690; 83735; 84443; 84702; 84703; 85025; 93005; 93010; 96365; 96366; 96375; 96376; 99285; G0378; J0780; J1200; J1630; J2270; J2405; J2765; J3411; J3480; J3490; J7030; J7120; J9999

== ENCOUNTER 2024-09-23 03:28 | Emergency (ER) | payer BC, MEDICAID, SELFPAY ==
--- OUTSIDE RECORDS SUMMARY | 2024-09-23 03:34 | XMS_ITS | Data Portability ---
Author Organization [place] [facility], [facility] Address [address] [address] Care Team Providers Care Rx Specialist Name Role Phone KHAI THRASHER Primary Care Provider [phone] Assessment Encounter Date Assessment Date Assessment LastModified [...] or plasma 2024 025 JAMESON [facility], [address], [address], 05/08/2024 11:56:29 Referral None recorded. Procedures None recorded. Surgeries None recorded. Imaging US, obstetric , transvagi nal - [id number] 2024 025 [facility] ([facility]), [address] [place], [address], 03/30/2024 09:07:07 US, obstetric , 1st trimester , single gestation 2023 024 [email or web address] [facility] ([facility]), [address] [place], [address], 03/03/2024 09:55:10 Medication Orders fluoxetin e 10 mg tablet 2024 025 [facility] [place], [address] [place] [address], [address], 05/08/2024 11:59:58 Vitamin 27 mg iron-0.8 mg tablet 2023 025 [facility], [address] [place] [address], [address], 03/27/2024 09:19:05 Patient TargetsNo targets recorded. Patient InstructionsNo instructions recorded. Reason for Referral None Reported. Results Created Date Observation Date Name Description Value Unit Range Abnormal Flag Note LastModifiedBy Organization Detail LastModifiedTime 05/08/1905/08/2024 BMP (FEMA LE) glucose 78.0 mg/dL 60.0-9 9.0 Not Available [facility] [address] [facility] [address], [address], 05/08/2024 11:56:29 05/08/19 25 05/08/2024 BMP (FEMA LE) BUN (blood urea nitrogen) 11.0 mg/dL 10.0-2 6.0 Not Available [facility] [address] [facility] [address], [place], [address], 05/08/2024 11:56:29 05/08/19 25 05/08/2024 BMP (FEMA LE) creatinine (serum) 0.6 mg/dL 0.4-1. 5 Not Available [facility] [address] [facility] [address], [place], [address], 05/08/2024 11:56:29 05/08/19 25 05/08/2024 BMP (FEMA LE) BUN/creatini ne ratio 18.33 ratio Not Available [facility] [address] [facility], [place], [address], 05/08/2024 11:56:29 05/08/19 25 05/08/2024 BMP (FEMA LE) calcium 9.5 mg/dL 8.4-10 .5 Not Available [facility] [address] [place] [facility], [place], [address], 05/08/2024 11:56:29 05/08/19 25 05/08/2024 BMP (FEMA LE) sodium 140.0 mmol/ L 136.0- 145.0 Not Available [facility] [address] [place] [facility], [place], [address], 05/08/2024 11:56:29 05/08/19 25 05/08/2024 BMP (FEMA LE) potassium 3.8 mmol/ L 3.5-5. 1 Not Available [facility] [address] [place] [facility], [place], [address], 05/08/2024 11:56:29 05/08/19 25 05/08/2024 BMP (FEMA LE) chloride 103.0 mmol/ L 98.0-1 10.0 normal Not Available [facility] [address] [place] [facility] 1, [place], [address], 05/08/2024 11:56:29 05/08/19 25 05/08/2024 BMP (FEMA LE) C02 27.0 mmol/ L 22.0-3 1.0 Not Available [facility] [address] [facility], [place], [address], 05/08/2024 11:56:29 05/08/19 25 05/08/2024 BMP (FEMA LE) anion gap 10.0 calc Not Available [facility] [address] [facility] [address], [place], [address], 05/08/2024 11:56:29 03/22/19 25 03/22/2024 US, obste tric, 1st trime ster, singl e gesta tion No observ ation record ed. [email or web address] [facility] [address] [facility], [place], [address], 03/26/2024 20:57:07 03/30/19 25 03/30/2024 , obste tric, trans vagin al No observ ation record ed. [email or web address] [address] [place], [address], 04/07/2024 14:25:33 03/31/19 25 03/26/2024 imagi ng/di agnos tic resul t No observ ation record ed. [email or web address] Not Available 2024 15:50:58 Result Notes None recorded. Problems Name Problem SNOMED Code Status Onset Date Resolution Date Notes Provider Name and Address Organization Details Recorded Time Normal pregnanc y in multigra shawna 94877358476 4106 Completed 2022 Florencio Reza MD [address] [place], [address], [facility] [place] [facility] L.L[facility]CDamian 4 06:53:23 Normal pregnanc y in multigra shawna 36082119199 4106 Completed 202205/08/2024 KARY mckeon [facility] L[facility]CD[facility]ian 5 09:42:15 Disorder of menstrua tion 472959186 Completed 2022 Florencio Reza MD [address] [place], [address], [facility] [place] [facility] 4 06:53:23 Blood group O Rh(D) negative 200554363 Completed 2022 received in Nov. per pt at [facility] Florencio Reza MD [address] [place] [address], [address], [facility] [place] [facility], L.L.CDamian 4 06:53:23 Postpart um care Completed 202305/08/2024 KAYLA mckeon [facility], L.L.CDamian 5 00:31:26 Postpart um care Completed 2023 Florencio Reza MD [address] [place] [address], [address], [facility] [place] [facility], L.L.CDamian 4 06:53:23 Mild intermit tent asthma 084603143 Active 2023 KARY CONN [facility], L.L.CDamian 5 09:41:58 Pregnanc y 64193502 Completed 202303/26/2024 IDALIA ASHLEY [facility], L.L.CDamian 5 09:47:40 Anxiety 09161836 Active 2024 KAYLA mckeon [facility], L.L.CDamian 5 00:31:22 History of alcohol use disorder Active 2024 KAYLA mckeon [facility], LDamianL.CDamian 5 00:31:40 Persiste nt depressi ve disorder 3798527461 Active 2024 KAYLA mckeon [facility], LDamianLDamianCDamian 5 00:32:06 Cannabis dependen ce 86630385 Active 2024 KAYLA mckeon [facility], JoseLDamianCDamian 5 00:32:21 Problem Notes None recorded. Procedures Surgical History Date Name Laterality Status Provider Name and Address Organization Details Recorded Time 5 US scan of gallbladder completed [facility] 00:34:01 5 ultrasound [facility] - obstetric [facility] 00:38:17 tonsilectomy/ad enoids completed [facility]22[facility]2023 12:37:22 Imaging Results None recorded. Procedure [...] completed Not Available Not Available Not Available promethaz ine 25 mg rectal supposito ry INSERT ONE SUPPOSIT ORY per rectum EVERY 6 HOURS NEEDED FOR NAUSEA AND VOMITING active Not Available Not Available No t Available ondansetr on HCl 4 mg tablet [...] Available metoclopr amide 10 mg tablet TAKE 1 TABLET BY MOUTH EVERY 6 HOURS NEEDED FOR NAUSEA AND VOMITING active Not Available Not Available No t Available Ventolin HFA 90 mcg/actua tion aerosol [...] Tablet; Not Available Not Available Not Available potassium chloride ER 20 mEq tablet,ex tended release TAKE 1 TABLET BY MOUTH TWICE DAILY active Not Available Not Available No t Available Vitamins Plus Low Iron 27 mg [...] Updated DateTime 5 167.64 cm 23.2 kg/m2 53977.5 1 g 99 % 99 % 84 /min 18 /min 98.2 [degF] 100/60 mm[Hg] IDALIA CACERES [facility], L.L.CDamian 5 10:04:59 Date Recorded Body height Body mass index (BMI) Body weight Oxygen saturation Oxygen saturation in Arterial blood by Pulse oximetry Heart rate Respiratory rate Body temperature Systolic And Diastolic Provider Name and Address Organization Details Last Updated DateTime 5 167.64 cm 22.5 kg/m2 82443.4 4 g 99 % 99 % 79 /min 18 /min 98.3 [degF] 100/58 mm[Hg] IDALIA CACERES [facility] L.L.CDamian 5 11:37:11 Date Recorded Body height Body mass index (BMI) Body weight Respiratory rate Heart rate Oxygen saturation Oxygen saturation in Arterial blood by Pulse oximetry Body temperature Systolic And Diastolic Provider Name and Address Organization Details Last Updated DateTime 5 167.64 cm 23.4 kg/m2 26517.8 9 g 16 /min 68 /min 98 % 98 % 97.9 [degF] 126/70 mm[Hg] [facility] L.L.CDamian 5 10:52:20 Date Recorded Body height Body mass index (BMI) Body weight Respiratory rate Heart rate Oxygen saturation Oxygen saturation in Arterial blood by Pulse oximetry Body temperature Systolic And Diastolic Provider Name and Address Organization Details Last Updated DateTime 4 167.64 cm 24.3 kg/m2 91606.9 6 g 16 /min 86 /min 99 % 99 % 98.2 [degF] 122/84 mm[Hg] [facility], L.L.CDamian 4 09:23:32 Social History Question Answer Notes LastModified by Organizat ion Details LastModified Time Tobacco Smoking Status Never Smoker KARY mckeon [facility] 10/25/2022 09:41:24 What Is Your Relationship Status? Domestic Partner Information not available 10/25/2022 Are You Sexually Active? Yes Information not available 10/25/2022 Sex: Unknown Functional Status Question Answer Note LastModified by Organizat ion Details LastModified Time Do you use any [...] Recorded Time MMR 3 completed KARY mckeon [facility] 10/25/2022 09:38:53 MMR 6 completed KARY mckeon [facility] 10/25/2022 09:38:53 COVID-19, mRNA, LNP-S, PF, 100 mcg/0.5mL dose or 50 mcg/0.25mL dose 2 completed KARY mckeon [facility] 10/25/2022 09:38:53 DTaP-IPV 6 completed KARY MALLOYY null, [facility] 10/25/2022 09:38:53 Tdap 0 completed KARY MALLOYY null, [facility] 10/25/2022 09:38:53 Tdap 3 completed KARY SENIA null, [facility] 10/25/2022 09:38:53 varicella 6 completed KARY MALLOYY null, [facility] 10/25/2022 09:38:53 Hep B, unspecified formulation 3 completed KARY MALLOYY null, [facility] 10/25/2022 09:38:53 Hep B, unspecified formulation 2 completed KARY MALLOYY null, [facility] 10/25/2022 09:38:53 Hep B, unspecified formulation 2 completed KARY MALLOYY null, [facility] 10/25/2022 09:38:53 pneumococcal, unspecified formulation 3 completed KARY MALLOYY null, [facility] 10/25/2022 09:38:53 pneumococcal, unspecified formulation 2 completed KARY SENIA null, [facility] 10/25/2022 09:38:53 pneumococcal, unspecified formulation 2 completed KARYKVNG MALLOYY null, [facility] 10/25/2022 09:38:53 pneumococcal, unspecified formulation 3 completed KARY SENIA null, [facility] 10/25/2022 09:38:53 polio, unspecified formulation 3 completed KARY mckeon, [facility] 10/25/2022 09:38:53 ESgN-Tma-ENT 2 completed KARY mckeon, [facility] 10/25/2022 09:38:53 UYsP-Pvw-CHM 2 completed KARY CONN null, [facility] 10/25/2022 09:38:53 meningococcal MCV4P 8 completed KARY mckeon, [facility] 10/25/2022 09:38:53 DTaP-Hib 3 completed KARY mckeon, [facility] 10/25/2022 09:38:53 DTaP-Hib 3 completed KARY mckeon, [facility] 10/25/2022 09:38:53 RSV, bivalent, protein subunit RSVpreF, diluent reconstituted, 0.5 mL, PF 3 completed KARY mckeon, [facility] 03/09/2023 10:10:40 Tdap 3 completed KARY mckeon, [facility] 03/09/2023 10:10:40 Past Encounters Encounter ID Performer Location Encounter Start Date Encounter Closed Date Diagnosis/Indication Diagnosis SNOMED-CT Code Diagnosis ICD10 Code Diagnosis Note [id number] JACKY VILLAGOMEZ [facility] ([facility]) [address] [place] [phone] 07/10/2022 16:29:58 07/10/2022 21:10:44 Missed period 94507948 N92.5 test positive 274948146 Z32.01 [id number] JACKY VILLAGOMEZ [facility] ([facility]) [address] [place] [phone] 5 07/17/2022 13:12:37 07/22/2022 07:42:50 Stomach cramps 52040359 R10.9 Abnormal u terine bleeding 4029618600 9100 N93.9 [id number] Florencio Reza MD [facility] ([facility]) [address] [place] [id number] 5 07/28/2022 13:29:01 07/28/2022 20:13:04 Miscarriage without complication 40707453 O03.9 Urgent jarocho chon to urinate 52034611 R39.15 [id number] JACKY VILLAGOMEZ [facility]) [address] [place] [id number] 5 09/13/2022 16:01:25 09/13/2022 16:49:18 test positive 426192200 Z32.01 Nausea and vomiting 1693 1999 R11.2 [id number] Florencio Reza MD [facility] ([facility]) [address] [place] [id number] 5 10/25/2022 09:22:09 10/25/2022 19:04:09 Normal in multigravida 2978368626 90682 Z34.80 Disorder o f menstruation 578378565 N92.6 [id number] Florencio Reza MD [facility] ([facility]) [address] [place] [phone] 5 10/30/2022 10:27:38 10/30/2022 19:48:29 [id number] Florencio Reza MD [facility] ([facility]) [address] [place] [id number] 11/09/2022 14:00:38 11/09/2022 18:42:15 Normal in multigravida 7013150955 85178 Z34.80 Gestation period, 14 weeks 47751335 Z3A.14 Normal pre gnancy in primigravida 0831810968 68394 Z34.80 [id number] Florencio Reza MD [facility] ([facility]) [address] [place] [phone] 12/07/2022 10:48:16 12/07/2022 13:20:55 Multigravida 531133601 Z34.82 Gestation period, 19 weeks 03477702 Z3A.19 Mild inter mittent asthma 650496681 J45.20 [id number] Florencio Reza MD [facility] ([facility]) [address] [place] [id number] 5 01/02/2023 14:44:10 01/02/2023 17:02:15 [id number] Florencio Reza MD [facility] ([facility]) [address] [place] [id number] 5 01/04/2023 09:45:37 01/04/2023 10:34:57 Normal in multigravida 7555596078 96290 Z34.80 Gestation period, 23 weeks 97940051 Z3A.23 Mild inter mittent asthma 524895272 J45.20 [id number] Florencio Reza MD [facility] ([facility]) [address] [place] [id number] 5 02/01/2023 09:42:00 02/01/2023 13:31:04 Normal in multigravida 9310955050 63879 Z34.80 [id number] Florencio Reza MD [facility] ([facility]) [address] [place] [id number] 5 02/22/2023 09:47:23 02/22/2023 12:57:02 Normal in multigravida 4864847007 22624 Z34.83 Gestation period, 30 weeks 60562757 Z3A.30 Multigravida 810535041 Z 34.82 [id number] Florencio Reza MD [facility] ([facility]) [address] [place] [id number] 5 02/27/2023 09:02:08 02/27/2023 15:11:02 [id number] Florencio Reza MD [facility] ([facility]) [address] [place] [id number] 5 03/09/2023 09:55:11 03/09/2023 15:03:28 Normal in multigravida 3619973149 41368 Z34.83 Gestation period, 32 weeks 3610755 Z3A.32 Acute low back pain 2788 40474 M54.50 [id number] Florencio Reza MD [facility] ([facility]) [address] [place] [id number] 5 03/22/2023 10:37:42 03/22/2023 12:18:08 Normal in multigravida 5257793202 79193 Z34.83 Gestation period, 34 weeks 93069030 Z3A.34 Mild inter mittent asthma 373085727 J45.20 [id number] Florencio Reza MD [facility] ([facility]) [address] [place] [id number] 5 04/05/2023 09:50:00 04/05/2023 11:47:02 Normal in multigravida 0184549104 92559 Z34.83 Gestation period, 36 weeks 32749297 Z3A.36 Restless legs 56743142 G 25.81 [id number] Florencio Reaz MD [facility] ([facility]) [address] [place] [id number] 5 04/12/2023 14:52:22 04/14/2023 22:34:17 Normal in multigravida 9092525261 38033 Z34.83 Gestation period, 37 weeks 41781490 Z3A.37 [id number] Florencio Reza MD [facility] ([facility]) [address] [place] [id number] 5 05/24/2023 09:54:20 05/24/2023 15:28:39 care 962322412 Z39.2 Vaginal discharge 021400 006 N89.8 [id number] JACKY DIAZ [facility] ([facility]) [address] [place] [id number] 5 06/22/2023 12:30:39 06/22/2023 13:00:28 Acute viral pharyngitis 396604400 J02.9 Rapid strep negative.P ush cold oral fluids including Popsicles. Alternate tylenol/mo jerry for fever or discomfort .May use throat lozenges, chlorasept ic spray, or saltwater gargles.If you develop worsening symptoms such as unable to swallow, persistant fever, or concerns arise then return for re-eval. [id number] Rigoberto Gatica MD [facility] ([facility]) [address] [place] [id number] 08/02/2023 13:35:00 08/02/2023 14:42:36 Increased frequency of urination 003820489 R35.0 Vaginal discharge 347162 006 N89.8 [id number] Tk Grady MD [facility] ([facility]) [address] [place] [id number] 5 01/03/2024 10:39:49 01/03/2024 17:40:34 Mild intermittent asthma 646545053 J45.20 Viral uppe r respiratory tract infection 473977648 J06.9 Patient presented with symptoms of viral [...] in 7-10 days if symptoms not improving. [id number] Florencio Reza MD [facility] ([facility]) [address] [place] [id number] 5 02/29/2024 09:04:40 02/29/2024 10:22:39 Normal in multigravida 5664644850 66276 Z34.83 Disorder o f menstruation 687346277 N92.6 [id number] Florencio Reza MD [facility] ([facility]) [address] [place] [id number] 5 03/26/2024 09:27:57 03/26/2024 15:13:58 Miscarriage 19188310 O03.9 [id number] Florencio Reza MD [facility] ([facility]) [address] [place] [id number] 5 03/26/2024 10:33:12 03/27/2024 14:09:17 First trimester bleeding 8285020041 265730 O46.91 [id number] Florencio Reza MD [facility] ([facility]) [address] [place] [id number] 5 04/01/2024 11:04:29 04/01/2024 13:56:26 Postoperative care 728778462 Z48.89 Retained p roducts after miscarriage 441573722 O03.4 Resolved [id number] Florencio Reza MD [facility] ([facility]) [address] [place] [id number] 5 05/08/2024 10:36:40 05/08/2024 11:15:51 care 040230516 Z39.2 Anxiety 89048950 F41.9 Hypokalemia 87252742 E87 .6 Health Concerns Section Related Observation LastModified by Organization Detai ls LastModified Time None Recorded Concern Status LastModified by Organization Details LastModified Time None Recorded Advance Directives Directive None Recorded Payers Insurance Date Sequence Insurance Name Policy Number Policy Dodd Covered Member ID Dodd Member ID Guarantor Name 09/20/[address] (MEDICAID REPLACEMENT - HMO) [id number] Tila Francis [id number] Tila Francis Notes Date Note Type [...] out she was OBI Florencio Reza MD [address] [place] [address], [phone], [facility] [place] [facility], Sridevi. 02/29/2024 10:15:43 03/26/2024 text/html ER follow up [...] is having chest pain. Florencio Reza MD [address] [place] [address], [phone], [facility] [place] [facility], [place] 03/28/2024 12:33:31 04/01/2024 text/html Post-OpReported bypatient.Onset/Timin g:date of surgery: (03/27/24) Quality:procedure: (D&C) Context:preoperative diagnosis: (missed miscarriage) Associated Symptoms:normal appetite; no constipation; no nausea; no emesis; pain improving; no fever;fatigue;pain 03/28;bleeding(decreas ing);diarrhea Florencio Reza MD [address] [place] [address], [phone], [facility] [place] [facility], LDamianLTrina 04/01/2024 12:09:28 05/08/2024 text/html Post-OpReported bypatient.Onset/Timin g:date [...] be doing some better Florencio Reza MD [address] [place] [address], [phone], [facility] [place] [facility], [place] 05/08/2024 11:14:49 OBGyn Episode Ob Episode Information Episode Created Date Number of Fetuses Patient Bloodtype Patient rh Status Prepregnancy Weight lbs Domestic Partner Domestic Partner Phone Father Name Report Writer Status 10/26/19 23 1 O Negative Osbaldo [...] Code Not e Normal in multigravida 10/25/2022 [id number] Blood group O Rh(D) negative 11/09/2022 290103887 received in Jan . per pt at [facility] Disorder of menstruation 10/25/2022 883071967 care 05/24/2023 928946388 Suzanne Calculation Initial Suzanne Date Initial Exam [...] Weight in lbs Pre/Post Dialysis Refused Weight 135.98828263283 BP Diastolic BP Location Tested BP Systolic [...] Rate Present Fetus Movement Comments u/s on 8/14/23, SUZANNE 04/30/23, EGA 14.0, FHR 144, anterior placenta Flowsheet Date 11/09/2022 Fabian Score Blood Edema Fundus Height Fundus Units Glucose Ketones Leukocytes Nitrite Labor Signs Protein Cervic Dilation Cervic Effacement Cervic Station Type Weight in lbs Pre/Post Dialysis Refused Weight 135.705501565045 BP Diastolic BP Location Tested BP Systolic [...] Weight in lbs Pre/Post Dialysis Refused Weight 136.315353635307 BP Diastolic BP Location Tested BP Systolic [...] Weight in lbs Pre/Post Dialysis Refused Weight 140.435589716434 BP Diastolic BP Location Tested BP Systolic [...] Weight in lbs Pre/Post Dialysis Refused Weight 145.702168720331 BP Diastolic BP Location Tested BP Systolic BP Type 60 112 sitting Fetus Heart Rate Present A 142 Present Fetus Movement A Yes Comments N/V, headache, dizziness, RL Q pain, pelvic pain, sciatic and low back pain with shooting pain down both legs, occasional numbness in feet, glucose done today and order sent to [facility] for rhogram injection , Flowsheet Date 02/22/2023 Fabian Score Blood Edema Fundus Height Fundus Units Glucose Ketones Leukocytes Nitrite Labor Signs Protein Cervic Dilation Cervic Effacement Cervic Station none none Negative trace Type Weight in lbs Pre/Post Dialysis Refused Weight 147.177287913397 BP Diastolic BP Location Tested BP Systolic [...] Weight in lbs Pre/Post Dialysis Refused Weight 149.942828566538 BP Diastolic BP Location Tested BP Systolic [...] Weight in lbs Pre/Post Dialysis Refused Weight 150.078130919903 BP Diastolic BP Location Tested BP Systolic [...] Weight in lbs Pre/Post Dialysis Refused Weight 152.204442412619 BP Diastolic BP Location Tested BP Systolic [...] Weight in lbs Pre/Post Dialysis Refused Weight 155.526517701439 BP Diastolic BP Location Tested BP Systolic [...] Weight in lbs Pre/Post Dialysis Refused Weight 136.520240674764 BP Diastolic BP Location Tested BP Systolic BP Type 60 102 Fetus Heart Rate Present Fetus Movement Comments Menstrual History Last Menstrual Date Menses Monthly On Bcp Conception Prior Menses Frequency Hcg Plus Date Menarche Onset Age Genetic Screening And Infection History Question Response Note Patient's Age Will Be 35 Yea rs Or Older At Estimated Date of Delivery false Thalassemia (Belizean, Georgian, Mediterranean, Or Background): MCV < 80 false Neural Tube Defect (Meningomyelocele, Spina Bifi da, Or Anencephaly) false Congenital Heart Defect false Down Syndrome false Albert-Sachs (eg, Mu-Ism, Cajun, Luxembourgish-Stateless) f alse Marino Disease false Sickle Cell Disease Or Trait () false Hemophilia Or Other Blood Disorders false Muscular Dystrophy false Cystic Fibrosis false Ochiltree's Chorea false Intellectual Disability/Autism false If Yes, [...] Sterilization Discharge Date Comments 4 Sponta neous [facility]-Ep idural 24.2 Florencio Cox MD None Discharge Information Feeding Method Contraceptive Method Maternal HG B and HCT Levels Breast Ob Episode Information Episode Created Date Number of Fetuses Patient Bloodtype Patient rh Status Prepregnancy Weight lbs Domestic Partner Domestic Partner Phone Father Name Report Writer Status 05/24/19 24 1 CLOSED Fetus Data [...] Complications Tubal Sterilization Discharge Date Comments 4 Regional- idural 38.2 false Discharge Information Feeding Method Contraceptive Method Maternal HG B and HCT Levels Ob Episode Information Episode Created Date Number of Fetuses Patient Bloodtype Patient rh Status Prepregnancy Weight lbs Domestic Partner Domestic Partner Phone Father Name Report Writer Status 02/29/20 24 1 Osbaldo Eddy CLOSED [...] Weight in lbs Pre/Post Dialysis Refused Weight [id number] BP Diastolic BP Location Tested BP Systolic BP Type 84 122 Fetus Heart Rate Present Fetus Movement Comments Flowsheet Date 03/26/2024 Fabian Score Blood Edema Fundus Height Fundus Units Glucose Ketones Leukocytes Nitrite Labor Signs Protein Cervic Dilation Cervic Effacement Cervic Station Type Weight in lbs Pre/Post Dialysis Refused Weight [id number] BP Diastolic BP Location Tested BP Systolic [...] Domestic Partner Domestic Partner Phone Father Name Report Writer Status 07/29/19 1 CLOSED Fetus Data First [...] Domestic Partner Domestic Partner Phone Father Name Report Writer Status 07/29/19 1 CLOSED Fetus Data First [...] Domestic Partner Domestic Partner Phone Father Name Report Writer Status 07/29/19 1 CLOSED Fetus Data First [...]
--- OUTSIDE RECORDS SUMMARY | 2024-09-23 03:34 | XMS_ITS | Patient Health Record ---
Author Organization [facility] Address [address] [place] [address] Care Team Providers Care Demonstrator [employer]iances Name Role Phone Asihsh Rafat Primary Care Provider Allergies No Known Allergies Reason For Referral No Information Social History Sex Assigned At : Social History Observation Description Sex Assigned At Female Plan Of Treatment No Information Insurance Providers Payer Name Payer Address Payer Phone Subscriber Number Group Number Insured Name Patient Relationship to Insured Coverage Start Date Coverage End Date [employer] Medicaid [address] [address] [place] [address] [id number] Tila Francis Self - patient is the [facility] [address] [place] [address] [id number] Tila Francis Self - patient is the insured
--- OUTSIDE RECORDS SUMMARY | 2024-09-23 03:34 | XMS_ITS | Clinical Summary ---
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 Gender Identity Not on file Sexual Orientation Not on file Last Filed Vital Signs Vital Sign Reading Time Taken Comments Blood Pressure 101/55 02/15/2012 1:58 PM CERTIFIED MASTER SAFECRACKER Pulse 94 02/15/2012 1:58 PM CERTIFIED MASTER SAFECRACKER Temperature - - Respiratory Rate - - Oxygen Saturation - - Inhaled Oxygen Concentration - - Weight 30.8 kg (68 lb) 02/15/2012 1:58 PM CERTIFIED MASTER SAFECRACKER Height 139.7 cm (4' 7 ) 02/15/2012 1:58 PM CERTIFIED MASTER SAFECRACKER Body Mass Index 15.8 02/15/2012 1:58 PM CERTIFIED MASTER SAFECRACKER Plan of Treatment Health Maintenance Due Date Last Done Comments CHLAMYDIA SCREENING (ANNUAL) 11-24 YEARS 2012 HPV VACCINES (1 - 3-dose series) 2016 DTAP/TDAP/TD VACCINES (1 - Tdap) 2020 HEPATITIS B VACCINES (1 of 3 - 19+ 3-dose series) 07/17 CERVICAL CANCER SCREENING 2022 HPV/Cotest (21-29) 2022 PAP SMEAR 2022 INFLUENZA VACCINE (#1) 2024 [place]
[2024-09-23 03:35] VITALS: BP 133/77; PULSE 104; RESP 20; TEMP 36.7; O2SAT 97; BMI 22.7
[2024-09-23 04:06] LABS: Hematocrit 34.7 % (36-47); Hemoglobin 12.00 g/dL (11.27-16.99); Mean Corpuscular HGB Conc 34.6 g/dL (30-55); Mean Corpuscular Hemoglobin 29.3 pg (27-33); Mean Corpuscular Volume 84.8 fl (85-98); Nucleated Red Blood Cells % 0 %; Platelet Count 345 10^3/cmm (157-399); Red Blood Count 4.09 10^6/uL (3.85-5.65); White Blood Count 8.71 10^3/uL (3.29-11.43)
[2024-09-23 04:23] LABS: Alanine Aminotransferase 9 U/L (0-33); Albumin Level 4.8 g/dL (3.5-5.2); Alkaline Phosphatase 64 U/L (35-105); Anion Gap 21.1 (5-19); Aspartate Amino Transferase 11 U/L (0-32); Blood Urea Nitrogen 7 mg/dL (6-20); Calcium 9.7 mg/dL (8.5-10.5); Carbon Dioxide 22 mmol/L (22-29); Chloride 96 mmol/L (98-107); Creatinine Clr Calc Pharmacy 174.7790; Globulin 3.1 g/dL (1.3-4.6); Glucose 104 mg/dL (65-115); Osmolality Calculated 280 mOsm/kg (285-295); Potassium 3.1 mmol/L (3.5-5.1); Sodium 136 mmol/L (136-145); Total Protein 7.9 g/dL (6.6-8.7)
== END 2024-09-23 07:09 | disposition left against medical advice (07) ==
PROVIDERS: Family Medicine; Emergency Provider Family Medicine; PCP Family Medicine
DX: Z01.89 Encounter for other specified special examinations (principal); Z53.21 Procedure and treatment not carried out due to patient leaving prior to being seen by health care provider
CPT/HCPCS: 36415; 80053; 85025

== ENCOUNTER 2024-09-24 00:15 | Observation (INO) | payer BC, MEDICAID, SELFPAY ==
--- OUTSIDE RECORDS SUMMARY | 2024-09-24 00:23 | XMS_ITS | Patient Health Record ---
Author Organization [facility] Address [address] [place] [address] Care Team Providers Care Clam Shucker Name Role Phone Ashish Rafat Primary Care Provider [phone] Allergies No Known Allergies Reason For Referral No Information Social History Sex Assigned At : Social History Observation Description Sex Assigned At Female Plan Of Treatment No Information Insurance Providers Payer Name Payer Address Payer Phone Subscriber Number Group Number Insured Name Patient Relationship to Insured Coverage Start Date Coverage End Date Healthy [employer] Medicaid [address] [address] [place] [address] [id number] Tila Francis Self - patient [facility] the [facility] [address] [place] [address] [id number] Tila Francis Self - patient is the insured
--- OUTSIDE RECORDS SUMMARY | 2024-09-24 00:23 | XMS_ITS | Clinical Summary ---
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 Temperature - - Respiratory Rate - - Oxygen Saturation - - Inhaled Oxygen Concentration - - Weight 30.8 kg (68 lb) 02/15/2012 1:58 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
[2024-09-24 00:34] VITALS: BP 116/84; PULSE 94; RESP 17; TEMP 36.8; O2SAT 99; BMI 20.9
[2024-09-24 00:53] LABS: Hematocrit 33.7 % (36-47); Hemoglobin 12.40 g/dL (11.27-16.99); Mean Corpuscular HGB Conc 36.8 g/dL (30-55); Mean Corpuscular Hemoglobin 30.3 pg (27-33); Mean Corpuscular Volume 82.4 fl (85-98); Nucleated Red Blood Cells % 0 %; Platelet Count 362 10^3/cmm (157-399); Red Blood Count 4.09 10^6/uL (3.85-5.65); White Blood Count 7.73 10^3/uL (3.29-11.43)
[2024-09-24] MEDS: ondansetron 2 mg/ML SDV 2 mL 4 MG IVP ×4 (01:02→13:14)
[2024-09-24 01:09] LABS: Alanine Aminotransferase 9 U/L (0-33); Albumin Level 5.0 g/dL (3.5-5.2); Alkaline Phosphatase 65 U/L (35-105); Aspartate Amino Transferase 13 U/L (0-32); Blood Urea Nitrogen 6 mg/dL (6-20); Calcium 10.0 mg/dL (8.5-10.5); Carbon Dioxide 21 mmol/L (22-29); Chloride 95 mmol/L (98-107); Creatinine Clr Calc Pharmacy 211.7070; Globulin 3.0 g/dL (1.3-4.6); Glucose 101 mg/dL (65-115); Osmolality Calculated 276 mOsm/kg (285-295); Sodium 134 mmol/L (136-145); Total Protein 8.0 g/dL (6.6-8.7)
[2024-09-24 01:11] LABS: Anion Gap 21.1 (5-19); Potassium 3.1 mmol/L (3.5-5.1)
--- NOTE | 2024-09-24 01:23 | ED_ITS ---
HPI - Nausea/Vomiting/Diarrhea 2 General: Chief complaint: Nausea/Vomiting/Diarrhea Stated complaint: N/V Lower ABD cramping Time Seen by Provider: 09/24/24 01:17 History of Present Illness: Patient comes in with abdominal pain, nausea, and vomiting that started earlier today. States that she is 8 weeks . States she has been seen here multiple times in the last week and admitted at one time for the same symptoms. States she had an ultrasound Sunday or 2 days ago which showed a heartbeat and normal intrauterine . She describes abdominal pain as lower abdominal cramping. On physical exam her abdomen is soft, nontender. She does have mildly dry mucous membranes. States that the medication she is given her at home is not working. She asks for morphine here for her abdominal pain. I talked with her about using IV Reglan with Benadryl instead since she is and during the developmental phase. Will check labs,'s, and reassess. Associated symtoms: Denies chest pain or palpitations Related Data Home Medications ?Medication ?Instructions ?Recorded ?Confirmed acetaminophen 325 mg tablet 650 mg PO QID PRN Fever Or Pain 03/30/24 09/19/24 (Tylenol) vitamin with calcium 1 tab PO DAILY 09/19/24 09/19/24 no.72-iron 27 mg-folic acid 1 mg tablet ( Vitamins Plus Low Iron) Previous Rx's ?Medication ?Instructions ?Recorded metoclopramide HCl 10 mg tablet 10 mg PO Q6H PRN nause a and 09/15/24 (Reglan) vomiting #20 tabs potassium chloride 20 mEq 20 meq PO BID #6 tabs tablet,extended release(part/cryst) (Klor-Con M) promethazine 25 mg rectal 25 mg AR Q6H PRN nausea and 09/17/24 suppository vomiting #12 ea Allergies Allergy/AdvReac Type Severity Reaction Status Date / Time No Known Allergies Allergy Verified 09/15/24 16:29 Review of Systems 2 Const: Denies: body aches ENMT: Denies: throat pain Card: Denies: chest pain or palpitations Resp: Denies: dyspnea or productive cough Musc: Denies: neck pain or back pain PFSH ED 2 PFSH: Medical History (Updated 09/24/24 @ 03:00 by Florencio Solis MD) Alcohol abuse, episodic drinking behavior Generalized anxiety disorder 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 Alcohol abuse, episodic Cannabis dependence, uncomplicated Depression Anxiety Surgical History S/P tonsillectomy S/P adenoidectomy Family History Mother Psychiatric illness Depression, anxiety Cancer Cervical Anemia Father Psychiatric illness Depression Brother Psychiatric illness Depression, anxiety Sister Psychiatric illness Depression, anxiety Grandmother Cancer Breast Social History Smoking and tobacco/nicotine status: never used tobacco/nicotine Second hand smoke exposure: Yes Alcohol intake: never Substance/Drug Use: former Adopted: No Caregiver/support person: Yes Lives independently: Yes Marital status: Single Number of children: 3 Number of grandchildren: 0 Highest education level completed: 11th Grade service: No Current occupational status: unemployed Current occupational exposures/hazards: No Physical Exam 2 Const: COMMON NORMALS: healthy appearing HENMT: COMMON NORMALS: normocephalic and atraumatic HEAD & SCALP: n ormocephalic and atraumatic Neck/C-Spine: COMMON NORMALS: full ROM and supple Resp: COMMON NORMALS: normal respiratory effort, No retractions and No use of accessory muscles Cardio: COMMON NORMALS: regular rate and regular rhythm RATE: regular rate RHYTHM: regular rhythm GI: COMMON NORMALS: Normal to inspection, nondistended, normoactive bowel sounds present, Soft to palpation and non-tender PALPATION: Yes Soft to palpation Extremity: COMMON NORMALS: normal to inspection and full ROM Course 2 Vital Signs: Vital signs: Vital Signs Temperature 98.3 F 09/24/24 00:34 Pulse Rate 94 09/24/24 00:34 Respiratory Rate 17 09/24/24 00:34 Blood Pressure 116/84 09/24/24 00:34 Pulse Oximetry 99 09/24/24 00:34 Oxygen Delivery Me thod Room Air 09/24/24 00:34 MDM - Nausea/Vomiting/Diarrhea Medical Decision Making On reassessment I talked to the patient but her test results. She tried ice chips and began to throw up almost immediately. I discussed the case with Dr. Grady who is on-call for her primary care doctor and they will admit for further workup and treatment of her hyperemesis gravidarum. Lab Data 09/24/24 00:45 09/24/24 00:45 Laboratory Results WBC 7.73 10^3/uL (3.29-11.43) 09/24/24 00:45 RBC 4.09 10^6/uL (3.85-5.65) 09/24/24 00:45 Hgb 12.40 g/dL (11.27-16.99) 09/24/24 00:45 Hct 33.7 % (36-47) L 09/24/24 00:45 MCV 82.4 fl (85-98) L 09/24/24 00:45 MCH 30.3 pg (27-33) 09/24/24 00:45 MCHC 36.8 g/dL (30-55) D 09/24/24 00:45 RDW 12.3 % (12.1-15.1) 09/24/24 00:45 Plt Count 362 10^3/cmm (157-399) 09/24/24 00:45 MPV 9.9 fL (7.4-10.4) 09/24/24 00:45 Neut % (Auto) 76.3 % 09/24/24 00:45 Lymph % (Auto) 15.8 % 09/24/24 00:45 [place] % (Auto) 7.2 % 09/24/24 00:45 Eos % (Auto) 0.1 % 09/24/24 00:45 Baso % (Auto) 0.3 % 09/24/24 00:45 Neut # (Auto) 5.90 10^3/uL (1.8-7.7) 09/24/24 00:45 Lymph # (Auto) 1.2 10^3/uL (0.8-4.8) 09/24/24 00:45 [place] # (Auto) 0.6 10^3/uL (0.2-0.9) 09/24/24 00:45 Eos # (Auto) 0.0 10^3/uL (0.0-0.8) 09/24/24 00:45 Baso # (Auto) 0.0 10^3/uL (0.0-0.1) 09/24/24 00:45 Nucleated RBC % (auto) 0 % 09/24/24 00:45 Nucleated RBCs # 0.0 /100WBC 09/24/24 00:45 Sodium 134 mmol/L (136-145) L 09/24/24 00:45 Potassium 3.1 mmol/L (3.5-5.1) L 09/24/24 00:45 Chloride 95 mmol/L (98-107) L 09/24/24 00:45 Carbon Dioxide 21 mmol/L (22-29) L 09/24/24 00:45 Anion Gap 21.1 (5-19) H 09/24/24 00:45 BUN 6 mg/dL (6-20) 09/24/24 00:45 Creatinine 0.4 mg/dL (0.5-0.9) L 09/24/24 00:45 GFR Calculation 197.8 mL/min (90-130) H 09/24/24 00:45 Glucose 101 mg/dL (65-115) 09/24/24 00:45 Calculated Osmolality 276 mOsm/kg (285-295) L 09/24/24 00:45 Calcium 10.0 mg/dL (8.5-10.5) 09/24/24 00:45 Total Bilirubin 0.6 mg/dL (0.15-1.2) 09/24/24 00:45 AST 13 U/L (0-32) 09/24/24 00:45 ALT 9 U/L (0-33) 09/24/24 00:45 Alkaline Phosphatase 65 U/L (35-105) 09/24/24 00:45 Total Protein 8.0 g/dL (6.6-8.7) 09/24/24 00:45 Albumin 5.0 g/dL (3.5-5.2) 09/24/24 00:45 Globulin 3.0 g/dL (1.3-4.6) 09/24/24 00:45 Urine Color Dark yellow (Yellow) A 09/24/24 01:52 Urine Appearance Cloudy (CLEAR) A 09/24/24 01:52 Urine pH 6.5 (5-7) 09/24/24 01:52 Ur Specific [place] 1.028 (1.005-1.030) 09/24/24 01:52 Urine Protein 2+ (Negative) A 09/24/24 01:52 Urine Glucose (UA) Negative (Normal) 09/24/24 01:52 Urine Ketones 4+ (Negative) 09/24/24 01:52 Urine Blood 2+ (Negative) A 09/24/24 01:52 Urine Nitrate Negative (Negative) 09/24/24 01:52 Urine Bilirubin Negative (Negative) 09/24/24 01:52 Urine Urobilinogen 1.0 mg/dL (Negative) 09/24/24 01:52 Ur Leukocyte Esterase Trace (Negative) A 09/24/24 01:52 Urine RBC 51-100 /hpf (0-2) H 09/24/24 01:52 Urine WBC 0-5 /hpf (0-5) 09/24/24 01:52 Ur Squamous Epith Cells 6-10 /hpf (0-5) 09/24/24 01:52 Amorphous Sediment Not Reportable 09/24/24 01:52 Urine Bacteria 1+ /hpf (NONE) H 09/24/24 01:52 Hyaline Casts 4.95 /lpf 09/24/24 01:52 No radiology studies performed this visit Discharge Plan Discharge Patient Disposition: Admitted As Inpatient Clinical Impression: Hyperemesis gravidarum Condition: Stable Coding Level of Care Code ED Bookkeeping Clerks Supervisor for Haseeb Phillips
[2024-09-24] MEDS: metoclopramide 5 mg/mL SDV 2 mL 10 MG IVP (01:53)
[2024-09-24] MEDS: diphenhydrAMINE 50 mg/mL SDV 1mL IVP (01:53)
[2024-09-24 02:00] VITALS: BP 131/91; PULSE 90; RESP 18; O2SAT 100
[2024-09-24 02:05] LABS: Glucose Urine UA Negative (Normal); Nitrate Urine Negative (Negative); Specific Gravity, Urine 1.028 (1.005-1.030)
[2024-09-24 02:10] LABS: Add Urine Microscopic? YES
[2024-09-24 02:30] VITALS: BP 109/72; PULSE 63; RESP 17; O2SAT 97
[2024-09-24 03:00] VITALS: BP 122/72; PULSE 69; RESP 17; O2SAT 98
[2024-09-24 04:14] VITALS: BP 126/82; PULSE 74; RESP 18; TEMP 36.4; O2SAT 98
[2024-09-24 05:13] VITALS: BMI 20.9
--- NOTE | 2024-09-24 07:41 | P.SS_ITS ---
Short Stay Summary Providers Date of Admit/Discharge: 09/25/24 Attending Provider: Tk Grady MD Primary Care Provider: Florencio Reza MD Chief Complaint: N/V Lower ABD cramping HPI History of Present Illness Tila Francis is a 24 year old G6, P3 female that presented to the ER due to intractable nausea and vomiting. Patient has been having difficulty with this over the last week and a half. Patient also reports that she has been having epigastric and lower abdominal pain and cramping. Patient states that she has been using promethazine and Zofran without success. The patient was given Reglan but states that she did not tolerate the medication due to side effects. Patient's had an ultrasound that showed a viable intrauterine . Patient does admit that she has been having trouble with moving her bowels and states that she takes stool softeners daily. Patient's last bowel movement was approximately 2 days ago. Patient states that her nausea is worse when she is trying to go to the bathroom. She denies any other specific aggravating factors. The patient tolerated clear liquids without any issues and had slept most of the day despite having some abdominal cramping. Patient was deemed safe for discharge at this time Review of Systems Const: Denies: body aches ENMT: Denies: throat pain Card: Denies: chest pain or palpitations Resp: Denies: dyspnea or productive cough Musc: Denies: neck pain or back pain Home Meds/Allergies Home Medications and Allergies Home Medications ?Medication ?Instructions ?Recorded ?Confirmed ?Type acetaminophen 325 mg tablet 650 mg PO QID PRN Fever Or Pain 03/30/24 09/24/24 History (Tylenol) vitamin with calcium 1 tab PO DAILY 09/19/24 09/24/24 History no.72-iron 27 mg-folic acid 1 mg tablet ( Vitamins Plus Low Iron) Allergies Allergy/AdvReac Type Severity Reaction Status Date / Time No Known Allergies Allergy Verified 09/15/24 16:29 PFSH Acute PFSH: Medical History (Updated 09/24/24 @ 03:00 by Florencio Solis MD) Alcohol abuse, episodic drinking behavior Generalized anxiety disorder 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 Alcohol abuse, episodic Cannabis dependence, uncomplicated Depression Anxiety Surgical History S/P tonsillectomy S/P adenoidectomy Family History Mother Psychiatric illness Depression, anxiety Cancer Cervical Anemia Father Psychiatric illness Depression Brother Psychiatric illness Depression, anxiety Sister Psychiatric illness Depression, anxiety Grandmother Cancer Breast Social History Smoking and tobacco/nicotine status: never used tobacco/nicotine Second hand smoke exposure: Yes Alcohol intake: never Substance/Drug Use: former Adopted: No Caregiver/support person: Yes Lives independently: Yes Marital status: Single Number of children: 3 Number of grandchildren: 0 Highest education level completed: 11th Grade service: No Current occupational status: unemployed Current occupational exposures/hazards: No Vitals/I&O/Wt Last Vital Signs Temp 97.5 F L 09/24/24 04:14 Pulse 74 09/24/24 04:14 Resp 18 09/24/24 04:14 BP 126/82 09/24/24 04:14 Pulse Ox 98 09/24/24 04:14 O2 Del Method Room Air 09/24/24 05:13 09/23/24 09/24/24 09/24/24 22:59 06:59 14:59 Intake Total 1000 / 1000 Balance 1000 / 1000 Weight last 48 hrs Weight 60.872 kg Weight 60.872 kg Physical Exam Narrative: The patient is alert. She appears comfortable. Her heart has a regular rate and rhythm with no murmurs appreciated. Lungs are clear to auscultation bilaterally. She has mild epigastric and suprapubic tenderness with no rebound or guarding SSS Data Data Completed and Pending: Pending at discharge Category Date Time Status Urine Culture Sta t Lab 09/24/24 01:52 Received Discharge Plan Discharge Patient Disposition: Home Condition: Stable Prescriptions: New polyethylene glycol 3350 17 gram Powder In Packet 17 g PO DAILY 0RF Continued acetaminophen [Tylenol] 325 mg Tablet 650 mg PO QID PRN (Reason: Fever Or Pain) metoclopramide HCl [Reglan] 10 mg tablet 10 mg PO Q6H PRN (Reason: nausea and vomiting) Qty: 20 0RF promethazine 25 mg suppository 25 mg HI Q6H PRN (Reason: nausea and vomiting) Qty: 12 0RF potassium chloride [Klor-Con M20] 20 mEq tablet,ER particles/crystals 20 meq PO BID Qty: 6 0RF Vitamin Plus Low Iron 27 mg iron- 1 mg tablet 1 tab PO DAILY Discharge Order = DC NOW: Discharge Order (Routine); Ordered 09/24/24 Ordered By: Tk Grady Referrals: Florencio Reza MD [Primary Care Provider, [facility]] Discharge Diet: Advance as tolerated Discharge Activity: Resume usual activity Patient Instructions: Polyethylene Glycol 3350 (By mouth), Hyperemesis Gravid arum (DC), Opioid Safety, OB Undelivered Discharge, Patient Portal & [place] Instructions Attestations Medical Necessity Statement*: Patient admitted for observation due to intractable nausea and vomiting. Time Spent in Patient Care*: less than 30 min Status at Discharge: Cognitive status at discharge: cognitively intact , Behavioral status at discharge: cooperative , Quality Metrics Clinical Quality Measures: [ No reported AMI, CVA or VTE this stay ] Coding Level of Care Code Acute Code for Chg Fwd
[2024-09-24] MEDS: polyethylene glycol 3350 Pkt 17 gm PO (08:43)
[2024-09-24 16:07] VITALS: BP 125/93; PULSE 69; RESP 18; TEMP 36.8; O2SAT 100
--- OUTSIDE RECORDS SUMMARY | 2024-09-24 17:19 | XMS_ITS | Data Portability ---
Author Organization [place] [facility], [facility] CampusDamianLINK [facility]ED[facility] Address [address] [address] Care Team Providers Care Multilith Operator Name Role Phone KHAI THRASHER Primary Care [...] Lab BMP, serum or plasma 2024 025 [facility], [address], [address], 05/08/2024 11:56:29 Referral None recorded. Procedures None recorded. Surgeries None recorded. Imaging US, obstetric , transvagi nal - [id number] 2024 025 [facility] [address] [place], [address], 03/30/2024 09:07:07 Medication Orders fluoxetin e 10 mg tablet 2024 07/08/2 025 [facility] [place], [facility] [place], [address], 09/23/2024 15:18:24 Patient TargetsNo targets recorded. Patient InstructionsNo instructions recorded. Reason for Referral None Reported. Results Created Date Observation Date Name Description Value Unit Range Abnormal Flag Note LastModifiedBy Organization Detail LastModifiedTime 05/08/19 25 05/08/2024 BMP (FEMA LE) glucose 78.0 mg/dL 60.0-9 9.0 Not Available [facility] [address] [facility] [address], [place], [address], 05/08/2024 11:56:29 05/08/19 25 05/08/2024 BMP (FEMA LE) BUN (blood urea nitrogen) 11.0 mg/dL 10.0-2 6.0 Not Available [facility] [address] [facility] 1, [place], [address], 05/08/2024 11:56:29 05/08/19 25 05/08/2024 BMP (FEMA LE) creatinine (serum) 0.6 mg/dL 0.4-1. 5 Not Available [facility] [address] [facility] 1, [place], [address], 05/08/2024 11:56:29 05/08/19 25 05/08/2024 BMP (FEMA LE) BUN/creatini ne ratio 18.33 ratio Not Available [facility] [address] [facility] [address], [place], [address], 05/08/2024 11:56:29 05/08/19 25 05/08/2024 BMP (FEMA LE) calcium 9.5 mg/dL 8.4-10 .5 Not Available [facility] [address] [facility] 1, [place], [address], 05/08/2024 11:56:29 05/08/19 25 05/08/2024 BMP (FEMA LE) sodium 140.0 mmol/ L 136.0- 145.0 Not Available [facility] [address] [facility], [place], [address], 05/08/2024 11:56:29 05/08/19 25 05/08/2024 BMP (FEMA LE) potassium 3.8 mmol/ L 3.5-5. 1 Not Available [facility] [address] [place] [facility] 1, [place], [address], 05/08/2024 11:56:29 05/08/19 25 05/08/2024 BMP (FEMA LE) chloride 103.0 mmol/ L 98.0-1 10.0 normal Not Available [facility] [address] [place] [facility] 1, [place], [address], 05/08/2024 11:56:29 05/08/19 25 05/08/2024 BMP (FEMA LE) C02 27.0 mmol/ L 22.0-3 1.0 Not Available [facility] [address] [place] [facility] 1, [place], [address], 05/08/2024 11:56:29 05/08/19 25 05/08/2024 BMP (FEMA LE) anion gap 10.0 calc Not Available [facility] [address] [place] [facility] 1, [place], [address], 05/08/2024 11:56:29 03/22/19 25 03/22/2024 US, maría tric, 1st trime ster, singl e gesta tion No observ ation record ed. [email or web address] [facility] [address] [facility] [place], [address], 03/26/2024 20:57:07 03/30/19 25 03/30/2024 US, obste tric, trans vagin al No observ ation record ed. [email or web address] [facility] [address] [place], [address], 04/07/2024 14:25:33 03/31/19 25 03/26/2024 imagi ng/di agnos tic resul t No observ ation record ed. [email or web address] Not Available 2024 15:50:58 Result Notes None recorded. Problems Name Problem SNOMED Code Status Onset Date Resolution Date Notes Provider Name and Address Organization Details Recorded Time Normal pregnanc y in multigra shawna 02027989204 4106 Completed 2022 Florencio Reza MD [address] [place] [address], [phone], [facility] 4 06:53:23 Normal pregnanc y in multigra shawna 30632548583 4106 Completed 202205/08/2024 KARY mckeon, [facility] 5 09:42:15 Disorder of menstrua tion 488621861 Completed 2022 Florencio Reza MD [address] [place] [address], [phone], [facility] 4 06:53:23 Blood group O Rh(D) negative 326667514 Completed 2022 received in Nov. per pt at [facility] Florencio Reza MD [address] [place] [address], [phone] 5, [facility] 4 06:53:23 Postpart um care Completed 202305/08/2024 KAYLA mckeon [facility] 5 00:31:26 Postpart um care Completed 2023 Florencio Reza MD [address] [place] [address], [phone] 5, [facility] 4 06:53:23 Mild intermit tent asthma 455226079 Active 2023 KARY CONN null, [facility] 5 09:41:58 Pregnanc y 18488783 Completed 202303/26/2024 IDALIA ASHLEY null, [facility] 5 09:47:40 Anxiety 18789971 Active 2024 KAYLA VALENTINE [facility] 5 00:31:22 History of alcohol use disorder Active 2024 KAYLA VALENTINE [facility] 5 00:31:40 Persiste nt depressi ve disorder 9220928041 Active 2024 KAYLA VALENTINE [facility] 5 00:32:06 Cannabis dependen ce 57327512 Active 2024 KAYLA VALENTINE [facility] 5 00:32:21 Problem Notes None recorded. Procedures Surgical History Date Name Laterality Status Provider Name and Address Organization Details Recorded Time 5 US scan of gallbladder completed KAYLA VALENTINE [facility] 09/22/2024 00:34:01 5 ultrasound scan - obstetric completed KAYLA VALENTINE [facility] 09/22/2024 00:38:17 tonsilectomy/ad enoids completed Anisa Gold [facility] 06/22/2023 12:37:22 Imaging Results None recorded. Procedure [...] tablet TAKE 1 TABLET BY MOUTH DAILY 09/23 completed Not Available Not Available Not Available potassium chloride ER 10 mEq tablet,ex [...] completed Not Available Not Available Not Available omeprazol e 10 mg capsule,d elayed release Take 1 capsule every day by oral route. active Not Available Not Available No t Available doxycycli ne monohydra te 100 mg [...] Not Available Not Available No t Available omeprazol e 20 mg capsule,d elayed release Take 1 capsule every day by oral route for 30 days. 2024 active Not Available Not Available Not Avai lable ondansetr on 4 mg disintegr ating tablet DISSOLVE 1 TABLET ON THE TONGUE THREE TIMES DAILY 2024 active Not Available Not Available Not Avai lable metoclopr amide 10 mg tablet TAKE 1 [...] and Address Organization Details Last Updated DateTime 167.64 cm 23.2 kg/m2 12666.5 1 g 99 % 99 % 84 /min 18 /min 98.2 [degF] 100/60 mm[Hg] TREBA NEUSCHWAN GABI [place] - [facility] 5 10:04:59 Date Recorded Body height Body mass index (BMI) Body weight Oxygen saturation Oxygen saturation in Arterial blood by Pulse oximetry Heart rate Respiratory rate Body temperature Systolic And Diastolic Provider Name and Address Organization Details Last Updated DateTime 5 167.64 cm 22.5 kg/m2 14211.4 4 g 99 % 99 % 79 /min 18 /min 98.3 [degF] 100/58 mm[Hg] IDALIA CACERES [facility], LDamianLDamianCDamian 5 11:37:11 Date Recorded Body height Body mass index (BMI) Body weight Respiratory rate Heart rate Oxygen saturation Oxygen saturation in Arterial blood by Pulse oximetry Body temperature Systolic And Diastolic Provider Name and Address Organization Details Last Updated DateTime 5 167.64 cm 23.4 kg/m2 05931.8 9 g 16 /min 68 /min 98 % 98 % 97.9 [degF] 126/70 mm[Hg] KARY CONN [facility] 5 10:52:20 Date Recorded Body height Body mass index (BMI) Body weight Heart rate Oxygen saturation Oxygen saturation in Arterial blood by Pulse oximetry Body temperature Systolic And Diastolic Provider Name and Address Organization Details Last Updated DateTime 5 167.64 cm 21.6 kg/m2 88337.3 8 g 101 /min 99 % 99 % 98 [degF] 100/60 mm[Hg] SERGE LOPEZ [facility] 5 12:48:45 Social History Question Answer Notes LastModified by Organizat ion Details LastModified Time Tobacco Smoking Status Never Smoker KARY CONN [facility], L.LDamianCDamian 10/25/2022 09:41:24 What Is Your Relationship Status? Domestic Partner Information not available 10/25/2022 Are You Sexually Active? Yes samaritan Information not available 10/25/2022 Sex: Unknown Functional Status Question Answer Note LastModified by Organizat ion Details LastModified Time Do you use any illicit or recreational drugs? No Information not available 10/25/2022 Do you or have you ever used any other forms of tobacco or nicotine? Yes Information not available 10/25/2022 What is your level of alcohol consumption? None samaritan Information not available 10/25/2022 Are you able to care for yourself? Yes samaritan Information not available 10/25/2022 Do you or have you ever used e-cigarettes or vape? Current user of electronic cigarettes bhausten riggs [email or web address] Information not available 10/25/2022 Mental Status None [...] Recorded Time MMR 3 completed KARY mckeon [facility], JoseLDamianCDamian 10/25/2022 09:38:53 MMR 6 petar mckeon [facility], [place] 10/25/2022 09:38:53 COVID-19, mRNA, LNP-S, PF, 100 mcg/0.5mL dose or 50 mcg/0.25mL dose 2 completed KARY mckeon [facility], [place] 10/25/2022 09:38:53 DTaP-IPV 6 petar mckeon [facility], JoseLTrina 10/25/2022 09:38:53 Tdap 0 completed KARY mckeon [facility] [place] 10/25/2022 09:38:53 Tdap 3 completed KARY SENIA null, [facility] 10/25/2022 09:38:53 varicella 6 completed KARY SENIA null, [facility] 10/25/2022 09:38:53 Hep B, unspecified formulation 3 completed KARY SENIA null, [facility] 10/25/2022 09:38:53 Hep B, unspecified formulation 2 completed KARY SENIA null, [facility] 10/25/2022 09:38:53 Hep B, unspecified formulation 2 completed KARY MALLOYY null, [facility] 10/25/2022 09:38:53 pneumococcal, unspecified formulation 3 completed KARYKVNG MALLOYY null, [facility] 10/25/2022 09:38:53 pneumococcal, unspecified formulation 2 completed KARY SENIA null, [facility] 10/25/2022 09:38:53 pneumococcal, unspecified formulation 2 completed KARY MALLOYY null, [facility] 10/25/2022 09:38:53 pneumococcal, unspecified formulation 3 completed KARYKVNG MALLOYY null, [facility] 10/25/2022 09:38:53 polio, unspecified formulation 3 completed KARYKVNG MALLOYY null, [facility] 10/25/2022 09:38:53 TWnU-Zfo-GUL 2 completed KARY MALLOYY null, [facility] 10/25/2022 09:38:53 WPoB-Dzw-PMS 2 completed KARY mckeon, [facility] 10/25/2022 09:38:53 meningococcal MCV4P 8 completed KARY mckeon, [facility] 10/25/2022 09:38:53 DTaP-Hib 3 completed KARY mckeon, [facility] 10/25/2022 09:38:53 DTaP-Hib 3 completed KARY mckeon, [facility] 10/25/2022 09:38:53 RSV, bivalent, protein subunit RSVpreF, diluent reconstituted, 0.5 mL, PF 3 completed KARY mckeon, [facility] 03/09/2023 10:10:40 Tdap 3 completed KARY mckeon, [facility] 03/09/2023 10:10:40 Past Encounters Encounter ID Performer Location Encounter Start Date Encounter Closed Date Diagnosis/Indication Diagnosis SNOMED-CT Code Diagnosis ICD10 Code Diagnosis Note [id number] JACKY VILLAGOMEZ [facility] [address] [place] [id number] 5 07/10/2022 16:29:58 07/10/2022 21:10:44 Missed period 03832228 N92.5 test positive 564804975 Z32.01 [id number] JACKY VILLAGOMEZ [facility]) [address] [place] [phone] 5 07/17/2022 13:12:37 07/22/2022 07:42:50 Stomach cramps 41856911 R10.9 Abnormal u terine bleeding 4592543090 9100 N93.9 [id number] Florencio Reza MD [facility]) [address] [place] [id number] 5 07/28/2022 13:29:01 07/28/2022 20:13:04 Miscarriage without complication 47817603 O03.9 Urgent jarocho chon to urinate 00886869 R39.15 [id number] JACKY VILLAGOMEZ [facility]) [address] [place] [id number] 5 09/13/2022 16:01:25 09/13/2022 16:49:18 test positive 878288663 Z32.01 Nausea and vomiting 1693 1999 R11.2 [id number] Florencio Reza MD [facility]) [address] [place] [id number] 5 10/25/2022 09:22:09 10/25/2022 19:04:09 Normal in multigravida 0639597057 54862 Z34.80 Disorder o f menstruation 597680735 N92.6 [id number] Florencio Reza MD [facility]) [address] [place] [id number] 5 10/30/2022 10:27:38 10/30/2022 19:48:29 [id number] Florencio Reza MD [facility]) [address] [place] [id number] 5 11/09/2022 14:00:38 11/09/2022 18:42:15 Normal in multigravida 6983200995 26248 Z34.80 Gestation period, 14 weeks 47401674 Z3A.14 Normal pre gnancy in primigravida 4486937689 00493 Z34.80 [id number] Florencio Reza MD [facility]) [address] [place] [id number] 5 12/07/2022 10:48:16 12/07/2022 13:20:55 Multigravida 700173446 Z34.82 Gestation period, 19 weeks 08459462 Z3A.19 Mild inter mittent asthma 896431974 J45.20 [id number] Florencio Reza MD [facility]) [address] [place] [address] [id number] 5 01/02/2023 14:44:10 01/02/2023 17:02:15 [id number] Florencio Reza MD [facility]) [address] [place] [address] [id number] 5 01/04/2023 09:45:37 01/04/2023 10:34:57 Normal in multigravida 0254414225 18193 Z34.80 Gestation period, 23 weeks 44351710 Z3A.23 Mild inter mittent asthma 258527577 J45.20 [id number] Florencio Reza MD [facility]) [address] [place] [id number] 5 02/01/2023 09:42:00 02/01/2023 13:31:04 Normal in multigravida 7332408302 31132 Z34.80 [id number] Florencio Reza MD [facility]) [address] [place] [address] [id number] 5 02/22/2023 09:47:23 02/22/2023 12:57:02 Normal in multigravida 7070736121 08908 Z34.83 Gestation period, 30 weeks 15343028 Z3A.30 Multigravida 782273198 Z 34.82 [id number] Florencio Reza MD [facility]) [address] [place] [id number] 5 02/27/2023 09:02:08 02/27/2023 15:11:02 [id number] Florencio Reza MD [facility]) [address] [place] [id number] 5 03/09/2023 09:55:11 03/09/2023 15:03:28 Normal in multigravida 9244882368 66988 Z34.83 Gestation period, 32 weeks 2921051 Z3A.32 Acute low back pain 2788 29962 M54.50 [id number] Florencio Reza MD [facility]) [address] [place] [id number] 5 03/22/2023 10:37:42 03/22/2023 12:18:08 Normal in multigravida 8078284522 44396 Z34.83 Gestation period, 34 weeks 85267979 Z3A.34 Mild inter mittent asthma 534485032 J45.20 [id number] Florencio Reza MD [facility]) [address] [place] [id number] 5 04/05/2023 09:50:00 04/05/2023 11:47:02 Normal in multigravida 5689196441 25646 Z34.83 Gestation period, 36 weeks 45642388 Z3A.36 Restless legs 22312483 G 25.81 [id number] Florencio Reza MD [facility]) [address] [place] [address] [id number] 5 04/12/2023 14:52:22 04/14/2023 22:34:17 Normal in multigravida 3770184549 61785 Z34.83 Gestation period, 37 weeks 93703695 Z3A.37 [id number] Florencio Reza MD [facility]) [address] [place] [id number] 5 05/24/2023 09:54:20 05/24/2023 15:28:39 care 933696175 Z39.2 Vaginal discharge 186403 006 N89.8 [id number] JACKY DIAZ [facility]) [address] [place] [id number] 5 06/22/2023 12:30:39 06/22/2023 13:00:28 Acute viral pharyngitis 895445092 J02.9 Rapid strep negative.P ush cold oral fluids including Popsicles. Alternate tylenol/mo jerry for fever or discomfort .May use throat lozenges, chlorasept ic spray, or saltwater gargles.If you develop worsening symptoms such as unable to swallow, persistant fever, or concerns arise then return for re-eval. [id number] Rigoberto Gatica MD [facility]) [address] [place] [id number] 5 08/02/2023 13:35:00 08/02/2023 14:42:36 Increased frequency of urination 426327097 R35.0 Vaginal discharge 721566 006 N89.8 [id number] Tk Grady MD [facility]) [address] [place] [id number] 5 01/03/2024 10:39:49 01/03/2024 17:40:34 Mild intermittent asthma 839906858 J45.20 Viral uppe r respiratory tract infection 774537065 J06.9 Patient presented with symptoms of viral [...] in 7-10 days if symptoms not improving. [id number] Florencio Reza MD [facility]) [address] [place] [id number] 5 02/29/2024 09:04:40 02/29/2024 10:22:39 Normal in multigravida 7128317955 60990 Z34.83 Disorder o f menstruation 115330743 N92.6 [id number] Florencio Reza MD [facility]) [address] [place] [id number] 5 03/26/2024 09:27:57 03/26/2024 15:13:58 Miscarriage 16013035 O03.9 [id number] Florencio Reza MD [facility]) [address] [place] [address] [id number] 5 03/26/2024 10:33:12 03/27/2024 14:09:17 First trimester bleeding 7464133193 600619 O46.91 [id number] Florencio Reza MD [facility]) [address] [place] [address] [id number] 5 04/01/2024 11:04:29 04/01/2024 13:56:26 Postoperative care 908678816 Z48.89 Retained p roducts after miscarriage 257365713 O03.4 Resolved [id number] Florencio Reza MD [facility]) [address] [place] [id number] 5 05/08/2024 10:36:40 05/08/2024 11:15:51 care 070629136 Z39.2 Anxiety 40052092 F41.9 Hypokalemia 79886809 E87 .6 [id number] JACKY DAVIDSON [facility]) [address] [place] [address] [id number] 5 09/23/2024 12:25:39 09/23/2024 14:16:27 Morning sickness 41082009 O21.0 Lower abdominal pain 545 28971 R10.30 Health Concerns Section Related Observation LastModified by Organization Detai ls LastModified Time None Recorded Concern Status LastModified by Organization Details LastModified Time None Recorded Advance Directives Directive None Recorded Payers Insurance Date Sequence Insurance Name Policy Number Policy Dodd Covered Member ID Dodd Member ID Guarantor Name 09/20/2024 1 [place] - [place]MO) [id number] Tila Francis [id number] Tila Francis Notes Date Note Type Note Provider Name and Address Organization Details Recorded Time 03/26/2024 text/html ER follow up for Miscarriage, pt states she is having horrible back and abdominal pain, nausea,vomiting unable to keep anything down that she eats, Pt states she has not had any bleeding since leaving the hospital, she feels like she has not passed everything Pt states she feels like her heart is racing and is having chest pain. Florencio Reza MD [address] [place] [address], [phone], [facility] [place] 03/28/2024 12:33:31 04/01/2024 text/html Post-OpReported bypatient.Onset/T iming:date of surgery: (03/27/24) Quality:procedure : (D&C) Context:preoperat milan diagnosis: (missed miscarriage) Associated Symptoms:normal appetite; no constipation; no nausea; no emesis; pain improving; no fever;fatigue;brittanie n 03/28;bleeding(dec reasing);diarrhea Florencio Reza MD [address] [place] [address], [phone], [facility] 04/01/2024 12:09:28 05/08/2024 text/html Post-OpReported bypatient.Onset/T iming:date of surgery: (03/27/24) Quality:procedure : (D&C) Context:preoperat milan diagnosis: (missed miscarriage) Associated Symptoms:no fatigue; normal appetite; no constipation; no nausea; no emesis; pain improving; no pain; no fever; no lower extremity edema/pain; no diarrhea;bleeding pt started her menses on 04/19/24 and it last until yesterday.Pt has had some anxiety, but feels in the last week she may be doing some better Florencio Reza MD [address] [place] [address], [phone], [facility] 05/08/2024 11:14:49 OBGyn Episode Ob Episode Information Episode Created Date Number of Fetuses Patient Bloodtype Patient rh Status Prepregnancy Weight lbs Domestic Partner Domestic Partner Phone Father Name Thermoscrew Operator Status 10/26/19 23 1 O Negative Osbaldo [...] Code Not e Normal in multigravida 10/25/2022 881337441018985 Blood group O Rh(D) negative 11/09/2022 [id number] received in Nov . per pt at [facility] Disorder of menstruation 10/25/2022 098417098 care 05/24/2023 [id number] Suzanne Calculation Initial Suzanne Date Initial Exam [...] Gestation 0 0 Pre-tom Flowsheet Flowsheet Date 10/25/2022 Fabian Score Blood Edema Fundus Height Fundus Units Glucose Ketones Leukocytes Nitrite Labor Signs Protein Cervic Dilation Cervic Effacement Cervic Station Type Weight in lbs Pre/Post Dialysis Refused Weight 135.39886112730 BP Diastolic BP Location Tested BP Systolic [...] Weight in lbs Pre/Post Dialysis Refused Weight 135.328686053515 BP Diastolic BP Location Tested BP Systolic [...] Weight in lbs Pre/Post Dialysis Refused Weight 136.928180668063 BP Diastolic BP Location Tested BP Systolic [...] Weight in lbs Pre/Post Dialysis Refused Weight 140.524271571409 BP Diastolic BP Location Tested BP Systolic [...] Weight in lbs Pre/Post Dialysis Refused Weight 145.410817254904 BP Diastolic BP Location Tested BP Systolic BP Type 60 112 sitting Fetus Heart Rate Present A 142 Present Fetus Movement A Yes Comments N/V, headache, dizziness, RL Q pain, pelvic pain, sciatic and low back pain with shooting pain down both legs, occasional numbness in feet, glucose done today and order sent to [facility] for rhogram injection , Flowsheet Date 02/22/2023 Fabian Score Blood Edema Fundus Height Fundus Units Glucose Ketones Leukocytes Nitrite Labor Signs Protein Cervic Dilation Cervic Effacement Cervic Station none none Negative trace Type Weight in lbs Pre/Post Dialysis Refused Weight 147.111234729020 BP Diastolic BP Location Tested BP Systolic [...] Weight in lbs Pre/Post Dialysis Refused Weight 149.743821807226 BP Diastolic BP Location Tested BP Systolic [...] Weight in lbs Pre/Post Dialysis Refused Weight 150.097154925444 BP Diastolic BP Location Tested BP Systolic [...] Weight in lbs Pre/Post Dialysis Refused Weight 152.532711906389 BP Diastolic BP Location Tested BP Systolic [...] Weight in lbs Pre/Post Dialysis Refused Weight 155.259302772977 BP Diastolic BP Location Tested BP Systolic [...] Weight in lbs Pre/Post Dialysis Refused Weight 136.197966875391 BP Diastolic BP Location Tested BP Systolic BP Type 60 102 Fetus Heart Rate Present Fetus Movement Comments Menstrual History Last Menstrual Date Menses Monthly On Bcp Conception Prior Menses Frequency Hcg Plus Date Menarche Onset Age Genetic Screening And Infection History Question Response Note Patient's Age Will Be 35 Yea rs Or Older At Estimated Date of Delivery false Thalassemia (Honduran, Frisian, Mediterranean, Or Background): MCV < 80 false Neural Tube Defect (Meningomyelocele, Spina Bifi da, Or Anencephaly) false Congenital Heart Defect false Down Syndrome false Albert-Sachs (eg, Pentecostal, Cajun, Burundian-Jamaican) f alse Marino Disease false Sickle Cell Disease Or Trait () false Hemophilia Or Other Blood Disorders false Muscular Dystrophy false Cystic Fibrosis false Austin's Chorea false Intellectual Disability/Autism false If Yes, [...] Complications Tubal Sterilization Discharge Date Comments 4 [facility] 24.2 false Florencio Reza MD None Discharge Information Feeding Method Contraceptive Method Maternal HG B and HCT Levels Breast Ob Episode Information Episode Created Date Number of Fetuses Patient Bloodtype Patient rh Status Prepregnancy Weight lbs Domestic Partner Domestic Partner Phone Father Name Thermoscrew Operator Status 05/24/19 24 1 CLOSED Fetus Data [...] Complications [facility] Discharge Information Feeding Method Contraceptive Method Maternal HG B and HCT Levels Ob Episode Information Episode Created Date Number of Fetuses Patient Bloodtype Patient rh Status Prepregnancy Weight lbs Domestic Partner Domestic Partner Phone Father Name Thermoscrew Operator Status 02/29/20 24 1 Osbaldo Eddy CLOSED [...] Weight in lbs Pre/Post Dialysis Refused Weight [id number] BP Diastolic BP Location Tested BP Systolic BP Type 84 122 Fetus Heart Rate Present Fetus Movement Comments Flowsheet Date 03/26/2024 Fabian Score Blood Edema Fundus Height Fundus Units Glucose Ketones Leukocytes Nitrite Labor Signs Protein Cervic Dilation Cervic Effacement Cervic Station Type Weight in lbs Pre/Post Dialysis Refused Weight 143.278143204360 BP Diastolic BP Location Tested BP Systolic [...] Domestic Partner Domestic Partner Phone Father Name Thermoscrew Operator Status 07/29/19 23 1 CLOSED Fetus Data [...] Domestic Partner Domestic Partner Phone Father Name Thermoscrew Operator Status 07/29/19 23 1 CLOSED Fetus Data [...] Complications Tubal Sterilization Discharge Date Comments [facility] Discharge Information Feeding Method Contraceptive Method Maternal HG B and HCT Levels Ob Episode Information Episode Created Date Number of Fetuses Patient Bloodtype Patient rh Status Prepregnancy Weight lbs Domestic Partner Domestic Partner Phone Father Name Thermoscrew Operator Status 07/29/19 1 CLOSED Fetus Data First [...]
--- OUTSIDE RECORDS SUMMARY | 2024-09-24 17:20 | XMS_ITS | Clinical Summary ---
Author Organization [facility] Address [address] [place] [address] Care Team Providers Care Postpartum Nurse Name Role Phone Unavailable Primary Care Provider [...] on file Legal Sex Female 1:36 PM SAS ADMINISTRATOR Gender Identity Not on file Sexual Orientation Not on file Last Filed Vital Signs Vital Sign Reading Time Taken Comments Blood Pressure 101/55 02/15/2012 1:58 PM SAS ADMINISTRATOR Pulse 94 02/15/2012 1:58 PM SAS ADMINISTRATOR Temperature - - Respiratory Rate - - Oxygen Saturation - - Inhaled Oxygen Concentration - - Weight 30.8 kg (68 lb) 02/15/2012 1:58 PM SAS ADMINISTRATOR Height 139.7 cm (4' 7 ) 02/15/2012 1:58 PM SAS ADMINISTRATOR Body Mass Index 15.8 02/15/2012 1:58 PM SAS ADMINISTRATOR Plan of Treatment Health Maintenance Due Date Last Done Comments CHLAMYDIA SCREENING (ANNUAL) 11-24 YEARS 2012 HPV VACCINES (1 - 3-dose series) 2016 DTAP/TDAP/TD VACCINES (1 - Tdap) 2020 HEPATITIS B VACCINES (1 of 3 - 19+ 3-dose series) 07/17 CERVICAL CANCER SCREENING 2022 HPV/Cotest (21-29) 2022 PAP SMEAR 2022 INFLUENZA VACCINE (#1) 2024 [place]
== END 2024-09-24 14:53 | disposition home or self-care (01) ==
LOC: ER 03:00 → OBGYN 05:32
PROVIDERS: Admitting Provider Family Medicine; Emergency Provider Emergency Medicine; PCP Family Medicine; Visit Provider Family Medicine
DX: O21.9 Vomiting of pregnancy, unspecified (principal); Z3A.08 8 weeks gestation of pregnancy
CPT/HCPCS: 80053; 81001; 85025; 87086; 96361; 96374; 96375; 99285; G0378; J1200; J2405; J2765; J7030; J7121; J9999

== ENCOUNTER 2024-09-25 11:26 | Emergency (ER) | payer BC, MEDICAID, SELFPAY ==
--- OUTSIDE RECORDS SUMMARY | 2024-09-25 11:33 | XMS_ITS | Clinical Summary ---
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 Gender Identity Not on file Sexual Orientation Not on file Last Filed Vital Signs Vital Sign Reading Time Taken Comments Blood Pressure 101/55 02/15/2012 1:58 PM RAIL CAR WELDER Pulse 94 02/15/2012 1:58 PM RAIL CAR WELDER Temperature - - Respiratory Rate - - Oxygen Saturation - - Inhaled Oxygen Concentration - - Weight 30.8 kg (68 lb) 02/15/2012 1:58 PM RAIL CAR WELDER Height 139.7 cm (4' 7 ) 02/15/2012 1:58 PM RAIL CAR WELDER Body Mass Index 15.8 02/15/2012 1:58 PM RAIL CAR WELDER Plan of Treatment Health Maintenance Due Date Last Done Comments CHLAMYDIA SCREENING (ANNUAL) 11-24 YEARS 2012 HPV VACCINES (1 - 3-dose series) 2016 DTAP/TDAP/TD VACCINES (1 - Tdap) 2020 HEPATITIS B VACCINES (1 of 3 - 19+ 3-dose series) 07/17 CERVICAL CANCER SCREENING 2022 HPV/Cotest (21-29) 2022 PAP SMEAR 2022 INFLUENZA VACCINE (#1) 2024 Insurance [place]
--- OUTSIDE RECORDS SUMMARY | 2024-09-25 11:33 | XMS_ITS | Patient Health Record ---
Author Organization [facility] Address [address] [place] [address] Care Team Providers Care Accounts Payables Clerk Name Role Phone Ashish Rafat Primary Care [...] End Date [employer] Medicaid [address] [address] [place] [address] [id number] Tila Francis Self - [facility] is the [facility] [address] [place] [address] [id number] Tila Francis Self - patient is the insured
[2024-09-25 11:43] VITALS: BP 114/72; PULSE 82; RESP 18; TEMP 36.9; O2SAT 100; BMI 20.9
--- NOTE | 2024-09-25 12:28 | ED_ITS ---
HPI - 2 General: Chief complaint: Abdominal Pain Stated complaint: lower abdominal pain 7 wk preg Time Seen by Provider: 09/25/24 11:49 History of Present Illness: 24-year-old G6, P3 female at approximate ly 7 weeks gestation was discharged yesterday from [facility] for persistent nausea vomiting abdominal cramping. This is her fourth ER visit this month. She has had 2 hospitalizations this month for the same presentation. States she has been constipated as well. She denies any vaginal bleeding or discharge no dysuria urgency or frequency she was taking stool softeners with constipation was discharged home on MiraLAX she states she still has not had a bowel movement no fever sweats or chills. Associated symptoms: Deny abdominal pain or dysuria Related Data Home Medications ?Medication ?Instructions ?Recorded ?Confirmed acetaminophen 325 mg tablet 650 mg PO QID PRN Fever Or Pain 03/30/24 09/25/24 (Tylenol) vitamin with calcium 1 tab PO DAILY 09/19/24 09/25/24 no.72-iron 27 mg-folic acid 1 mg tablet ( Vitamins Plus Low Iron) omeprazole 20 mg capsule,delayed 20 mg PO DAILY 09/25/24 release ondansetron 4 mg disintegrating 4 mg PO TID 09/25/24 0 09/25/24 tablet Previous Rx's ?Medication ?Instructions ?Recorded promethazine 25 mg rectal 25 mg IL Q6H PRN nausea and 09/17/24 suppository vomiting #12 ea polyethylene glycol 3350 17 gram 17 g PO DAILY 5 oral powder packet lactulose 10 gram/15 mL oral 30 ml PO Q2H PRN constipa tion 72 09/25/24 solution (Generlac) hours #1,080 mL potassium chloride 20 mEq 20 meq PO BID #10 tabs 09/25 tablet,extended release (K-Tab) Allergies Allergy/AdvReac Type Severity Reaction Status Date / Time No Known Allergies Allergy Verified 09/15/24 16:29 Review of Systems 2 Const: Denies: fever(s) or chills Card: Denies: chest pain Resp: Denies: dyspnea GI: Denies: abdominal pain : Denies: dysuria, urinary frequency or urinary urgency Musc: Denies: neck pain or back pain Skin/Breast: Denies: rash PFSH ED 2 PFSH: Medical History Alcohol abuse, episodic drinking behavior Generalized anxiety disorder 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 Alcohol abuse, episodic Cannabis dependence, uncomplicated Depression Anxiety Surgical History S/P tonsillectomy S/P adenoidectomy Family History Mother Psychiatric illness Depression, anxiety Cancer Cervical Anemia Father Psychiatric illness Depression Brother Psychiatric illness Depression, anxiety Sister Psychiatric illness Depression, anxiety Grandmother Cancer Breast Social History Smoking and tobacco/nicotine status: never used tobacco/nicotine Second hand smoke exposure: Yes Alcohol intake: never Substance/Drug Use: former Adopted: No Caregiver/support person: Yes Lives independently: Yes Marital status: Single Number of children: 3 Number of grandchildren: 0 Highest education level completed: 11th Grade service: No Current occupational status: unemployed Current occupational exposures/hazards: No Physical Exam 2 Const: GENERAL APPEARANCE: cooperative ORIENTATION/CONSCIOUSNESS: Yes awake, Yes oriented to person, Yes oriented to place and Yes oriented to time HENMT: COMMON NORMALS: normocephalic, atraumatic and hearing grossly normal bilaterally HEAD & SCALP: normocephalic and atraumatic Resp: COMMON NORMALS: normal respiratory effort, No retractions, No use of accessory muscles and clear to auscultation bilaterally AUSCULTATION: clear to auscultation bilaterally Cardio: COMMON NORMALS: regular rate, regular rhythm and No murmurs present (Cardio) RATE: regular rate RHYTHM: regular rhythm GI: COMMON NORMALS: Soft to palpation and No hepatosplenomegaly present A USCULTATION: Yes normoactive bowel sounds PALPATION: Yes Soft to palpation, No Tenderness to palpation present (GI), No Guarding due to palpation present (GI) and Yes No hepatosplenomegaly present Extremity: COMMON NORMALS: normal to inspection, capillary refill normal, no clubbing, cyanosis or edema, no calf tenderness and no pedal edema Neuro: SENSORIUM/ORIENTATION: Yes oriented to person, Yes oriented to place and Yes oriented to time Skin: COMMON NORMALS: no rashes or lesions noted GENERAL SKIN EXAM: no rashes or lesions noted Course 2 Vital Signs: Vital signs: Vital Signs Temperature 98.4 F 09/25/24 11:43 Pulse Rate 83 09/25/24 15:13 Respiratory Rate 14 09/25/24 15:13 Blood Pressure 103/65 09/25/24 15:13 Pulse Oximetry 99 09/25/24 15:13 Oxygen Delivery Me thod Room Air 09/25/24 15:00 MDM - OB/Uterine Contractions Medical Decision Making Patient has hypokalemia in which she was given oral replacement for discharge home with oral supplement. Additionally she has constipation. Reviewing the chart and talking to her send really probably been. She been on MiraLAX which I did minimal stimulation she has not really taken any laxatives prior to that she been on Colace [id number] we will discharge her home on lactulose. Her beta-hCG is Medical Records I reviewed the patient's medical records. Lab Data I reviewed the patient's lab results. 09/25/24 11:58 09/25/24 11:58 Laboratory Results WBC 5.79 10^3/uL (3.29-11.43) 09/25/24 11:58 RBC 3.68 10^6/uL (3.85-5.65) L 09/25/24 11:58 Hgb 10.90 g/dL (11.27-16.99) L 09/25/24 11:58 Hct 32.3 % (36-47) L 09/25/24 11:58 MCV 87.8 fl (85-98) 09/25/24 11:58 MCH 29.6 pg (27-33) 09/25/24 11:58 MCHC 33.7 g/dL (30-55) 09/25/24 11:58 RDW 12.5 % (12.1-15.1) 09/25/24 11:58 Plt Count 290 10^3/cmm (157-399) 09/25/24 11:58 MPV 10.1 fL (7.4-10.4) 09/25/24 11:58 Neut % (Auto) 78.4 % 09/25/24 11:58 Lymph % (Auto) 16.2 % 09/25/24 11:58 Sampson % (Auto) 4.7 % 09/25/24 11:58 Eos % (Auto) 0.0 % 09/25/24 11:58 Baso % (Auto) 0.5 % 09/25/24 11:58 Neut # (Auto) 4.54 10^3/uL (1.8-7.7) 09/25/24 11:58 Lymph # (Auto) 0.9 10^3/uL (0.8-4.8) 09/25/24 11:58 Sampson # (Auto) 0.3 10^3/uL (0.2-0.9) 09/25/24 11:58 Eos # (Auto) 0.0 10^3/uL (0.0-0.8) 09/25/24 11:58 Baso # (Auto) 0.0 10^3/uL (0.0-0.1) 09/25/24 11:58 Nucleated RBC % (auto) 0 % 09/25/24 11:58 Nucleated RBCs # 0.0 /100WBC 09/25/24 11:58 Sodium 135 mmol/L (136-145) L 09/25/24 11:58 Potassium 2.8 mmol/L (3.5-5.1) L* 09/25/24 11:58 Chloride 97 mmol/L (98-107) L 09/25/24 11:58 Carbon Dioxide 24 mmol/L (22-29) 09/25/24 11:58 Anion Gap 16.8 (5-19) 09/25/24 11:58 BUN 3 mg/dL (6-20) L 09/25/24 11:58 Creatinine 0.5 mg/dL (0.5-0.9) 09/25/24 11:58 GFR Calculation 152.9 mL/min (90-130) H 09/25/24 11:58 Glucose 77 mg/dL (65-115) 09/25/24 11:58 Calculated Osmolality 275 mOsm/kg (285-295) L 09/25/24 11:58 Calcium 9.2 mg/dL (8.5-10.5) 09/25/24 11:58 Magnesium 1.8 mg/dL (1.7-2.3) 09/25/24 11:58 Total Bilirubin 0.5 mg/dL (0.15-1.2) 09/25/24 11:58 AST 10 U/L (0-32) 09/25/24 11:58 ALT 8 U/L (0-33) 09/25/24 11:58 Alkaline Phosphatase 55 U/L (35-105) 09/25/24 11:58 Total Protein 7.0 g/dL (6.6-8.7) 09/25/24 11:58 Albumin 4.4 g/dL (3.5-5.2) 09/25/24 11:58 Globulin 2.6 g/dL (1.3-4.6) 09/25/24 11:58 HCG, Qual Positive (Negative) H 09/25/24 11:58 Ser , Semi-Qnt 45572.00 mIU/mL 09/25/24 11:58 Urine Color Yellow (Yellow) 09/25/24 12:35 Urine Appearance Cloudy (CLEAR) A 09/25/24 12:35 Urine pH 7.5 (5-7) 09/25/24 12:35 Ur Specific [place] 1.034 (1.005-1.030) H 09/25/24 12:35 Urine Protein 1+ (Negative) A 09/25/24 12:35 Urine Glucose (UA) Negative (Normal) 09/25/24 12:35 Urine Ketones 4+ (Negative) 09/25/24 12:35 Urine Blood 2+ (Negative) A 09/25/24 12:35 Urine Nitrate Negative (Negative) 09/25/24 12:35 Urine Bilirubin Negative (Negative) 09/25/24 12:35 Urine Urobilinogen 1.0 mg/dL (Negative) 09/25/24 12:35 Ur Leukocyte Esterase Negative (Negative) 09/25/24 12:35 Urine RBC 21-50 /hpf (0-2) H 09/25/24 12:35 Urine WBC 0-5 /hpf (0-5) 09/25/24 12:35 Ur Squamous Epith Cells 6-10 /hpf (0-5) 09/25/24 12:35 Amorphous Sediment Not Reportable 09/25/24 12:35 Urine Bacteria 1+ /hpf (NONE) H 09/25/24 12:35 Hyaline Casts 4.52 /lpf 09/25/24 12:35 All radiology interpretation(s) finalized by discharge Discharge Plan Discharge Patient Disposition: Home Clinical Impression: Constipation, Acute hypokalemia Condition: Stable Prescriptions: New lactulose [Generlac] 10 gram/15 mL solution 30 ml PO Q2H PRN (Reason: constipation) 3 Days Qty: 1080 0RF Rx Instructions: until desired laxative effect potassium chloride [K-Tab] 20 mEq tablet extended release 20 meq PO BID Qty: 10 0RF No Action acetaminophen [Tylenol] 325 mg Tablet 650 mg PO QID PRN (Reason: Fever Or Pain) promethazine 25 mg suppository 25 mg IL Q6H PRN (Reason: nausea and vomiting) Qty: 12 0RF Vitamin Plus Low Iron 27 mg iron- 1 mg tablet 1 tab PO DAILY polyethylene glycol 3350 17 gram Powder In Packet 17 g PO DAILY 0RF omeprazole 20 mg capsule,delayed release(DR/EC) 20 mg PO DAILY ondansetron 4 mg tablet,disintegrating 4 mg PO TID Discharge Orders: Discharge ED (Routine); Ordered 09/25/24 Ordered By: Ludin Chen Referrals: Florencio Reza MD [Primary Care Provider, Family Practice] Discharge Diet: Usual diet Discharge Activity: Increase activity as tolerated Patient Instructions: Opioid Safety, Pain Management, Patient Portal & [place] Instructions Activity Restrictions/Additional Instructions: Thank you for choosing [facility] for your healthcare needs today. It is very important that you follow up as instructed or that you return to the Emergency Department should you have concerns or if your condition changes or worsens in any way. You are seen in the emergency room for pelvic pain and cramping. Your beta-hCG continues to climb. Bedside ultrasound heart activity was visualized. Other laboratory tests are unremarkable. Recommend that you start lactulose. Lactulose is a actual direct bowel stimulant to relieve constipation. MiraLAX is not a significant bowel stimulant and is more intended to prevent constipation then to relieve it. You should continue the MiraLAX to help minimize constipation going forward. Follow-up with your primary care doctor. Print Language: Slovenian Coding Level of Care Code ED Director Of Partnerships for Haseeb Phillips
[2024-09-25 12:31] LABS: Hematocrit 32.3 % (36-47); Hemoglobin 10.90 g/dL (11.27-16.99); Mean Corpuscular HGB Conc 33.7 g/dL (30-55); Mean Corpuscular Hemoglobin 29.6 pg (27-33); Mean Corpuscular Volume 87.8 fl (85-98); Nucleated Red Blood Cells % 0 %; Platelet Count 290 10^3/cmm (157-399); Red Blood Count 3.68 10^6/uL (3.85-5.65); White Blood Count 5.79 10^3/uL (3.29-11.43)
[2024-09-25 12:39] LABS: HCG, Serum Qual Positive (Negative)
[2024-09-25 12:46] LABS: Alanine Aminotransferase 8 U/L (0-33); Albumin Level 4.4 g/dL (3.5-5.2); Alkaline Phosphatase 55 U/L (35-105); Anion Gap 16.8 (5-19); Aspartate Amino Transferase 10 U/L (0-32); Blood Urea Nitrogen 3 mg/dL (6-20); Calcium 9.2 mg/dL (8.5-10.5); Carbon Dioxide 24 mmol/L (22-29); Chloride 97 mmol/L (98-107); Creatinine Clr Calc Pharmacy 169.2650; Globulin 2.6 g/dL (1.3-4.6); Glucose 77 mg/dL (65-115); Osmolality Calculated 275 mOsm/kg (285-295); Sodium 135 mmol/L (136-145); Total Protein 7.0 g/dL (6.6-8.7)
[2024-09-25 12:49] LABS: Glucose Urine UA Negative (Normal); Nitrate Urine Negative (Negative)
[2024-09-25 12:49] LABS: Potassium 2.8 mmol/L (3.5-5.1)
[2024-09-25 12:51] LABS: Add Urine Microscopic? YES
[2024-09-25 12:52] VITALS: BP 100/55; PULSE 69; RESP 16; O2SAT 100
[2024-09-25 13:12] LABS: Specific Gravity, Urine 1.034 (1.005-1.030)
[2024-09-25 13:34] LABS: Magnesium 1.8 mg/dL (1.7-2.3)
--- NOTE | 2024-09-25 13:36 | PC.NURSE ---
this nurse assumed pt care from STEWART Black at 1300.
[2024-09-25 14:00] VITALS: BP 103/61; PULSE 71; RESP 16; O2SAT 100
[2024-09-25] MEDS: potassium chloride oral liq 20 mEq/15 mL UDC 40 MEQ PO (14:14)
[2024-09-25 15:00] VITALS: PULSE 77; RESP 16; O2SAT 100
[2024-09-25 15:13] VITALS: BP 103/65; PULSE 83; RESP 14; O2SAT 99
== END 2024-09-25 15:12 | disposition home or self-care (01) ==
PROVIDERS: Emergency Provider Family Medicine; PCP Family Medicine
DX: O99.281 Endocrine, nutritional and metabolic diseases complicating pregnancy, first trimester (principal); O21.9 Vomiting of pregnancy, unspecified; K59.00 Constipation, unspecified; O26.891 Other specified pregnancy related conditions, first trimester; E87.6 Hypokalemia; Z3A.01 Less than 8 weeks gestation of pregnancy
CPT/HCPCS: 36415; 80053; 81001; 83735; 84702; 84703; 85025; 87086; 96361; 96374; 99284; J1885; J7030; J9999

== ENCOUNTER 2024-10-08 17:19 | Emergency (ER) | payer BC, MEDICAID, SELFPAY ==
[2024-10-08 17:24] VITALS: BP 98/60; PULSE 89; TEMP 36.7; O2SAT 99; BMI 21.1
--- OUTSIDE RECORDS SUMMARY | 2024-10-08 17:25 | XMS_ITS | Patient Health Record ---
Author Organization [facility] Address [address] [place] [address] Care Team Providers Care Head Of Sales And Marketing Name Role Phone Ashish Rafat Primary Care Provider [phone] Allergies No Known Allergies Reason For Referral No Information Social History Sex Assigned At : Social History Observation Description Sex Assigned At Female Plan Of Treatment No Information Insurance Providers Payer Name Payer Address Payer Phone Subscriber Number Group Number Insured Name Patient Relationship to Insured Coverage Start Date Coverage End Date [employer] Medicaid [address] [address] [place] [address] [id number] Tila Francis Self - patient is the [facility] [address] [place] [address] [id number] Tila Francis Self - patient is the insured
--- OUTSIDE RECORDS SUMMARY | 2024-10-08 17:25 | XMS_ITS | Clinical Summary ---
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 Gender Identity Not on file Sexual Orientation Not on file Last Filed Vital Signs Vital Sign Reading Time Taken Comments Blood Pressure 101/55 02/15/2012 1:58 PM SURVEILLANCE CAMERA TECHNICIAN Pulse 94 02/15/2012 1:58 PM SURVEILLANCE CAMERA TECHNICIAN Temperature - - Respiratory Rate - - Oxygen Saturation - - Inhaled Oxygen Concentration - - Weight 30.8 kg (68 lb) 02/15/2012 1:58 PM SURVEILLANCE CAMERA TECHNICIAN Height 139.7 cm (4' 7 ) 02/15/2012 1:58 PM SURVEILLANCE CAMERA TECHNICIAN Body Mass Index 15.8 02/15/2012 1:58 PM SURVEILLANCE CAMERA TECHNICIAN Plan of Treatment Health Maintenance Due Date Last Done Comments CHLAMYDIA SCREENING (ANNUAL) 11-24 YEARS 2012 HPV VACCINES (1 - 3-dose series) 2016 DTAP/TDAP/TD VACCINES (1 - Tdap) 2020 HEPATITIS B VACCINES (1 of 3 - 19+ 3-dose series) 07/17 CERVICAL CANCER SCREENING 2022 HPV/Cotest (21-29) 2022 PAP SMEAR 2022 INFLUENZA VACCINE (#1) 2024 [place]
--- OUTSIDE RECORDS SUMMARY | 2024-10-08 17:25 | XMS_ITS | Data Portability ---
Author Organization [place] [facility], [facility] Address [address] [address] Care Team Providers Care Decal Cutter Name Role Phone KHAI THRASHER Primary Care [...] further questions. [email or web address] Not available 03/28/2024 12:32:55 09/23/2024 09/23/2024 Discussed patient care with Dr. Shields as Dr. Reza is unavailable. Will start her on OTC Unisom/B6 regimen and discussed with her how to take her zofran and promethazine. She is tearful in the exam room and worried because she reports she has had pain/nausea/vom iting like this with a previous and she subsequently miscarried. She thinks there is too much acid build up in her system and that is the cause of her nausea. HCG during an ER visit was >14,000 and ultrasound indicated IUP. Not available 09/27/2024 18:38:22 Plan of Treatment Reminders Order Date Submit Date Provider Last Modified By Organization Details Last Modified Time Details Appointments ULTRASO UND 2024 09:30A M ULTRASOUND Not available Not available Not available NEW OB 2024 09:00A Zeferino Reza MD Not available Not available Not available Lab urinaly sis, complet e 2024 025 [facility], [address], [place], [address], 09/27/2024 11:32:36 culture , urine 2024 025 [facility], [address] [address], [address] [place], [address], 09/24/2024 19:21:05 BMP, serum or plasma 2024 025 [facility], [address], [place], [address], 05/08/2024 11:56:29 Referral None recorde d. Procedures None recorde d. Surgeries None recorde d. Imaging None recorde d. Medication Orders omepraz ole 20 mg capsule ,delaye d release 2024 025 [facility], [address] [place] [address], [id number], 09/23/2024 14:52:56 ondanse rama 4 mg disinte grating tablet 2024 025 [facility] [place], [address] [place] [address], [id number], 09/23/2024 14:52:55 fluoxet ine 10 mg tablet 2024 025 [facility], [address] [place] [address], [id number], 09/23/2024 15:18:24 Patient TargetsNo targets recorded. Patient Instructions Encounter Date Encounter Id Patient Instructions Last Modified By Organization Details Last Modified Time 09/23/2024 [id number] Call or return for questions or concerns. Not available 09/27/2024 18:37:49 Reason for Referral None Reported. Results Created Date Observation Date Name Description Value Unit Range Abnormal Flag Note LastModifiedBy Organization Detail LastModifiedTime 05/08/19 25 05/08/2024 BMP (FEMA LE) glucose 78.0 mg/dL 60.0-9 9.0 Not Available [facility] [address] [facility] [address], [place], [address], 05/08/2024 11:56:29 05/08/19 25 05/08/2024 BMP (FEMA LE) BUN (blood urea nitrogen) 11.0 mg/dL 10.0-2 6.0 Not Available [facility] [address] [facility] [place] [facility], [place], [address], 05/08/2024 11:56:29 05/08/19 25 05/08/2024 BMP (FEMA LE) creatinine (serum) 0.6 mg/dL 0.4-1. 5 Not Available [facility] [address] [facility] [place] [facility], [place], [address], 05/08/2024 11:56:29 05/08/19 25 05/08/2024 BMP (FEMA LE) BUN/creatini ne ratio 18.33 ratio Not Available [facility] [address] [facility] [place] [facility], [place], [address], 05/08/2024 11:56:29 05/08/19 25 05/08/2024 BMP (FEMA LE) calcium 9.5 mg/dL 8.4-10 .5 Not Available [facility] [address] [facility] [place] [facility], [place], [address], 05/08/2024 11:56:29 05/08/19 25 05/08/2024 BMP (FEMA LE) sodium 140.0 mmol/ L 136.0- 145.0 Not Available [facility] [address] [facility] [place] [facility], [place], [address], 05/08/2024 11:56:29 05/08/19 25 05/08/2024 BMP (FEMA LE) potassium 3.8 mmol/ L 3.5-5. 1 Not Available [facility] [address] [facility] 1, [place], [address], 05/08/2024 11:56:29 05/08/19 25 05/08/2024 BMP (FEMA LE) chloride 103.0 mmol/ L 98.0-1 10.0 normal Not Available [facility] [address] [facility] 1, [place], [address], 05/08/2024 11:56:29 05/08/19 25 05/08/2024 BMP (FEMA LE) C02 27.0 mmol/ L 22.0-3 1.0 Not Available [facility] [address] [facility] [place] [facility], [place], [address], 05/08/2024 11:56:29 05/08/19 25 05/08/2024 BMP (FEMA LE) anion gap 10.0 calc Not Available [facility] [address] [facility], [place], [address], 05/08/2024 11:56:29 09/24/19 25 09/23/2024 URINA LYSIS WITH MICRO color YELLOW Not Available [facility] [address] [facility] 1, [place], [address], 09/23/2024 13:27:41 09/24/19 25 09/23/2024 URINA LYSIS WITH MICRO clarity SLIGHT LY CLOUDY Not Available [facility] [address] [facility] [place] [facility], [place], [address], 09/23/2024 13:27:41 09/24/19 25 09/23/2024 URINA LYSIS WITH MICRO glu NEGATI VE Not Available [facility] [address], [place], [address], 09/23/2024 13:27:41 09/24/19 25 09/23/2024 URINA LYSIS WITH MICRO bili 1+ Not Available [facility] [address] [facility] [address], [place], [address], 09/23/2024 13:27:41 09/24/19 25 09/23/2024 URINA LYSIS WITH MICRO ket 4+ Not Available [facility] [address], [place], [address], 09/23/2024 13:27:41 09/24/19 25 09/23/2024 URINA LYSIS WITH MICRO S.g >1.030 1.005- 1.025 high > Not Available [facility] [address], [place], [address], 09/23/2024 13:27:41 09/24/19 25 09/23/2024 URINA LYSIS WITH MICRO pH 6.5 5.0-7. 0 Not Available [facility] [address], [place], [address], 09/23/2024 13:27:41 09/24/19 25 09/23/2024 URINA LYSIS WITH MICRO pro 3+ Not Available [facility] [address], [place], [address], 09/23/2024 13:27:41 09/24/19 25 09/23/2024 URINA LYSIS WITH MICRO uro 0.2 E.U./D L Not Available [facility] [address], [place], [address], 09/23/2024 13:27:41 09/24/19 25 09/23/2024 URINA LYSIS WITH MICRO nit NEGATI VE Not Available [facility] [address] [facility] [place] [facility], [place], [address], 09/23/2024 13:27:41 09/24/19 25 09/23/2024 URINA LYSIS WITH MICRO blo 3+ Not Available [facility] [address] [facility] 1, [place], [address], 09/23/2024 13:27:41 09/24/19 25 09/23/2024 URINA LYSIS WITH MICRO eve NEGATI VE Not Available [facility] [address] [facility] [facility] 1, [place], [address], 09/23/2024 13:27:41 09/24/19 25 09/23/2024 URINA LYSIS WITH MICRO WBC 1-3 abnormal Not Available [facility] [address] [facility] 1, [place], [address], 09/23/2024 13:27:41 09/24/19 25 09/23/2024 URINA LYSIS WITH MICRO RBC 25-30 abnormal Not Available [facility] [address] [facility] [place] [facility], [place], [address], 09/23/2024 13:27:41 09/24/19 25 09/23/2024 URINA LYSIS WITH MICRO epi cells 6-8 abnormal Not Available [facility] [address] [facility] 1, [place], [address], 09/23/2024 13:27:41 09/24/19 25 09/23/2024 URINA LYSIS WITH MICRO bacteria TRACE OF MUCUS THREAD S Not Available [facility] [address] [facility] 1, [place], [address], 09/23/2024 13:27:41 09/24/19 25 09/23/2024 URINA LYSIS WITH MICRO other NEGATI VE Not Available [facility] [address] [facility] 1, [place], [address], 09/23/2024 13:27:41 09/24/19 25 09/24/2024 CULTU RE, URINE , ROUTI NE culture, urine, routine SEE NOTE CULTU RE, URINE , ROUTI NE Micro Numbe r: [id number] Test Statu s: Final Speci men Sourc e: Urine , clean catch Speci men Quali ty: Adequ ate Resul t: No Growt h Not Available [facility] [address] [place], [address], 09/24/2024 19:21:05 03/22/19 25 03/22/2024 US, obste tric, 1st trime ster, singl e gesta tion No observ ation record ed. [email or web address] [address] [place], [address], 03/26/2024 20:57:07 03/30/19 25 03/30/2024 , obste tric, trans vagin al No observ ation record ed. [email or web address] [place], [address], 04/07/2024 14:25:33 03/31/19 25 03/26/2024 imagi ng/di agnos tic resul t No observ ation record ed. [email or web address] Not Available 2024 15:50:58 Result Notes None recorded. Problems Name Problem SNOMED Code Status Onset Date Resolution Date Notes Provider Name and Address Organization Details Recorded Time Normal pregnanc y in multigra shawna 71591614356 4106 Completed 2022 Florencio Reza MD [address] [place], [address], [facility] LDamianLTrina 4 06:53:23 Normal pregnanc y in multigra shawna 80403666768 4106 Completed 202205/08/2024 KARY mckeon [facility] LDamianLDamianCDamian 5 09:42:15 Disorder of menstrua tion 511446302 Completed 2022 Florencio Reza MD [address] [place] [address], [address], [facility] 4 06:53:23 Blood group O Rh(D) negative 671722869 Completed 2022 received in Nov. per pt at [facility] Florencio Reza MD [address] [place] [address], [address], [facility] 4 06:53:23 Postpart um care Completed 202305/08/2024 KAYLA mckeon [facility], L.L.CDamian 5 00:31:26 Postpart um care Completed 2023 Florencio Reza MD [address] [place] [address], [address], [facility] 4 06:53:23 Mild intermit tent asthma 648044973 Active 2023 KARY mckeon [facility] 5 09:41:58 Pregnanc y 85020165 Completed 202303/26/2024 KARY mckeon [facility] L.L.CDamian 5 14:44:52 Anxiety 11461814 Active 2024 KAYLA mckeon [facility], L.LDamianCDamian 5 00:31:22 History of alcohol use disorder Active 2024 KAYLA mckeon [facility], L.LDamianCDamian 5 00:31:40 Persiste nt depressi ve disorder 9055550151 Active 2024 KAYLA mckeon [facility], L.LDamianCDamian 5 00:32:06 Cannabis dependen ce 83507076 [facility] 5 00:32:21 Pregnanc y 66647769 Active 2024 [facility] LD[facility]CDamian 5 14:44:52 Normal pregnanc y in multigra shawna 32250639538 4106 Active 2024 KARY CONN [facility], L.L[facility]CDamian 5 14:53:47 Acute abdomina l pain 760304797 Active 2024 [facility] 5 14:53:51 Problem Notes None recorded. Procedures Surgical History Date Name Laterality Status Provider Name and Address Organization Details Recorded Time 5 US scan of gallbladder completed KAYLA SERGE [facility] L.L.CDamian 09/22/2024 00:34:01 ultrasound scan - obstetric completed KAYLA VALENTINE [facility] L.L.CDamian 09/22/2024 00:38:17 tonsilectomy/ad enoids completed Anisa Gold [facility] L.L.CDamian 06/22/2023 12:37:22 Imaging Results None recorded. Procedure [...] 1 capsule every day by oral route. 10/07 completed Not Available Not Available Not Available doxycycli ne monohydra te 100 mg capsule Take 1 capsule twice a day by oral route for 10 days. 01/02 completed Not Available Not Available Not Available ferrous sulfate 325 mg (65 mg iron) tablet Take 1 tablet every day by oral route. 05/23 completed Not Available Not Available Not Available misoprost ol 200 mcg tablet 10/07 completed Not Available Not Available Not Available omeprazol e 20 mg capsule,d elayed release take 1 capsule BY MOUTH EVERY DAY active Not Available Not Available No t Available ondansetr on 4 mg disintegr ating tablet DISSOLVE ONE TABLET ON TONGUE THREE TIMES DAILY active Not Available Not Available No t Available Unisom (doxylami ne) 25 mg tablet Take by oral route. active Not Available Not Available No t Available metoclopr amide 10 mg tablet TAKE 1 TABLET BY MOUTH EVERY 6 HOURS NEEDED FOR NAUSEA AND VOMITING 10/07 completed Not Available Not Available Not Available [...] completed Not Available Not Available Not Available Vitamin B6 100 mg tablet 100 mg as needed by oral route. 2024 active Not Available Not Available Not Avai lable lactulose 10 gram/15 mL oral solution TAKE 30ML EVERY 2 HOURS NEEDED FOR CONSTIPA TION FOR 72 HOURS. TAKE UNTIL DESIRED LAXATIVE EFFECT active Not Available Not Available No t Available fluoxetin e daily 10/25 completed Recorded 09/13/19 22 6:23PM by Gely Dias RN, Office Visit; Refill Quantity : 30; Capsule; Not Available Not Available Not Available hydroxyzi ne HCl three times daily, as needed 10/25 completed Recorded 09/13/19 22 6:23PM by Gely Dias RN, Office Visit; Refill Quantity : 40; Tablet; Not Available Not Available Not Available active Not Available Not Avai lable Not Available Vitamin daily 10/25 completed Recorded 06/12/19 21 8:31AM by Sarah Joyner LPN, Office Visit; Refill Quantity : 90; Tablet; Not Available Not Available Not Available potassium chloride ER 20 mEq tablet,ex tended release TAKE 1 TABLET BY MOUTH TWICE DAILY 10/07 completed Not Available Not Available Not Available Vitamins [...] Last Updated DateTime 167.64 cm 23.2 kg/m2 76435.5 1 g 99 % 99 % 84 /min 18 /min 98.2 [degF] 100/60 mm[Hg] IDALIA ASHLEY [facility], L.L.CDamian 5 10:04:59 Date Recorded Body height Body mass index (BMI) Body weight Oxygen saturation Oxygen saturation in Arterial blood by Pulse oximetry Heart rate Respiratory rate Body temperature Systolic And Diastolic Provider Name and Address Organization Details Last Updated DateTime 5 167.64 cm 22.5 kg/m2 44129.4 4 g 99 % 99 % 79 /min 18 /min 98.3 [degF] 100/58 mm[Hg] IDALIA ASHLEY [facility], LDamianLDamianCDamian 5 11:37:11 Date Recorded Body height Body mass index (BMI) Body weight Respiratory rate Heart rate Oxygen saturation Oxygen saturation in Arterial blood by Pulse oximetry Body temperature Systolic And Diastolic Provider Name and Address Organization Details Last Updated DateTime 5 167.64 cm 23.4 kg/m2 84032.8 9 g 16 /min 68 /min 98 % 98 % 97.9 [degF] 126/70 mm[Hg] KARY CONN [facility] L.LDamianCDamian 5 10:52:20 Date Recorded Body height Body mass index (BMI) Body weight Heart rate Oxygen saturation Oxygen saturation in Arterial blood by Pulse oximetry Body temperature Systolic And Diastolic Provider Name and Address Organization Details Last Updated DateTime 5 167.64 cm 21.6 kg/m2 71109.3 8 g 101 /min 99 % 99 % 98 [degF] 100/60 mm[Hg] SERGE LOPEZ [facility], L.LTrina 5 12:48:45 Date Recorded Body height Body mass index (BMI) Body weight Oxygen saturation Oxygen saturation in Arterial blood by Pulse oximetry Heart rate Respiratory rate Body temperature Systolic And Diastolic Provider Name and Address Organization Details Last Updated DateTime 5 167.64 cm 21.8 kg/m2 21675.6 7 g 99 % 99 % 84 /min 18 /min 98.6 [degF] 120/68 mm[Hg] KARY CONN [facility], L.LDamianCDamian 5 14:53:25 Social History Question Answer Notes LastModified by Organizat ion Details LastModified Time Tobacco Smoking Status Never Smoker KARY mckeon, [facility], [facility] 10/25/2022 09:41:24 Which Illicit Or Recreational Drugs Have You Used? Marijuana Information not available 10/07/2024 What Was The Date Of Your Most Recent Tobacco Screening? 10/07/2024 Information not available 10/07/2024 What Is Your Relationship Status? Domestic Partner Information not available 10/25/2022 Are You Sexually Active? Yes Information not available 10/25/2022 Sex: Unknown Functional Status Question Answer Note LastModified by Organizat ion Details LastModified Time Do you use any illicit or recreational drugs? Yes Information not available 10/07/2024 Do you or have you ever used any other forms of tobacco or nicotine? Yes Information not available 10/25/2022 What is your level of alcohol consumption? None Information not available 10/25/2022 Are you able to care for yourself? Yes Information not available 10/25/2022 Do you or have you ever used e-cigarettes or vape? Former user of electronic cigarettes Information not available 10/07/2024 Mental Status None recorded. Family History Relationship Description Onset Age of this Age Resolved Age Notes LastModified by Organization Details LastModified Time Father No current problems or disability [email or web address] Not available 0 11/09/2022 14:34:39 Mother No current problems or disability [email or web address] Not available 0 11/09/2022 14:34:39 Medical History Condition Response Coronary Artery Disease N Other N Gout N Kidney Stones N Blood Diseases N Hyperthyroidism N Breast Cancer N Blood Transfusion N Depression Y COPD N Lung Disease N Hypothyroidism N Developmental or Behavioral Disorders N Defects or Inherited Disease N Breast Problem N Difficulty Swallowing N Anesthesia Complications N Meniere's disease N Anxiety Disorder Y Muscle, Joint, or Bone Problems N Vision or Eye Problems N Arthritis N Polyps N Infertility N Cancer N Varicosities N Stroke N Endometriosis N Bladder or Kidney Problems Y High Cholesterol N Liver Disease N Headaches N Fibromyalgia N Kidney Disease N Allergies/Hayfever N Heart Problems N Ear or Hearing Problems N Hospitalizations Y Thyroid Problems N GI Problems Y ADD/ADHD N Skin Problems N Eating Disorder N Anemia N Constipation Y Mental Illness N Ovarian Cancer N Diabetes N Bedwetting N Seizures/Epilepsy N Tuberculosis N Eczema N Diverticulitis N Abuse/Domestic Violence N Asthma Y Reflux/GERD Y Hepatitis N Heart Disease N Pulmonary Embolism N Pre-Eclampsia N Hypertension N Chronic Ear Infections N Osteoporosis N Chicken Pox N Autism Spectrum Disorder (ASD) N Thrombophilias N Gynecological History Statement/Question Response Flow Moderate Date of LMP 08/01/2024 LMP Definite Obstetrics History GPAL:G 6 P 3 0 2 3 Type Value Full Term 3 Spontaneous 2 Living 3 Total 6 Immunizations Vaccine Type Date Status Note Provider Nam e and Address Organization Details Recorded Time MMR 3 completed KARY mckeon [facility] 10/25/2022 09:38:53 MMR 6 completed KARY mckeon [facility] 10/25/2022 09:38:53 COVID-19, mRNA, LNP-S, PF, 100 mcg/0.5mL dose or 50 mcg/0.25mL dose 2 completed KARY mckeon [facility] 10/25/2022 09:38:53 DTaP-IPV 6 completed KARY mckeon [facility] 10/25/2022 09:38:53 Tdap 0 completed KARY mckeon [facility] 10/25/2022 09:38:53 Tdap 3 completed KARY mckeon [facility] 10/25/2022 09:38:53 varicella 6 completed KARY mckeon [facility] 10/25/2022 09:38:53 Hep B, unspecified formulation 3 completed KARY mckeon [facility] 10/25/2022 09:38:53 Hep B, unspecified formulation 2 completed KARYKVNG MALLOYY null, [facility] 10/25/2022 09:38:53 Hep B, unspecified formulation 2 completed KARY MALLOYY null, [facility] 10/25/2022 09:38:53 pneumococcal, unspecified formulation 3 completed KARY MALLOYY null, [facility] 10/25/2022 09:38:53 pneumococcal, unspecified formulation 2 completed KARY MALLOYY null, [facility] 10/25/2022 09:38:53 pneumococcal, unspecified formulation 2 completed KARY CONN null, [facility] 10/25/2022 09:38:53 pneumococcal, unspecified formulation 3 completed KARY CONN null, [facility] 10/25/2022 09:38:53 polio, unspecified formulation 3 completed KRAY CONN null, [facility] 10/25/2022 09:38:53 DOxZ-Wex-JKE 2 completed KARY CONN [facility] 10/25/2022 09:38:53 YWoW-Rbq-LNC 2 completed KARY CONN null, [facility] 10/25/2022 09:38:53 meningococcal MCV4P 8 completed KARY CONN null, [facility] 10/25/2022 09:38:53 DTaP-Hib 3 completed KARY CONN null, [facility] 10/25/2022 09:38:53 DTaP-Hib 3 completed KARY mckeon, [facility] 10/25/2022 09:38:53 RSV, bivalent, protein subunit RSVpreF, diluent reconstituted, 0.5 mL, PF 3 completed KARY mckeon, [facility] 03/09/2023 10:10:40 Tdap 3 completed KARY mckeon, [facility] 03/09/2023 10:10:40 Past Encounters Encounter ID Performer Location Encounter Start Date Encounter Closed Date Diagnosis/Indication Diagnosis SNOMED-CT Code Diagnosis ICD10 Code Diagnosis Note [id number] JACKY VILLAGOMEZ [facility] ([facility]) [address] [place] [id number] 07/10/2022 16:29:58 07/10/2022 21:10:44 Missed period 36283492 N92.5 test positive 224262227 Z32.01 [id number] JACKY VILLAGOMEZ [facility] ([facility]) [address] [place] [id number] 5 07/17/2022 13:12:37 07/22/2022 07:42:50 Stomach cramps 38259127 R10.9 Abnormal u terine bleeding 4290172952 9100 N93.9 [id number] Florencio Reza MD [facility] ([facility]) [address] [place] [id number] 5 07/28/2022 13:29:01 07/28/2022 20:13:04 Miscarriage without complication 71846732 O03.9 Urgent jarocho chon to urinate 00913851 R39.15 [id number] JACKY VILLAGOMEZ [facility] ([facility]) [address] [place] [id number] 5 09/13/2022 16:01:25 09/13/2022 16:49:18 test positive 202039662 Z32.01 Nausea and vomiting 1693 2000 R11.2 [id number] Florencio Reza MD [facility] ([facility]) [address] [place] [id number] 5 10/25/2022 09:22:09 10/25/2022 19:04:09 Normal in multigravida 1954640390 34255 Z34.80 Disorder o f menstruation 117352642 N92.6 [id number] Florencio Reza MD [facility] ([facility]) [address] [place] [id number] 5 10/30/2022 10:27:38 10/30/2022 19:48:29 [id number] Florencio Reza MD [facility] ([facility]) [address] [place] [id number] 5 11/09/2022 14:00:38 11/09/2022 18:42:15 Normal in multigravida 7849484622 99061 Z34.80 Gestation period, 14 weeks 00157151 Z3A.14 Normal pre gnancy in primigravida 4294750043 38432 Z34.80 [id number] Florencio Reza MD [facility] ([facility]) [address] [place] [id number] 5 12/07/2022 10:48:16 12/07/2022 13:20:55 Multigravida 686461318 Z34.82 Gestation period, 19 weeks 69901178 Z3A.19 Mild inter mittent asthma 609337727 J45.20 [id number] Florencio Reza MD [facility] ([facility]) [address] [place] [id number] 01/02/2023 14:44:10 01/02/2023 17:02:15 [id number] Florencio Reza MD [facility] ([facility]) [address] [place] [id number] 5 01/04/2023 09:45:37 01/04/2023 10:34:57 Normal in multigravida 0572321074 56366 Z34.80 Gestation period, 23 weeks 20457799 Z3A.23 Mild inter mittent asthma [id number] J45.20 [id number] Florencio Reza MD [facility] ([facility]) [address] [place] [address] [phone] 5 02/01/2023 09:42:00 02/01/2023 13:31:04 Normal in multigravida [id number] 37653 Z34.80 [id number] Florencio Reza MD [facility] ([facility]) [address] [place] [address] [phone] 5 02/22/2023 09:47:23 02/22/2023 12:57:02 Normal in multigravida [id number] 89218 Z34.83 Gestation period, 30 weeks 40435994 Z3A.30 Multigravida 662961160 Z 34.82 [id number] Florencio Reza MD [facility] ([facility]) [address] [place] [address] [phone] 5 02/27/2023 09:02:08 02/27/2023 15:11:02 [id number] Florencio Reza MD [facility] ([facility]) [address] [place] [address] [phone] 5 03/09/2023 09:55:11 03/09/2023 15:03:28 Normal in multigravida [id number] 11798 Z34.83 Gestation period, 32 weeks 2898838 Z3A.32 Acute low back pain 2788 08971 M54.50 [id number] Florencio Reza MD [facility] ([facility]) [address] [place] [address] [phone] 5 03/22/2023 10:37:42 03/22/2023 12:18:08 Normal in multigravida 7689571825 90604 Z34.83 Gestation period, 34 weeks 37826165 Z3A.34 Mild inter mittent asthma 469759299 J45.20 [id number] Florencio Reza MD [facility] ([facility]) [address] [place] [address] [phone] 5 04/05/2023 09:50:00 04/05/2023 11:47:02 Normal in multigravida 8363566752 69755 Z34.83 Gestation period, 36 weeks 25918878 Z3A.36 Restless legs 77541955 G 25.81 [id number] Florencio Reza MD [facility] ([facility]) [address] [place] [address] [phone] 5 04/12/2023 14:52:22 04/14/2023 22:34:17 Normal in multigravida 8659263500 64853 Z34.83 Gestation period, 37 weeks 21645525 Z3A.37 [id number] Florencio Reza MD [facility] ([facility]) [address] [place] [address] [phone] 5 05/24/2023 09:54:20 05/24/2023 15:28:39 care 345150274 Z39.2 Vaginal discharge 781653 006 N89.8 [id number] JACKY DIAZ [facility] ([facility]) [address] [place] [address] [phone] 5 06/22/2023 12:30:39 06/22/2023 13:00:28 Acute viral pharyngitis [id number] J02.9 Rapid strep negative.P ush cold oral fluids including Popsicles. Alternate tylenol/mo jerry for fever or discomfort .May use throat lozenges, chlorasept ic spray, or saltwater gargles.If you develop worsening symptoms such as unable to swallow, persistant fever, or concerns arise then return for re-eval. [id number] Rigoberto Gatica MD [facility] ([facility]) [address] [place] [address] [phone] 5 08/02/2023 13:35:00 08/02/2023 14:42:36 Increased frequency of urination 155471543 R35.0 Vaginal discharge 372705 006 N89.8 [id number] Tk Grady MD [facility] ([facility]) [address] [place] [address] [phone] 5 01/03/2024 10:39:49 01/03/2024 17:40:34 Mild intermittent asthma 225171054 J45.20 Viral uppe r respiratory tract infection 236755564 J06.9 Patient presented with symptoms of viral [...] in 7-10 days if symptoms not improving. [id number] Florencio Reza MD [facility] ([facility]) [address] [place] [address] [phone] 5 02/29/2024 09:04:40 02/29/2024 10:22:39 Normal in multigravida 7322745051 76285 Z34.83 Disorder o f menstruation 603577579 N92.6 [id number] Florencio Reza MD [facility] [place]) [address] [place] [address] [phone] 5 03/26/2024 09:27:57 03/26/2024 15:13:58 Miscarriage 40026617 O03.9 [id number] Florencio Reza MD [facility] [place]) [address] [place] [address] [phone] 5 03/26/2024 10:33:12 03/27/2024 14:09:17 First trimester bleeding 2406881058 [id number] O46.91 [id number] Florencio Reza MD [facility] [place]) [address] [place] [address] [phone] 5 04/01/2024 11:04:29 04/01/2024 13:56:26 Postoperative care 118280265 Z48.89 Retained p roducts after miscarriage 414730775 O03.4 Resolved [id number] Florencio Reza MD [facility] [place]) [address] [place] [address] [phone] 5 05/08/2024 10:36:40 05/08/2024 11:15:51 care 147946492 Z39.2 Anxiety 43794168 F41.9 Hypokalemia 28510225 E87 .6 [id number] JACKY DAVIDSON [facility] ([facility]) [address] [place] [address] 09/23/2024 12:25:39 09/23/2024 14:16:27 Morning sickness 92009275 O21.0 Lower abdominal pain 545 75305 R10.30 Health Concerns Section Related Observation LastModified by Organization Detai ls LastModified Time None Recorded Concern Status LastModified by Organization Details LastModified Time None Recorded Advance Directives Directive None Recorded Payers Insurance Date Sequence Insurance Name Policy Number Policy Dodd Covered Member ID Dodd Member ID Guarantor Name 10/06/2024 1 [employer] [place] (MEDICA[place] REPLACEMENT - HMO) [id number] Tila Francis [id number] Tila Francis Notes Date Note Type [...] is having chest pain. Florencio Reza MD [address] [place] [address], [phone], [facility] 03/28/2024 12:33:31 04/01/2024 text/html Post-OpReported bypatient.Onset/Timing :date of surgery: (03/27/24) Quality:procedure: (D&C) Context:preoperative diagnosis: (missed miscarriage) Associated Symptoms:normal appetite; no constipation; no nausea; no emesis; pain improving; no fever;fatigue;pain 1/10;bleeding(decreasi ng);diarrhea Florencio Reza MD [address] [place] [address], [phone], [facility] 04/01/2024 12:09:28 05/08/2024 text/html Post-OpReported bypatient.Onset/Timing :date of surgery: (03/27/24) Quality:procedure: (D&C) Context:preoperative diagnosis: (missed miscarriage) Associated Symptoms:no fatigue; normal appetite; no constipation; no nausea; no emesis; pain improving; no pain; no fever; no lower extremity edema/pain; no diarrhea;bleeding pt started her menses on 04/19/24 and it last until yesterday.Pt has had some anxiety, but feels in the last week she may be doing some better Florencio Reza MD [address] [place], [phone], [facility], [place] 05/08/2024 11:14:49 09/23/2024 text/html VomitingReported bypatient.Severity:wor sening Onset/Timin-20 times a day Context:no one else with similar symptoms; no drug/alcohol abuse Associated Symptoms:abdominal pain;excess gas;sore throat;decreased appetite;nausea;diarrh ea;weakness;fatigue JACKY DAVIDSON [address] [place], [phone], [facility], [place] 09/30/2024 11:39:12 OBGyn Episode Ob Episode Information Episode Created Date Number of Fetuses Patient Bloodtype Patient rh Status Prepregnancy Weight lbs Domestic Partner Domestic Partner Phone Father Name Photography Colorist Status 10/26/19 23 1 O Negative Osbaldo [...] Code Not e Normal in multigravida 10/25/2022 [id number] Blood group O Rh(D) negative 11/09/2022 [id number] received in Nov . per pt at [facility] Disorder of menstruation 10/25/2022 [id number] care 05/24/2023 [id number] Suzanne Calculation Initial Suzanne Date Initial Exam [...] Weight in lbs Pre/Post Dialysis Refused Weight 135.68417814824 BP Diastolic BP Location Tested BP Systolic [...] Weight in lbs Pre/Post Dialysis Refused Weight 135.452532656506 BP Diastolic BP Location Tested BP Systolic [...] Weight in lbs Pre/Post Dialysis Refused Weight 136.085557271950 BP Diastolic BP Location Tested BP Systolic [...] Weight in lbs Pre/Post Dialysis Refused Weight 140.783373604188 BP Diastolic BP Location Tested BP Systolic [...] Weight in lbs Pre/Post Dialysis Refused Weight 145.527050993465 BP Diastolic BP Location Tested BP Systolic BP Type 60 112 sitting Fetus Heart Rate Present A 142 Present Fetus Movement A Yes Comments N/V, headache, dizziness, RL Q pain, pelvic pain, sciatic and low back pain with shooting pain down both legs, occasional numbness in feet, glucose done today and order sent to [facility] for rhogram injection , Flowsheet Date 02/22/2023 Fabian Score Blood Edema Fundus Height Fundus Units Glucose Ketones Leukocytes Nitrite Labor Signs Protein Cervic Dilation Cervic Effacement Cervic Station none none Negative trace Type Weight in lbs Pre/Post Dialysis Refused Weight 147.313212050640 BP Diastolic BP Location Tested BP Systolic [...] Weight in lbs Pre/Post Dialysis Refused Weight 149.204987476184 BP Diastolic BP Location Tested BP Systolic [...] Weight in lbs Pre/Post Dialysis Refused Weight 150.182776879848 BP Diastolic BP Location Tested BP Systolic [...] Weight in lbs Pre/Post Dialysis Refused Weight 152.057294324347 BP Diastolic BP Location Tested BP Systolic [...] Weight in lbs Pre/Post Dialysis Refused Weight 155.884372109936 BP Diastolic BP Location Tested BP Systolic [...] Weight in lbs Pre/Post Dialysis Refused Weight 136.205135228423 BP Diastolic BP Location Tested BP Systolic BP Type 60 102 Fetus Heart Rate Present Fetus Movement Comments Menstrual History Last Menstrual Date Menses Monthly On Bcp Conception Prior Menses Frequency Hcg Plus Date Menarche Onset Age Genetic Screening And Infection History Question Response Note Patient's Age Will Be 35 Yea rs Or Older At Estimated Date of Delivery false Thalassemia (Singaporean, Slovenian, Mediterranean, Or Background): MCV < 80 false Neural Tube Defect (Meningomyelocele, Spina Bifi da, Or Anencephaly) false Congenital Heart Defect false Down Syndrome false Albert-Sachs (eg, Scientologist, Cajun, St Helenian-Wasatch) f alse Marino Disease false Sickle Cell [...] Sterilization Discharge Date Comments 4 [facility] false Florencio Reza MD None Discharge Information Feeding Method Contraceptive Method Maternal HG B and HCT Levels Breast Ob Episode Information Episode Created Date Number of Fetuses Patient Bloodtype Patient rh Status Prepregnancy Weight lbs Domestic Partner Domestic Partner Phone Father Name Photography Colorist Status 05/24/19 24 1 CLOSED Fetus Data [...] Complications Tubal Sterilization Discharge Date Comments 4 [facility].2 false Discharge Information Feeding Method Contraceptive Method Maternal HG B and HCT Levels Ob Episode Information Episode Created Date Number of Fetuses Patient Bloodtype Patient rh Status Prepregnancy Weight lbs Domestic Partner Domestic Partner Phone Father Name Photography Colorist Status 02/29/20 24 1 Osbaldo Eddy CLOSED [...] Weight in lbs Pre/Post Dialysis Refused Weight 150.582223820225 BP Diastolic BP Location Tested BP Systolic BP Type 84 122 Fetus Heart Rate Present Fetus Movement Comments Flowsheet Date 03/26/2024 Fabian Score Blood Edema Fundus Height Fundus Units Glucose Ketones Leukocytes Nitrite Labor Signs Protein Cervic Dilation Cervic Effacement Cervic Station Type Weight in lbs Pre/Post Dialysis Refused Weight 143.691356789789 BP Diastolic BP Location Tested BP Systolic [...] Domestic Partner Domestic Partner Phone Father Name Photography Colorist Status 07/29/19 23 1 CLOSED Fetus Data [...] Domestic Partner Domestic Partner Phone Father Name Photography Colorist Status 07/29/19 23 1 CLOSED Fetus Data [...] Complications Tubal Sterilization Discharge Date Comments 1 [facility] idural 39 Discharge Information Feeding Method Contraceptive Method Maternal HG B and HCT Levels Ob Episode Information Episode Created Date Number of Fetuses Patient Bloodtype Patient rh Status Prepregnancy Weight lbs Domestic Partner Domestic Partner Phone Father Name Photography Colorist Status 07/29/19 23 1 CLOSED Fetus Data [...] Complications Tubal Sterilization Discharge Date Comments 0 [facility] idural 39 Pit induction Discharge Information Feeding Method Contraceptive Method Maternal HG B and HCT Levels Ob Episode Information Episode Created Date Number of Fetuses Patient Bloodtype Patient rh Status Prepregnancy Weight lbs Domestic Partner Domestic Partner Phone Father Name Photography Colorist Status 10/08/19 25 1 Osbaldo Eddy OPEN Fetus Data First Name Last Name Admitted to NICU Weight (g) Sex Living Outcome Pediatric Complications Fetus ID Race Codes Race Delivery Type [id number] Problems Problem Notes Problem Name Start Date End Date Resolution Snomed Code Not e Normal in multigravida 10/07/2024 [id number] Suzanne Calculation Initial Suzanne Date Initial Exam Date Initial Exam Provider Initial Ultrasound Date Last Menstrual Period Date Ultra Sound Weeks Gestation 10/07/2024 08/01/2024 0 Eighteen To Twenty Week Suzanne Update Ultra Sound Date Fundal Height At Umbil Quickening Date Ultra Sound Latest Weeks Gestation Final Suzanne Confirmed By Final Suzanne Confirmed Date Final Suzanne Date Ultra Sound Latest Days Gestation 0 05/08/19 26 0 Pre-tom Flowsheet Flowsheet Date 10/07/2024 Fabian Score Blood Edema Fundus Height Fundus Units Glucose Ketones Leukocytes Nitrite Labor Signs Protein Cervic Dilation Cervic Effacement Cervic Station Type Weight in lbs Pre/Post Dialysis Refused Weight 135.830608745982 BP Diastolic BP Location Tested BP Systolic BP Type 68 120 Fetus Heart Rate Present Fetus Movement Comments Menstrual History Last Menstrual Date Menses Monthly On Bcp Conception Prior Menses Frequency Hcg Plus Date Menarche Onset Age 0508/01/2024 Genetic Screening And Infection History Question Response Note Patient's Age Will Be 35 Years Or Older At Estim ated Date of Delivery false Thalassemia (Singaporean, Slovenian, Mediterranean, Or Background): MCV < 80 false Neural Tube Defect (Meningomyelocele, Spina Bifi da, Or Anencephaly) false Congenital Heart Defect false Down Syndrome false Albert-Sachs (eg, Scientologist, Cajun, St Helenian-Wasatch) f alse Marino Disease false Sickle Cell Disease Or Trait () false Hemophilia Or Other Blood Disorders false Muscular Dystrophy false Cystic Fibrosis false Cascade's Chorea false Intellectual Disability/Autism false If Yes, Was Person Tested For Fragile X? false Other Inherited Genetic Or Chromosomal Disorder false Maternal Metabolic Disorder (eg, Type 1 Diabetes , PKU) false Patient Or Baby's Father Had A Child With Defects Not Listed Above false Recurrent Loss, Or A Stillbirth false Medications (including Suppl ements, Vitamins, Herbs, OTC Drugs), Illicit/Recreational Drugs, Alcohol true Any Other Genetic History false Live With Someone With TB Or Exposed To TB false Patient Or Partner Has History Of Genital Herpes false Rash Or Viral Illness Since Last Menstrual Perio d false History Of STD, Gonorrhea, Chlamydia, HPV, Syphi lis false Other Infection History false History of HIV [...]
--- NOTE | 2024-10-08 17:34 | W.ED.ABDPA2 ---
HPI - Abdominal Pain General: Chief Complaint: Abdominal Pain Stated Complaint: 9 weeks , cramping Time Seen by Provider: 10/08/24 17:30 History of Present Illness: 24-year-old female who is approximately 6 weeks who presents emergency room with nausea and lower abdominal cramping with some vomiting. This has been going on for several weeks now. Says she has been having some constipation and was taking lactulose but stopped because it made her belly cramp more. She stopped MiraLAX as well. Says about the time she stopped the MiraLAX when she started having more problems. She follows with Dr. Reza and Sirisha in clinic. She has not noticed any vaginal bleeding. She says cramping seems more related to bowel movements than 2 her bladder or . Related Data Home Medications ?Medication ?Instructions ?Recorded ?Confirmed acetaminophen 325 mg tablet 650 mg PO QID PRN Fever Or Pain 03/30/24 09/25/24 (Tylenol) vitamins with calcium 1 tab PO DAILY 09/19/24 09/25/24 no.72-iron 27 mg-folic acid 1 mg tablet ( Vitamins Plus Low Iron) omeprazole 20 mg capsule,delayed 20 mg PO DAILY 09/25/24 09/25/24 release ondansetron 4 mg disintegrating 4 mg PO TID 09/25/24 09/25/24 tablet Previous Rx's ?Medication ?Instructions ?Recorded promethazine 25 mg rectal 25 mg AK Q6H PRN nausea and 09/17/24 suppository vomiting #12 ea polyethylene glycol 3350 17 gram 17 g PO DAILY 09/24/24 oral powder packet potassium chloride 20 mEq 20 meq PO BID #10 tabs 09/25/24 tablet,extended release (K-Tab) Allergies Allergy/AdvReac Type Severity Reaction Status Date / Time No Known Allergies Allergy Verified 10/08/24 17:28 Review of Systems Narrative: Constitutional symptoms: Negative except as documented in HPI. Skin symptoms: Negative except as documented in HPI. Eye symptoms: Negative except as documented in HPI. ENMT symptoms: Negative except as documented in HPI. Respiratory symptoms: Negative except as documented in HPI. Cardiovascular symptoms: Negative except as documented in HPI. Gastrointestinal symptoms: Negative except as documented in HPI. Genitourinary symptoms: Negative except as documented in HPI. Musculoskeletal symptoms: Negative except as documented in HPI. Neurologic symptoms: Negative except as documented in HPI. Psychiatric symptoms: Negative except as documented in HPI. Endocrine symptoms: Negative except as documented in HPI. PFSH ED PFSH: Medical History (Updated 10/03/24 @ 00:00 by NELLA Dillon) Alcohol abuse, episodic drinking behavior Generalized anxiety disorder 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 Alcohol abuse, episodic Cannabis dependence, uncomplicated Depression Anxiety Surgical History S/P tonsillectomy S/P adenoidectomy Family History Mother Psychiatric illness Depression, anxiety Cancer Cervical Anemia Father Psychiatric illness Depression Brother Psychiatric illness Depression, anxiety Sister Psychiatric illness Depression, anxiety Grandmother Cancer Breast Social History Smoking and tobacco/nicotine status: never used tobacco/nicotine Second hand smoke exposure: Yes Alcohol intake: never Substance/Drug Use: former Adopted: No Caregiver/support person: Yes Lives independently: Yes Marital status: Single Number of children: 3 Number of grandchildren: 0 Highest education level completed: 11th Grade service: No Current occupational status: unemployed Current occupational exposures/hazards: No Physical Exam Narrative: EXAM NARRATIVE: General: Alert, no acute distress. Skin: Warm, dry. Head: Normocephalic, atraumatic. Neck: Supple, trachea midline. Eye: Extraocular movements are intact. Ears, nose, mouth and throat: Tacky oral mucosa Cardiovascular: Regular, Normal peripheral perfusion. Respiratory: Lungs are clear to auscultation, respirations are non-labored, breath sounds are equal, Symmetrical chest wall expansion. Gastrointestinal: Soft, Nontender, Non distended Musculoskeletal: Normal ROM, no deformity. Neurological: Alert and oriented, No focal neurological deficit observed. Psychiatric: Cooperative, appropriate mood & affect. Course Vital Signs: Vital signs: Vital Signs Temperature 98.0 F 10/08/24 17:24 Pulse Rate 90 10/08/24 19:00 Blood Pressure 94/53 10/08/24 19:00 Pulse Oximetry 100 10/08/24 19:00 Oxygen Delivery Me thod Room Air 10/08/24 19:00 MDM - Abdominal Pain Medical Decision Making Medical decision making: Differential diagnosis for this patient with nausea and vomiting including but not limited to and based on the above HPI, review of systems and physical exam: Urinary tract infection. Appendicitis. Cholecystitis. Hyperemesis. Dehydration. Renal failure. Gastroenteritis. Orders placed to evaluate differential diagnosis based on the above differential, HPI and physical exam Lab Review: Laboratory results were reviewed and interpreted by myself the emergency room physician. No leukocytosis. No anemia. No renal failure. Urine has some blood but no signs of infection. She does have some ketones which would indicate dehydration. Beta-hCG is appropriate at 74,600. Ultrasound shows no abnormalities. This was reviewed and interpreted by myself the emergency room physician. I also reviewed the radiology report. I reviewed the patient's medical record. Reexamination: Patient remained stable. No increased work of breathing. No altered mental status. No focal motor deficits. She says she feels better after fluids and nausea medicines. Consultation: I spoke with Dr. Grady who is on-call and had seen this patient most recently in clinic. She will follow-up with either him or Dr. Reza Assessment and plan: Vomiting in Dehydration Abdominal pain in ? Normal saline bolus and IV Zofran. P.o. Tylenol. - Discharged home - Discussed plan with patient. Answered any questions. - Evaluation and treatment of this problem were appropriate in the emergency setting. Lab Data 10/08/24 17:37 10/08/24 17:37 Labs/Radiology: Laboratory Results WBC 7.16 10^3/uL (3.29-11.43) 10/08/24 17:37 RBC 3.90 10^6/uL (3.85-5.65) 10/08/24 17:37 Hgb 11.50 g/dL (11.27-16.99) 10/08/24 17:37 Hct 33.7 % (36-47) L 10/08/24 17:37 MCV 86.4 fl (85-98) 10/08/24 17:37 MCH 29.5 pg (27-33) 10/08/24 17:37 MCHC 34.1 g/dL (30-55) 10/08/24 17:37 RDW 12.5 % (12.1-15.1) 10/08/24 17:37 Plt Count 259 10^3/cmm (157-399) 10/08/24 17:37 MPV 10.3 fL (7.4-10.4) 10/08/24 17:37 Neut % (Auto) 78.5 % 10/08/24 17:37 Lymph % (Auto) 16.6 % 10/08/24 17:37 [place] % (Auto) 4.2 % 10/08/24 17:37 Eos % (Auto) 0.1 % 10/08/24 17:37 Baso % (Auto) 0.3 % 10/08/24 17:37 Neut # (Auto) 5.62 10^3/uL (1.8-7.7) 10/08/24 17:37 Lymph # (Auto) 1.2 10^3/uL (0.8-4.8) 10/08/24 17:37 [place] # (Auto) 0.3 10^3/uL (0.2-0.9) 10/08/24 17:37 Eos # (Auto) 0.0 10^3/uL (0.0-0.8) 10/08/24 17:37 Baso # (Auto) 0.0 10^3/uL (0.0-0.1) 10/08/24 17:37 Nucleated RBC % (auto) 0 % 10/08/24 17:37 Nucleated RBCs # 0.0 /100WBC 10/08/24 17:37 Sodium 136 mmol/L (136-145) 10/08/24 17:37 Potassium 3.4 mmol/L (3.5-5.1) L 10/08/24 17:37 Chloride 100 mmol/L (98-107) 10/08/24 17:37 Carbon Dioxide 20 mmol/L (22-29) L 10/08/24 17:37 Anion Gap 19.4 (5-19) H 10/08/24 17:37 BUN 8 mg/dL (6-20) 10/08/24 17:37 Creatinine 0.3 mg/dL (0.5-0.9) L 10/08/24 17:37 GFR Calculation 275.7 mL/min (90-130) H 10/08/24 17:37 Glucose 80 mg/dL (65-115) 10/08/24 17:37 Calculated Osmolality 279 mOsm/kg (285-295) L 10/08/24 17:37 Calcium 9.4 mg/dL (8.5-10.5) 10/08/24 17:37 Total Bilirubin 0.5 mg/dL (0.15-1.2) 10/08/24 17:37 AST 13 U/L (0-32) 10/08/24 17:37 ALT 9 U/L (0-33) 10/08/24 17:37 Alkaline Phosphatase 58 U/L (35-105) 10/08/24 17:37 Total Protein 7.6 g/dL (6.6-8.7) 10/08/24 17:37 Albumin 4.7 g/dL (3.5-5.2) 10/08/24 17:37 Globulin 2.9 g/dL (1.3-4.6) 10/08/24 17:37 HCG, Qual Positive (Negative) H 10/08/24 17:37 Ser , Semi-Qnt 57342.00 mIU/mL 10/08/24 17:37 Urine Color [place] (Yellow) A 10/08/24 17:47 Urine Appearance Cloudy (CLEAR) A 10/08/24 17:47 Urine pH 6.0 (5-7) 10/08/24 17:47 Ur Specific [place] 1.033 (1.005-1.030) H 10/08/24 17:47 Urine Protein 1+ (Negative) A 10/08/24 17:47 Urine Glucose (UA) Negative (Normal) 10/08/24 17:47 Urine Ketones 4+ (Negative) 10/08/24 17:47 Urine Blood 3+ (Negative) A 10/08/24 17:47 Urine Nitrate Negative (Negative) 10/08/24 17:47 Urine Bilirubin Negative (Negative) 10/08/24 17:47 Urine Urobilinogen 1.0 mg/dL (Negative) 10/08/24 17:47 Ur Leukocyte Esterase Negative (Negative) 10/08/24 17:47 Urine RBC 51-100 /hpf (0-2) H 10/08/24 17:47 Urine WBC 0-5 /hpf (0-5) 10/08/24 17:47 Ur Squamous Epith Cells 6-10 /hpf (0-5) 10/08/24 17:47 Amorphous Sediment Not Reportable 10/08/24 17:47 Urine Bacteria Trace /hpf (NONE) 10/08/24 17:47 Hyaline Casts 4.52 /lpf 10/08/24 17:47 All radiology interpretation(s) finalized by discharge Discharge Plan Discharge Patient Disposition: Home Condition: Stable Prescriptions: No Action acetaminophen [Tylenol] 325 mg Tablet 650 mg PO QID PRN (Reason: Fever Or Pain) promethazine 25 mg suppository 25 mg AK Q6H PRN (Reason: nausea and vomiting) Qty: 12 0RF Vitamin Plus Low Iron 27 mg iron- 1 mg tablet 1 tab PO DAILY polyethylene glycol 3350 17 gram Powder In Packet 17 g PO DAILY 0RF omeprazole 20 mg capsule,delayed release(DR/EC) 20 mg PO DAILY ondansetron 4 mg tablet,disintegrating 4 mg PO TID potassium chloride [K-Tab] 20 mEq tablet extended release 20 meq PO BID Qty: 10 0RF Discharge Orders: Discharge ED (Routine); Ordered 10/08/24 Ordered By: Carlita Prieto Referrals: Florencio Reza MD [Primary Care Provider, [facility]] - 1-3 days Referral Note: Please call for follow-up appointment tomorrow morning. Discharge Diet: Usual diet Discharge Activity: Increase activity as tolerated Patient Instructions: Abdominal Pain (ED), Abdominal Pain in (ED), Opioid Safety, Pain Management, Patient Portal & [place] Instructions Activity Restrictions/Additional Instructions: Thank you for choosing [facility] for your healthcare needs today. You have been screened and evaluated and felt safe for discharge. Health conditions do change or evolve sometimes and as such it is important that you follow up with your Primary Doctor to be re checked, 3-5 days is a general good time frame for follow up. You are always welcome to return to the ED for re assessment if your symptoms are worsening or you have new concerns Print Language: Mongolian Coding Level of Care Code ED Tank Pumper Panelboard for Haseeb Phillips
[2024-10-08] MEDS: ondansetron 2 mg/ML SDV 2 mL 4 MG IVP (17:43)
[2024-10-08 17:45] LABS: Hematocrit 33.7 % (36-47); Hemoglobin 11.50 g/dL (11.27-16.99); Mean Corpuscular HGB Conc 34.1 g/dL (30-55); Mean Corpuscular Hemoglobin 29.5 pg (27-33); Mean Corpuscular Volume 86.4 fl (85-98); Nucleated Red Blood Cells % 0 %; Platelet Count 259 10^3/cmm (157-399); Red Blood Count 3.90 10^6/uL (3.85-5.65); White Blood Count 7.16 10^3/uL (3.29-11.43)
[2024-10-08 18:01] LABS: Alanine Aminotransferase 9 U/L (0-33); Albumin Level 4.7 g/dL (3.5-5.2); Alkaline Phosphatase 58 U/L (35-105); Aspartate Amino Transferase 13 U/L (0-32); Blood Urea Nitrogen 8 mg/dL (6-20); Calcium 9.4 mg/dL (8.5-10.5); Carbon Dioxide 20 mmol/L (22-29); Chloride 100 mmol/L (98-107); Creatinine Clr Calc Pharmacy 282.9445; Globulin 2.9 g/dL (1.3-4.6); Glucose 80 mg/dL (65-115); Osmolality Calculated 279 mOsm/kg (285-295); Sodium 136 mmol/L (136-145); Total Protein 7.6 g/dL (6.6-8.7)
[2024-10-08 18:05] LABS: Anion Gap 19.4 (5-19); Potassium 3.4 mmol/L (3.5-5.1)
[2024-10-08 18:19] LABS: HCG, Serum Qual Positive (Negative)
[2024-10-08 18:20] LABS: Glucose Urine UA Negative (Normal); Nitrate Urine Negative (Negative)
[2024-10-08 18:33] VITALS: BP 98/48; O2SAT 100
[2024-10-08 18:34] LABS: Specific Gravity, Urine 1.033 (1.005-1.030)
--- NOTE | 2024-10-08 18:50 | USR_ITS ---
PROCEDURE INFORMATION: Exam: US First Trimester, Transabdominal and US , Transvaginal Exam date and time: 10/08/2024 7:04 PM Age: 24 years old Clinical indication: complicated by abdominal or pelvic pain; Generalized abdominal pain; First trimester (<14 weeks 0 days); Gestational age or lmp: 9w 4d by reported lmp; ; G6-p3-a2-l3 presenting for the third time in 2 weeks with cramping, no vaginal bleeding; Additional info: Pelvic pain, early LABS AND CLINICAL REPORTS: Choriogonadotropin in serum (Serum HCG): 75659 mIU/mL Last menstrual period start date: 08/02/2024 Gestational age (Established): 9 w 4 d Estimated due date (Established): 05/09/2025 TECHNIQUE: Imaging protocol: Real-time transabdominal obstetrical ultrasound of the maternal pelvis and a first trimester , less than 14 weeks 0 days, with image documentation. Transvaginal imaging was used for better evaluation of the fetus, adnexa, and/or cervix. COMPARISON: US gall bladder [id number] 09/19/2024 10:44 AM FINDINGS: GESTATION: Gestation: Intrauterine gestation is visualized. pole is visualized. Yolk sac is visualized. Single living intrauterine measuring 9 weeks 3 days by today's ultrasound which correlates with the estimated gestational age of 9 weeks 4 days by established date of conception. Embryo/ cardiac activity (BPM): 171 bpm Extra-embryonic membranes/Placenta: Unremarkable. No subchorionic bleed. Amniotic/Chorionic fluid: Amniotic and extra-amniotic fluid are normal for gestational age. BIOMETRY: Gestational age (AUA): 9 w 3 d Estimated due date (AUA): 05/10/2025 MATERNAL: Uterus: Uterus measures 9.2 cm x 7.33 cm x 5.44 cm. Cervix: Unremarkable. Endocervical canal is closed. Right ovary/adnexa: Right ovary measures 3.4 cm x 2.3 cm x 2.8 cm. Right ovarian volume is 7.5 mL. Left ovary/adnexa: Left ovary measures 3.5 cm x 2.7 cm x 1.5 cm. Left ovarian volume is 7.2 mL. Intraperitoneal space: No intraperitoneal free fluid. Other findings: The ovaries are unremarkable. US/US OB <= 14 weeks fetus [id number] IMPRESSION: 1. Single living intrauterine measuring 9 weeks 3 days by today's ultrasound which correlates with the estimated gestational age of 9 weeks 4 days by established date of conception. 2. The ovaries are unremarkable.
[2024-10-08 19:00] VITALS: BP 94/53; PULSE 90; O2SAT 100
[2024-10-08 19:50] VITALS: BP 106/55; PULSE 87; O2SAT 97
== END 2024-10-08 19:52 | disposition home or self-care (01) ==
PROVIDERS: Emergency Provider Emergency Medicine; PCP Family Medicine
DX: O21.9 Vomiting of pregnancy, unspecified (principal); R10.9 Unspecified abdominal pain; Z3A.09 9 weeks gestation of pregnancy
CPT/HCPCS: 36415; 76801; 80053; 81001; 84702; 84703; 85025; 87086; 96361; 96374; 99284; J2405; J7030; J9999

== ENCOUNTER 2024-11-17 16:18 | Emergency (ER) | payer BC, MEDICAID, SELFPAY ==
--- OUTSIDE RECORDS SUMMARY | 2024-11-17 16:24 | XMS_ITS | Patient Health Record ---
Author Organization [facility] Address [address] [place] [address] Care Team Providers Care Contract Administration Specialist Name Role Phone Ashish Rafat Primary Care Provider [phone] Allergies No Known Allergies Reason For Referral No Information Social History Sex Assigned At : Social History Observation Description Sex Assigned At Female Plan Of Treatment No Information Insurance Providers Payer Name Payer Address Payer Phone Subscriber Number Group Number Insured Name Patient Relationship to Insured Coverage Start Date Coverage End Date [employer] [address] [address] [place] [address] [id number] Tila Francis Self - patient is the insured [facility] [address] [place] [address] [id number] Tila Francis Self - patient is the insured
--- OUTSIDE RECORDS SUMMARY | 2024-11-17 16:24 | XMS_ITS | Clinical Summary ---
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
[2024-11-17 16:45] VITALS: BP 126/62; PULSE 113; RESP 17; TEMP 36.7; O2SAT 100
[2024-11-17 16:58] LABS: Hematocrit 32.8 % (36-47); Hemoglobin 11.20 g/dL (11.27-16.99); Mean Corpuscular HGB Conc 34.1 g/dL (30-55); Mean Corpuscular Hemoglobin 29.9 pg (27-33); Mean Corpuscular Volume 87.5 fl (85-98); Nucleated Red Blood Cells % 0 %; Platelet Count 273 10^3/cmm (157-399); Red Blood Count 3.75 10^6/uL (3.85-5.65); White Blood Count 6.70 10^3/uL (3.29-11.43)
[2024-11-17 17:10] LABS: HCG, Serum Qual Positive (Negative)
--- NOTE | 2024-11-17 17:10 | ED_ITS ---
HPI - Abdominal Pain 2 General: Chief Complaint: Abdominal Pain Stated Complaint: abd pain Time Seen by Provider: 11/17/24 16:20 Source: patient Mode of arrival: ambulatory Limitations: no limitations History of Present Illness: Patient is a 24-year-old female presents to ED today with complaint of abdominal pain, nausea and vomiting. Patient states she has had pain almost every day over the past 2 months. She states she is approximately 15 weeks . She states she is getting OB care through Dr. Reza and has had a normal OB course thus far. States she has had ultrasounds showing normal intrauterine . She states even prior to she has always had a sensitive stomach and always thought she might have some underlying IBS or Crohn's. States she will often get abdominal pains with eating certain foods and frequently has nausea and vomiting. She does use marijuana frequently although has decreased this due to her . She has several antiemetics that she uses at home including Reglan, Zofran, Phenergan suppositories which do help. She feels like her abdominal pain is very crampy and persistent. She feels like she alternates between diarrhea and constipation. She is not having any vaginal bleeding or vaginal discharge. She does feel like her anxiety makes her abdominal pain, nausea, vomiting worse. MD elicited complaint: abdominal pain Onset (ago): month(s) Pain Consistency: intermittent Location: Diffuse Severity: moderate Quality: cramping Radiation: none Migration to: no migration Exacerbating factors: nothing Relieving factors: nothing Associated Symptoms: Reports constipation, GI cramping, diarrhea, nausea and vomiting; Denies chills, dysuria, fever(s), hematochezia, hematemesis and melena Related Data Home Medications ?Medication ?Instructions ?Recorded ?Confirmed acetaminophen 325 mg tablet 650 mg PO QID PRN Fever Or Pain 03/30/24 09/25/24 (Tylenol) vitamins with calcium 1 tab PO DAILY 09/19/24 09/25/24 no.72-iron 27 mg-folic acid 1 mg tablet ( Vitamins Plus Low Iron) omeprazole 20 mg capsule,delayed 20 mg PO DAILY 09/25/24 release ondansetron 4 mg disintegrating 4 mg PO TID 09/25/24 0 09/25/24 tablet Previous Rx's ?Medication ?Instructions ?Recorded promethazine 25 mg rectal 25 mg AL Q6H PRN nausea and 09/17/24 suppository vomiting #12 ea polyethylene glycol 3350 17 gram 17 g PO DAILY 5 oral powder packet potassium chloride 20 mEq 20 meq PO BID #10 tabs 09/25 tablet,extended release (K-Tab) dicyclomine 20 mg tablet 20 mg PO TID PRN abdominal p ain 11/17/24 #30 tabs Allergies Allergy/AdvReac Type Severity Reaction Status Date / Time No Known Allergies Allergy Verified 10/08/24 17:28 Review of Systems 2 Const: Denies: fever(s), chills, body aches, fatigue or malaise Card: Denies: chest pain Resp: Denies: dyspnea GI: Reports: abdominal pain, nausea, vomiting, diarrhea, constipation and GI cramping; Denies: hematemesis, hematochezia or melena : Denies: flank pain, difficulty voiding, dysuria, urinary frequency, urinary urgency or urinary hesitancy Musc: Denies: neck pain, back pain, extremity pain, extremity swelling, joint pain, joint swelling or joint redness Skin/Breast: Denies: rash Neuro: Denies: headache(s), numbness in extremities, weakness in extremities, sensory changes or dizziness PFSH ED 2 PFSH: Medical History Alcohol abuse, episodic drinking behavior Generalized anxiety disorder 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 Alcohol abuse, episodic Cannabis dependence, uncomplicated Depression Anxiety Surgical History S/P tonsillectomy S/P adenoidectomy Family History Mother Psychiatric illness Depression, anxiety Cancer Cervical Anemia Father Psychiatric illness Depression Brother Psychiatric illness Depression, anxiety Sister Psychiatric illness Depression, anxiety Grandmother Cancer Breast Social History Smoking and tobacco/nicotine status: never used tobacco/nicotine Second hand smoke exposure: Yes Alcohol intake: never Substance/Drug Use: former Adopted: No Caregiver/support person: Yes Lives independently: Yes Marital status: Single Number of children: 3 Number of grandchildren: 0 Highest education level completed: 11th Grade service: No Current occupational status: unemployed Current occupational exposures/hazards: No Physical Exam 2 Const: COMMON NORMALS: no acute distress, average body habitus, patient oriented x3, no limitations, healthy appearing, alert and well nourished G ENERAL APPEARANCE: cooperative ORIENTATION/CONSCIOUSNESS: Yes awake, Yes oriented to person, Yes oriented to place and Yes oriented to time Eye: COMMON NORMALS: no scleral icterus Resp: COMMON NORMALS: normal respiratory effort and clear to auscultation bilaterally AUSCULTATION: clear to auscultation bilaterally Cardio: COMMON NORMALS: regular rate and regular rhythm RATE: regular rate RHYTHM: regular rhythm GI: COMMON NORMALS: Normal to inspection, nondistended, normoactive bowel sounds present, Soft to palpation, non-tender, No hepatosplenomegaly present and no masses INSPECTION: Yes normal to inspection PALPATION: Yes Soft to palpation and Yes No hepatosplenomegaly present : COMMON NORMALS: Yes no CVA tenderness BLADDER/KIDNEY EXAM: Yes no CVA tenderness Back/Pelvis: COMMON NORMALS: no CVA tenderness, thoracic and lumbar spine normal to inspection, no thoracic nor lumbar tenderness and thoraco-lumbar ROM normal Extremity: COMMON NORMALS: normal to inspection GENERAL: Yes normal exam except as noted Neuro: BOBY COMA SCALE: document GCS findings [place] coma scale eye opening: Spontaneous [place] coma scale verbal response: Orientated [place] coma scale motor response: Obey commands Boby coma scale total score: 15 COMMON NORMALS: patient oriented x3, moves all extremities, no focal motor deficits and no sensory deficits noted SENSORIUM/ORIENTATION: Yes alert, Yes oriented to person, Yes oriented to place and Yes oriented to time Skin: COMMON NORMALS: no rashes or lesions noted GENERAL SKIN EXAM: no rashes or lesions noted Course 2 Vital Signs: Vital signs: Vital Signs Temperature 98.0 F 11/17/24 16:45 Pulse Rate 113 H 11/17/24 16:45 Respiratory Rate 17 11/17/24 16:45 Blood Pressure 126/62 11/17/24 16:45 Pulse Oximetry 100 11/17/24 16:45 Oxygen Delivery Me thod Room Air 11/17/24 16:45 MDM - Abdominal Pain Medical Decision Making Patient upon initial presentation and during my examination with her appears in no acute distress. Abdomen is nonsurgical. She was noted initially tachycardic in triage but this resolved at time of my exam. Later during reassessment she was tearful stating her abdomen was cramping again. She states this is the same thing that has been happening over the past 2 months. She does states she has always had a sensitive stomach with lots of previous GI issues. I had originally ordered her some Bentyl which she did not feel like was helping. I later ordered her IV Ativan/Haldol which she did receive. She later alerted nurses that her anxiety was severe and she wanted to be discharged and go home. Patient's blood work overall is nonactionable. Her H&H are stable. Her electrolytes showing chronic hypokalemia. Her kidney functions are normal. LFTs are normal. She is 15 weeks with no vaginal bleeding. Her UA was contaminated. She is not having any UTI-like symptoms. Discussed repeat urine analysis but patient wanted to leave prior to this being completed. Recommend she follow-up with her OB/primary care provider Dr. Reza regarding her symptoms. She was instructed to return immediately to the emergency department for any further concerns she may have. Medical Records I reviewed the patient's medical records. Lab Data I reviewed the patient's lab results. 11/17/24 16:51 11/17/24 16:51 Labs/Radiology: Laboratory Results WBC 6.70 10^3/uL (3.29-11.43) 11/17/24 16:51 RBC 3.75 10^6/uL (3.85-5.65) L 11/17/24 16:51 Hgb 11.20 g/dL (11.27-16.99) L 11/17/24 16:51 Hct 32.8 % (36-47) L 11/17/24 16:51 MCV 87.5 fl (85-98) 11/17/24 16:51 MCH 29.9 pg (27-33) 11/17/24 16:51 MCHC 34.1 g/dL (30-55) 11/17/24 16:51 RDW 12.2 % (12.1-15.1) 11/17/24 16:51 Plt Count 273 10^3/cmm (157-399) 11/17/24 16:51 MPV 9.9 fL (7.4-10.4) 11/17/24 16:51 Neut % (Auto) 80.1 % 11/17/24 16:51 Lymph % (Auto) 15.7 % 11/17/24 16:51 [place] % (Auto) 3.9 % 11/17/24 16:51 Eos % (Auto) 0.1 % 11/17/24 16:51 Baso % (Auto) 0.1 % 11/17/24 16:51 Neut # (Auto) 5.36 10^3/uL (1.8-7.7) 11/17/24 16:51 Lymph # (Auto) 1.1 10^3/uL (0.8-4.8) 11/17/24 16:51 [place] # (Auto) 0.3 10^3/uL (0.2-0.9) 11/17/24 16:51 Eos # (Auto) 0.0 10^3/uL (0.0-0.8) 11/17/24 16:51 Baso # (Auto) 0.0 10^3/uL (0.0-0.1) 11/17/24 16:51 Nucleated RBC % (auto) 0 % 11/17/24 16:51 Nucleated RBCs # 0.0 /100WBC 11/17/24 16:51 Sodium 134 mmol/L (136-145) L 11/17/24 16:51 Potassium 3.2 mmol/L (3.5-5.1) L 11/17/24 16:51 Chloride 98 mmol/L (98-107) 11/17/24 16:51 Carbon Dioxide 23 mmol/L (22-29) 11/17/24 16:51 Anion Gap 16.2 (5-19) 11/17/24 16:51 BUN 5 mg/dL (6-20) L 11/17/24 16:51 Creatinine 0.4 mg/dL (0.5-0.9) L 11/17/24 16:51 GFR Calculation 197.8 mL/min (90-130) H 11/17/24 16:51 Glucose 82 mg/dL (65-115) 11/17/24 16:51 Calculated Osmolality 274 mOsm/kg (285-295) L 11/17/24 16:51 Calcium 9.2 mg/dL (8.5-10.5) 11/17/24 16:51 Total Bilirubin 0.3 mg/dL (0.15-1.2) 11/17/24 16:51 AST 11 U/L (0-32) 11/17/24 16:51 ALT 6 U/L (0-33) 11/17/24 16:51 Alkaline Phosphatase 53 U/L (35-105) 11/17/24 16:51 Total Protein 7.3 g/dL (6.6-8.7) 11/17/24 16:51 Albumin 4.2 g/dL (3.5-5.2) 11/17/24 16:51 Globulin 3.1 g/dL (1.3-4.6) 11/17/24 16:51 Lipase 15 U/L (13-60) 11/17/24 16:51 HCG, Qual Positive (Negative) H 11/17/24 16:51 Urine Color Dark yellow (Yellow) A 11/17/24 17:11 Urine Appearance Cloudy (CLEAR) A 11/17/24 17:11 Urine pH 6.0 (5-7) 11/17/24 17:11 Ur Specific Silt 1.033 (1.005-1.030) H 11/17/24 17:11 Urine Protein 1+ (Negative) A 11/17/24 17:11 Urine Glucose (UA) Negative (Normal) 11/17/24 17:11 Urine Ketones 4+ (Negative) 11/17/24 17:11 Urine Blood 3+ (Negative) A 11/17/24 17:11 Urine Nitrate Negative (Negative) 11/17/24 17:11 Urine Bilirubin Negative (Negative) 11/17/24 17:11 Urine Urobilinogen 1.0 mg/dL (Negative) 11/17/24 17:11 Ur Leukocyte Esterase 1+ (Negative) A 11/17/24 17:11 Urine RBC 11-20 /hpf (0-2) H 11/17/24 17:11 Urine WBC 21-50 /hpf (0-5) H 11/17/24 17:11 Ur Squamous Epith Cells 11-20 /hpf (0-5) H 11/17/24 17:11 Amorphous Sediment Not Reportable 11/17/24 17:11 Urine Bacteria 4+ /hpf (NONE) H 11/17/24 17:11 Hyaline Casts 4.95 /lpf 11/17/24 17:11 Urine Mucus 2+ /hpf 11/17/24 17:11 Urine Yeast 1+ /hpf H 11/17/24 17:11 No radiology studies performed this visit Discharge Plan Discharge Patient Disposition: Home Clinical Impression: Abdominal pain Qualifiers: Abdominal location: generalized Qualified Code(s): R10.84 - Generalized abdominal pain Condition: Stable Prescriptions: New dicyclomine 20 mg tablet 20 mg PO TID PRN (Reason: abdominal pain) Qty: 30 0RF No Action acetaminophen [Tylenol] 325 mg Tablet 650 mg PO QID PRN (Reason: Fever Or Pain) promethazine 25 mg suppository 25 mg AL Q6H PRN (Reason: nausea and vomiting) Qty: 12 0RF Vitamin Plus Low Iron 27 mg iron- 1 mg tablet 1 tab PO DAILY polyethylene glycol 3350 17 gram Powder In Packet 17 g PO DAILY 0RF omeprazole 20 mg capsule,delayed release(DR/EC) 20 mg PO DAILY ondansetron 4 mg tablet,disintegrating 4 mg PO TID potassium chloride [K-Tab] 20 mEq tablet extended release 20 meq PO BID Qty: 10 0RF Discharge Orders: Discharge ED (Routine); Ordered 11/17/24 Ordered By: Peg Segovia Referrals: Florencio Reza MD [Primary Care Provider, Family Practice] Patient Instructions: Abdominal Pain (ED), Patient Portal & [facility] Instructions Activity Restrictions/Additional Instructions: I would like you to follow-up with your OB/primary care provider for further evaluation into symptoms. You are requesting discharge on today's visit due to your anxiety. Print Language: Chinese Coding Level of Care Code ED Field P[employer] Supervisor for Haseeb Phillips
[2024-11-17 17:15] LABS: Alanine Aminotransferase 6 U/L (0-33); Albumin Level 4.2 g/dL (3.5-5.2); Alkaline Phosphatase 53 U/L (35-105); Anion Gap 16.2 (5-19); Aspartate Amino Transferase 11 U/L (0-32); Blood Urea Nitrogen 5 mg/dL (6-20); Calcium 9.2 mg/dL (8.5-10.5); Carbon Dioxide 23 mmol/L (22-29); Chloride 98 mmol/L (98-107); Creatinine Clr Calc Pharmacy 207.8229; Globulin 3.1 g/dL (1.3-4.6); Glucose 82 mg/dL (65-115); Lipase 15 U/L (13-60); Osmolality Calculated 274 mOsm/kg (285-295); Sodium 134 mmol/L (136-145); Total Protein 7.3 g/dL (6.6-8.7)
[2024-11-17 17:21] LABS: Potassium 3.2 mmol/L (3.5-5.1)
[2024-11-17 17:24] LABS: Glucose Urine UA Negative (Normal); Nitrate Urine Negative (Negative)
[2024-11-17 17:29] LABS: Add Urine Microscopic? YES
[2024-11-17 17:49] LABS: Specific Gravity, Urine 1.033 (1.005-1.030)
[2024-11-17] MEDS: LORazepam 1 MG/0.5 ML injection IVP (18:30)
[2024-11-17] MEDS: haloperidol inj 5 mg/mL INJ 1 mL 2.5 MG IVP (18:30)
== END 2024-11-17 19:01 | disposition home or self-care (01) ==
PROVIDERS: Emergency Provider Physician Assistant; PCP Family Medicine
DX: O21.9 Vomiting of pregnancy, unspecified (principal); O26.892 Other specified pregnancy related conditions, second trimester; Z3A.15 15 weeks gestation of pregnancy; R10.84 Generalized abdominal pain
CPT/HCPCS: 36415; 80053; 81001; 83690; 84703; 85025; 96374; 96375; 99284; J1630; J2060; J7030; J9999

== ENCOUNTER 2025-02-05 14:07 | Oncology outpatient (recurring) (ONCR) | payer BC, MEDICAID, SELFPAY | END 2025-02-15 23:59 | disposition home or self-care (01) | PROVIDERS: PCP Family Medicine; Visit Provider Family Medicine | DX: Z53.9 Procedure and treatment not carried out, unspecified reason (principal) ==

== ENCOUNTER 2025-02-16 09:47 | Oncology outpatient (recurring) (ONCR) | payer BC, MEDICAID, SELFPAY | END 2025-03-18 23:59 | disposition home or self-care (01) | PROVIDERS: PCP Family Medicine; Visit Provider Family Medicine | DX: Z53.9 Procedure and treatment not carried out, unspecified reason; O26.899 Other specified pregnancy related conditions, unspecified trimester; Z79.899 Other long term (current) drug therapy | CPT/HCPCS: 96372; J2790 ==